=== PATIENT | male | born 1930 | race Caucasian/White ===

== ENCOUNTER → 2019-10-15 | Outpatient (CLI) | payer MEDICARE, OTHER ==
--- NOTE | 2019-10-15 11:51 | Diagnostic Imaging Report ---
INDICATION: Dysphagia. TECHNIQUE: This study was performed in conjunction with speech pathology. Video fluoroscopy was performed during swallowing of barium of multiple consistencies. The patient ingested thin, nectar, puree, mechanical soft as well as ground meat and cracker consistency. Total of 1 minute and 34 seconds of fluoroscopic time was utilized. FINDINGS: Oral phase is grossly unremarkable. There was flash penetration observed during the swallowing of thin barium. No aspiration was observed. There is normal epiglottic tilt and laryngeal elevation. There is mild residue identified with puree consistency. This did clear after repeated swallows. IMPRESSION: Flash penetration with thin barium but no aspiration. There is mild vallecular residue with puree. This did clear after repeated swallows. Dictated by: Dictated on workstation # [id number]
== END ==
LOC: RAD 10-11 10:25
PROVIDERS: ATTEND Surgery
DX: R13.10 Dysphagia, unspecified (principal)
CPT/HCPCS: 74230

== ENCOUNTER → 2020-02-21 | Outpatient (CLI) | payer MEDICARE, OTHER ==
--- NOTE | 2020-02-21 10:20 | Diagnostic Imaging Report ---
INDICATION: Left hand swelling. TIME OF EXAM: 10:07 AM. FINDINGS: Three views of the left hand were obtained. There is soft tissue swelling along the dorsum of the hand. There is some swelling in the proximal aspect of the 4th finger. The distal radius and ulna appear to be intact. The carpus is intact. There are some degenerative changes at the 1st CMC joint with subchondral cyst formation of the proximal 1st metacarpal. The phalanges appear to be intact. No fractures are seen. IMPRESSION: Degenerative changes and soft tissue swelling. No acute bony abnormality is detected. Dictated by: Dictated on workstation # [id number]
== END ==
LOC: RAD FS 09:57
PROVIDERS: ATTEND Family Medicine
DX: M18.12 Unilateral primary osteoarthritis of first carpometacarpal joint, left hand (principal)
CPT/HCPCS: 73130

== ENCOUNTER 2020-06-08 15:16 | Emergency (ER) | payer MEDICARE, OTHER ==
[~2020-06-08] VITALS: Ht 175.3 cm; Wt 110.0 kg
[2020-06-08 16:26] LABS: HEMATOCRIT 39 % (40-54); HEMOGLOBIN 12.6 G/DL (13.3-17.7); MEAN CORPUSCULAR HEMOGLOBIN 29 PG (25-34); MEAN CORPUSCULAR HGB CONC 32 G/DL (32-36); MEAN CORPUSCULAR VOLUME 91 FL (80-99); MEAN PLATELET VOLUME 10.7 FL (7.4-10.4); PLATELET COUNT 208 10^3/uL (130-400); RED CELL DISTRIBUTION WIDTH 13.7 % (10.0-14.5); WHITE BLOOD COUNT 9.1 10^3/uL (4.3-11.0)
[2020-06-08 16:27] LABS: LYMPHOCYTES % (AUTO) 9 % (12-44); MONOCYTES % (AUTO) 7 % (0-12)
[2020-06-08 16:28] LABS: BASOPHILS % (AUTO) 0 % (0-10); EOSINOPHILS % (AUTO) 0 % (0-10)
[2020-06-08 16:29] LABS: BASOPHILS # (AUTO) 0.1 10^3/uL (0.0-0.1); EOSINOPHILS # (AUTO) 0.1 10^3/uL (0.0-0.3); LYMPHOCYTES # (AUTO) 0.8 X 10^3 (1.0-4.0); MONOCYTES # (AUTO) 0.6 X 10^3 (0.0-1.0); NEUTROPHILS # (AUTO) 7.5 X 10^3 (1.8-7.8); NEUTROPHILS % (AUTO) 84 % (42-75)
--- NOTE | 2020-06-08 16:42 | Diagnostic Imaging Report ---
EXAMINATION: CT head without contrast. TECHNIQUE: Multiple contiguous axial images were obtained through the brain without the use of intravenous contrast. All CT scans use one or more of the following dose optimizing techniques: automated exposure control, MA and/or KvP adjustment based on a patient size and exam type, or iterative reconstruction. HISTORY: Altered mental status. Fever. COMPARISON: None available. FINDINGS: No large acute territorial ischemia, mass, or hemorrhage. No midline shift or mass effect. Decreased attenuation is seen in the periventricular and subcortical white matter. The ventricles and cortical sulci are prominent. The basilar cisterns are patent and unremarkable. The orbits are normal. Paranasal sinuses are normal. Mastoid air cells are clear. No soft tissue abnormality is seen. No osseous lesions or fractures are seen. IMPRESSION: 1. No large acute territorial ischemia, mass, or hemorrhage. 2. Chronic microvascular disease. 3. Generalized parenchymal volume loss. Dictated by: Dictated on workstation # [id number]
--- NOTE | 2020-06-08 16:44 | Diagnostic Imaging Report ---
EXAMINATION: Chest 1 view. HISTORY: Shortness of breath. Fever. Cough. COMPARISON: None available. FINDINGS: Small amount of opacities are seen in the left lung base. No large pleural effusion or pneumothorax is seen. The cardiomediastinal silhouette is normal in size and contour. There is calcified aortic atherosclerotic plaque. No acute osseous abnormality is seen. IMPRESSION: Small amount of atelectasis in the left lung base. No pleural effusion. Dictated by: Dictated on workstation # [id number]
[2020-06-08 16:45] LABS: BUN/CREATININE RATIO 21; CARBON DIOXIDE 28 MMOL/L (21-32); CHLORIDE 93 MMOL/L (98-107); CREATININE SERUM 0.95 MG/DL (0.60-1.30); GFR ESTIMATED > 60; POTASSIUM 4.3 MMOL/L (3.6-5.0); SODIUM 133 MMOL/L (135-145)
[2020-06-08 16:46] LABS: ALANINE AMINOTRANSFERASE 33 U/L (0-55); ALBUMIN 3.8 GM/DL (3.2-4.5); ALKALINE PHOSPHATASE 113 U/L (40-136); BILIRUBIN,TOTAL 0.3 MG/DL (0.1-1.0); CALCIUM 9.2 MG/DL (8.5-10.1); GLUCOSE 222 MG/DL (70-105); MAGNESIUM 1.5 MG/DL (1.6-2.4); TOTAL PROTEIN 6.9 GM/DL (6.4-8.2)
--- OUTSIDE RECORDS SUMMARY | 2020-06-08 16:54 | XMS REPORT ---
Author Author Christopher HEARD Organization [facility] JESSICA VUONG [facility] Address [address] [place] [address] Care Team Providers Care Woven Label Designer Name Role Phone AIDA HEARD Unavailable PROBLEMS Type Condition ICD9-CM Code [id number] Code Onset Dates Condition S tatus SNOMED Code Problem Hypertension I10 Nov, 0 3834 1003 Problem Bladder cancer 188.9 Nov, 0 39 [id number] Problem Fall (on) (from) other stairs and steps, sequela W10.8XXS Jul, 0 Problem Fall (on) (from) other stairs and steps, sequela E880.9 Jul, 0 [id number] Problem Posterolateral cervical muscle strain 847.0 Jul, 0 [id number] Problem Posterolateral cervical muscle strain S16.1XXA Jul, 0 [id number] Problem Benign essential hypertension I10 Active 9447085 Problem Hypertension 401.9 Nov, 0 3834 1003 Problem Type 2 diabetes mellitus wit hout complication, without long-term current use of insulin E11.9 Active [id number] Problem Diabetes mellitus type II, uncontrolled 250.02 Dec, 0 349566684 Problem Severe obesity (BMI 35.0-39.9) with comorbidity 278.01 Sep, 0 769319673 Problem Severe obesity (BMI 35.0-39.9) with comorbidity E6 6.01 Sep, 0 435738210 Problem Bladder cancer C67.9 Nov, 0 39 2433300 Problem Diabetes mellitus type II, uncontrolled E11.65 Dec, 0 [id number] ALLERGIES No Known Allergies ENCOUNTERS Encounter [facility] Date [facility] [address] [place] [address] Dec, BP check Z01.30 [facility] [address] [place] [address] Dec, Type 2 diabetes mellitus without complic ation, without long-term current use of insulin E11.9 and Malaise R53.[address] [address] Dec, Benign essential hypertension I10 ; Type 2 diabetes mellitus without complication, without long-term current use of insulin E11.9 and Malaise R53.81 [facility] [address] [facility] [id number] [address] [place] [phone] Oct, [facility] [address] [facility] [id number] [address] [place] [phone] Sep, [facility] [address] [facility] [id number] [address] [place] [id number] Sep, [facility] [address] [facility] [id number] [address] [place] [phone] Jul, [facility] [address] [facility] [id number] [address] [place] [phone] Jun, IMMUNIZATIONS No Known Immunizations SOCIAL HISTORY Never Assessed REASON FOR VISIT NO ENERGY and HARD TIME BREATHING for about 4 weeks now. CORWIN Rhodes PLAN OF CARE Activity Details Follow Up 3 Months Reason:fu with labs prior VITAL SIGNS Height 70 in 2018-12-28 Weight 257 lbs 2018-12-28 Temperature 98.6 degrees Fahrenheit 2018-12-28 Heart Rate 69 bpm 2018-12-28 Respiratory Rate 24 2018-12-28 Oximetry 96 % 2018-12-28 BMI 36.87 kg/m2 2018-12-28 Blood pressure systolic 124 mmHg 2018-12-28 Blood pressure diastolic 68 mmHg 2018-12-28 MEDICATIONS Medication Instructions Dosage Frequency Start Date End Date Duration S tatus Cardizem 120 MG Orally Once a day 1 capsule 24h Active Metformin HCl 500 MG Orally 2 times a day 1 tablet 12h Active Flomax 0.4 MG Orally Once a day 1 tablet 24h Active RESULTS No Results PROCEDURES No Known procedures INSTRUCTIONS MEDICATIONS ADMINISTERED No Known Medications MEDICAL (GENERAL) HISTORY Type Description Date Medical History type II diabetes Medical History hypertension Surgical History tonsillectomy and adenoidectomy
--- OUTSIDE RECORDS SUMMARY | 2020-06-08 16:54 | XMS REPORT | Continuity of Care Document ---
Author Organization Unknown Address Unknown Phone Unavailable Allergies There is no data. Medications There is no data. Problems Date Dx Coded Attending Type Code Diagnosis Diagnosed By 10/18/2019 GUTIERREZ DO, TO D Ot R13. 10 DYSPHAGIA, UNSPECIFIED 11/03/2019 GUTIERREZ DO, TO D Ot R13. 10 DYSPHAGIA, UNSPECIFIED 11/05/2019 GUTIERREZ DO, TO D Ot R13. 10 DYSPHAGIA, UNSPECIFIED 11/05/2019 GUTIERREZ DO, TO D Ot R13. 10 DYSPHAGIA, UNSPECIFIED 11/09/2019 GUTIERREZ DO, TO D Ot R13. 10 DYSPHAGIA, UNSPECIFIED 02/21/2020 GUTIERREZ DO, TO D Ot R13. 10 DYSPHAGIA, UNSPECIFIED 02/21/2020 GUTIERREZ DO, TO D Ot R13. 10 DYSPHAGIA, UNSPECIFIED 02/21/2020 GUTIERREZ DO, TO D Ot R13. 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 Results Test Result Range TSH - 12/29/18 14:41 TSH 2.41 mIU/L 0.40-4.50 A1C - 12/29/18 14:41 HEMOGLOBIN A1c 7.7 % of total Hgb <5.7 CBC - 03/15/19 12:35 WHITE BLOOD CELL COUNT 7.5 Thousand/uL 3 .8-10.8 RED BLOOD CELL COUNT 4.73 Million/uL 4.2 0-5.80 HEMOGLOBIN 13.6 g/dL 13.2-17.1 HEMATOCRIT 41.4 % 38.5-50.0 MCV 87.5 fL 80.0-100.0 MCH 28.8 pg 27.0-33.0 MCHC 32.9 g/dL 32.0-36.0 RDW 12.7 % 11.0-15.0 PLATELET COUNT 264 Thousand/uL 140-400 MPV 11.6 fL 7.5-12.5 ABSOLUTE NEUTROPHILS 5475 cells/uL 1500- 7800 ABSOLUTE LYMPHOCYTES 1148 cells/uL 850-3 900 ABSOLUTE MONOCYTES 743 cells/uL 200-950 ABSOLUTE EOSINOPHILS 98 cells/uL 15-500 ABSOLUTE BASOPHILS 38 cells/uL 0-200 NEUTROPHILS 73 % NRG LYMPHOCYTES 15.3 % NRG MONOCYTES 9.9 % NRG EOSINOPHILS 1.3 % NRG BASOPHILS 0.5 % NRG TSH - 03/15/19 12:35 TSH 2.52 mIU/L 0.40-4.50 LIPID PANEL - 10/06/19 09:48 CHOLESTEROL, TOTAL 169 mg/dL <200 HDL CHOLESTEROL 40 mg/dL >40 TRIGLYCERIDES 104 mg/dL <150 LDL-CHOLESTEROL 109 mg/dL (calc) NRG CHOL/HDLC RATIO 4.2 (calc) <5.0 NON HDL CHOLESTEROL 129 mg/dL (calc) <13 0 MICROALBUMIN/CREATININE RATIO, URINE - 1 12/07/18 09:48 CREATININE, RANDOM URINE 185 mg/dL 20-32 0 MICROALBUMIN 5.2 mg/dL See Note: MICROALBUMIN/CREATININE RATIO, RANDOM URINE 28 mcg /mg creat <30 CMP - 10/06/19 09:48 GLUCOSE 150 mg/dL 65-99 UREA NITROGEN (BUN) 18 mg/dL 7-25 CREATININE 0.96 mg/dL 0.70-1.11 eGFR NON-AFR. SWISS 71 mL/min/1.73m2 > OR = 60 eGFR 82 mL/min/1.73m2 > OR = 60 BUN/CREATININE RATIO NOT APPLICABLE (calc) 6-22 SODIUM 138 mmol/L 135-146 POTASSIUM 4.3 mmol/L 3.5-5.3 CHLORIDE 97 mmol/L 98-110 CARBON DIOXIDE 34 mmol/L 20-32 CALCIUM 9.0 mg/dL 8.6-10.3 PROTEIN, TOTAL 6.1 g/dL 6.1-8.1 ALBUMIN 3.7 g/dL 3.6-5.1 GLOBULIN 2.4 g/dL (calc) 1.9-3.7 ALBUMIN/GLOBULIN RATIO 1.5 (calc) 1.0-2. 5 BILIRUBIN, TOTAL 0.4 mg/dL 0.2-1.2 ALKALINE PHOSPHATASE 87 U/L 40-115 AST 15 U/L 10-35 ALT 24 U/L 9-46 CBC - 10/06/19 09:48 WHITE BLOOD CELL COUNT 6.6 Thousand/uL 3 .8-10.8 RED BLOOD CELL COUNT 4.52 Million/uL 4.2 0-5.80 HEMOGLOBIN 13.3 g/dL 13.2-17.1 HEMATOCRIT 41.3 % 38.5-50.0 MCV 91.4 fL 80.0-100.0 MCH 29.4 pg 27.0-33.0 MCHC 32.2 g/dL 32.0-36.0 RDW 12.5 % 11.0-15.0 PLATELET COUNT 214 Thousand/uL 140-400 MPV 11.9 fL 7.5-12.5 ABSOLUTE NEUTROPHILS 4554 cells/uL 1500- 7800 ABSOLUTE LYMPHOCYTES 1327 cells/uL 850-3 900 ABSOLUTE MONOCYTES 548 cells/uL 200-950 ABSOLUTE EOSINOPHILS 119 cells/uL 15-500 ABSOLUTE BASOPHILS 53 cells/uL 0-200 NEUTROPHILS 69 % NRG LYMPHOCYTES 20.1 % NRG MONOCYTES 8.3 % NRG EOSINOPHILS 1.8 % NRG BASOPHILS 0.8 % NRG A1C - 10/06/19 09:48 HEMOGLOBIN A1c 8.3 % of total Hgb <5.7 LIPID PANEL - 05/18/20 10:03 CHOLESTEROL, TOTAL 182 mg/dL <200 HDL CHOLESTEROL 52 mg/dL > OR = 40 TRIGLYCERIDES 118 mg/dL <150 LDL-CHOLESTEROL 107 mg/dL (calc) NRG CHOL/HDLC RATIO 3.5 (calc) <5.0 NON HDL CHOLESTEROL 130 mg/dL (calc) <13 0 MICROALBUMIN/CREATININE RATIO, URINE - 0 05/18/20 10:03 CREATININE, RANDOM URINE 22 mg/dL 20-32 0 MICROALBUMIN 0.5 mg/dL See Note: MICROALBUMIN/CREATININE RATIO, RANDOM URINE 23 mcg /mg creat <30 CMP - 05/18/20 10:03 GLUCOSE 240 mg/dL 65-99 UREA NITROGEN (BUN) 29 mg/dL 7-25 CREATININE 0.98 mg/dL 0.70-1.11 eGFR NON-AFR. SWISS 69 mL/min/1.73m2 > OR = 60 eGFR 80 mL/min/1.73m2 > OR = 60 BUN/CREATININE RATIO 30 (calc) 6-22 SODIUM 138 mmol/L 135-146 POTASSIUM 4.4 mmol/L 3.5-5.3 CHLORIDE 95 mmol/L 98-110 CARBON DIOXIDE 29 mmol/L 20-32 CALCIUM 9.8 mg/dL 8.6-10.3 PROTEIN, TOTAL 6.7 g/dL 6.1-8.1 ALBUMIN 4.0 g/dL 3.6-5.1 GLOBULIN 2.7 g/dL (calc) 1.9-3.7 ALBUMIN/GLOBULIN RATIO 1.5 (calc) 1.0-2. 5 BILIRUBIN, TOTAL 0.5 mg/dL 0.2-1.2 ALKALINE PHOSPHATASE 105 U/L 35-144 AST 12 U/L 10-35 ALT 20 U/L 9-46 CBC - 05/18/20 10:03 WHITE BLOOD CELL COUNT 8.3 Thousand/uL 3 .8-10.8 RED BLOOD CELL COUNT 5.00 Million/uL 4.2 0-5.80 HEMOGLOBIN 14.5 g/dL 13.2-17.1 HEMATOCRIT 45.8 % 38.5-50.0 MCV 91.6 fL 80.0-100.0 MCH 29.0 pg 27.0-33.0 MCHC 31.7 g/dL 32.0-36.0 RDW 12.9 % 11.0-15.0 PLATELET COUNT 233 Thousand/uL 140-400 MPV 11.6 fL 7.5-12.5 ABSOLUTE NEUTROPHILS 5852 cells/uL 1500- 7800 ABSOLUTE LYMPHOCYTES 1619 cells/uL 850-3 900 ABSOLUTE MONOCYTES 672 cells/uL 200-950 ABSOLUTE EOSINOPHILS 108 cells/uL 15-500 ABSOLUTE BASOPHILS 50 cells/uL 0-200 NEUTROPHILS 70.5 % NRG LYMPHOCYTES 19.5 % NRG MONOCYTES 8.1 % NRG EOSINOPHILS 1.3 % NRG BASOPHILS 0.6 % NRG A1C - 05/18/20 10:03 HEMOGLOBIN A1c 10.4 % of total Hgb <5.7 SPECIMEN INTEGRITY COMPROMISED - 0 10:03 SPECIMEN INTEGRITY COMPROMISED NRG Complete blood count (CBC) with automate d white blood cell (WBC) differential - 06/08/20 15:55 Blood leukocytes automated count (number/volume) 9.1 10*3/uL 4.3-11.0 Blood erythrocytes automated count (number/volume) 4.32 10*6/uL 4.35-5.85 Venous blood hemoglobin measurement (mass/volume) 12.6 g/dL 13.3-17.7 Blood hematocrit (volume fraction) 39 % 40-54 Automated erythrocyte mean corpuscular volume 91 [ foz_us] 80-99 Automated erythrocyte mean corpuscular h emoglobin (mass per erythrocyte) 29 pg 25-34 Automated erythrocyte mean corpuscular h emoglobin concentration measurement (mass/volume) 32 g/dL 32-36 Automated erythrocyte distribution width ratio 13. 7 % 10.0- 14.5 Automated blood platelet count (count/volume) 208 10*3/uL 130-400 Automated blood platelet mean volume measurement 10.7 [foz_us] 7.4-10.4 Automated blood neutrophils/100 leukocytes 84 % 42-75 Automated blood lymphocytes/100 leukocytes 9 % 12-44 Blood monocytes/100 leukocytes 7 % 0-12 Automated blood eosinophils/100 leukocytes 0 % 0-10 Automated blood basophils/100 leukocytes 0 % 0-10 Blood neutrophils automated count (number/volume) 7.5 10*3 1.8-7.8 Blood lymphocytes automated count (number/volume) 0.8 10*3 1.0-4.0 Blood monocytes automated count (number/volume) 0. 6 10*3 0.0-1.0 Automated eosinophil count 0.1 10*3/uL 0 .0-0.3 Automated blood basophil count (count/volume) 0.1 10*3/uL 0.0-0.1 Blood lactic acid measurement (moles/vol ume) - 06/08/20 15:55 Blood lactic acid measurement (moles/volume) 3.34 mmol/L 0.50-2.00 Comprehensive metabolic panel - 06/08/20 15:55 Serum or plasma sodium measurement (moles/volume) 133 mmol/L 135-145 Serum or plasma potassium measurement (moles/volume) 4.3 mmol/L 3.6-5.0 Serum or plasma chloride measurement (moles/volume) 93 mmol/L 98-107 Carbon dioxide 28 mmol/L 21-32 Serum or plasma anion gap determination (moles/volume) 12 mmol/L 5-14 Serum or plasma urea nitrogen measurement (mass/volume ) 20 mg/dL 7-18 Serum or plasma creatinine measurement (mass/volume) 0.95 mg/dL 0.60-1.30 Serum or plasma urea nitrogen/creatinine mass ratio 21 NRG Serum or plasma creatinine measurement w ith calculation of estimated glomerular filtration rate > NRG Serum or plasma glucose measurement (mass/volume) 222 mg/dL 70-105 Serum or plasma calcium measurement (mass/volume) 9.2 mg/dL 8.5-10.1 Serum or plasma total bilirubin measurement (mass/volu me) 0.3 mg/dL 0.1-1.0 Serum or plasma alkaline phosphatase abdirashid surement (enzymatic activity/volume) 113 U/L 40-136 Serum or plasma aspartate aminotransfera se measurement (enzymatic activity/volume) 30 U/L 5-34 Serum or plasma alanine aminotransferase measurement (enzymatic activity/volume) 33 U/L 0-55 Serum or plasma protein measurement (mass/volume) 6.9 g/dL 6.4-8.2 Serum or plasma albumin measurement (mass/volume) 3.8 g/dL 3.2-4.5 CALCIUM CORRECTED 9.4 mg/dL 8.5-10.1 Magnesium - 06/08/20 15:55 Magnesium 1.5 mg/dL 1.6-2.4 TROPONIN I FS - 06/08/20 15:55 TROPONIN I FS < 0.30 <0.30 CRP FS - 06/08/20 15:55 CRP FS 2.68 mg/dL <0.50 PROBNP FS - 06/08/20 15:55 PROBNP FS 580.8 pg/mL <75.0 Encounters ACCT No. Visit Date/Time Discharge Status Pt. Type Provider Facility Loc./Unit Complaint [id number] 05/30/2020 10:30:00 05/30/2020 23:59:5 9 CLS Outpatient AIDA HEARD [facility] [id number] 05/18/2020 09:15:00 Document Registration [id number] 10/06/2019 09:00:00 Document Registration [id number] 03/15/2019 15:30:00 Document Registration [id number] 12/29/2018 14:00:00 Document Registration [id number] 02/21/2020 09:57:00 020 23:59:59 CLS Outpatient AIDA HEARD MD [facility] RAD FS M79.89 [id number] 10/15/2019 11:03:00 019 23:59:59 CLS Outpatient TO GUTIERREZ DO [facility] RAD DYSPHAGIA [id number] 06/08/2020 16:29:00 Document Registration
--- OUTSIDE RECORDS SUMMARY | 2020-06-08 16:54 | XMS REPORT ---
Author Author Christopher SANTANA [facility] Address [address] [place] [address] Care Team Providers Care Road Mixer Operator Name Role Phone TORI SANTANA Unavailable PROBLEMS Unknown Problems ALLERGIES No Information ENCOUNTERS Encounter Location Date Diagnosis [facility] [address] [facility] [id number] [address] [place] [address] Jun, IMMUNIZATIONS No Known Immunizations SOCIAL HISTORY Never Assessed REASON FOR VISIT Eye exam PLAN OF CARE VITAL SIGNS MEDICATIONS Unknown Medications RESULTS No Results PROCEDURES No Known procedures INSTRUCTIONS MEDICATIONS ADMINISTERED No Known Medications
[2020-06-08] MEDS ORDERED: NS IV 1000 ML 1,000 ML IV STA ×2 (17:14→18:46)
--- NOTE | 2020-06-08 17:28 | ED General ---
General Chief Complaint: Respiratory Problems Stated Complaint: PNEUMONIA,FATIGUE Nursing Triage Note: Patient's reports patient has had a cough and shortness of breath for several days. States she took patient to walk in care today and they diagnosed him with pneumonia and told her to take him to the ER. Nursing Sepsis Screen: Possible Severe Sepsis Risk Source of Information: Patient, Family History of Present Illness Date Seen by Provider: Jun 08, 2020 Time Seen by Provider: 15:21 Initial Comments 89-year-old male presenting with his to the emergency department by private vehicle. He has been having some cough and shortness of breath for the last several days. He has a low-grade fever today as well. He was seen and walk in clinic today and was told that he likely has pneumonia and was sent to the em ergency department. He has been more fatigued and slightly confused today. He is coughing but not usually coughing anything up. He has some generalized weakness as well. He has not been wanting to eat and drink as much as usual. He has no recent travel and no known exposure to anyone with Covid-19. Allergies and Home Medications Allergies Coded Allergies: No Known Drug Allergies (Unverified , 06/08/20) Patient Home Medication List Home Medication List Reviewed: Yes Review of Systems Review of Systems Constitutional: chills, fever, malaise, weakness (general) EENTM: hoarseness, nose congestion; No epistaxis Respiratory: cough, dyspnea on exertion; No hemoptysis; phlegm, short of breath; No stridor Cardiovascular: No chest pain Gastrointestinal: No nausea, No vomiting Genitourinary: decreased output Musculoskeletal: muscle weakness (general) Skin: No rash Psychiatric/Neurological: Weakness (general) Past Rlkkblb-Tyxgzk-Rilglk Hx Past Med/Social Hx: Reviewed Nursing Past Med/Soc Hx, Reviewed and Corrections made Patient Social History Alcohol Use: Denies Use Recreational Drug Use: No Smoking Status: Unknown if Ever Smoked 2nd Hand Smoke Exposure: No Recent Foreign Travel: No Contact w/Someone Who Travel: No Recent Infectious Disease Expo: No Recent Hopitalizations: No Physical Abuse: No Sexual Abuse: No Mistreated: No Fear: No Seasonal Allergies Seasonal Allergies: No Past Medical History Surgeries: No Respiratory: No Cardiac: Yes Hypertension Neurological: No Genitourinary: No Gastrointestinal: No Musculoskeletal: No Endocrine: Yes Diabetes, Non-Insulin dep HEENT: No Cancer: Yes Bladder Psychosocial: No Integumentary: No Blood Disorders: No Physical Exam Vital Signs Vital Signs - First Documented 06/08/20 06/08/20 15:38 15:40 Temp 38.4 Pulse 108 Resp 36 B/P (MAP) 145/73 (97) Pulse Ox 92 O2 Delivery Room Air O2 Flow Rate 2.00 Capillary Refill : Less Than 3 Seconds Height, Weight, BMI Height: '" Weight: lbs. oz. kg; 35.00 BMI Method: General Appearance: WD/WN HEENT: PERRL/EOMI, Other (slightly dry mucous membranes) Neck: Non Tender, Supple Respiratory: Chest Non Tender, Accessory Muscle Use, Crackles (bases), Decreased Breath Sounds, Other (tachypnea with poor inspiratory effort and poor air movement) Cardiovascular: Normal Peripheral Pulses, Tachycardia Gastrointestinal: No Pulsatile Mass, Non Tender, Soft, Abnormal Bowel Sounds (hypoactive) Rectal: Deferred Extremity: Normal Range of Motion, Non Tender, No Calf Tenderness, Pedal Edema (1+ BLE) Neurologic/Psychiatric: Alert; No Oriented x3 (oriented to self only); 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 as Tested Skin: Normal Color, Warm/Dry Focused Exam Lactate Level 06/08/20 15:55: Lactic Acid Level 3.34*H 06/08/20 17:50: Lactic Acid Level 2.87*H Lactic Acid Level Laboratory Tests Test 06/08/20 17:50 Lactic Acid Level 2.87 MMOL/L (0.50-2.00) *H Progress/Results/Core Measures Suspected Sepsis Recent Fever Within 48 Hours: Yes Infection Criteria Present: Suspected New Infection New/Unexplained Altered Menta: No Sepsis Screen: Possible Severe Sepsis Risk SIRS Temperature: Pulse: 108 Respiratory Rate: 36 Laboratory Tests 06/08/20 15:55: White Blood Count 9.1 Blood Pressure 145 /73 Mean: 97 06/08/20 15:55: Lactic Acid Level 3.34*H 06/08/20 17:50: Lactic Acid Level 2.87*H Laboratory Tests 06/08/20 15:55: Creatinine 0.95, Platelet Count 208, Total Bilirubin 0.3 Results/Orders Lab Results Laboratory Tests Test 06/08/20 15:55 06/08/20 17:50 06/08/20 18:15 Range/Units White Blood Count 9.1 4.3-11.0 10^3/uL Red Blood Count 4.32 L 4.35-5.85 10^6/uL Hemoglobin 12.6 L 13.3-17.7 G/DL Hematocrit 39 L 40-54 % Mean Corpuscular Volume 91 80-99 FL Mean Corpuscular Hemoglobin 29 25-34 PG Mean Corpuscular Hemoglobin Concent 32 32-36 G/DL Red Cell Distribution Width 13.7 10.0-14.5 % Platelet Count 208 130-400 10^3/uL Mean Platelet Volume 10.7 H 7.4-10.4 FL Neutrophils (%) (Auto) 84 H 42-75 % Lymphocytes (%) (Auto) 9 L 12-44 % Monocytes (%) (Auto) 7 0-12 % Eosinophils (%) (Auto) 0 0-10 % Basophils (%) (Auto) 0 0-10 % Neutrophils # (Auto) 7.5 1.8-7.8 X 10^3 Lymphocytes # (Auto) 0.8 L 1.0-4.0 X 10^3 Monocytes # (Auto) 0.6 0.0-1.0 X 10^3 Eosinophils # (Auto) 0.1 0.0-0.3 10^3/uL Basophils # (Auto) 0.1 0.0-0.1 10^3/uL Sodium Level 133 L 135-145 MMOL/L Potassium Level 4.3 3.6-5.0 MMOL/L Chloride Level 93 L 98-107 MMOL/L Carbon Dioxide Level 28 21-32 MMOL/L Anion Gap 12 5-14 MMOL/L Blood Urea Nitrogen 20 H 7-18 MG/DL Creatinine 0.95 0.60-1.30 MG/DL Estimat Glomerular Filtration Rate > 60 BUN/Creatinine Ratio 21 Glucose Level 222 H 70-105 MG/DL Lactic Acid Level 3.34 *H 2.87 *H 0.50-2.00 MMOL/L Calcium Level 9.2 8.5-10.1 MG/DL Corrected Calcium 9.4 8.5-10.1 MG/DL Magnesium Level 1.5 L 1.6-2.4 MG/DL Total Bilirubin 0.3 0.1-1.0 MG/DL Aspartate Amino Transf (AST/SGOT) 30 5-34 U/L Alanine Aminotransferase (ALT/SGPT) 33 0-55 U/L Alkaline Phosphatase 113 40-136 U/L Troponin I < 0.30 <0.30 NG/ML C-Reactive Protein 2.68 H <0.50 MG/DL Pro-B-Type Natriuretic Peptide 580.8 H <75.0 PG/ML Total Protein 6.9 6.4-8.2 GM/DL Albumin 3.8 3.2-4.5 GM/DL Urine Color PALE YELLOW Urine Clarity CLEAR Urine pH 6.0 5-9 Urine Specific [place] 1.010 L 1.016-1.022 Urine Protein NEGATIVE NEGATIVE Urine Glucose (UA) TRACE H NEGATIVE Urine Ketones NEGATIVE NEGATIVE Urine Nitrite NEGATIVE NEGATIVE Urine Bilirubin NEGATIVE NEGATIVE Urine Urobilinogen 0.2 < = 1.0 MG/DL Urine Leukocyte Esterase NEGATIVE NEGATIVE Urine RBC (Auto) NEGATIVE NEGATIVE Urine RBC NONE /HPF Urine WBC 0-2 /HPF Urine Squamous Epithelial Cells NONE /HPF Urine Crystals NONE /LPF Urine Bacteria NEGATIVE /HPF Urine Casts NONE /LPF Urine Mucus NEGATIVE /LPF Urine Culture Indicated NO My Orders Orders - JAYNA DOLL MD Cbc With Automated Diff (06/08/20 15:57) Comprehensive Metabolic Panel (06/08/20 15:57) Blood Culture (06/08/20 15:57) Chest 1 View Ap/Pa Only (06/08/20 15:57) Magnesium (06/08/20 15:57) Ekg Tracing (06/08/20 15:57) O2 (06/08/20 15:57) Ed Iv/Invasive Line Start (06/08/20 15:57) Sputum Culture (06/08/20 15:57) Monitor-Rhythm Ecg Trace Only (06/08/20 15:57) Crp Fs (06/08/20 15:57) Lactic Acid Analyzer (06/08/20 15:57) Ct Head Wo (06/08/20 15:57) Oxygen-Administer DAILY (06/08/20 15:57) Troponin I Fs (06/08/20 16:05) Probnp Fs (06/08/20 16:05) Ns Iv 1000 Ml (Sodium Chloride 0.9%) (06/08/20 17:14) Ua Culture If Indicated (06/08/20 17:14) Ceftriaxone For Iv Use (Rocephin For I (06/08/20 17:30) Azithromycin Injection (Zithromax Inject (06/08/20 17:30) Ns Iv 1000 Ml (Sodium Chloride 0.9%) (06/08/20 18:46) Coronavirus Sars-Cov-2 So 2019 (06/08/20 19:23) Medications Given in ED Current Medications Medications Dose Ordered Sig/Inocencia Route Start Time Stop Time Status Last Admin Dose Admin Azithromycin 500 mg/Sodium Chloride 250 ml @ 250 mls/hr ONCE ONCE IV 06/08/20 17:30 06/08/20 18:29 DC 06/08/20 18:13 250 MLS/HR Ceftriaxone Sodium 1000 mg/ Sterile Water 10 ml @ 200 mls/hr ONCE ONCE IV 06/08/20 17:30 06/08/20 17:32 DC 06/08/20 18:13 200 MLS/HR Vital Signs/I&O 06/08/20 06/08/20 06/08/20 06/08/20 15:38 15:40 18:58 20:32 Temp 38.4 37.2 Pulse 108 90 Resp 36 24 B/P (MAP) 145/73 (97) 171/75 Pulse Ox 92 96 95 O2 Delivery Room Air Nasal Cannula Nasal Cannula O2 Flow Rate 2.00 2.00 Capillary Refill : Less Than 3 Seconds Blood Pressure Mean: 97 Progress Note #1: Progress Note check labs, blood cultures with lactic acid, CXR, ECG, with his decreased mental status will check CT head. Give IVF for hydration, supplemental oxygen for his tachypnea and hypoxia. Covid swab as he is possible Covid patient. Progress Note #2: Time: 17:29 Progress Note Lab shows he has elevated Lactic acid as well as atelectasis vs developing infiltrate in left lung base. Based on his clinical exam of fever, hypoxia, mental status change and developing change on CXR will treat for presumed pneumonia and consider him a Covid patient until proven negative. D/w Dr. Valdivia senior production supervisor for [facility] about admit to [facility] in [place] and she accepted him for admit to ICU. Progress Note #3: Time: 18:47 Progress Note Call placed to [facility] transfer center as the family of the patient requests he go there instead of going to [facility]. [address] Dr. Ackerman is the accepting hospitalist for the pt to come to [facility] as a Sepsis, Pneumonia patient with possible Covid. ECG Initial ECG Impression Date: Jun 08, 2020 Initial ECG Impression Time: 16:12 Initial ECG Rate: 105 Initial ECG Comparisson: No Previous ECG Available Comment Sinus tachycardia with a heart rate of 105 bpm. Right bundle-branch block. DC interval 145 ms. QT interval 394 ms with a QTc interval [address] elevation. No prior tracing immediately available for comparison. Diagnostic Imaging Diagonstic Imaging: Xray Plain Films/CT/US/NM/MRI: chest Comments [facility] [place] NAME: WILMER JIMENEZ [facility] REC#: [id number] PT STATUS: REG ER : 1930 PHYSICIAN: JAYNA DOLL MD ADMIT DATE: 06/08/20/ER FS Signed Date of Exam:06/08/20 CHEST 1 VIEW AP/PA ONLY EXAMINATION: Chest 1 view. HISTORY: Shortness of breath. Fever. Cough. COMPARISON: None available. FINDINGS: Small amount of opacities are seen in the left lung base. No large pleural effusion or pneumothorax is seen. The cardiomediastinal silhouette is normal in size and contour. There is calcified aortic atherosclerotic plaque. No acute osseous abnormality is seen. IMPRESSION: Small amount of atelectasis in the left lung base. No pleural effusion. Dictated by: Dictated on workstation # [id number] Dict: 06/08/20 1640 Trans: 06/08/20 1647 [facility] [id number] Interpreted by: NIKITA HUNTER DO Electronically signed by: NIKITA HUNTER DO 06/08/20 1647 Diagonstic Imaging: CT Plain Films/CT/US/NM/MRI: head Comments [facility] [place] [place] NAME: WILMER JIMENEZ [facility] REC#: [id number] PT STATUS: REG ER : 1932 PHYSICIAN: JAYNA DOLL MD ADMIT DATE: 06/08/20/ER FS Signed Date of Exam:06/08/20 CT HEAD WO EXAMINATION: CT head without contrast. TECHNIQUE: Multiple contiguous axial images were obtained through the brain without the use of intravenous contrast. All CT scans use one or more of the following dose optimizing techniques: automated exposure control, MA and/or KvP adjustment based on a patient size and exam type, or iterative reconstruction. HISTORY: Altered mental status. Fever. COMPARISON: None available. FINDINGS: No large acute territorial ischemia, mass, or hemorrhage. No midline shift or mass effect. Decreased attenuation is seen in the periventricular and subcortical white matter. The ventricles and cortical sulci are prominent. The basilar cisterns are patent and unremarkable. The orbits are normal. Paranasal sinuses are normal. Mastoid air cells are clear. No soft tissue abnormality is seen. No osseous lesions or fractures are seen. IMPRESSION: 1. No large acute territorial ischemia, mass, or hemorrhage. 2. Chronic microvascular disease. 3. Generalized parenchymal volume loss. Dictated by: Dictated on workstation # [id number] Dict: 06/08/20 1639 Trans: 06/08/20 1647 [id number] Interpreted by: NIKITA HUNTER DO Electronically signed by: NIKITA HUNTER DO 06/08/20 1647 Critical Care Note Critical Care Total Time (minutes) 60 minutes Progress The total of 60 minutes time was spent in direct care of the patient. This time was spent obtaining history from the patient as well as his medical records and family, ordering labs and reviewing results, ordering interventions and monitor ing response, ordering imaging and reviewing results, discussion with consultants, reviewing testing with patient and family, documentation in the chart. Departure Impression Primary Impression: Sepsis Qualified Codes: A41.9 - Sepsis, unspecified organism Additional Impressions: Community acquired pneumonia Qualified Codes: J18.9 - Pneumonia, unspecified organism Hypoxia Disposition: XF [facility] Condition: Critical Transfer Transfer Reason: Patient preference Time Spoke to Accepting Phy: 19:39 Transfer Progress Notes After making arrangements to transfer the patient to [facility] in [place], the patient's family requested that he be transferred to [facility] instead. At 184 I contacted the [facility] transfer Center. I gave them the information about the patient and at 193 they called back with a bed assignment and hospitast, Dr. Ackerman. Transfer Facility: [facility] Method of Transfer: EMS Departure-Patient Inst. Referrals: AIDA HEARD MD (PCP/Family) Primary Care Physician JAYNA DOLL MD Jun 08, 2020 17:28
[2020-06-08] MEDS ORDERED: AZITHROMYCIN INJECTION 500 MG in NS (IVPB) 250 ML IV ONE (17:30)
[2020-06-08] MEDS ORDERED: cefTRIAXone FOR IV USE 1,000 MG in WATER (STERILE) FOR INJECTION 10 ML IV ONE (17:30)
[2020-06-08 18:40] LABS: BACTERIA,URINE NEGATIVE /HPF; BILIRUBIN,URINE NEGATIVE (NEGATIVE); CLARITY,URINE CLEAR; COLOR,URINE PALE YELLOW; GLUCOSE, URINE (UA) TRACE (NEGATIVE); KETONES,URINE NEGATIVE (NEGATIVE); LEUKOCYTE ESTERASE ,URINE NEGATIVE (NEGATIVE); NITRITE,URINE NEGATIVE (NEGATIVE); PROTEIN,URINE NEGATIVE (NEGATIVE); WBC,URINE 0-2 /HPF
[2020-06-08] MEDS ORDERED: TETANUS,DIPTH,PERTUSS P/F (BOOSTRIX) 0.5 ML VIAL IM ONE (18:45)
[2020-06-08 20:32] VITALS: BP 171/75
== END 2020-06-08 20:32 | disposition short-term general hospital (02) ==
LOC: EDUNIT# 15:16 → ER FS 15:17
DX: A41.9 Sepsis, unspecified organism (principal); J18.9 Pneumonia, unspecified organism; R09.02 Hypoxemia; I10 Essential (primary) hypertension; E11.9 Type 2 diabetes mellitus without complications; Z20.828 Contact with and (suspected) exposure to other viral communicable diseases
CPT/HCPCS: 36415; 51702; 70450; 71045; 80053; 81000; 83605; 83735; 83880; 84484; 85025; 86141; 87040; 93005; 93041; 99291; U0002; 87635

== ENCOUNTER 2020-11-14 15:36 | Emergency (ER) | payer MEDICARE, OTHER ==
--- NOTE | 2020-11-14 15:55 | ED General ---
General Stated Complaint: INGESTED TOXIC CLEANING SUBSTANCE Source of Information: Patient History of Present Illness Date Seen by Provider: Nov 14, 2020 Time Seen by Provider: 15:55 Initial Comments Patient presents via private vehicle, with his concerned that he had possibly eaten a toilet bowl drum cleaner wafer/ disc. Presents with a blue round substance without any bite or teeth cortes and completely intact, one side slightly wet. Patient without complaint, other than he is asking if we can give him a wheelchair and trade in his walker. Alert, no distress. Allergies and Home Medications Allergies Coded Allergies: No Known Drug Allergies (Unverified , 06/08/20) Patient Home Medication List Home Medication List Reviewed: Yes Review of Systems Review of Systems Constitutional: No chills, No fever, No malaise Respiratory: No cough, No short of breath Cardiovascular: No chest pain, No edema, No palpitations Gastrointestinal: No abdominal pain, No loss of appetite, No nausea, No vomiting Musculoskeletal: no symptoms reported Psychiatric/Neurological: Denies Depressed, Denies Seizure Past Ivxlhne-Ygqilz-Sgbshh Hx Past Med/Social Hx: Reviewed Nursing Past Med/Soc Hx Patient Social History 2nd Hand Smoke Exposure: No Recent Hopitalizations: No Seasonal Allergies Seasonal Allergies: No Past Medical History Surgeries: No Respiratory: No Cardiac: Yes Hypertension Neurological: No Genitourinary: No Gastrointestinal: No Musculoskeletal: No Endocrine: Yes Diabetes, Non-Insulin dep HEENT: No Cancer: Yes Bladder Psychosocial: No Integumentary: No Blood Disorders: No Physical Exam Vital Signs Vital Signs - First Documented 11/14/20 15:45 Temp 36.8 Pulse 66 Resp 22 B/P (MAP) 151/52 (85) Pulse Ox 94 Capillary Refill : Height, Weight, BMI Height: '" Weight: lbs. oz. kg; 35.00 BMI Method: General Appearance: No Apparent Distress, WD/WN HEENT: PERRL/EOMI, Normal ENT Inspection Neck: Non Tender, Supple Respiratory: Chest Non Tender, Lungs Clear, Normal Breath Sounds, No Accessory Muscle Use, No Respiratory Distress Cardiovascular: Regular Rate, Rhythm, No Edema, No Gallop Gastrointestinal: Non Tender, Soft Back: Normal Inspection, No CVA Tenderness Extremity: Normal Capillary Refill, Normal Inspection, Non Tender Neurologic/Psychiatric: Alert, Oriented x3, No Motor/Sensory Deficits, Normal Mood/Affect Skin: Normal Color, Warm/Dry Progress/Results/Core Measures Suspected Sepsis SIRS Temperature: Pulse: Respiratory Rate: Blood Pressure / Mean: Results/Orders Vital Signs/I&O 11/14/20 11/14/20 15:45 16:49 Temp 36.8 Pulse 66 57 Resp 22 20 B/P (MAP) 151/52 (85) 123/50 Pulse Ox 94 99 Capillary Refill : Progress Note : Progress Note Called PCP's office and talked to Dr Bergman's nurse regarding getting Home Health eval to this patients home [place]. She states they have sent Home Health to his home multiple times and each time they refuse evaluation and send them off. They are aware and will see pt in the clinic. explained todays concern without evidence that he "ate the blue bathroom mint" as it is only wet on one side and completely intact. no further evaluation necessary. Patient alert and oriented without any complaint. Departure Impression Primary Impression: General medical exam Disposition: 01 HOME, SELF-CARE Condition: Stable Departure-Patient Inst. Decision time for Depature: 16:08 Referrals: AIDA BERGMAN MD (PCP/Family) Primary Care Physician Patient Instructions: Chemical Ingestion (DC) Add. Discharge Instructions: Please call Dr Bergman's office to ask about getting a "Home health services evaluation" Avoid ingestion of common household attendant honor bar and chemicals. There is no clinical evidence today that you have ingested something toxic. See Dr Bergman in <1 week to discuss THIVENIRIS COUGHLIN DO Nov 14, 2020 15:55
[2020-11-14 16:49] VITALS: BP 123/50
== END 2020-11-14 16:49 | disposition home or self-care (01) ==
LOC: EDUNIT# 15:36 → ER FS 15:38
DX: Z00.00 Encounter for general adult medical examination without abnormal findings (principal)
CPT/HCPCS: 99281

== ENCOUNTER 2021-01-26 20:23 | Emergency (ER) | payer MEDICARE, OTHER ==
[~2021-01-26] VITALS: Ht 182.9 cm; Wt 110.2 kg
[2021-01-26 20:58] LABS: HEMATOCRIT 40 % (40-54); HEMOGLOBIN 12.8 G/DL (13.3-17.7); MEAN CORPUSCULAR HEMOGLOBIN 28 PG (25-34); MEAN CORPUSCULAR VOLUME 88 FL (80-99); WHITE BLOOD COUNT 3.9 10^3/uL (4.3-11.0)
--- NOTE | 2021-01-26 20:58 | ED General ---
General Chief Complaint: Altered Mental Status Stated Complaint: AMS Source of Information: Family Exam Limitations: No Limitations History of Present Illness Date Seen by Provider: Jan 26, 2021 Time Seen by Provider: 20:42 Initial Comments Patient is an 89-year-old male who presents to the emergency department with his prudencio with a chief complaint of altered mental status. Patient's is giving the history as the patient is currently not talking. He just seems to want to stare off into space. He will not even acknowledge that I am present. Patient's states that he had asked her to go for a drive several times today and while they were out and about he just became weak and felt like his legs were not working. Patient at this time is staring straight ahead will not answer questions. He did shake his head no to his when she asked if he was having any pain. She denies that he has had any recent illnesses or symptoms such as fever, chills, cough or congestion. She is concerned that he might have pneumonia because every time they end up in the hospital he has pneumonia. She denies that he has a history of Parkinson's disease but he does walk with a walker and review of the medical record shows he was only oriented to self at a prior visit. I suspect a significant dementia and the is making light of symptoms. Patient noted to have significant pitting edema in his bilateral lower extremities with mild erythema. No recent traumas that she is aware of. He has been incontinent of urine (he wears adult diapers). Accu-Chek is 91. Patient cannot provide review of systems secondary to his nonverbal state at this time. All other review of systems reviewed and negative except as stated with the . Timing/Duration: 1 Hour Severity: Severe Allergies and Home Medications Allergies Coded Allergies: No Known Drug Allergies (Unverified , 06/08/20) Home Medications Cephalexin 500 Mg Tablet, 500 MG PO TID Prescribed by: AISHA WHITE on 01/26/21 [id number] Patient Home Medication List Home Medication List Reviewed: Yes Review of Systems Review of Systems Constitutional: see HPI Respiratory: no symptoms reported Cardiovascular: no symptoms reported Gastrointestinal: no symptoms reported Genitourinary: no symptoms reported Musculoskeletal: other (edema) Patient is unable to provide review of systems secondary to his nonverbal state. Past Hlultdl-Lzfsvs-Mtiech Hx Patient Social History Alcohol Use: Denies Use Smoking Status: Never a Smoker 2nd Hand Smoke Exposure: No Recent Hopitalizations: No Seasonal Allergies Seasonal Allergies: No Past Medical History Surgeries: No Respiratory: No Cardiac: Yes Hypertension Neurological: No Genitourinary: No Gastrointestinal: No Musculoskeletal: No Endocrine: Yes Diabetes, Non-Insulin dep HEENT: No Cancer: Yes Bladder Psychosocial: No Integumentary: No Blood Disorders: No Physical Exam Vital Signs Vital Signs - First Documented 01/26/21 20:49 Temp 36.5 Pulse 97 Resp 18 B/P (MAP) 147/74 (98) Pulse Ox 98 O2 Delivery Room Air Capillary Refill : Height, Weight, BMI Height: '" Weight: lbs. oz. kg; 35.00 BMI Method: General Appearance: No Apparent Distress, WD/WN Eyes: Bilateral Eye Normal Inspection, Bilateral Eye PERRL Respiratory: No Accessory Muscle Use, No Respiratory Distress, Rhonci (bilaterallower lobes) Cardiovascular: Regular Rate, Rhythm, Other (peripheral edema) Extremity: Inflammation, Pedal Edema Neurologic/Psychiatric: Aphasia, Depressed Affect, Other (Patient will not follow commands, squeeze my hand, say yes or no or be verbal at all. He will nod his head to his .) Skin: Normal Color, Warm/Dry Focused Exam Lactate Level 01/26/21 21:15: Lactic Acid Level 1.57 Lactic Acid Level Laboratory Tests Test 01/26/21 21:15 Lactic Acid Level 1.57 MMOL/L (0.50-2.00) Progress/Results/Core Measures Suspected Sepsis SIRS Temperature: Pulse: Respiratory Rate: Laboratory Tests 01/26/21 20:45: White Blood Count 3.9L Blood Pressure / Mean: 01/26/21 21:15: Lactic Acid Level 1.57 Laboratory Tests 01/26/21 20:45: Creatinine 1.01, INR Comment 1.0, Platelet Count 198, Total Bilirubin 0.3 Results/Orders Lab Results Laboratory Tests Test 01/26/21 20:45 01/26/21 20:56 01/26/21 21:15 01/26/21 21:25 Range/Units White Blood Count 3.9 L 4.3-11.0 10^3/uL Red Blood Count 4.59 4.35-5.85 10^6/uL Hemoglobin 12.8 L 13.3-17.7 G/DL Hematocrit 40 40-54 % Mean Corpuscular Volume 88 80-99 FL Mean Corpuscular Hemoglobin 28 25-34 PG Mean Corpuscular Hemoglobin Concent 32 32-36 G/DL Red Cell Distribution Width 14.6 H 10.0-14.5 % Platelet Count 198 130-400 10^3/uL Mean Platelet Volume 10.7 H 7.4-10.4 FL Immature Granulocyte % (Auto) 0 % Neutrophils (%) (Auto) 55 42-75 % Lymphocytes (%) (Auto) 33 12-44 % Monocytes (%) (Auto) 11 0-12 % Eosinophils (%) (Auto) 1 0-10 % Basophils (%) (Auto) 0 0-10 % Neutrophils # (Auto) 2.2 1.8-7.8 X 10^3 Lymphocytes # (Auto) 1.3 1.0-4.0 X 10^3 Monocytes # (Auto) 0.4 0.0-1.0 X 10^3 Eosinophils # (Auto) 0.0 0.0-0.3 10^3/uL Basophils # (Auto) 0.0 0.0-0.1 10^3/uL Immature Granulocyte # (Auto) 0.0 0.0-0.1 10^3/uL Prothrombin Time 13.0 12.2-14.7 SEC INR Comment 1.0 0.8-1.4 Activated Partial Thromboplast Time 27 24-35 SEC Sodium Level 141 135-145 MMOL/L Potassium Level 3.7 3.6-5.0 MMOL/L Chloride Level 100 98-107 MMOL/L Carbon Dioxide Level 31 21-32 MMOL/L Anion Gap 10 5-14 MMOL/L Blood Urea Nitrogen 24 H 7-18 MG/DL Creatinine 1.01 0.60-1.30 MG/DL Estimat Glomerular Filtration Rate > 60 BUN/Creatinine Ratio 24 Glucose Level 106 H 70-105 MG/DL Calcium Level 9.1 8.5-10.1 MG/DL Corrected Calcium 9.3 8.5-10.1 MG/DL Total Bilirubin 0.3 0.1-1.0 MG/DL Aspartate Amino Transf (AST/SGOT) 37 H 5-34 U/L Alanine Aminotransferase (ALT/SGPT) 36 0-55 U/L Alkaline Phosphatase 80 40-136 U/L Total Protein 6.8 6.4-8.2 GM/DL Albumin 3.7 3.2-4.5 GM/DL Glucometer 91 70-110 MG/DL Lactic Acid Level 1.57 0.50-2.00 MMOL/L Urine Color YELLOW Urine Clarity CLOUDY Urine pH 6.0 5-9 Urine Specific [place] 1.020 1.016-1.022 Urine Protein NEGATIVE NEGATIVE Urine Glucose (UA) NEGATIVE NEGATIVE Urine Ketones NEGATIVE NEGATIVE Urine Nitrite NEGATIVE NEGATIVE Urine Bilirubin NEGATIVE NEGATIVE Urine Urobilinogen 0.2 < = 1.0 MG/DL Urine Leukocyte Esterase 2+ H NEGATIVE Urine RBC (Auto) 3+ H NEGATIVE Urine RBC NONE /HPF Urine WBC TNTC H /HPF Urine Crystals NONE /LPF Urine Bacteria /HPF Urine Casts NONE /LPF Urine Mucus NEGATIVE /LPF Urine Culture Indicated NO My Orders Orders - AISHA WHITE MD Ed Iv/Invasive Line Start (01/26/21 20:52) Cbc With Automated Diff (01/26/21 20:52) Comprehensive Metabolic Panel (01/26/21 20:52) Blood Culture (01/26/21 20:52) Urinalysis (01/26/21 20:52) Urine Culture (01/26/21 20:52) Protime With Inr (01/26/21 20:52) Partial Thromboplastin Time (01/26/21 20:52) Chest 1 View Ap/Pa Only (01/26/21 20:52) Ed Iv/Invasive Line Start (01/26/21 20:52) Ed Iv/Invasive Line Start (01/26/21 20:52) Vital Signs Adult Sepsis Patie Q15M (01/26/21 20:52) O2 (01/26/21 20:52) Remove Rings In Anticipation O (01/26/21 20:52) Lactic Acid Analyzer (01/26/21 20:52) Ct Head Wo (01/26/21 20:52) Accucheck Stat ONCE (01/26/21 20:52) Ceftriaxone For Iv Use (Rocephin For I (01/26/21 22:01) Ceftriaxone For Iv Use (Rocephin For I (01/26/21 21:51) Medications Given in ED Current Medications Medications Dose Ordered Sig/Inocencia Route Start Time Stop Time Status Last Admin Dose Admin Ceftriaxone Sodium 1,000 mg STK-MED ONCE .ROUTE 01/26/21 21:51 01/26/21 21:58 DC 01/26/21 22:00 1,000 MG Vital Signs/I&O 01/26/21 20:49 Temp 36.5 Pulse 97 Resp 18 B/P (MAP) 147/74 (98) Pulse Ox 98 O2 Delivery Room Air Capillary Refill : Progress Note : Time: 22:31 Progress Note Patient seen and evaluated here in the emergency department with a chief complaint of altered mental status. Basic laboratory studies obtained and reviewed show the patient to have too numerous to count white blood cells with leukocyte esterase in his urine no bacteria are seen. Urine will culture. Patient has no clinical or objective findings at this time to warrant further study. I am very curious as to the patient's mental baseline as he seems to be significantly demented today. He has a very blank stare and will not articulate anything. He will nod his head occasionally yes or no and this seems to be pretty consistent. I am concerned that the urinary tract infection has exacerbated his dementia. His who is at the bedside does not seem to be v jim bothered by it. She is overall comfortable with taking him home. I will place the patient on Keflex antibiotics for the next 10 days to cover his urinary tract infection. I have encouraged the to follow-up with his primary care physician next week to ensure that he is getting better. His vital signs are stable. The patient has no clinical or objective findings of sepsis. He is afebrile his blood pressure is good he is not tachycardic he is not hypoxic. White blood cell count is within normal limits. Renal function is good. Electrolytes are normal. Blood glucose was 91. Patient was treated in the emergency department with 1 g of Rocephin IV. Anticipate discharge to home at this time. Diagnostic Imaging Diagonstic Imaging: Xray, CT Plain Films/CT/US/NM/MRI: chest, head Comments [facility] [place], [place] NAME: WILMER JIMENEZ [facility] REC#: [id number] PT STATUS: REG ER : 1930 PHYSICIAN: AISHA WHITE MD ADMIT DATE: 01/26/21/ER FS Draft Date of Exam:01/26/21 CHEST 1 VIEW AP/PA ONLY INDICATION: Sepsis COMPARISON: 06/08/2020 TECHNIQUE: Single radiograph of the chest dated 01/26/2021. FINDINGS: The cardiac silhouette is within normal limits in size. No significant pulmonary vascular congestion. Low lung volumes, though the lungs appear clear of focal pulmonary opacity. No significant pleural effusion. No pneumothorax. No acute osseous abnormality. IMPRESSION: Low lung volumes without superimposed acute cardiopulmonary abnormality. Dictated on workstation # [id number] Dict: 01/26/212114 Trans: 01/26/212118 CVB [id number] Interpreted by: JOSEF DOMINGUEZ MD Electronically signed by: [place], [place] NAME: WILMER JIMENEZ [facility] REC#: [id number] PT STATUS: REG ER : 1930 PHYSICIAN: AISHA WHITE MD ADMIT DATE: 01/26/21/ER FS Signed Date of Exam:01/26/21 CT HEAD WO PROCEDURE: CT head without contrast. TECHNIQUE: Multiple contiguous axial images were obtained through the brain without the use of intravenous contrast. Auto Exposure Controls were utilized during the CT exam to meet ALARA standards for radiation dose reduction. DATE: January 26, 2021. COMPARISON: June 08, 2020. INDICATION: 89-year-old male, altered mental status. FINDINGS: There is mild proportional prominence of the ventricles and additional CSF spaces consistent with mild cerebral volume loss. There are areas of low-attenuation in the periventricular and subcortical white matter which most likely relate to mild changes of chronic small vessel ischemic disease. There is no mass effect or midline shift. There is no acute intracranial hemorrhage. There is no abnormal extra-axial fluid collection. The visualized portions of the paranasal sinuses, mastoid air cells and middle ears are well aerated. IMPRESSION: 1. No identified acute intracranial abnormality. 2. Mild cerebral volume loss and mild probable changes of chronic small vessel ischemic disease. Dictated by: Dictated on workstation # [id number] Dict: 01/26/212114 Trans: 01/26/212122 CVB [id number] Interpreted by: VENITA NANCE MD Electronically signed by: VENITA NANCE MD 01/26/212122 Departure Impression Primary Impression: Urinary tract infection Qualified Codes: N39.0 - Urinary tract infection, site not specified Additional Impression: Altered mental status Qualified Codes: R40.1 - Stupor Disposition: 01 HOME, SELF-CARE Condition: Stable Departure-Patient Inst. Decision time for Depature: 22:26 Referrals: AIDA HEARD MD (PCP/Family) Primary Care Physician Patient Instructions: Altered Mental Status Add. Discharge Instructions: PLease fill the antibiotics prescription tomorrow and start them tomorrow afternoon. Encourage fluids so that he stays well hydrated. Come back to the Emergency Department for re-evaluation if he has any worsening symptoms or new, emergent concerns. Please follow up with Dr Heard's office next week to make sure he is continuing to get better. Scripts Cephalexin (Cephalexin) 500 Mg Tablet 500 MG PO TID for 10 Days, #30 TAB Prov: AISHA WHITE MD 01/26/21 AISHA WHITE MD Jan 26, 2021 20:58
[2021-01-26 20:59] LABS: BASOPHILS % (AUTO) 0 % (0-10); EOSINOPHILS % (AUTO) 1 % (0-10); LYMPHOCYTES # (AUTO) 1.3 X 10^3 (1.0-4.0); LYMPHOCYTES % (AUTO) 33 % (12-44); MEAN CORPUSCULAR HGB CONC 32 G/DL (32-36); MEAN PLATELET VOLUME 10.7 FL (7.4-10.4); MONOCYTES # (AUTO) 0.4 X 10^3 (0.0-1.0); MONOCYTES % (AUTO) 11 % (0-12); NEUTROPHILS # (AUTO) 2.2 X 10^3 (1.8-7.8); NEUTROPHILS % (AUTO) 55 % (42-75); PLATELET COUNT 198 10^3/uL (130-400)
[2021-01-26 21:13] LABS: BUN/CREATININE RATIO 24; CARBON DIOXIDE 31 MMOL/L (21-32); CHLORIDE 100 MMOL/L (98-107); CREATININE SERUM 1.01 MG/DL (0.60-1.30); GFR ESTIMATED > 60; POTASSIUM 3.7 MMOL/L (3.6-5.0); SODIUM 141 MMOL/L (135-145)
[2021-01-26 21:14] LABS: ALANINE AMINOTRANSFERASE 36 U/L (0-55); ALBUMIN 3.7 GM/DL (3.2-4.5); ALKALINE PHOSPHATASE 80 U/L (40-136); BILIRUBIN,TOTAL 0.3 MG/DL (0.1-1.0); CALCIUM 9.1 MG/DL (8.5-10.1); GLUCOSE 106 MG/DL (70-105); TOTAL PROTEIN 6.8 GM/DL (6.4-8.2)
--- NOTE | 2021-01-26 21:19 | Diagnostic Imaging Report ---
INDICATION: Sepsis COMPARISON: 06/08/2020 TECHNIQUE: Single radiograph of the chest dated 01/26/2021. FINDINGS: The cardiac silhouette is within normal limits in size. No significant pulmonary vascular congestion. Low lung volumes, though the lungs appear clear of focal pulmonary opacity. No significant pleural effusion. No pneumothorax. No acute osseous abnormality. IMPRESSION: Low lung volumes without superimposed acute cardiopulmonary abnormality. Dictated by: Dictated on workstation # [id number]
--- NOTE | 2021-01-26 21:20 | Diagnostic Imaging Report ---
PROCEDURE: CT head without contrast. TECHNIQUE: Multiple contiguous axial images were obtained through the brain without the use of intravenous contrast. Auto Exposure Controls were utilized during the CT exam to meet ALARA standards for radiation dose reduction. DATE: January 26, 2021. COMPARISON: June 08, 2020. INDICATION: 89-year-old male, altered mental status. FINDINGS: There is mild proportional prominence of the ventricles and additional CSF spaces consistent with mild cerebral volume loss. There are areas of low-attenuation in the periventricular and subcortical white matter which most likely relate to mild changes of chronic small vessel ischemic disease. There is no mass effect or midline shift. There is no acute intracranial hemorrhage. There is no abnormal extra-axial fluid collection. The visualized portions of the paranasal sinuses, mastoid air cells and middle ears are well aerated. IMPRESSION: 1. No identified acute intracranial abnormality. 2. Mild cerebral volume loss and mild probable changes of chronic small vessel ischemic disease. Dictated by: Dictated on workstation # [id number]
[2021-01-26 21:38] LABS: BILIRUBIN,URINE NEGATIVE (NEGATIVE); CLARITY,URINE CLOUDY; COLOR,URINE YELLOW; GLUCOSE, URINE (UA) NEGATIVE (NEGATIVE); KETONES,URINE NEGATIVE (NEGATIVE); LEUKOCYTE ESTERASE ,URINE 2+ (NEGATIVE); NITRITE,URINE NEGATIVE (NEGATIVE); PROTEIN,URINE NEGATIVE (NEGATIVE); WBC,URINE TNTC /HPF
[2021-01-26] MEDS ORDERED: cefTRIAXone 1,000 MG IV (ROCEPHIN) VIAL ONE (21:51)
[2021-01-26] MEDS ORDERED: cefTRIAXone FOR IV USE 1,000 MG in WATER (STERILE) FOR INJECTION 10 ML IV ONE (22:01)
[2021-01-26] MEDS ORDERED: CEPH500T PO (22:26)
[2021-01-26 22:50] VITALS: BP 137/63
== END 2021-01-26 22:50 | disposition home or self-care (01) ==
LOC: EDUNIT# 20:23 → ER FS 20:25
DX: R41.82 Altered mental status, unspecified (principal); N39.0 Urinary tract infection, site not specified; R60.0 Localized edema; G20 Parkinson's disease; I10 Essential (primary) hypertension; E11.9 Type 2 diabetes mellitus without complications; Z85.51 Personal history of malignant neoplasm of bladder
CPT/HCPCS: 36415; 51702; 70450; 71045; 80053; 81000; 82962; 83605; 85025; 85610; 85730; 87040; 87077; 87088; 87186; 96374

== ENCOUNTER 2021-07-05 18:09 | Inpatient (IN) | payer MEDICARE, OTHER ==
[~2021-07-05] VITALS: Ht 182 cm; Wt 112.0 kg
[~2021-07-05 18:09] MED LIST: CEPH500T PO
--- OUTSIDE RECORDS SUMMARY | 2021-07-05 18:14 | XMS REPORT | Clinical Summary ---
Author Author [facility] Organization [facility] Address Unknown Phone Unavailable Care Team Providers Care Meat Pumper Name Role Phone Noah Bergman MD PCP Source Comments Some departments are not documenting in the electronic medical record. If you d o not see the information that you expected, contact Release of Information in [facility] Information Management department at [phone] for further assistan ce in locating additional records.[facility] Allergies No Known Active Allergies Medications End Date Status Medication Sig Dispensed Refills Start Date Active metoprolol tartrate Take 25 mg by 0 (LOPRESSOR) 25 mg tablet mouth twice daily. Active metFORMIN (GLUCOPHAGE) Take 1,000 mg 0 500 mg tablet by mouth twice daily with meals. Active tamsulosin (FLOMAX) 0.4 Take 1 90 capsule 3 /201 mg capsule capsule by 8 mouth daily 30 min after same meal. Do not cut/ crush/ chew. Active furosemide (LASIX) 40 mg Take 40 mg by 0 tablet mouth every morning. Active dilTIAZem CD (CARDIZEM Take 120 mg 0 CD) 120 mg capsule by mouth daily. Active omeprazole DR (PRILOSEC) Take 40 mg by 0 40 mg capsule mouth daily before breakfast. Active glimepiride (AMARYL) 2 mg Take 2 mg by 0 tablet mouth daily with breakfast. Active guaiFENesin (ROBITUSSIN) Take 10 mL by 118 mL 0 100 mg/5 mL oral solution mouth every 4 0 hours. Active senna (SENOKOT) 8.6 mg Take one 90 tablet 0 tablet tablet by 0 mouth twice daily. Active traZODone (DESYREL) 50 mg Take one 30 tablet 0 tablet tablet by 0 mouth at bedtime daily. Active benzonatate (TESSALON Take one 20 capsule 0 05/28 PERLES) 100 mg capsule capsule by 0 mouth three times daily as needed for Cough. Active insulin glargine (LANTUS Inject ten 45 mL 3 0 SOLOSTAR) 100 unit/mL (3 Units under 0 mL) injection the skin at PENIndications: Type 2 bedtime diabetes mellitus with daily. 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 Original tumor location left posterior and lateral feliciano Resolved Problems Problem Noted Date Resolved Date Rhinovirus 06/10/2020 06/22/2020 Acute respiratory failure with hypoxia 06/10/2020 06/22/2020 Pneumonia 06/08/2020 06/22/2020 Immunizations Name Administration Dates Next Due FLU VACCINE >3YO 07/16/2018 Pneumococcal 07/16/2018 Vaccine(13-[facility]/immunocompromised adult) Tdap Vaccine 11/14/2018, 11/14/2015 Medical History Medical History Date Comments HTN (hypertension) DM (diabetes mellitus) (HCC) CARLOS ENRIQUE (obstructive sleep apnea) Family History Medical History Relation Name Comments Diabetes Father Diabetes Mother Relation Name Status Comments Father Mother Social History Date Tobacco Use Types Packs/Day Years Used Former Smoker Smokeless Tobacco: Never Used Comments Alcohol Use Standard Drinks/Week No 0 (1 standard drink = 0.6 o z pure alcohol) Sex Assigned at Date Recorded Male 07/20/2020 9:35 AM CDT Last Filed Vital Signs Reading Time Taken Comments Vital Sign 124/68 07/26/2020 2:43 PM CDT Blood Pressure 60 07/26/2020 2:43 PM CDT Pulse 36.4 C (97.5 F) 07/26/2020 2:43 PM CDT Temperature 22 05/18/2018 1:44 PM CDT Respiratory Rate 93% 06/22/2020 3:38 PM CDT Oxygen Saturation - - Inhaled Oxygen Concentration 108.9 kg (240 lb 1.3 oz) 06/22/2020 6:03 AM CDT Weight 177.8 cm (5' 10") 06/12/2020 11:45 AM CDT Height 34.45 06/12/2020 11:45 AM CDT Body Mass Index Plan of Treatment Health Maintenance Due Date Last Done Comments DILATED EYE EXAM 1948 MICROALBUMIN 1948 PHYSICAL (COMPREHENSIVE) 1948 EXAM SHINGLES RECOMBINANT 1982 VACCINE (1 of 2) PNEUMONIA (PPSV23) 09/10/2018 07/16/2018 VACCINE (1 of 2 - PPSV23) HBA1C 12/11/2020 06/10/2020 FOOT EXAM 07/26/2021 07/26/2020 INFLUENZA VACCINE 07/27/2021 07/16/2018 DTAP/TDAP VACCINES (3 - 11/14/2028 11/14/2018, Td or Tdap) 11/14/2015 Goals Goal Patient Associated Recent Progress Patient-Stat Aut hor Goal Type Problems ed? Recover from illness Hospital No Lauren Noland RN Results Not on filefrom Last 3 Months Insurance Type Payer Benefit Subscriber ID Effective Phone Address Plan / Dates Group O [id number] FOR LIFE resent Medicare MEDICARE MEDICARE [id number] 1997- PART A AND Present B (Home) [place] [phone] Advance Directives Patient Medical I D Sales Explanation Type Date Recorded Advance 04/04/2018 11:31 PM Directive/DPOA Date Inactivated Comments Code Status Date Activated 06/22/2020 6:22 PM Full Code 06/08/2020 11:52 PM Provider has discussed Code Status Yes w/Patient or Family? 04/11/2018 8:07 PM Full Code 04/05/2018 8:16 AM Provider has discussed Code Status Yes w/Patient or Family?
--- NOTE | 2021-07-05 18:30 | ED General ---
General Stated Complaint: ABMORMAL EKG,FEVER,CONFUSION Source of Information: Patient Exam Limitations: No Limitations History of Present Illness Date Seen by Provider: Jul 05, 2021 Time Seen by Provider: 18:15 Initial Comments Patient is an 89-year-old male who presents with increased fatigue, chills sweats and rigors. Symptoms began yesterday. Patient lives at home with his spouse who states he developed symptoms last evening. He has not had cough, sore throat, headache, shortness of breath, chest pain. No urinary frequency urgency or burning. She does have longstanding dry scaly red rash to his right lower leg and left ankle regions. Rashes are unchanged. Patient is alert but pleasantly confused. History is limited by the patient's condition. Patient has not been vaccinated Covid but does not leave the home often and has had limited visitors. Timing/Duration: 1/2 Hour Severity: Mild Modifying Factors: improves with Other Associated Systoms: Other Allergies and Home Medications Allergies Coded Allergies: No Known Drug Allergies (Unverified , 06/08/20) Patient Home Medication List Home Medication List Reviewed: Yes Cephalexin (Cephalexin) 500 Mg Tablet, 500 MG PO TID Prescribed by: AISHA WHITE on 01/26/212225 Review of Systems Review of Systems Constitutional: chills, fever, malaise EENTM: see HPI Respiratory: cough Cardiovascular: no symptoms reported, see HPI Gastrointestinal: no symptoms reported, see HPI Genitourinary: see HPI Musculoskeletal: see HPI Skin: see HPI Psychiatric/Neurological: See HPI Hematologic/Lymphatic: See HPI Immunological/Allergic: see HPI Past Ggzobdr-Kglefm-Vchafk Hx Seasonal Allergies Seasonal Allergies: No Past Medical History Surgeries: No Respiratory: No Cardiac: Yes Hypertension Neurological: No Genitourinary: No Gastrointestinal: No Musculoskeletal: No Endocrine: Yes Diabetes, Non-Insulin dep HEENT: No Cancer: Yes Bladder Psychosocial: No Integumentary: No Blood Disorders: No Physical Exam Vital Signs Vital Signs - First Documented 07/05/21 18:11 Temp 36.6 Pulse 55 Resp 16 B/P (MAP) 141/56 (84) Pulse Ox 95 O2 Delivery Room Air Capillary Refill : Height, Weight, BMI Height: '" Weight: lbs. oz. kg; 32.00 BMI Method: General Appearance: No Apparent Distress, WD/WN, Anxious, Other (Tremulous, weak and confused. Acutely ill-appearing) Eyes: Bilateral Eye Normal Inspection, Bilateral Eye PERRL HEENT: Normal ENT Inspection, Pharynx Normal, Moist Mucous Membranes Neck: Full Range of Motion, Non Tender, Supple Respiratory: Chest Non Tender, Lungs Clear, Normal Breath Sounds Cardiovascular: Regular Rate, Rhythm Gastrointestinal: Non Tender, Soft Back: Normal Inspection, No CVA Tenderness Neurologic/Psychiatric: Alert Skin: Other (Red scaly rash right lower leg, left ankle no induration tenderness or weeping) Focused Exam Sepsis Stage: Ruled Out Lactate Level 07/05/21 18:35: Lactic Acid Level 1.32 Time of Focused Exam: 18:45 Respiratory: No Respiratory Distress Skin: warm/dry Lactic Acid Level Laboratory Tests Test 07/05/21 18:35 Lactic Acid Level 1.32 MMOL/L (0.50-2.00) Progress/Results/Core Measures Suspected Sepsis SIRS Temperature: Pulse: Respiratory Rate: Laboratory Tests 07/05/21 18:35: White Blood Count 7.6 Blood Pressure / Mean: 07/05/21 18:35: Lactic Acid Level 1.32 Laboratory Tests 07/05/21 18:35: Creatinine 1.02, INR Comment 1.1, Platelet Count 188, Total Bilirubin 0.3 Results/Orders Lab Results Laboratory Tests Test 07/05/21 18:35 07/05/21 20:02 Range/Units White Blood Count 7.6 4.3-11.0 10^3/uL Red Blood Count 4.22 L 4.30-5.52 10^6/uL Hemoglobin 12.2 L 13.3-17.7 g/dL Hematocrit 39 L 40-54 % Mean Corpuscular Volume 92 80-99 fL Mean Corpuscular Hemoglobin 29 25-34 pg Mean Corpuscular Hemoglobin Concent 31 L 32-36 g/dL Red Cell Distribution Width 14.3 10.0-14.5 % Platelet Count 188 130-400 10^3/uL Mean Platelet Volume 11.4 9.0-12.2 fL Immature Granulocyte % (Auto) 0 % Neutrophils (%) (Auto) 70 42-75 % Lymphocytes (%) (Auto) 19 12-44 % Monocytes (%) (Auto) 8 0-12 % Eosinophils (%) (Auto) 2 0-10 % Basophils (%) (Auto) 1 0-10 % Neutrophils # (Auto) 5.3 1.8-7.8 X 10^3 Lymphocytes # (Auto) 1.4 1.0-4.0 X 10^3 Monocytes # (Auto) 0.6 0.0-1.0 X 10^3 Eosinophils # (Auto) 0.2 0.0-0.3 10^3/uL Basophils # (Auto) 0.1 0.0-0.1 10^3/uL Immature Granulocyte # (Auto) 0.0 0.0-0.1 10^3/uL Prothrombin Time 14.1 12.2-14.7 SEC INR Comment 1.1 0.8-1.4 Activated Partial Thromboplast Time 34 24-35 SEC Sodium Level 138 135-145 MMOL/L Potassium Level 4.3 3.6-5.0 MMOL/L Chloride Level 100 98-107 MMOL/L Carbon Dioxide Level 31 21-32 MMOL/L Anion Gap 7 5-14 MMOL/L Blood Urea Nitrogen 26 H 7-18 MG/DL Creatinine 1.02 0.60-1.30 MG/DL Estimat Glomerular Filtration Rate 69 BUN/Creatinine Ratio 25 Glucose Level 116 H 70-105 MG/DL Lactic Acid Level 1.32 0.50-2.00 MMOL/L Calcium Level 8.7 8.5-10.1 MG/DL Corrected Calcium 9.0 8.5-10.1 MG/DL Total Bilirubin 0.3 0.1-1.0 MG/DL Aspartate Amino Transf (AST/SGOT) 20 5-34 U/L Alanine Aminotransferase (ALT/SGPT) 31 0-55 U/L Alkaline Phosphatase 104 40-136 U/L Total Protein 6.6 6.4-8.2 GM/DL Albumin 3.6 3.2-4.5 GM/DL Urine Color YELLOW Urine Clarity CLEAR Urine pH 5.5 5-9 Urine Specific [place] 1.015 L 1.016-1.022 Urine Protein NEGATIVE NEGATIVE Urine Glucose (UA) NEGATIVE NEGATIVE Urine Ketones NEGATIVE NEGATIVE Urine Nitrite NEGATIVE NEGATIVE Urine Bilirubin NEGATIVE NEGATIVE Urine Urobilinogen 0.2 < = 1.0 MG/DL Urine Leukocyte Esterase NEGATIVE NEGATIVE Urine RBC (Auto) NEGATIVE NEGATIVE Urine RBC NONE /HPF Urine WBC RARE /HPF Urine Squamous Epithelial Cells RARE /HPF Urine Crystals NONE /LPF Urine Bacteria NEGATIVE /HPF Urine Casts NONE /LPF Urine Mucus NEGATIVE /LPF Urine Culture Indicated NO My Orders Orders - RICHA JAIMES DO Cbc With Automated Diff (07/05/21 19:07) Comprehensive Metabolic Panel (07/05/21 19:07) Blood Culture (07/05/21 19:07) Sputum Culture (07/05/21 19:07) Urinalysis (07/05/21 19:07) Urine Culture (07/05/21 19:07) Protime With Inr (07/05/21:07) Partial Thromboplastin Time (07/05/21 19:07) Chest 1 View Ap/Pa Only (07/05/21 19:07) Ed Iv/Invasive Line Start (07/05/21 19:07) Ed Iv/Invasive Line Start (07/05/21 19:07) Vital Signs Adult Sepsis Patie Q15M (07/05/21 19:07) O2 (07/05/21 19:07) Remove Rings In Anticipation O (07/05/21:07) Lactic Acid Analyzer (07/05/21:07) Ns Iv 1000 Ml (Sodium Chloride 0.9%) (07/05/21 19:15) Medications Given in ED Current Medications Medications Dose Ordered Sig/Inocencia Route Start Time Stop Time Status Last Admin Dose Admin Sodium Chloride 3,600 ml @ 3,600 mls/hr ONCE ONCE IV 07/05/21 19:15 07/05/21 20:14 DC 07/05/21 19:23 3,600 MLS/HR Vital Signs/I&O 07/05/21 18:11 Temp 36.6 Pulse 55 Resp 16 B/P (MAP) 141/56 (84) Pulse Ox 95 O2 Delivery Room Air Capillary Refill : Departure Communication (Admissions) Chest x-ray: No acute cardiopulmonary disease EKG: Sinus bradycardia, no acute ST-T wave changes per Patient generally weak with chills, sweats and fever. No convincing clinical source of infection. Possible cellulitis of lower extremities. Oral antibiotics given. Patient has not been vaccinated for Covid. Concern for possible Covid. Patient appears to unstable on his feet and is at high risk of fall and injury. We will admit the patient for further diagnostic testing therapeutic care. Impression Primary Impression: Generalized weakness Additional Impressions: Cellulitis and abscess of right leg Cellulitis and abscess of left leg Disposition: 01 HOME, SELF-CARE Condition: Stable Admissions Decision to Admit Reason: Admit from ER (General) Decision to Admit/Date: Jul 05, 2021 Time/Decision to Admit Time: 21:25 (Dr. Pinedo) Transfer Method of Transfer: EMS Departure-Patient Inst. Referrals: AIDA HEARD MD (PCP/Family) Primary Care Physician RICHA JAIMES DO Jul 05, 2021 18:30
[2021-07-05] MEDS ORDERED: NS IV ONE (19:15)
--- NOTE | 2021-07-05 19:20 | Diagnostic Imaging Report ---
CHEST 1 VIEW AP/PA ONLY Indication: Sepsis Comparison: 01/26/2021 Findings: Left basilar subsegmental atelectasis. No focal airspace disease in the visualized lungs. Please note that the posterior lower lobes are poorly evaluated by portable radiography. No pleural effusion or pneumothorax. Normal cardiomediastinal silhouette. Impression: 1. Left basilar subsegmental atelectasis. No acute process. Dictated by: Dictated on workstation # [id number]
[2021-07-05 19:22] LABS: HEMATOCRIT 39 % (40-54); HEMOGLOBIN 12.2 g/dL (13.3-17.7); MEAN CORPUSCULAR HEMOGLOBIN 29 pg (25-34); MEAN CORPUSCULAR HGB CONC 31 g/dL (32-36); MEAN CORPUSCULAR VOLUME 92 fL (80-99); PLATELET COUNT 188 10^3/uL (130-400); WHITE BLOOD COUNT 7.6 10^3/uL (4.3-11.0)
[2021-07-05 19:23] LABS: BASOPHILS # (AUTO) 0.1 10^3/uL (0.0-0.1); BASOPHILS % (AUTO) 1 % (0-10); EOSINOPHILS # (AUTO) 0.2 10^3/uL (0.0-0.3); EOSINOPHILS % (AUTO) 2 % (0-10); LYMPHOCYTES # (AUTO) 1.4 X 10^3 (1.0-4.0); LYMPHOCYTES % (AUTO) 19 % (12-44); MEAN PLATELET VOLUME 11.4 fL (9.0-12.2); MONOCYTES # (AUTO) 0.6 X 10^3 (0.0-1.0); MONOCYTES % (AUTO) 8 % (0-12); NEUTROPHILS # (AUTO) 5.3 X 10^3 (1.8-7.8); NEUTROPHILS % (AUTO) 70 % (42-75)
[2021-07-05 19:26] LABS: INR 1.1 (0.8-1.4); PROTHROMBIN TIME PATIENT 14.1 SEC (12.2-14.7)
[2021-07-05 19:27] LABS: BILIRUBIN,TOTAL 0.3 MG/DL (0.1-1.0); CALCIUM 8.7 MG/DL (8.5-10.1); CREATININE SERUM 1.02 MG/DL (0.60-1.30); POTASSIUM 4.3 MMOL/L (3.6-5.0)
[2021-07-05 19:28] LABS: ALBUMIN 3.6 GM/DL (3.2-4.5); TOTAL PROTEIN 6.6 GM/DL (6.4-8.2)
[2021-07-05 20:26] LABS: BACTERIA,URINE NEGATIVE /HPF; BILIRUBIN,URINE NEGATIVE (NEGATIVE); CLARITY,URINE CLEAR; COLOR,URINE YELLOW; GLUCOSE, URINE (UA) NEGATIVE (NEGATIVE); KETONES,URINE NEGATIVE (NEGATIVE); LEUKOCYTE ESTERASE ,URINE NEGATIVE (NEGATIVE); NITRITE,URINE NEGATIVE (NEGATIVE); PH,URINE 5.5 (5-9); PROTEIN,URINE NEGATIVE (NEGATIVE); SQUAMOUS EPITHELIAL CELL,UR RARE /HPF; WBC,URINE RARE /HPF
[2021-07-05] MEDS ORDERED: CEPHALEXIN 250 MG (KEFLEX) CAP PO ONE (21:30)
[2021-07-05] MEDS ORDERED: cefTRIAXone 1,000 MG in WATER (STERILE) FOR INJECTION 10 ML IV ONE (21:45)
[2021-07-06] VITALS (7 sets, daily range): BP systolic 119–194; BP diastolic 65–88
[2021-07-06 05:50] LABS: BASOPHILS # (AUTO) 0.1 10^3/uL (0.0-0.1); BASOPHILS % (AUTO) 1 % (0-10); EOSINOPHILS # (AUTO) 0.2 10^3/uL (0.0-0.3); EOSINOPHILS % (AUTO) 3 % (0-10); HEMATOCRIT 39 % (40-54); HEMOGLOBIN 11.8 g/dL (13.3-17.7); LYMPHOCYTES # (AUTO) 1.5 10^3/uL (1.0-4.0); LYMPHOCYTES % (AUTO) 17 % (12-44); MEAN CORPUSCULAR HEMOGLOBIN 29 pg (25-34); MEAN CORPUSCULAR HGB CONC 31 g/dL (32-36); MEAN CORPUSCULAR VOLUME 94 fL (80-99); MONOCYTES # (AUTO) 0.8 10^3/uL (0.0-1.0); MONOCYTES % (AUTO) 9 % (0-12); NEUTROPHILS # (AUTO) 6.2 10^3/uL (1.8-7.8); NEUTROPHILS % (AUTO) 71 % (42-75); PLATELET COUNT 181 10^3/uL (130-400); WHITE BLOOD COUNT 8.8 10^3/uL (4.3-11.0)
[2021-07-06 06:02] LABS: POTASSIUM 3.8 MMOL/L (3.6-5.0)
[2021-07-06 06:03] LABS: CALCIUM 8.7 MG/DL (8.5-10.1)
[2021-07-06 06:08] LABS: CREATININE SERUM 0.78 MG/DL (0.60-1.30)
[2021-07-06] MEDS ORDERED: VANCOMYCIN INJECTION 0.1 MG in NS (IVPB) 250 ML IV SCH (11:00)
[2021-07-06] MEDS ORDERED: CALCIUM CARBONATE 500 MG (TUMS) TAB.CHEW PO PRN (11:00)
[2021-07-06] MEDS ORDERED: diphenhydrAMINE 25 MG TAB (BENADRYL) PO PRN (11:00)
[2021-07-06] MEDS ORDERED: ONDANSETRON 4 MG/2 ML (SDV) Z0FRAN IVP PRN (11:00)
[2021-07-06] MEDS ORDERED: ENOXAPARIN 40 MG/0.4 ML (LOVENOX) SYR SC SCH (11:00)
[2021-07-06] MEDS ORDERED: HYDROcodone/APAP 5 MG/325 MG (LORTAB) TAB PO PRN (11:00)
[2021-07-06] MEDS ORDERED: LOPERAMIDE 2 MG (IMODIUM) TABLET PO PRN (11:00)
[2021-07-06] MEDS ORDERED: MELATONIN 3 MG TABLET PO PRN (11:00)
[2021-07-06] MEDS ORDERED: DOCUSATE SODIUM 100 MG (COLACE) CAP PO PRN (11:00)
[2021-07-06] MEDS ORDERED: ACETAMINOPHEN 500 MG TAB (TYLENOL) PO PRN (11:00)
[2021-07-06] MEDS: cefTRIAXone 1,000 MG in WATER (STERILE) FOR INJECTION 10 ML IV SCH (11:47)
[2021-07-06] MEDS ORDERED: VANCOMYCIN 2000 MG/NS 500 ML IVPB IV NR ×4 (12:00→17:00)
[2021-07-06] MEDS ORDERED: BISACODYL 10 MG SUPP (DULCOLAX) PR PRN (12:15)
[2021-07-06] MEDS ORDERED: INSU100I10 SQ (14:11)
[2021-07-06] MEDS ORDERED: DILT120C82 PO (14:11)
[2021-07-06] MEDS ORDERED: INSU100I14 SC (14:11)
[2021-07-06] MEDS ORDERED: TRZ50T PO (14:11)
[2021-07-06] MEDS ORDERED: FURO40TA4 PO (14:11)
[2021-07-06] MEDS ORDERED: METO-333 PO (14:11)
[2021-07-06] MEDS ORDERED: GLIM2TAB4 PO (14:11)
[2021-07-06] MEDS ORDERED: METF-397 PO (14:11)
[2021-07-06] MEDS ORDERED: TMSL.4C PO (14:12)
--- NOTE | 2021-07-06 15:14 | Occupational Therapy Eval ---
OT Evaluation-General/PLF Medical Diagnosis Admission Date Jul 06, 2021 at 00:10 Medical Diagnosis: weakness, B leg Cellulitis Onset Date: Jul 04, 2021 Therapy Diagnosis Therapy Diagnosis: weakness, decreased ADL status Precautions Precautions/Isolations: Fall Prevention, Standard Precautions Referral Physician: Skip Clay Reason: Evaluation/Treatment Social History Home: Single Level Current Living Status: Spouse Steps Inside Home: 1 (1 step into living room) ADL-Prior Level of Function SCALE: Activities may be completed with or without assistive devices. 1-Glrxdgflxm-wgfhzpg completes the activity by him/herself with no assistance from a helper. 5-Set-up or Clean-up Assistance-helper sets up or cleans up; patient completes activity. [place] assists only prior to or following the activity. 4-Supervision or Touching Assistance-helper provides verbal cues and/or touching/steadying and/or contact guard assistance as patient completes activity. Assistance may be provided throughout the activity or intermittently. 3-Partial/Moderate Assistance-helper does LESS THAN HALF the effort. [place] lifts, holds or supports trunk or limbs, but provides less than half the effort. 2-Substantial/Maximal Assistance-helper does MORE THAN HALF the effort. [place] lifts or holds trunk or limbs and provides more than half the effort. 9-Cpqhqzpcn-tlgemd does ALL the effort. Patient does none of the effort to complete the activity. Or, the assistance of 2 or more helpers is required for the patient to complete the activity. If activity was not attempted, code reason: 7-Patient Refused. 9-Not Applicable-not attempted and the patient did not perform the activity before the current illness, exacerbation or injury. 10-Not Attempted due to Environmental Limitations-(lack of equipment, weather restraints, etc.). 88-Not Attempted due to Medical Conditions or Safety Concerns. ADL PLOF Comments Pt's provides history, states pt needs assistance with ADLs at PLOF. His assists with showers, if she isn't present, pt will stand under the running water for a minute and then turn it off and get out, he does not use soap. Pt's also assists with threading LEs into pants and completes footwear, pt able to complete pant hike once pants are up to his knees, assists with suspenders. Pt able to doff/don UE clothing independently. completes cooking/cleaning. He typically uses a walker for functional mobility, if he is too tired they have a manual w/c she pushes him around in, and they also own a motorized scooter. Self Care: Needed Some Help Functional Cognition: Unknown DME/Equipment: Bath Chair, Grab Bars, Tub/Shower OT Current Status Subjective Pt laying in bed, present. Pt and agree to OT tx. Pt did not communicate much with this therapist throughout session, saying very few words. Mental Status/Objective Patient Orientation: Person Current Upper Extremity ROM WFL, BUE shoulder flexion to approx 120 degrees ADL-Treatment Eating (QC): 3 On/Off Footwear (QC): 1 Other Treatments Pt in bed, present assisting with feeding him. Pt's provides informat ion about PLOF and home set up, and participates in UE Screen. Pt's indicates pt able to feed himself but she was just assisting at the moment. Pt's assists with bringing food to pt's mouth, then pt able to take food from spoon, chew and swallow. When asked what she feels like pt needs to focus on in order to return home, is unsure stating she doesn't want to tell therapist what to do. OT educated that she is there to focus on pt's weaker areas in order to get back to PLOF, pt agreeable to UE exercises. In order to increase BUE Strength and activity tolerance, pt completed x15 reps each of the following BUE exercises: shoulder flexion, elbow flexion and elbow extension. Post tx, pt in bed, call light in reach and all needs met. Education OT Patient Education: Correct positioning, Energy conservation, Modified ADL techniques, Progress toward Goal/Update tx plan, Purpose of tx/functional activities Teaching Recipient: Patient Teaching Methods: Discussion Response to Teaching: Verbalize Understanding OT Fpc Goals Radio Equipment Installer Goals Time Frame: Jul 13, 2021 Eating (QC): 5 Oral Hygiene (QC): 5 Toileting Hygiene (QC): 3 Shower/Bathe Self (QC): 3 Upper Body Dressing (QC): 4 Lower Body Dressing (QC): 3 On/Off Footwear (QC): 3 Additional Goals: 1-Demonstrate ADL Tasks, 2-Verbalize Understanding, 3-Impr oveStrength/Shannon 1=Demonstrate adherence to instructed precautions during ADL tasks. 2=Patient will verbalize/demonstrate understanding of assistive devices/modifications for ADL. 3=Patient will improve strength/tolerance for activity to enable patient to perform ADL's. OT Education/Plan Problem List/Assessment Assessment: Decreased Activ Tolerance, Decreased UE Strength, Impaired Funct Balance, Impaired I ADL's, Impaired Self-Care Skills Discharge Recommendations Plan/Recommendations: Continue POC Treatment Plan/Plan of Care Patient would benefit from OT for education, treatment and training to promote independence in ADL's, mobility, safety and/or upper extremity function for ADL's. Plan of Care: ADL Retraining, Functional Mobility, UE Funct Exercise/Act Treatment Duration: Jul 13, 2021 Frequency: 5 times per week Estimated Hrs Per Day: .25 hour per day Time/GCodes Start Time: 13:55 Stop Time: 14:10 Total Time Billed (hr/min): 15 Billed Treatment Time 1, JEWELS ALEXANDER OT Jul 06, 2021 15:14
--- NOTE | 2021-07-06 15:58 | History & Physical-Hospitalist ---
ALEXEI PENDLETON 07/06/21 1558: History of Present Illness HPI/Chief Complaint HPI provided by chart review as patient was unable to respond to questions and poor historian. Christopher Kearney is an 89 yo male with a PMH of HTN, diabetes, bladder cancer, Alzheimer's dementia (via chart review) who is admitted to [facility] 07/05 for cellulitis of the right leg. Pt was originally taken by his to urgent care 07/05 for leg infection 07/04. In addition he was experiencing chills, fatigue and rigor. Labs were wnl. He was then taken to [facility] for management. He was started on rocephin and IVF and admitted inpatient. Vitals and labs were wnl. UA, chest xray wnl. COVID and Flu negative. Conversation with the author of this note this morning was very limited. Pt reports wanting "boost" (or booze). Pt was very confused and unable to recall recent events. Vocab very limited. Baseline mental status unknown. Date Seen 07/06/21 Time Seen by a Provider: 11:15 Attending Physician Ellen Valdivia Pankaj K MD Referring Physician Date of Admission Jul 06, 2021 at 00:10 Home Medications & Allergies Home Medications Reviewed patient Home Medication Reconciliation performed by pharmacy medication reconciliations automation engineering technician and/or nursing. Patients Allergies have been reviewed. Allergies Allergies Coded Allergies No Known Drug Allergies (Unverified06/08/20) Past Wvdnkpo-Kygqyv-Ygecks Hx Patient Social History Marrital Status: Tobacco Use?: No Use of E-Cig and/or Vaping dev: No Substance use?: No Alcohol Use?: No Pt feels they are or have been: Unable to obtain Seasonal Allergies Seasonal Allergies: No Current Status Advance Directives: Unable to obtain Communicates: Verbally Primary Language: South Korean Preferred Spoken Language: South Korean Is interpretation needed?: No Sensory deficits: Vision impairment, Hearing impairment Implanted or Applied Medical D: None Past Medical History Hypertension Diabetes, Non-Insulin dep Bladder Blood Disorders: No Physical Exam Physical Exam Vital Signs Vital Signs - First Documented 07/05/21 18:11 Temp 36.6 Pulse 55 Resp 16 B/P (MAP) 141/56 (84) Pulse Ox 95 O2 Delivery Room Air Capillary Refill : Less Than 3 Seconds Height, Weight, BMI Height: '" Weight: lbs. oz. kg; 33.81 BMI Method: General Appearance: Chronically ill, Mild Distress Respiratory: Chest Non Tender, Normal Breath Sounds, No Accessory Muscle Use, No Respiratory Distress Cardiovascular: Other (Significant BLE edema +3) Gastrointestinal: Normal Bowel Sounds, Non Tender Extremity: Inflammation, Other (Cellulitis appears to be bilateral ) Neurologic/Psychiatric: Depressed Affect, Other (Confused, disoriented) Results Results/Procedures Labs Laboratory Tests 07/05/21 18:35 07/06/21 05:35 Patient resulted labs reviewed. Assessment/Plan Admission Diagnosis Christopher Kearney is an 89yo M w/ a PMH of HTN, diabetes, Alzheimer's who was admitted 07/05 for management of BLE cellulitis Current problems and plan include the following BLE cellulitis -Begin Vanc (day 1) and continue rocephin (day 2) -Evaluate component of PAD with LE doppler BLE edema -Evaluate heart failure: Cardiology consulted -Echo and EKG ordered Alzheimer's Debility -SW to evaluate social situation -PT/OT ELLEN VALDIVIA DO 07/07/21 0525: History of Present Illness HPI/Chief Complaint Chief complaint: Bilateral lower extremity cellulitis History of present illness: This is an 89-year-old white male who resides at home with his who has a past medical history of dementia and bladder cancer with diabetes and hypertension who presented to the [facility] with comp laints of hypoxia and altered mental status. He has severe dementia and appears to be bedbound and he cannot provide any details. Social work will talk to his but he appears to be in desperate need of a senior care placement and hospice for that matter. Source: RN/MD Exam Limitations: other (Dementia) Past Sbluzyu-Lyihfq-Wvnwwf Hx Patient Social History Marrital Status: Review of Systems ROS-Unable to Obtain: Dementia Constitutional: see HPI Physical Exam Physical Exam General Appearance: Anxious, Chronically ill, Mild Distress Respiratory: No Accessory Muscle Use, No Respiratory Distress, Decreased Breath Sounds Cardiovascular: Regular Rate, Rhythm Neurologic/Psychiatric: Alert, Depressed Affect, Disoriented, Other (Confused, disoriented) Skin: Rash (Lower extremities with erythema) Assessment/Plan Admission Diagnosis Assessment: Bilateral lower extremity cellulitis Tachypnea with mild hypoxia Covid negative Advanced dementia Bladder cancer Hypertension Plan: IV antibiotics Supportive care Meets hospice criteria Needs senior care placement gas systems worker to talk to Admission Status: Inpatient Order (span 2 midnights) Reason for Inpatient Admission: Cellulitis with altered mental status Supervisory-Addendum Brief Verification & Attestation Participated in pt care: history, MDM, physical Personally performed: exam, history, MDM, supervision of care Care discussed with: Medical Student Procedures: n/a Results interpretation: Verified all documentation Verification and Attestation of Medical Student E/M Service A medical student performed and documented this service in my presence. I reviewed and verified all information documented by the medical student and made modifications to such information, when appropriate. I personally performed the physical exam and medical decision making. Ellen Valdivia, Jul 07, 2021,05:25 ALEXEI PENDLETON Jul 06, 2021 15:58 ELLEN VALDIVIA DO Jul 07, 2021 05:25
--- NOTE | 2021-07-06 16:00 | Physical Therapy Evaluation ---
PT Evaluation-General Medical Diagnosis Admission Date Jul 06, 2021 at 00:10 Medical Diagnosis: weakness, B leg Cellulitis Onset Date: Jul 04, 2021 Therapy Diagnosis Therapy Diagnosis: impaired mobility, strength, endurance Precautions Precautions/Isolations: Fall Prevention, Standard Precautions Referral Physician: Skip Reason for Referral: Evaluation/Treatment Medical History Pertinent Medical History: DM Reviewed History: Yes Social History Home: Single Level Current Living Status: Spouse Entry Into Home: Ramp PT Steps Inside Home: 1 (1 step into living room) Prior Prior Level of Function SCALE: Activities may be completed with or without assistive devices. 9-Mivfrwvsno-xzlkibs completes the activity by him/herself with no assistance from a helper. 5-Set-up or Clean-up Assistance-helper sets up or cleans up; patient completes activity. [place] assists only prior to or following the activity. 4-Supervision or Touching Assistance-helper provides verbal cues and/or touching /steadying and/or contact guard assistance as patient completes activity. Assistance may be provided throughout the activity or intermittently. 3-Partial/Moderate Assistance-helper does LESS THAN HALF the effort. [place] lifts, holds or supports trunk or limbs, but provides less than half the effort. 2-Substantial/Maximal Assistance-helper does MORE THAN HALF the effort. [place] lifts or holds trunk or limbs and provides more than half the effort. 8-Evqzcrzcn-iykqbe does ALL the effort. Patient does none of the effort to complete the activity. Or, the assistance of 2 or more helpers is required for the patient to complete the activity. If activity was not attempted, code reason: 7-Patient Refused. 9-Not Applicable-not attempted and the patient did not perform the activity before the current illness, exacerbation or injury. 10-Not Attempted due to Environmental Limitations-(lack of equipment, weather restraints, etc.). 88-Not Attempted due to Medical Conditions or Safety Concerns. Bed Mobility: 4 Transfers (B,C,W/C): 4 Gait: 4 Indoor Mobility (Ambulation): Needed Some Help Prior Devices Use: Walker PT Evaluation-Current Subjective Patient in bed pre tx, agrees to PT with encouragement, has no complaints of pain. Pt/Family Goals none stated Objective Patient Orientation: Person, [place] ROM/Strength Strength Lower Extremities 4/5 gross BLE Sensory Vision: Wears Glasses Sensation Right Lower Extremit: Intact Sensation Left Lower Extremity: Intact Transfers Roll Left to Right (QC): 2 Lying to Sitting/Side of Bed(Q: 2 Sit to Stand (QC): 3 Gait Does the Patient Walk?: Yes Mode of Locomotion: Walk Anticipated Mode of Locomotion: Walk Walk 10 feet (QC): 3 Distance: 20' Gait Assistive Device: FWW Comments/Gait Description Patient has slumped posture, needs assist guiding walker Balance Sitting Static: Fair Sitting Dynamic: Fair Standing Static: Fair Standing Dynamic: Poor Treatment BLE seated exercises x20 (AP, LAQ) Assessment/Needs Patient has impaired mobility, strength, endurance. Patient in recliner post tx with nurse call, in room, nurse notified. Patient needs max assist for supine to sit and assist with ambulation using a rolling walker. Rehab Potential: Fair PT Group Home Goals Rental Salesperson Goals PT Group Home Goals Time Frame: Jul 13, 2021 PT Plan Problem List Problem List: Activity Tolerance, Functional Strength, Safety, Balance, Gait, Transfer, Bed Mobility, ROM Treatment/Plan Treatment Plan: Continue Plan of Care Treatment Plan: Bed Mobility, Education, Functional Activity Shannon, Functional Strength, Gait, Safety, Therapeutic Exercise, Transfers Treatment Duration: Jul 13, 2021 Frequency: 6 times per week Estimated Hrs Per Day: .25 hour per day Patient and/or Family Agrees t: Yes Safety Risks/Education Patient Education: Gait Training, Transfer Techniques, Correct Positioning, Safety Issues Teaching Recipient: Patient Teaching Methods: Demonstration, Discussion Response to Teaching: Reinforcement Needed Discharge Recommendations Plan Patient will perform bed mobility and transfer training, balance and endurance training, functional strengthening, gait training, and education, to improve functional mobility and independence at home. Therapy Discharge Recommendati: 24 Hour Supervision Time/GCodes Time In: 1536 Time Out: 1549 Total Billed Treatment Time: 13 Total Billed Treatment 1 visit LEAH GAUTAM PT Jul 06, 2021 16:00
--- NOTE | 2021-07-06 16:02 | Diagnostic Imaging Report ---
PROCEDURE: US Venous Lower Ext José Miguel. TECHNIQUE: Multiple real-time grayscale images were obtained over the lower extremities in various projections, bilaterally. Additional duplex Doppler and color Doppler images were also obtained. INDICATION: Swelling and edema. COMPARISON: None available. FINDINGS: Examination is slightly limited secondary to patient body habitus. Within limits of the exam, normal flow, compression, and augmentation within the visualized deep venous structures of the bilateral lower extremities. IMPRESSION: No evidence of deep venous thrombosis within the bilateral lower extremities. Dictated by: Dictated on workstation # [id number]
--- NOTE | 2021-07-06 16:52 | Consultation-Cardiology ---
HPI-Cardiology Cardiology Consultation: Date of Consultation 07/06/2021 Date of Admission 07/06/2021 Attending Physician Ellen Valdivia DO Admitting Physician Naoh Bergman MD Consulting Physician DEBORAH CALDWELL JR, MD HPI: Time Seen by a Provider: 16:54 Chief Complaint: Reason for consultation: Atrial fibrillation. 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 I obtained the majority of the history from his who was at the bedside. He was very somnolent but would intermittently wake up and eat dinner. However, the only question I could get him to answer was his first name. His tells me that he has a history of hypertension, type 2 diabetes mellitus, and chronic lower extremity edema with intermittent episodes of cellulitis. She states that he has a physician at the [facility] and they had actually been up there in March where he underwent an extensive multispecialty evaluation. She was concerned about his memory but tells me a neurologist at the [facility] told her he does not have dementia. Yesterday he was not all that conversive with his . She knew that something was wrong because this is the way he gets when he is ill. She brought him to a walk-in in [place]. They told her his oxygen level was low and they called a rescue squad and had him brought to [facility] for further evaluation. She states that at 1 point he was complaining of some right sided chest pain but a short while later, denied any chest pain. He was not complaining of dyspnea, paroxysmal nocturnal dyspnea, orthopnea, palpitations, lightheadedness, or syncope. He does have this occasional lower extremity edema. He was admitted for treatment of cellulitis. He does not smoke cigarettes or drink alcohol. His does not know of any family history of premature coronary artery disease. In the emergency room he had bradycardia and then developed atrial fibrillation. As such, a cardiology consultation was requested. Certain portions of this document may have been dictated utilizing voice recognition technology. Inherent to this technology, typographical and grammatical errors may exist. As much as I am diligent to identify and correct these mistakes, some errors may remain in the document. Review of Systems-Cardiology Review of Systems Other comments Review of 10 organ systems is as per the history of present illness, otherwise negative as obtained from his . ATC-Mmzrpn-Fmjglh Hx Patient Social History Marrital Status: 2nd Hand Smoke Exposure: No Have you traveled recently?: Unable to obtain Alcohol Use?: No Pt feels they are or have been: Unable to obtain Past Medical History PMH As described under Assessment. Family Medical History Family Medical History: The patient's does not know of any family history of premature coronary artery disease. Allergies and Home Medications Allergies Coded Allergies: No Known Drug Allergies (Unverified , 06/08/20) Patient Home Medication List Home Medication List Reviewed: Yes Diltiazem HCl (Cardizem Cd) 120 Mg Cap.er.24h, 120 MG PO DAILY, (Reported) Entered as Reported by: OLINDA JIMENEZ on 07/06/211410 Last Action: Reviewed Furosemide (Furosemide) 40 Mg Tablet, 40 MG PO DAILY, (Reported) Entered as Reported by: OLINDA JIMENEZ on 07/06/211410 Last Action: Reviewed Insulin Aspart (Novolog Flexpen) 300 Units/3 Ml Solution, UNITS SC SLIDING/SCALE, (Reported) Entered as Reported by: OLINDA JIMENEZ on 07/06/211410 Last Action: Reviewed Insulin Glargine,Hum.rec.anlog (Lantus Solostar) 100 Unit/1 Ml Insuln.pen, 15 UNIT SQ DAILY, (Reported) Entered as Reported by: OLINDA JIMENEZ on 07/06/211410 Last Action: Reviewed Metformin HCl (Metformin HCl) 500 Mg Tablet, 1,000 MG PO BID WITH MEALS, (Reported) Entered as Reported by: OLINDA JIMENEZ on 07/06/211410 Last Action: Reviewed Metoprolol Tartrate (Metoprolol Tartrate) 25 Mg Tablet, 25 MG PO DAILY, (Reported) Entered as Reported by: OLINDA JIMENEZ on 07/06/211410 Last Action: Reviewed Tamsulosin HCl (Flomax) 0.4 Mg Cap, 0.4 MG PO 1800, (Reported) Entered as Reported by: OLINDA JIMENEZ on 07/06/211411 Last Action: Edited Trazodone HCl (Trazodone HCl) 50 Mg Tablet, 50 MG PO HS, (Reported) Entered as Reported by: OLINDA JIMENEZ on 07/06/211410 Last Action: Reviewed Discontinued Medications Cephalexin (Cephalexin) 500 Mg Tablet, 500 MG PO TID Discontinued Reason: No Longer Taking Prescribed by: AISHA WHITE on 01/26/216 Last Action: Discontinued Glimepiride (Glimepiride) 2 Mg Tablet, 2 MG PO DAILY, (Reported) Discontinued Reason: No Longer Taking Entered as Reported by: OLINDA JIMENEZ on 07/06/21 1411 Last Action: Discontinued Exam Vital Signs Vital Signs Date Time Temp Pulse Resp B/P (MAP) Pulse Ox O2 Delivery O2 Flow Rate FiO2 07/06/21 16:00 36.9 70 24 164/82 (109) 94 Room Air Physical Exam General: Somnolent. No acute distress. Well nourished and appears stated age. Eye: Extraocular movements are intact. There is some injection of the erythema. There are no xanthelasma. HENT: Normocephalic. Atraumatic. Carotid pulsations 2/2 without bruits. Neck: Jugular venous pressure does not appear elevated. No thyromegaly appreciated. Respiratory: Lungs are clear to auscultation. Respirations are non-labored. Breath sounds are equal. Symmetrical chest wall expansion. Cardiovascular: Normal rate. Irregular rhythm. No murmur. No gallop. Point of maximal impulse is not appear displaced. Good pulses equal in all extremities. No edema. Gastrointestinal: Soft. Normal bowel sounds. Skin: Skin turgor is normal. There is no pallor. Findings of seborrheic keratosis. Musculoskeletal: No kyphosis or scoliosis appreciated. Neurologic: Somnolent but opens eyes to voice. Oriented to person only. Cranial nerves 3-12 appear grossly intact. The patient has good motor tone strength in the upper and lower extremities bilaterally. Psychiatric: Somnolent. Labs Laboratory Tests Test 07/05/21 18:35 07/05/21 20:02 07/06/21 01:00 07/06/21 05:35 Range/Units White Blood Count 7.6 8.8 4.3-11.0 10^3/uL Red Blood Count 4.22 L 4.13 L 4.30-5.52 10^6/uL Hemoglobin 12.2 L 11.8 L 13.3-17.7 g/dL Hematocrit 39 L 39 L 40-54 % Mean Corpuscular Volume 92 94 80-99 fL Mean Corpuscular Hemoglobin 29 29 25-34 pg Mean Corpuscular Hemoglobin Concent 31 L 31 L 32-36 g/dL Red Cell Distribution Width 14.3 14.1 10.0-14.5 % Platelet Count 188 181 130-400 10^3/uL Mean Platelet Volume 11.4 11.0 9.0-12.2 fL Immature Granulocyte % (Auto) 0 0 % Neutrophils (%) (Auto) 70 71 42-75 % Lymphocytes (%) (Auto) 19 17 12-44 % Monocytes (%) (Auto) 8 9 0-12 % Eosinophils (%) (Auto) 2 3 0-10 % Basophils (%) (Auto) 1 1 0-10 % Neutrophils # (Auto) 5.3 6.2 1.8-7.8 10^3/uL Lymphocytes # (Auto) 1.4 1.5 1.0-4.0 10^3/uL Monocytes # (Auto) 0.6 0.8 0.0-1.0 10^3/uL Eosinophils # (Auto) 0.2 0.2 0.0-0.3 10^3/uL Basophils # (Auto) 0.1 0.1 0.0-0.1 10^3/uL Immature Granulocyte # (Auto) 0.0 0.0 0.0-0.1 10^3/uL Prothrombin Time 14.1 12.2-14.7 SEC INR Comment 1.1 0.8-1.4 Activated Partial Thromboplast Time 34 24-35 SEC Sodium Level 138 136 135-145 MMOL/L Potassium Level 4.3 3.8 3.6-5.0 MMOL/L Chloride Level 100 100 98-107 MMOL/L Carbon Dioxide Level 31 29 21-32 MMOL/L Anion Gap 7 7 5-14 MMOL/L Blood Urea Nitrogen 26 H 20 H 7-18 MG/DL Creatinine 1.02 0.78 0.60-1.30 MG/DL Estimat Glomerular Filtration Rate 69 94 BUN/Creatinine Ratio 25 26 Glucose Level 116 H 61 L 70-105 MG/DL Lactic Acid Level 1.32 0.50-2.00 MMOL/L Calcium Level 8.7 8.7 8.5-10.1 MG/DL Corrected Calcium 9.0 8.5-10.1 MG/DL Total Bilirubin 0.3 0.1-1.0 MG/DL Aspartate Amino Transf (AST/SGOT) 20 5-34 U/L Alanine Aminotransferase (ALT/SGPT) 31 0-55 U/L Alkaline Phosphatase 104 40-136 U/L Total Protein 6.6 6.4-8.2 GM/DL Albumin 3.6 3.2-4.5 GM/DL Urine Color YELLOW Urine Clarity CLEAR Urine pH 5.5 5-9 Urine Specific [place] 1.015 L 1.016-1.022 Urine Protein NEGATIVE NEGATIVE Urine Glucose (UA) NEGATIVE NEGATIVE Urine Ketones NEGATIVE NEGATIVE Urine Nitrite NEGATIVE NEGATIVE Urine Bilirubin NEGATIVE NEGATIVE Urine Urobilinogen 0.2 < = 1.0 MG/DL Urine Leukocyte Esterase NEGATIVE NEGATIVE Urine RBC (Auto) NEGATIVE NEGATIVE Urine RBC NONE /HPF Urine WBC RARE /HPF Urine Squamous Epithelial Cells RARE /HPF Urine Crystals NONE /LPF Urine Bacteria NEGATIVE /HPF Urine Casts NONE /LPF Urine Mucus NEGATIVE /LPF Urine Culture Indicated NO Influenza Type A (RT-PCR) Not Detected Not Detecte Influenza Type B (RT-PCR) Not Detected Not Detecte SARS-CoV-2 RNA (RT-PCR) Not Detected Not Detecte ECG Impression ECG Comment Atrial fibrillation with a ventricular rate of 72 bpm with right bundle branch block and left anterior hemiblock. Diagnosis/Problems Diagnosis/Problems (1) Paroxysmal atrial fibrillation Assessment & Plan: He appears to be going in and out of atrial fibrillation. He has mild biatrial enlargement which suggests that he may have more persistent atrial fibrillation at home. This is a new diagnosis for him. He does not have any significant valvular heart disease that would predispose to atrial fibrillation. His heart rate is well controlled and actually somewhat bradycardic at times. He was taking both diltiazem and metoprolol at home for his hypertension. I recommend we stop the metoprolol and resume diltiazem when his blood pressure will tolerate. I will initiate therapy with apixaban for stroke prophylaxis. Given his age, I do not see any strong indication for sabianist of sinus rhythm. (2) Sinus bradycardia Assessment & Plan: As above, he did have some intermittent sinus bradycardia in the emergency room as well as profound first-degree AV block. I recommend discontinuing the metoprolol. (3) Pulmonary hypertension Assessment & Plan: He does have obstructive sleep apnea and does not always use his CPAP. He is also obese. I suspect this has led to the pulmonary hypertension noted on his echocardiogram. Given his advanced age, I would not recommend extensive evaluation for other secondary causes of pulmonary hypertension. (4) Primary hypertension Assessment & Plan: He is presently normotensive on no antihypertensive medication. He is being treated for cellulitis. We will monitor his blood pressures and resume diltiazem if his blood pressure becomes elevated. (5) Altered mental status Status: Acute Assessment & Plan: Most likely related to his acute infection. His tells me that he had neurology evaluation at the [facility] and was told he does not have dementia. DEBORAH CALDWELL JR, MD Jul 06, 2021 16:52
[2021-07-06] MEDS: APIXABAN 5 MG (ELIQUIS) TABLET PO SCH (19:34)
[2021-07-06] MEDS: polyethylene glycoL POWDER 17 GM (MIRALAX) PACK PO SCH (19:34)
[2021-07-06] MEDS: SENNA W/DOCUSATE (SENOKOT S) TABLET PO SCH (19:34)
[2021-07-06] MEDS ORDERED: ZIPRASIDONE 20 MG INJ (GEODON) VIAL IM PRN (23:30)
[2021-07-06] MEDS ORDERED: WATER (STERILE) FOR INJ 10 ML BTL INJ SCH (23:30)
[2021-07-07] MEDS: RT-ALBUTEROL/IPRATROPIUM 3 ML (DUONEB) VIAL INH PRN (00:51)
[2021-07-07 03:46] VITALS: BP 101/52
[2021-07-07] MEDS: VANCOMYCIN 1250 MG/NS 250 ML IVPB IV SCH ×4 (05:23→17:23)
[2021-07-07 06:13] LABS: ALBUMIN 3.2 GM/DL (3.2-4.5); BASOPHILS % (AUTO) 1 % (0-10); EOSINOPHILS # (AUTO) 0.2 10^3/uL (0.0-0.3); EOSINOPHILS % (AUTO) 2 % (0-10); HEMATOCRIT 38 % (40-54); HEMOGLOBIN 11.9 g/dL (13.3-17.7); LYMPHOCYTES # (AUTO) 1.2 10^3/uL (1.0-4.0); LYMPHOCYTES % (AUTO) 19 % (12-44); MEAN CORPUSCULAR HEMOGLOBIN 29 pg (25-34); MEAN CORPUSCULAR HGB CONC 32 g/dL (32-36); MEAN CORPUSCULAR VOLUME 92 fL (80-99); MEAN PLATELET VOLUME 11.1 fL (9.0-12.2); MONOCYTES # (AUTO) 0.7 10^3/uL (0.0-1.0); MONOCYTES % (AUTO) 10 % (0-12); NEUTROPHILS # (AUTO) 4.3 10^3/uL (1.8-7.8); NEUTROPHILS % (AUTO) 68 % (42-75); PLATELET COUNT 174 10^3/uL (130-400); WHITE BLOOD COUNT 6.4 10^3/uL (4.3-11.0)
[2021-07-07 06:14] LABS: POTASSIUM 4.4 MMOL/L (3.6-5.0)
[2021-07-07 06:15] LABS: CALCIUM 8.9 MG/DL (8.5-10.1)
[2021-07-07 06:16] LABS: TOTAL PROTEIN 6.1 GM/DL (6.4-8.2)
[2021-07-07 06:18] LABS: BILIRUBIN,TOTAL 0.4 MG/DL (0.1-1.0)
[2021-07-07 06:20] LABS: CREATININE SERUM 0.78 MG/DL (0.60-1.30)
[2021-07-07 07:52] VITALS: BP 175/81
--- NOTE | 2021-07-07 08:22 | Progress Note - Hospitalist ---
Subjective HPI/CC On Admission Date Seen by Provider: Jul 07, 2021 Time Seen by Provider: 11:00 Chief complaint: Bilateral lower extremity cellulitis History of present illness: This is an 89-year-old white male who resides at home with his who has a past medical history of dementia and bladder cancer with diabetes and hypertension who presented to the [place] ER with complaints of hypoxia and altered mental status. He has severe dementia and appears to be bedbound and he cannot provide any details. Social work will talk to his but he appears to be in desperate need of a [facility] placement and hospice for that matter. Subjective/Events-last exam Patient doing much better at bedside Was very agitated last night received antipsychotics Check meds and labs No falls but high risk Explained everything to as well as I could Review of Systems Neurological: Confusion Focused Exam Lactate Level 07/05/21 18:35: Lactic Acid Level 1.32 Time of Focused Exam: 18:45 Objective Exam Vital Signs Vital Signs Date Time Temp Pulse Resp B/P (MAP) Pulse Ox O2 Delivery O2 Flow Rate FiO2 07/08/21 03:27 37.3 87 18 183/80 (114) 92 Room Air 07/07/21 10:33 0.00 Capillary Refill : Less Than 3 Seconds General Appearance: No Apparent Distress, WD/WN, Chronically ill, Obese Respiratory: Lungs Clear, Normal Breath Sounds Cardiovascular: Regular Rate, Rhythm Neurologic/Psychiatric: Other (Asleep) Results/Procedures Lab Patient resulted labs reviewed. Assessment/Plan Assessment and Plan Assess & Plan/Chief Complaint Assessment: Bilateral lower extremity cellulitis now improved Atrial fibrillation Delirium requiring antipsychotics due to agitation Advanced age Plan: IV antibiotics Cardiology appreciated PT and OT SERENITY BAUTISTA DO Jul 07, 2021 08:22
--- NOTE | 2021-07-07 08:25 | Physical Therapy Daily Note ---
PT Daily Note-Current Subjective Pt. in bed, mumbles to therapist but agrees to sit up in chair. Mental Status Patient Orientation: Person Transfers SCALE: Activities may be completed with or without assistive devices. 9-Mqrpcriktr-qwkhper completes the activity by him/herself with no assistance from a helper. 5-Set-up or Clean-up Assistance-helper sets up or cleans up; patient completes activity. [place] assists only prior to or following the activity. 4-Supervision or Touching Assistance-helper provides verbal cues and/or touc jordi/steadying and/or contact guard assistance as patient completes activity. Assistance may be provided throughout the activity or intermittently. 3-Partial/Moderate Assistance-helper does LESS THAN HALF the effort. [place] lifts, holds or supports trunk or limbs, but provides less than half the effort. 2-Substantial/Maximal Assistance-helper does MORE THAN HALF the effort. [place] lifts or holds trunk or limbs and provides more than half the effort. 4-Elmwlmcfs-hgenzp does ALL the effort. Patient does none of the effort to complete the activity. Or, the assistance of 2 or more helpers is required for the patient to complete the activity. If activity was not attempted, code reason: 7-Patient Refused. 9-Not Applicable-not attempted and the patient did not perform the activity before the current illness, exacerbation or injury. 10-Not Attempted due to Environmental Limitations-(lack of equipment, weather restraints, etc.). 88-Not Attempted due to Medical Conditions or Safety Concerns. Roll Left & Right (QC): 3 Lying to Sitting/Side of Bed(Q: 2 Sit to Stand (QC): 3 Chair/Rqu-xl-Siybl Xfer(QC): 3 Treatments transfer bed to chair Assessment Current Status: Good Progress, Fair Progress Pt. was mod-max A with transfers out of bed and to chair. Pt. says "bite" when up in chair and says yes to wanting to order breakfast, nursing notified. Pt. up in chair post session with call light and all needs met. 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 Corn Production Manager Goals Seed Corn Production Manager Goals PT [facility] Goals Time Frame: Jul 13, 2021 PT Plan Treatment/Plan Treatment Plan: Continue Plan of Care Treatment Plan: Bed Mobility, Education, Functional Activity Shannon, Functional Strength, Gait, Safety, Therapeutic Exercise, Transfers Treatment Duration: Jul 13, 2021 Frequency: 6 times per week Estimated Hrs Per Day: .25 hour per day Patient and/or Family Agrees t: Yes Time/GCodes Time In: 744 Time Out: 754 Total Billed Treatment Time: 10 Total Billed Treatment 1, FA 10' TREMAYNE WAN PT Jul 07, 2021 08:25
[2021-07-07] MEDS: cefTRIAXone 1,000 MG in WATER (STERILE) FOR INJECTION 10 ML IV SCH (09:31)
[2021-07-07] MEDS: SENNA W/DOCUSATE (SENOKOT S) TABLET PO SCH ×2 (09:32→19:17)
[2021-07-07] MEDS: APIXABAN 5 MG (ELIQUIS) TABLET PO SCH ×2 (09:32→19:17)
[2021-07-07] MEDS: polyethylene glycoL POWDER 17 GM (MIRALAX) PACK PO SCH ×2 (09:32→19:17)
--- NOTE | 2021-07-07 11:26 | Cardiology Progress Note ---
Progress Note-Cardiology Events since last exam Date Seen by Provider: Jul 07, 2021 Time Seen by Provider: 11:21 Events since last exam I am seeing him for atrial fibrillation of unknown duration first recognized during this hospitalization. He was laying in bed and extremely somnolent. He would open his eyes to voice for just a few seconds then appeared to fall back to sleep. He would not answer any questions or follow any commands other than briefly opening his eyes. Certain portions of this document may have been dictated utilizing voice recognition technology. Inherent to this technology, typographical and grammatical errors may exist. As much as I am diligent to identify and correct these mistakes, some errors may remain in the document. Vitals Last set of Vitals Signs Vital Signs 07/07/21 07/07/21 07:52 10:33 Temp 37.6 Pulse 72 Resp 20 B/P (MAP) 175/81 (112) Pulse Ox 93 O2 Delivery Room Air O2 Flow Rate 0.00 Labs Labs Laboratory Tests 07/07/21 05:56 Exam Vital Signs Vital Signs Date Time Temp Pulse Resp B/P (MAP) Pulse Ox O2 Delivery O2 Flow Rate FiO2 07/07/21 10:33 Room Air 0.00 07/07/21 07:52 37.6 72 20 175/81 (112) 93 Physical Exam General: Extremely somnolent. No acute distress. He is obese. Eye: No xanthelasma. HENT: Normocephalic. Neck: Jugular venous pressure does not appear elevated. Respiratory: Lungs are clear to auscultation but with decreased breath sounds. Respirations are non-labored. Breath sounds are equal. Symmetrical chest wall expansion. Cardiovascular: Normal rate. Iregular rhythm. No murmur. No gallop. No edema. Gastrointestinal: Soft. Normal bowel sounds. Skin: Warm. Dry. Probable seborrheic keratosis. Neurologic: Not obtainable due to severe somnolence. Psychiatric: Somnolent and not obtainable. Labs Laboratory Tests Test 07/07/21 05:56 Range/Units White Blood Count 6.4 4.3-11.0 10^3/uL Red Blood Count 4.12 L 4.30-5.52 10^6/uL Hemoglobin 11.9 L 13.3-17.7 g/dL Hematocrit 38 L 40-54 % Mean Corpuscular Volume 92 80-99 fL Mean Corpuscular Hemoglobin 29 25-34 pg Mean Corpuscular Hemoglobin Concent 32 32-36 g/dL Red Cell Distribution Width 14.0 10.0-14.5 % Platelet Count 174 130-400 10^3/uL Mean Platelet Volume 11.1 9.0-12.2 fL Immature Granulocyte % (Auto) 0 % Neutrophils (%) (Auto) 68 42-75 % Lymphocytes (%) (Auto) 19 12-44 % Monocytes (%) (Auto) 10 0-12 % Eosinophils (%) (Auto) 2 0-10 % Basophils (%) (Auto) 1 0-10 % Neutrophils # (Auto) 4.3 1.8-7.8 10^3/uL Lymphocytes # (Auto) 1.2 1.0-4.0 10^3/uL Monocytes # (Auto) 0.7 0.0-1.0 10^3/uL Eosinophils # (Auto) 0.2 0.0-0.3 10^3/uL Basophils # (Auto) 0.0 0.0-0.1 10^3/uL Immature Granulocyte # (Auto) 0.0 0.0-0.1 10^3/uL Sodium Level 138 135-145 MMOL/L Potassium Level 4.4 3.6-5.0 MMOL/L Chloride Level 102 98-107 MMOL/L Carbon Dioxide Level 28 21-32 MMOL/L Anion Gap 8 5-14 MMOL/L Blood Urea Nitrogen 17 7-18 MG/DL Creatinine 0.78 0.60-1.30 MG/DL Estimat Glomerular Filtration Rate 94 BUN/Creatinine Ratio 22 Glucose Level 243 H 70-105 MG/DL Calcium Level 8.9 8.5-10.1 MG/DL Corrected Calcium 9.5 8.5-10.1 MG/DL Total Bilirubin 0.4 0.1-1.0 MG/DL Aspartate Amino Transf (AST/SGOT) 32 5-34 U/L Alanine Aminotransferase (ALT/SGPT) 39 0-55 U/L Alkaline Phosphatase 86 40-136 U/L Total Protein 6.1 L 6.4-8.2 GM/DL Albumin 3.2 3.2-4.5 GM/DL Diagnosis/Problems Diagnosis/Problems (1) Paroxysmal atrial fibrillation Assessment & Plan: He appears to be going in and out of atrial fibrillation. He has mild biatrial enlargement which suggests that he may have more persistent atrial fibrillation at home. This is a new diagnosis for him. His heart rate presently seems reasonably controlled on no AV raheem blocking agents. He does not have any significant valvular heart disease that would predispose to atrial fibrillation. He was taking both diltiazem and metoprolol at home for his hypertension. I recommend we resume diltiazem when his blood pressure will tolerate and do not resume metoprolol. I started him on apixaban for stroke prophylaxis. Although he is over the age of 82, his creatinine is less than 1.5 and weight above 60 kg. As such, there is no indication to reduce the dose of apixaban. Given his age, I do not see any strong indication for methodist of sinus rhythm. (2) Sinus bradycardia Assessment & Plan: As above, he did have some intermittent sinus bradycardia in the emergency room as well as profound first-degree AV block. I recommend discontinuing the metoprolol. We are still holding off on resuming diltiazem which he was taking for hypertension at home. (3) Primary hypertension Assessment & Plan: He is presently normotensive on no antihypertensive medication. He is being treated for cellulitis. We will monitor his blood pressures and resume diltiazem if his blood pressure becomes elevated. I recommend he not be discharged on beta-armando as noted above. (4) Pulmonary hypertension Assessment & Plan: He does have obstructive sleep apnea and according to his does not always use his CPAP. He is also obese. I suspect this has led to the pulmonary hypertension noted on his echocardiogram. Given his advanced age, I would not recommend extensive evaluation for other secondary causes of pulmonary hypertension. (5) Altered mental status Status: Acute Assessment & Plan: Most likely related to his acute infection. His tells me that he had neurology evaluation at the [facility] and was told he does not have dementia. His mental status seems to be worse today. DEBORAH CALDWELL JR, MD Jul 07, 2021 11:26
[2021-07-07 11:39] VITALS: BP 168/84
[2021-07-07 16:15] VITALS: BP 171/69
[2021-07-07 19:52] VITALS: BP 159/73
[2021-07-08] VITALS (7 sets, daily range): BP systolic 145–193; BP diastolic 70–83
[2021-07-08] MEDS ORDERED: TROUGH ORDER-PHARMACY XX NR (04:00)
[2021-07-08 06:26] LABS: BASOPHILS # (AUTO) 0.1 10^3/uL (0.0-0.1); BASOPHILS % (AUTO) 1 % (0-10); EOSINOPHILS # (AUTO) 0.2 10^3/uL (0.0-0.3); EOSINOPHILS % (AUTO) 3 % (0-10); HEMATOCRIT 38 % (40-54); HEMOGLOBIN 11.9 g/dL (13.3-17.7); LYMPHOCYTES # (AUTO) 1.2 10^3/uL (1.0-4.0); LYMPHOCYTES % (AUTO) 18 % (12-44); MEAN CORPUSCULAR HEMOGLOBIN 29 pg (25-34); MEAN CORPUSCULAR HGB CONC 31 g/dL (32-36); MEAN CORPUSCULAR VOLUME 92 fL (80-99); MEAN PLATELET VOLUME 11.7 fL (9.0-12.2); MONOCYTES # (AUTO) 0.6 10^3/uL (0.0-1.0); MONOCYTES % (AUTO) 10 % (0-12); NEUTROPHILS # (AUTO) 4.6 10^3/uL (1.8-7.8); NEUTROPHILS % (AUTO) 68 % (42-75); PLATELET COUNT 150 10^3/uL (130-400); WHITE BLOOD COUNT 6.7 10^3/uL (4.3-11.0)
[2021-07-08 06:47] LABS: ALBUMIN 3.3 GM/DL (3.2-4.5)
[2021-07-08 06:48] LABS: POTASSIUM 4.3 MMOL/L (3.6-5.0)
[2021-07-08 06:49] LABS: CALCIUM 9.1 MG/DL (8.5-10.1)
[2021-07-08 06:50] LABS: TOTAL PROTEIN 6.4 GM/DL (6.4-8.2)
[2021-07-08 06:52] LABS: BILIRUBIN,TOTAL 0.5 MG/DL (0.1-1.0)
[2021-07-08 06:54] LABS: CREATININE SERUM 0.77 MG/DL (0.60-1.30)
[2021-07-08] MEDS: VANCOMYCIN 1250 MG/NS 250 ML IVPB IV SCH ×4 (06:54→18:01)
--- NOTE | 2021-07-08 07:59 | Progress Note - Hospitalist ---
Subjective HPI/CC On Admission Date Seen by Provider: Jul 08, 2021 Time Seen by Provider: 11:30 Chief complaint: Bilateral lower extremity cellulitis History of present illness: This is an 89-year-old white male who resides at home with his who has a past medical history of dementia and bladder cancer with diabetes and hypertension who presented to the [place] ER with complaints of hypoxia and altered mental status. He has severe dementia and appears to be bedbound and he cannot provide any details. Social work will talk to his but he appears to be in desperate need of a prison placement and hospice for that matter. Subjective/Events-last exam Patient doing very well at bedside listening to music with him Very flat affect Appears to be more of a parkinsonian type of scenario Up in chair Ate breakfast Review of Systems General: Fatigue Neurological: Confusion Focused Exam Lactate Level Time of Focused Exam: 18:45 Objective Exam Vital Signs Vital Signs Date Time Temp Pulse Resp B/P (MAP) Pulse Ox O2 Delivery O2 Flow Rate FiO2 07/08/21 19:34 37.1 64 65 165/72 (103) 94 Room Air 07/07/21 10:33 0.00 Capillary Refill : Less Than 3 Seconds General Appearance: No Apparent Distress, WD/WN, Chronically ill Respiratory: Lungs Clear, Normal Breath Sounds Cardiovascular: Regular Rate, Rhythm Neurologic/Psychiatric: Alert, Depressed Affect, Disoriented Results/Procedures Lab Laboratory Tests 07/08/21 05:59 Patient resulted labs reviewed. Assessment/Plan Assessment and Plan Assess & Plan/Chief Complaint Assessment: Bilateral lower extremity cellulitis now improved Atrial fibrillation Delirium requiring antipsychotics due to agitation Advanced age Plan: IV antibiotics Cardiology appreciated PT and OT 07/08/2021: Supportive care to continue IV antibiotics Monitor closely SERENITY BAUTISTA DO Jul 08, 2021 07:59
[2021-07-08] MEDS: cefTRIAXone 1,000 MG in WATER (STERILE) FOR INJECTION 10 ML IV SCH (08:42)
[2021-07-08] MEDS: SENNA W/DOCUSATE (SENOKOT S) TABLET PO SCH ×2 (08:43→19:27)
[2021-07-08] MEDS: APIXABAN 5 MG (ELIQUIS) TABLET PO SCH ×2 (08:43→19:15)
[2021-07-08] MEDS: polyethylene glycoL POWDER 17 GM (MIRALAX) PACK PO SCH ×2 (08:43→19:27)
[2021-07-08] MEDS ORDERED: dilTIAZem120 MG (CARDIZEM CD) CAP PO SCH (11:15)
--- NOTE | 2021-07-08 11:21 | Cardiology Progress Note ---
Progress Note-Cardiology Events since last exam Date Seen by Provider: Jul 08, 2021 Time Seen by Provider: 11:16 Events since last exam I am following him for newly diagnosed atrial fibrillation. This morning his is at the bedside. He is still very somnolent but was sitting up in a chair and would open his eyes to voice. He told me he was waiting to meet me but would then quickly fall back to sleep. I could not get him to answer any other questions. His states that he is not normally this somnolent at home. Certain portions of this document may have been dictated utilizing voice recognition technology. Inherent to this technology, typographical and grammatical errors may exist. As much as I am diligent to identify and correct these mistakes, some errors may remain in the document. Vitals Last set of Vitals Signs Vital Signs 07/07/21 07/08/21 07/08/21 10:33 07:30 08:35 Temp 37.1 Pulse 72 Resp 18 B/P (MAP) 145/80 (101) Pulse Ox 94 O2 Delivery Room Air O2 Flow Rate 0.00 Labs Labs Laboratory Tests 07/08/21 05:59 Exam Vital Signs Vital Signs Date Time Temp Pulse Resp B/P (MAP) Pulse Ox O2 Delivery O2 Flow Rate FiO2 07/08/21 08:35 Room Air 07/08/21 07:30 37.1 72 18 145/80 (101) 94 07/07/21 10:33 0.00 Physical Exam General: Very somnolent. No acute distress. He is obese. Eye: No xanthelasma. HENT: Normocephalic. Neck: Jugular venous pressure does not appear elevated. Respiratory: Lungs are clear to auscultation. Respirations are non-labored. Breath sounds are equal. Symmetrical chest wall expansion. Cardiovascular: Normal rate. Iregular rhythm. No murmur. No gallop. 1+ bilateral pretibial edema, slightly worse on the right. Erythema is improving.. Gastrointestinal: Soft. Normal bowel sounds. Skin: Warm. Dry. Neurologic: Somnolent and not answering my questions. Cranial nerves 3-11 grossly intact. Psychiatric: Somnolent. Labs Laboratory Tests Test 07/08/21 05:59 Range/Units White Blood Count 6.7 4.3-11.0 10^3/uL Red Blood Count 4.13 L 4.30-5.52 10^6/uL Hemoglobin 11.9 L 13.3-17.7 g/dL Hematocrit 38 L 40-54 % Mean Corpuscular Volume 92 80-99 fL Mean Corpuscular Hemoglobin 29 25-34 pg Mean Corpuscular Hemoglobin Concent 31 L 32-36 g/dL Red Cell Distribution Width 13.9 10.0-14.5 % Platelet Count 150 130-400 10^3/uL Mean Platelet Volume 11.7 9.0-12.2 fL Immature Granulocyte % (Auto) 0 % Neutrophils (%) (Auto) 68 42-75 % Lymphocytes (%) (Auto) 18 12-44 % Monocytes (%) (Auto) 10 0-12 % Eosinophils (%) (Auto) 3 0-10 % Basophils (%) (Auto) 1 0-10 % Neutrophils # (Auto) 4.6 1.8-7.8 10^3/uL Lymphocytes # (Auto) 1.2 1.0-4.0 10^3/uL Monocytes # (Auto) 0.6 0.0-1.0 10^3/uL Eosinophils # (Auto) 0.2 0.0-0.3 10^3/uL Basophils # (Auto) 0.1 0.0-0.1 10^3/uL Immature Granulocyte # (Auto) 0.0 0.0-0.1 10^3/uL Sodium Level 136 135-145 MMOL/L Potassium Level 4.3 3.6-5.0 MMOL/L Chloride Level 101 98-107 MMOL/L Carbon Dioxide Level 27 21-32 MMOL/L Anion Gap 8 5-14 MMOL/L Blood Urea Nitrogen 16 7-18 MG/DL Creatinine 0.77 0.60-1.30 MG/DL Estimat Glomerular Filtration Rate 95 BUN/Creatinine Ratio 21 Glucose Level 189 H 70-105 MG/DL Calcium Level 9.1 8.5-10.1 MG/DL Corrected Calcium 9.7 8.5-10.1 MG/DL Total Bilirubin 0.5 0.1-1.0 MG/DL Aspartate Amino Transf (AST/SGOT) 39 H 5-34 U/L Alanine Aminotransferase (ALT/SGPT) 50 0-55 U/L Alkaline Phosphatase 105 40-136 U/L Total Protein 6.4 6.4-8.2 GM/DL Albumin 3.3 3.2-4.5 GM/DL Vancomycin Level Trough 13.6 10.0-20.0 UG/ML Diagnosis/Problems Diagnosis/Problems (1) Paroxysmal atrial fibrillation Assessment & Plan: He appears to be going in and out of atrial fibrillation. He has mild biatrial enlargement on his echocardiogram from this admission which suggests that he may have more persistent atrial fibrillation at home. This is a new diagnosis for him. He does not have any significant valvular heart disease that would predispose to atrial fibrillation. His heart rate presently seems reasonably controlled on no AV raheem blocking agents. However, his blood pressure has become elevated. I will resume his home dose of diltiazem. He was taking both diltiazem and metoprolol at home for his hypertension. I recommend we do not resume metoprolol. I started him on apixaban for stroke prophylaxis. Although he is over the age of 82, his creatinine is less than 1.5 and weight above 60 kg. As such, there is no indication to reduce the dose of apixaban. Given his age, I do not see any strong indication for protestant of sinus rhythm. (2) Sinus bradycardia Assessment & Plan: As above, he did have some intermittent sinus bradycardia in the emergency room as well as profound first-degree AV block. I recommend discontinuing the metoprolol. I will resume the diltiazem. We will need to watch his heart rates closely. If he develops recurrent bradycardia on the diltiazem, then I will treat the hypertension with an alternative agent that does not cause bradycardia. (3) Primary hypertension Assessment & Plan: He had been normotensive on no antihypertensive medication. However, now his blood pressures have become elevated. I will resume diltiazem as above. If he develops recurrent bradycardia, we will need to stop the diltiazem and change him over to an alternative agent such as BENEDICTO inhibitor or ARB. (4) Pulmonary hypertension Assessment & Plan: He does have obstructive sleep apnea and according to his does not always use his CPAP. He is also obese. I suspect this has led to the pulmonary hypertension noted on his echocardiogram. Given his advanced age, I would not recommend extensive evaluation for other secondary causes of pulmonary hypertension. (5) Altered mental status Status: Acute Assessment & Plan: Most likely related to his acute infection. His tells me that he had neurology evaluation at the [facility] and was told he does not have dementia. His mental status seems to be a little better today but still worse than on admission. DEBORAH CALDWELL JR, MD Jul 08, 2021 11:21
[2021-07-09 03:33] VITALS: BP 184/68
[2021-07-09] MEDS: VANCOMYCIN 1250 MG/NS 250 ML IVPB IV SCH ×2 (04:03)
[2021-07-09 06:40] LABS: BASOPHILS # (AUTO) 0.1 10^3/uL (0.0-0.1); BASOPHILS % (AUTO) 1 % (0-10); EOSINOPHILS # (AUTO) 0.3 10^3/uL (0.0-0.3); EOSINOPHILS % (AUTO) 3 % (0-10); HEMATOCRIT 38 % (40-54); HEMOGLOBIN 11.9 g/dL (13.3-17.7); LYMPHOCYTES # (AUTO) 1.3 10^3/uL (1.0-4.0); LYMPHOCYTES % (AUTO) 15 % (12-44); MEAN CORPUSCULAR HEMOGLOBIN 29 pg (25-34); MEAN CORPUSCULAR HGB CONC 31 g/dL (32-36); MEAN CORPUSCULAR VOLUME 93 fL (80-99); MEAN PLATELET VOLUME 11.3 fL (9.0-12.2); MONOCYTES # (AUTO) 0.8 10^3/uL (0.0-1.0); MONOCYTES % (AUTO) 9 % (0-12); NEUTROPHILS # (AUTO) 6.5 10^3/uL (1.8-7.8); NEUTROPHILS % (AUTO) 72 % (42-75); PLATELET COUNT 183 10^3/uL (130-400)
[2021-07-09 06:53] LABS: ALBUMIN 3.2 GM/DL (3.2-4.5)
[2021-07-09 06:54] LABS: POTASSIUM 4.1 MMOL/L (3.6-5.0)
[2021-07-09 06:56] LABS: TOTAL PROTEIN 6.2 GM/DL (6.4-8.2)
[2021-07-09 06:58] LABS: BILIRUBIN,TOTAL 0.5 MG/DL (0.1-1.0)
[2021-07-09 07:00] LABS: CREATININE SERUM 0.81 MG/DL (0.60-1.30)
[2021-07-09 08:30] VITALS: BP 166/86
--- NOTE | 2021-07-09 08:52 | Progress Note ---
Progress Note Progress Notes/Assess & Plan Date Seen 07/09/21 Time Seen by Provider: 08:35 Assessment & Plan . Final Diagnosis Bilateral leg cellulitis Severe dementia Hypertension Atrial fibrillation Focused Exam Time of Focused Exam: 18:45 XAVIER PARKINSON Jul 09, 2021 08:52
[2021-07-09] MEDS: polyethylene glycoL POWDER 17 GM (MIRALAX) PACK PO SCH ×2 (08:59→20:32)
[2021-07-09] MEDS: cefTRIAXone 1,000 MG in WATER (STERILE) FOR INJECTION 10 ML IV SCH (08:59)
[2021-07-09] MEDS: dilTIAZem120 MG (CARDIZEM CD) CAP PO SCH (09:00)
[2021-07-09] MEDS: SENNA W/DOCUSATE (SENOKOT S) TABLET PO SCH ×2 (09:00→20:31)
[2021-07-09] MEDS: APIXABAN 5 MG (ELIQUIS) TABLET PO SCH ×2 (09:00→20:31)
[2021-07-09 11:15] VITALS: BP 149/70
--- NOTE | 2021-07-09 11:45 | Progress Note ---
XAVIER PARKINSON 07/09/21 1145: Subjective Subjective/Events-last exam Patient is 89 yo male who was brought in by his due to bilateral cellulitis of the legs. Has a history of bladder cancer, HTN, diabetes, and dementia. Patient is being treated with antibiotics for the cellulitis and had cultures taken. When he was hospitalized it was found that he had atrial fibrillation so cardiology was called for a consult. He has severe dementia and is only able to recall his name but not where he is or what the day is. Most of this progress note was written by looking at past H&P and previous notes because the patient was not able to answer most questions. His blood pressure has been high with his systolic BP running 180-190. Review of Systems Neurological: Weakness, Confusion Patient denied being in any pain. Focused Exam Sepsis Stage: Ruled Out Reason for ruling out sepsis: No fever, does not have low BP, and neutrophils have dropped Possible Source: Skin/Soft Tissue Time of Focused Exam: 18:45 Respiratory: Lungs Clear, Accessory Muscle Use Cardiovascular: Regular Rate, Rhythm, No Murmur Capillary Refill: Less Than 3 Seconds Skin: normal color Objective Exam Last Set of Vital Signs Vital Signs Date Time Temp Pulse Resp B/P (MAP) Pulse Ox O2 Delivery O2 Flow Rate FiO2 07/09/21 08:00 Room Air 07/09/21 06:43 75 07/09/21 03:33 37.0 20 184/68 (106) 93 07/07/21 10:33 0.00 Capillary Refill : Less Than 3 Seconds I&O Intake and Output 07/08/21 23:59 Intake Total 2545.0 ml Balance 2545.0 ml Intake Oral 2010 ml IV Total 535.0 ml # Voids 7 # Bowel Movements 1 General: Cooperative Neck: Supple Lungs: Clear to Auscultation Heart: Regular Rate Abdomen: Normal Bowel Sounds Skin: No Significant Lesion Psych/Mental Status: Other Other physical findings Patient was not aware of where he was or what day of the week/year it was. Was able to tell us his name but struggled to answer other questions Results/Procedures Lab Laboratory Tests 07/09/21 06:17: White Blood Count 9.0, Red Blood Count 4.11L, Hemoglobin 11.9L, Hematocrit 38L, Mean Corpuscular Volume 93, Mean Corpuscular Hemoglobin 29, Mean Corpuscular Hemoglobin Concent 31L, Red Cell Distribution Width 14.0, Platelet Count 183, Mean Platelet Volume 11.3, Immature Granulocyte % (Auto) 0, Neutrophils (%) (Auto) 72, Lymphocytes (%) (Auto) 15, Monocytes (%) (Auto) 9, Eosinophils (%) (A uto) 3, Basophils (%) (Auto) 1, Neutrophils # (Auto) 6.5, Lymphocytes # (Auto) 1.3, Monocytes # (Auto) 0.8, Eosinophils # (Auto) 0.3, Basophils # (Auto) 0.1, Immature Granulocyte # (Auto) 0.0, Sodium Level 133L, Potassium Level 4.1, Ch loride Level 100, Carbon Dioxide Level 28, Anion Gap 5, Blood Urea Nitrogen 16, Creatinine 0.81, Estimat Glomerular Filtration Rate 90, BUN/Creatinine Ratio 20, Glucose Level 163H, Calcium Level 9.0, Corrected Calcium 9.6, Total Bilirubin 0.5, Aspartate Amino Transf (AST/SGOT) 29, Alanine Aminotransferase (ALT/SGPT) 46, Alkaline Phosphatase 102, Total Protein 6.2L, Albumin 3.2 Microbiology 07/05/21 Urine Culture - Final, Complete Mixed Bacterial Zehra Proteus species 07/05/21 Blood Culture - Preliminary, Resulted No growth Assessment/Plan Assessment/Plan Admission Dx Bilateral cellulitis of the legs Admission Status: Inpatient Order (span 2 midnights) Reason for Inpatient Admission: Atrial fibrillation Hypertension Treatment for cellulitis Dementia Assessment & Plan Atrial fibrillation: Patient had consultation with cardiology and was started on apixaban and diltiazem which he is continuing to take. His metoprolol was discontinued. Bilateral cellulitis: Patient is currently on IV ceftriaxone and vancomycin. His WBC have gone down and he has continued to improve. Vancomycin will be stopped since cultures came back and were positive for Micrococcus species but were not positive for MRSA. Hypertension: Systolic BP continues to be high with systolic being in the 180- 190 on 2 occasions. Dementia: Patient's will be contacted to discuss how he is able to get around at home and what his baseline is. RETA AMARAL MD 07/09/21 1341: Supervisory-Addendum Brief Verification & Attestation Participated in pt care: history, MDM, physical Personally performed: exam, history, MDM Care discussed with: Medical Student Procedures: n/a I personally saw and examined patient today and agree with documentation by the medical student. Holding metoprolol due to bradycardia and heart block, will likely need another BP medication, appreciate Cardiology recommendations. Talked to who stated at baseline he is able to converse and tell stories, walks with walker. XAVIER PARKINSON Jul 09, 2021 11:45 RETA AMARAL MD Jul 09, 2021 13:41
[2021-07-09] MEDS ORDERED: FUROSEMIDE 40 MG (LASIX) TAB PO ONE (12:30)
[2021-07-09] MEDS ORDERED: FUROSEMIDE 40 MG/4 ML INJ (LASIX) IVP NR (13:30)
--- NOTE | 2021-07-09 13:34 | Physical Therapy Progress Note ---
Therapy Progress Note Patient in recliner. Attempted physical therapy. Patient is too drowsy to participate. Initially he opens eyes when spoken to but doesn't actually look at therapist or seem to really focus on anything. His eyes are only open for a couple of seconds before closing and he wont open them again with speaking to him or shaking him. Will try back in the morning. LEAH BURGESS PT Jul 09, 2021 13:34
--- NOTE | 2021-07-09 13:58 | Occ Therapy Progress Note ---
Therapy Progress Note Pt in recliner, OT attempted tx. Pt would not open eyes, OT performed sternal rub and he opened his eyes briefly for a second before returning to sleep. Pt would not communicate with therapist and would not follow instructions. Pt too lethargic to participate in skilled tx at this time, OT will attempt again tomorrow. 1. visit 1305 JEWELS GILES OT Jul 09, 2021 13:58
--- NOTE | 2021-07-09 14:36 | Diagnostic Imaging Report ---
PROCEDURE: CT head without contrast. TECHNIQUE: Multiple contiguous axial images were obtained through the brain without the use of intravenous contrast. Auto Exposure Controls were utilized during the CT exam to meet ALARA standards for radiation dose reduction. INDICATION: Altered mental status. COMPARISON: CT head of 01/26/2021 FINDINGS: No hyperdense hemorrhage or space-occupying mass. No hydrocephalus or midline shift. Symmetric prominence of the ventricles and cortical sulci is compatible with age-appropriate atrophy. No isolated lobar atrophy. No territorial loss of ang[place]-white matter differentiation to indicate acute/subacute infarct. Periventricular white matter hypoattenuation is unchanged and most compatible chronic microvascular ischemic disease. The mastoid air cells are clear. Paranasal sinuses are normal. No focal osseous abnormality of the calvarium. IMPRESSION: No acute intracranial process. Dictated by: Dictated on workstation # [id number]
[2021-07-09] MEDS: RT-ALBUTEROL/IPRATROPIUM 3 ML (DUONEB) VIAL INH PRN (15:55)
[2021-07-09 16:00] VITALS: BP 163/70
--- NOTE | 2021-07-09 17:49 | Cardiology Progress Note ---
Progress Note-Cardiology Events since last exam Date Seen by Provider: Jul 09, 2021 Time Seen by Provider: 17:44 Events since last exam I am following him for atrial fibrillation. He was laying in bed sleeping. He did open his eyes to voice. When I asked him how he was doing today, he said "compared to what." That was about the extent of the conversation I had with him because he kept falling asleep. Certain portions of this document may have been dictated utilizing voice recognition technology. Inherent to this technology, typographical and grammatical errors may exist. As much as I am diligent to identify and correct these mistakes, some errors may remain in the document. Vitals Last set of Vitals Signs Vital Signs 07/07/21 07/09/21 07/09/21 07/09/21 10:33 11:15 13:33 15:55 Temp 37.0 Pulse 58 Resp 16 B/P (MAP) 149/70 (96) Pulse Ox 90 O2 Delivery Room Air O2 Flow Rate 0.00 Labs Labs Laboratory Tests 07/09/21 06:17 Exam Vital Signs Vital Signs Date Time Temp Pulse Resp B/P (MAP) Pulse Ox O2 Delivery O2 Flow Rate FiO2 07/09/21 15:55 90 Room Air 07/09/21 13:33 58 07/09/21 11:15 37.0 16 149/70 (96) 07/07/21 10:33 0.00 Physical Exam General: Somnolent no acute distress. Eye: No xanthelasma. HENT: Normocephalic. Neck: Jugular venous pressure does not appear elevated. Respiratory: Lungs are clear to auscultation. Respirations are non-labored. Breath sounds are equal. Symmetrical chest wall expansion. Cardiovascular: Normal rate. Irregular rhythm. No murmur. No gallop. Trace bilateral pretibial edema with improving erythema worse on the right. Gastrointestinal: Soft. Normal bowel sounds. Skin: Warm. Dry. Neurologic: Somnolent but opens eyes to voice. Cranial nerves 3-11 grossly intact. Psychiatric: He is nearly noncommunicative which is unchanged. Labs Laboratory Tests Test 07/09/21 06:17 07/09/21 15:56 Range/Units White Blood Count 9.0 4.3-11.0 10^3/uL Red Blood Count 4.11 L 4.30-5.52 10^6/uL Hemoglobin 11.9 L 13.3-17.7 g/dL Hematocrit 38 L 40-54 % Mean Corpuscular Volume 93 80-99 fL Mean Corpuscular Hemoglobin 29 25-34 pg Mean Corpuscular Hemoglobin Concent 31 L 32-36 g/dL Red Cell Distribution Width 14.0 10.0-14.5 % Platelet Count 183 130-400 10^3/uL Mean Platelet Volume 11.3 9.0-12.2 fL Immature Granulocyte % (Auto) 0 % Neutrophils (%) (Auto) 72 42-75 % Lymphocytes (%) (Auto) 15 12-44 % Monocytes (%) (Auto) 9 0-12 % Eosinophils (%) (Auto) 3 0-10 % Basophils (%) (Auto) 1 0-10 % Neutrophils # (Auto) 6.5 1.8-7.8 10^3/uL Lymphocytes # (Auto) 1.3 1.0-4.0 10^3/uL Monocytes # (Auto) 0.8 0.0-1.0 10^3/uL Eosinophils # (Auto) 0.3 0.0-0.3 10^3/uL Basophils # (Auto) 0.1 0.0-0.1 10^3/uL Immature Granulocyte # (Auto) 0.0 0.0-0.1 10^3/uL Sodium Level 133 L 135-145 MMOL/L Potassium Level 4.1 3.6-5.0 MMOL/L Chloride Level 100 98-107 MMOL/L Carbon Dioxide Level 28 21-32 MMOL/L Anion Gap 5 5-14 MMOL/L Blood Urea Nitrogen 16 7-18 MG/DL Creatinine 0.81 0.60-1.30 MG/DL Estimat Glomerular Filtration Rate 90 BUN/Creatinine Ratio 20 Glucose Level 163 H 70-105 MG/DL Calcium Level 9.0 8.5-10.1 MG/DL Corrected Calcium 9.6 8.5-10.1 MG/DL Total Bilirubin 0.5 0.1-1.0 MG/DL Aspartate Amino Transf (AST/SGOT) 29 5-34 U/L Alanine Aminotransferase (ALT/SGPT) 46 0-55 U/L Alkaline Phosphatase 102 40-136 U/L Total Protein 6.2 L 6.4-8.2 GM/DL Albumin 3.2 3.2-4.5 GM/DL Glucometer 204 H 70-110 MG/DL Diagnosis/Problems Diagnosis/Problems (1) Paroxysmal atrial fibrillation Assessment & Plan: He appears to be going in and out of atrial fibrillation. He has mild biatrial enlargement on his echocardiogram from this admission which suggests that he may have more persistent atrial fibrillation at home. This is a new diagnosis for him. He does not have any significant valvular heart disease that would predispose to atrial fibrillation. His heart rate presently seems reasonably controlled on no AV raheem blocking agents. However, his blood pressure has become elevated. I resumed his home dose of diltiazem on 07/08. He was taking both diltiazem and metoprolol at home for his hypertension. I recommend we do not resume metoprolol. I started him on apixaban for stroke prophylaxis. Although he is over the age of 82, his creatinine is less than 1.5 and weight above 60 kg. As such, there is no indication to reduce the dose of apixaban. Given his age, I do not see any strong indication for samaritan of sinus rhythm. (2) Sinus bradycardia Assessment & Plan: As above, he did have some intermittent sinus bradycardia in the emergency room as well as profound first-degree AV block. I suspect this was due to the fact he was taking both metoprolol and diltiazem at home. He is now just on diltiazem. We will need to watch his heart rates closely. If he develops recurrent bradycardia on the diltiazem, then we will need to treat the hypertension with an alternative agent that does not cause bradycardia. (3) Primary hypertension Assessment & Plan: Blood pressures are now improved with restarting his home dose of diltiazem. As above, if he develops recurrent bradycardia, we will need to stop the diltiazem and change him over to an alternative agent such as BENEDICTO inhibitor or ARB. (4) Pulmonary hypertension Assessment & Plan: He does have obstructive sleep apnea and according to his does not always use his CPAP. He is also obese. I suspect this has led to the pulmonary hypertension noted on his echocardiogram. Given his advanced age, I would not recommend extensive evaluation for other secondary causes of pulmonary hypertension. (5) Altered mental status Status: Acute Assessment & Plan: Most likely related to his acute infection. His tells me that he had neurology evaluation at the [facility] and was told he does not have dementia. His mental status seems to be a little worse today but his is not at his bedside. She seems to be able to engage him in conversation when she is here. DEBORAH CALDWELL JR, MD Jul 09, 2021 17:49
[2021-07-09] MEDS: inSUlin ASPART (NovoLOG) 1 UNIT/0.01 ML (CHARGE PER UNIT) SC SCH ×2 (18:02→20:32)
[2021-07-09 20:00] VITALS: BP 153/72
[2021-07-10] VITALS (7 sets, daily range): BP systolic 131–176; BP diastolic 60–73
[2021-07-10] MEDS: inSUlin ASPART (NovoLOG) 1 UNIT/0.01 ML (CHARGE PER UNIT) SC SCH ×4 (05:26→20:17)
[2021-07-10 06:24] LABS: HEMATOCRIT 39 % (40-54); HEMOGLOBIN 12.3 g/dL (13.3-17.7); MEAN CORPUSCULAR HEMOGLOBIN 29 pg (25-34); MEAN CORPUSCULAR HGB CONC 32 g/dL (32-36); MEAN CORPUSCULAR VOLUME 91 fL (80-99); MEAN PLATELET VOLUME 11.1 fL (9.0-12.2); PLATELET COUNT 183 10^3/uL (130-400); WHITE BLOOD COUNT 7.7 10^3/uL (4.3-11.0)
[2021-07-10 06:25] LABS: POTASSIUM 3.9 MMOL/L (3.6-5.0)
[2021-07-10 06:27] LABS: CALCIUM 9.2 MG/DL (8.5-10.1)
[2021-07-10 06:31] LABS: CREATININE SERUM 0.79 MG/DL (0.60-1.30)
--- NOTE | 2021-07-10 08:07 | Progress Note ---
XAVIER PARKINSON 07/10/21 0807: Subjective Subjective/Events-last exam Patient is 89 yo male hospitalized for bilateral cellulitis of the legs. It was discovered that he has atrial fibrillation and bradycardia in the ER. A urine culture showed that he had a UTI infection after he was admitted. He finished his antibiotics today for the UTI and cellulitis. Patient was much more responsive today compared to yesterday and responded to all of the questions. Patient's was at the visit today and says he is getting better but is still not where he used to be. She thinks if his BP is able to be lowered then he will be back at baseline. He was able to feed himself whereas yesterday he was being fed by a nurse. Patient is having some issues swallowing his food according to his nurses. Patient says he is feeling better today compared to yesterday and s aid he was not in pain. Review of Systems General: Appetite Pulmonary: Cough Neurological: Weakness Patient denied being in any pain. Focused Exam Time of Focused Exam: 18:45 Respiratory: No Accessory Muscle Use, Crackles Cardiovascular: Regular Rate, Rhythm, Normal Peripheral Pulses Peripheral Pulses: 3+ Radial Pulses (R) Skin: normal color Objective Exam Last Set of Vital Signs Vital Signs Date Time Temp Pulse Resp B/P (MAP) Pulse Ox O2 Delivery O2 Flow Rate FiO2 07/10/21 04:11 37.0 65 16 176/73 (107) 92 Room Air 07/07/21 10:33 0.00 Capillary Refill : Less Than 3 Seconds I&O Intake and Output 07/10/21 00:00 Intake Total 1422.5 ml Balance 1422.5 ml Intake Oral 1160 ml IV Total 262.5 ml # Voids 10 # Bowel Movements 1 General: Alert, Cooperative HEENT: Atraumatic Neck: Supple Lungs: Other (Crackles in both lungs) Heart: Regular Rate Abdomen: Normal Bowel Sounds Extremities: No Clubbing, No Cyanosis, Other (Edema has gone down since yesterday) Skin: No Rashes, No Breakdown Neuro: Other (Patient still has limited speech but is able to respond more today) Results/Procedures Lab Laboratory Tests 07/09/21 15:56: Glucometer 204H 07/09/21 20:13: Glucometer 185H 07/10/21 05:21: Glucometer 154H 07/10/21 05:55: White Blood Count 7.7, Red Blood Count 4.27L, Hemoglobin 12.3L, Hematocrit 39L, Mean Corpuscular Volume 91, Mean Corpuscular Hemoglobin 29, Mean Corpuscular Hemoglobin Concent 32, Red Cell Distribution Width 14.1, Platelet Count 183, Mean Platelet Volume 11.1, Sodium Level 137, Potassium Level 3.9, Chloride Level 99, Carbon Dioxide Level 30, Anion Gap 8, Blood Urea Nitrogen 20H, Creatinine 0.79, Estimat Glomerular Filtration Rate 93, BUN/Creatinine Ratio 25, Glucose Level 151H, Calcium Level 9.2 Microbiology 07/05/21 Urine Culture - Final, Complete Mixed Bacterial Zehra Proteus species 07/05/21 Blood Culture - Preliminary, Resulted No growth Assessment/Plan Assessment/Plan Admission Dx Bilateral cellulits of the legs Admission Status: Inpatient Order (span 2 midnights) Reason for Inpatient Admission: UTI with Proteus species Atrial fibrillation Bradycardia Primary hypertension Assessment & Plan (1) Urinary tract infection Status: Acute Assessment & Plan: Patient has finished the course of the IV ceftriaxone today. His WBC has stayed within normal limits and he has not been running a fever. No other therapy is required at this time. Qualifiers: (2) Altered mental status Status: Acute Assessment & Plan: Patient is planning to go home with his who says she can take care of him. He is meeting with physical therapy today to work on mobility If patient is able to get up and around on his own like he was able to before being hospitalized then discharge may be possible. Qualifiers: Qualified Codes: R40.0 - Somnolence (3) Paroxysmal atrial fibrillation Status: Chronic Assessment & Plan: Atrial fibrillation: Patient had consultation with cardiology and was started on apixaban and diltiazem which he will continue to take. (4) Cellulitis and abscess of left leg Status: Acute Assessment & Plan: Patient has finished the course of the IV ceftriaxone and vancomycin. His WBC has stayed within normal limits and he has not been running a fever. No other therapy is required at this time. (5) Cellulitis and abscess of right leg Status: Acute (6) Primary hypertension Assessment & Plan: Primary hypertension: Systolic BP continues to be high with systolic being in the 180-190. Lisinopril was started today and his BP will be reassessed tomorrow to see if the medication brings the BP down. RETA AMARAL MD 07/10/21 1700: Supervisory-Addendum Brief Verification & Attestation Participated in pt care: history, MDM, physical Personally performed: exam, history, MDM Care discussed with: Medical Student Procedures: n/a I personally saw and examined patient today. My exam revealed heart with regular rate and rhythm, lungs clear to ausculatation, no abdominal tenderness and decreased pedal edema. His notes that they had an evaluation at [facility] earlier this summer related to his difficulty swallowing, bedside swallow eval ordered to confirm appropriate diet/liquids. Had a long conversation regarding his baseline, states that he sometimes does have mumbling speech or doesn't speak much and other times speaks clearly. She also states he generally needs a lot of guidance with his walker to get moving, but then is able to get to chair and sit down. She feels he is improved, and near his normal, but not quite there. XAVIER PARKINSON Jul 10, 2021 08:07 RETA AMARAL MD Jul 10, 2021 17:00
[2021-07-10] MEDS: RT-ALBUTEROL/IPRATROPIUM 3 ML (DUONEB) VIAL INH PRN (08:35)
[2021-07-10] MEDS ORDERED: lisINopril 10 MG (PRINIVIL) TABLET PO SCH (09:00)
--- NOTE | 2021-07-10 09:18 | Cardiology Progress Note ---
Progress Note-Cardiology Events since last exam Date Seen by Provider: Jul 10, 2021 Time Seen by Provider: 09:16 Events since last exam I am seeing him for atrial fibrillation. He states he feels fine today. I could not get any other information from the patient. I spoke with his at the bedside. She states that he normally sleeps most of the day and then is awake most of the night at home. She feels ready to take him home when the hospitalist feels his infection is improved. According to his , he ate all of his breakfast this morning without assistance. Certain portions of this document may have been dictated utilizing voice recognition technology. Inherent to this technology, typographical and grammatical errors may exist. As much as I am diligent to identify and correct these mistakes, some errors may remain in the document. Vitals Last set of Vitals Signs Vital Signs 07/07/21 07/10/21 07/10/21 10:33 08:00 08:35 Temp 35.5 Pulse 70 Resp 30 B/P (MAP) 160/70 (100) Pulse Ox 90 O2 Delivery Room Air O2 Flow Rate 0.00 Labs Labs Laboratory Tests 07/10/21 05:55 Exam Vital Signs Vital Signs Date Time Temp Pulse Resp B/P (MAP) Pulse Ox O2 Delivery O2 Flow Rate FiO2 07/10/21 08:35 90 Room Air 07/10/21 08:00 35.5 70 30 160/70 (100) 07/07/21 10:33 0.00 Physical Exam General: Somnolent but opens his eyes to voice. No acute distress. Eye: No xanthelasma. HENT: Normocephalic. Neck: Jugular venous pressure does not appear elevated. Respiratory: Lungs are clear to auscultation. Respirations are non-labored. Breath sounds are equal. Symmetrical chest wall expansion. Cardiovascular: Normal rate. Irregular rhythm. No murmur. No gallop. No edema. Erythema has nearly completely resolved. Gastrointestinal: Soft. Normal bowel sounds. Skin: Warm. Dry. Neurologic: Somnolent but opens eyes to voice. Cranial nerves 3-11 grossly intact. Psychiatric: As above. Labs Laboratory Tests Test 07/09/21 15:56 07/09/21 20:13 07/10/21 05:21 07/10/21 05:55 Range/Units Glucometer 204 H 185 H 154 H 70-110 MG/DL White Blood Count 7.7 4.3-11.0 10^3/uL Red Blood Count 4.27 L 4.30-5.52 10^6/uL Hemoglobin 12.3 L 13.3-17.7 g/dL Hematocrit 39 L 40-54 % Mean Corpuscular Volume 91 80-99 fL Mean Corpuscular Hemoglobin 29 25-34 pg Mean Corpuscular Hemoglobin Concent 32 32-36 g/dL Red Cell Distribution Width 14.1 10.0-14.5 % Platelet Count 183 130-400 10^3/uL Mean Platelet Volume 11.1 9.0-12.2 fL Sodium Level 137 135-145 MMOL/L Potassium Level 3.9 3.6-5.0 MMOL/L Chloride Level 99 98-107 MMOL/L Carbon Dioxide Level 30 21-32 MMOL/L Anion Gap 8 5-14 MMOL/L Blood Urea Nitrogen 20 H 7-18 MG/DL Creatinine 0.79 0.60-1.30 MG/DL Estimat Glomerular Filtration Rate 93 BUN/Creatinine Ratio 25 Glucose Level 151 H 70-105 MG/DL Calcium Level 9.2 8.5-10.1 MG/DL Diagnosis/Problems Diagnosis/Problems (1) Paroxysmal atrial fibrillation Assessment & Plan: He appears to be going in and out of atrial fibrillation at times on telemetry. He has mild biatrial enlargement on his echocardiogram from this admission which suggests that he may have more persistent atrial fibrillation at home. This is a new diagnosis for him. He does not have any significant valvular heart disease that would predispose to atrial fibrillation. His heart rate are controlled with diltiazem which he was taking at home. He was taking both diltiazem and metoprolol at home for his hypertension. I recommend we do not resume metoprolol. He should continue on apixaban for stroke prophylaxis. Although he is over the age of 82, his creatinine is less than 1.5 and weight above 60 kg. As such, there is no indication to reduce the dose of apixaban. Given his age, I do not see any strong indication for judaism of sinus rhythm. At this point in time, I do not see any indication for ongoing telemetry. I will discontinue the telemetry. (2) Sinus bradycardia Assessment & Plan: As above, he did have some intermittent sinus bradycardia in the emergency room as well as profound first-degree AV block. I suspect this was due to the fact he was taking both metoprolol and diltiazem at home. He is now just on diltiazem. His heart rates have been in a normal range for the past several days. From a cardiac standpoint, the telemetry can be discontinued. He should not resume metoprolol when he goes home. (3) Primary hypertension Assessment & Plan: Blood pressures had been improved on diltiazem but are still high at times. The hospitalist has initiated treatment with lisinopril. I will take the liberty of increasing the dose to 20 mg daily as I suspect 10 mg daily will not be enough to get him into a normotensive range. (4) Pulmonary hypertension Assessment & Plan: He does have obstructive sleep apnea and according to his does not always use his CPAP. He is also obese. I suspect this has led to the pulmonary hypertension noted on his echocardiogram. Given his advanced age, I would not recommend extensive evaluation for other secondary causes of pulmonary hypertension. (5) Altered mental status Status: Acute Assessment & Plan: Most likely related to his acute infection. His tells me that he had neurology evaluation at the [facility] and was told he does not have dementia. According to his , he is at about his baseline at this point in time. His main issue seems to be that he has his sleep-wake cycle reversed and sleeps much of the day. DEBORAH CALDWELL JR, MD Jul 10, 2021 09:18
[2021-07-10] MEDS ORDERED: lisINopril 10 MG (PRINIVIL) TABLET PO ONE (09:30)
[2021-07-10] MEDS: polyethylene glycoL POWDER 17 GM (MIRALAX) PACK PO SCH ×2 (09:38→20:34)
[2021-07-10] MEDS: SENNA W/DOCUSATE (SENOKOT S) TABLET PO SCH ×2 (09:38→20:34)
[2021-07-10] MEDS: cefTRIAXone 1,000 MG in WATER (STERILE) FOR INJECTION 10 ML IV SCH (09:39)
[2021-07-10] MEDS: APIXABAN 5 MG (ELIQUIS) TABLET PO SCH ×2 (09:39→20:34)
[2021-07-10] MEDS: dilTIAZem120 MG (CARDIZEM CD) CAP PO SCH (09:39)
[2021-07-10] MEDS: FUROSEMIDE 40 MG (LASIX) TAB PO SCH (09:39)
[2021-07-10] MEDS ORDERED: ACETAMINOPHEN 325 MG TABLET PO PRN (11:00)
--- NOTE | 2021-07-10 11:32 | Occupational Ther Daily Note ---
OT Current Status-Daily Note Subjective Little communication from patient. Pt would respond with short phrases at times. "I'm fine" Appearance Pt sitting in chair at end of session. Call light left within reach. in room. Mental Status/Objective Patient Orientation: Person, Unable to Assess Very little communication from patient. Unable to fully assess cognition. It appears that answers most of the patients answers for him at baseline. ADL-Treatment Therapy Code Descriptions/Definitions Functional [place] Measure: 0=Not Assessed/NA 4=Minimal Assistance 1=Total Assistance 5=Supervision or Setup 2=Maximal Assistance 6=Modified [place] 3=Moderate Assistance 7=Complete IndependenceSCALE: Activities may be completed with or without assistive devices. 5-Fxgsuidqvc-dzctyvl completes the activity by him/herself with no assistance from a helper. 5-Set-up or Clean-up Assistance-helper sets up or cleans up; patient completes activity. [place] assists only prior to or following the activity. 4-Supervision or Touching Assistance-helper provides verbal cues and/or touching/steadying and/or contact guard assistance as patient completes activity. Assistance may be provided throughout the activity or intermittently. 3-Partial/Moderate Assistance-helper does LESS THAN HALF the effort. [place] lifts, holds or supports trunk or limbs, but provides less than half the effort. 2-Substantial/Maximal Assistance-helper does MORE THAN HALF the effort. [place] lifts or holds trunk or limbs and provides more than half the effort. 8-Uogndwqlr-yhejpj does ALL the effort. Patient does none of the effort to complete the activity. Or, the assistance of 2 or more helpers is required for the patient to complete the activity. If activity was not attempted, code reason: 7-Patient Refused. 9-Not Applicable-not attempted and the patient did not perform the activity before the current illness, exacerbation or injury. 10-Not Attempted due to Environmental Limitations-(lack of equipment, weather restraints, etc.). 88-Not Attempted due to Medical Conditions or Safety Concerns. Other Treatment Per , she completes majority of ADLs for patient. She will initiate LB clothing over feet and up to knees and then patient is able to manage over his hips. Focus of activity on improving balance and reducing UE support in order to complete clothing management indep at home. Sit<>stand: min-mod a, extra time to extend trunk and bring hands to walker. CGA for safety throughout activity. Pt reached forward in different planes, alternating single UE support on walker. No Lob yet fatigues easily. Pt somewhat apprehensive when having to reach too far out of JOE. Poor eccentric control when lowering to sit in chair. Assist to lower needed. Cues for no "plopping." Education OT Patient Education: Correct positioning, Modified ADL techniques, Progress toward Goal/Update tx plan, Purpose of tx/functional activities, Rehab process, Transfer techniques Teaching Recipient: Patient, Family Teaching Methods: Demonstration, Discussion Response to Teaching: Return Demonstration, Reinforcement Needed OT Feed Mill Tender Goals Long-Term Goals Time Frame: Jul 13, 2021 Eating (QC): 5 Oral Hygiene (QC): 5 Toileting Hygiene (QC): 3 Shower/Bathe Self (QC): 3 Upper Body Dressing (QC): 4 Lower Body Dressing (QC): 3 On/Off Footwear (QC): 3 Additional Goals: 1-Demonstrate ADL Tasks, 2-Verbalize Understanding, 3-I mproveStrength/Shannon 1=Demonstrate adherence to instructed precautions during ADL tasks. 2=Patient will verbalize/demonstrate understanding of assistive devices/modifications for ADL. 3=Patient will improve strength/tolerance for activity to enable patient to perform ADL's. OT Education/Plan Problem List/Assessment Assessment: Decreased Activ Tolerance, Decreased Safety Aware, Decreased UE Strength, Impaired Cognition, Impaired Funct Balance, Impaired Self-Care Skills, Restricted Funct UE ROM Discharge Recommendations Plan/Recommendations: Continue POC Treatment Plan/Plan of Care Treatment,Training & Education: Yes Patient would benefit from OT for education, treatment and training to promote independence in ADL's, mobility, safety and/or upper extremity function for ADL' s. Plan of Care: ADL Retraining, Functional Mobility, UE Funct Exercise/Act Treatment Duration: Jul 13, 2021 Frequency: 5 times per week Estimated Hrs Per Day: .25 hour per day Agreement: Yes Rehab Potential: Fair Time/GCodes Start Time: 11:12 Stop Time: 11:27 Total Time Billed (hr/min): 15 Billed Treatment Time 1 visit, Tawnya Terrell OT Jul 10, 2021 11:32
--- NOTE | 2021-07-10 12:06 | Physical Therapy Daily Note ---
PT Daily Note-Current Subjective Patient in bed with spouse present. Spouse agrees to PT. Transfers SCALE: Activities may be completed with or without assistive devices. 6-Vadjvxryeg-byavufh completes the activity by him/herself with no assistance from a helper. 5-Set-up or Clean-up Assistance-helper sets up or cleans up; patient completes activity. [place] assists only prior to or following the activity. 4-Supervision or Touching Assistance-helper provides verbal cues and/or touching/steadying and/or contact guard assistance as patient completes activity. Assistance may be provided throughout the activity or intermittently. 3-Partial/Moderate Assistance-helper does LESS THAN HALF the effort. [place] lifts, holds or supports trunk or limbs, but provides less than half the effort. 2-Substantial/Maximal Assistance-helper does MORE THAN HALF the effort. [place] lifts or holds trunk or limbs and provides more than half the effort. 1-Kvkyrevjm-ccuasx does ALL the effort. Patient does none of the effort to complete the activity. Or, the assistance of 2 or more helpers is required for the patient to complete the activity. If activity was not attempted, code reason: 7-Patient Refused. 9-Not Applicable-not attempted and the patient did not perform the activity before the current illness, exacerbation or injury. 10-Not Attempted due to Environmental Limitations-(lack of equipment, weather restraints, etc.). 88-Not Attempted due to Medical Conditions or Safety Concerns. Lying to Sitting/Side of Bed(Q: 2 Sit to Stand (QC): 3 Chair/Nuo-nb-[place]ik[place] Xfer(QC): 3 Gait Training Does the Patient Walk?: Yes Distance: 150' Walk 10 feet (QC): 3 Walk 50 ft with 2 Turns(QC): 3 Walk 150 ft (QC): 3 Gait Assistive Device: FWW PT assist to advance FWW occasionally/shuffle gait sequence. Assessment Patient up in recliner with needs met. Continue to address functional mobility. PT Retirement Goals Crab Meat Processor Goals PT Crab Meat Processor Goals Time Frame: Jul 13, 2021 PT Plan Treatment/Plan Treatment Plan: Continue Plan of Care Treatment Plan: Bed Mobility, Education, Functional Activity Shannon, Functional Strength, Gait, Safety, Therapeutic Exercise, Transfers Treatment Duration: Jul 13, 2021 Frequency: 6 times per week Estimated Hrs Per Day: .25 hour per day Patient and/or Family Agrees t: Yes Time/GCodes Time In: 1050 Time Out: 1107 Total Billed Treatment Time: 17 Total Billed Treatment 1 visit GT 17 min ADENIKE BROWN PT Jul 10, 2021 12:06
--- NOTE | 2021-07-10 13:11 | ST Dysphagia Evaluation ---
Speech Evaluation-General Medical Diagnosis weakness, B leg Cellulitis Onset Date: Jul 04, 2021 Medical History Pertinent Medical History: DM Reviewed History: Yes Social History Current Living Status: Spouse Speech PLF/Current-Dysphagia Subjective The pt's present for evaluation. She reports he has had difficulty swallowing for a couple years. She indicates she thickens all drinks at home and gives medicine with applesauce 1 pill at a time. Pt asleep upon arrival; awakened with verbal and tactile stimulation. Pt required encouragement to remain awake during evaluation. Oral Motor Skills Dentition: Natural Current Food Consistancy: Regular, Thin Liquids Oral Expression Ability: Moderate Impairment Oral-Facial Assessment Lingual Protrusion: Normal Lingual Strength: Abnormal Volitional Dry Swallow: Yes Voluntary Cough: Yes Can Clear Throat Volitionally: Yes Productive Cough: Yes Productive Throat Clear: Yes Dysphagia Evaluation Consistencies Presented: Thin Liquid, Mechanical Soft, [place] Thick Liquid, Pureed Pharyngeal Phase: Reduced Laryngeal Elevation, Delayed Swallow Funct. Velo/Pharyngeal Symptom: Cough After Swallow Dietary Recommendations: Mechanical Soft Liquid Recommendations: [place] Consistancy Swallowing Precautions: Chin Tuck, Small Bites and Sips, Sitting Upright 90 Degrees, Sitting 90 Degrees 30 Post Intake Dysphagia Evaluation Summary Pt presents with moderate oropharyngeal dysphagia characterized by decreased laryngeal elevation, delayed swallow and coughing following thin intake. Pt tolerated nectar thick liquid with no cough and no overt s/s of aspiration/penetration. Speech Short Term Goals Short Term Goals Short Term Goals 1. The pt's caregiver will follow swallow compensatory strategies with trials with 90% accy. Speech Sulky Driver Goals [facility] Goals 1. The pt will tolerate least restrictive diet with no overt s/s of aspiration/penetration with 9/10 bites/sips. Speech-Plan Treatment Plan Speech Therapy Treatment Plan: Continue Plan of Care Frequency: 3 times per week Estimated Hrs Per Day: .5 hour per day Rehab Potential: Fair Time Speech Therapy Time In: 10:40 Speech Therapy Time Out: 11:00 Billed Treatment Time 20 mins 1 SHEREE Sweeney Jul 10, 2021 13:11
[2021-07-10] MEDS: metFORMIN 500 MG (GLUCOPHAGE) TAB PO SCH (17:43)
[2021-07-11 03:37] VITALS: BP 184/80
[2021-07-11] MEDS: inSUlin ASPART (NovoLOG) 1 UNIT/0.01 ML (CHARGE PER UNIT) SC SCH ×2 (05:40→11:08)
[2021-07-11 05:47] LABS: HEMOGLOBIN 13.3 g/dL (13.3-17.7); WHITE BLOOD COUNT 8.9 10^3/uL (4.3-11.0)
[2021-07-11 06:02] LABS: POTASSIUM 4.2 MMOL/L (3.6-5.0)
[2021-07-11 06:03] LABS: CALCIUM 9.1 MG/DL (8.5-10.1)
[2021-07-11 06:07] LABS: CREATININE SERUM 0.78 MG/DL (0.60-1.30)
[2021-07-11 07:34] VITALS: BP 152/68
--- NOTE | 2021-07-11 08:51 | Cardiology Progress Note ---
Progress Note-Cardiology Events since last exam Date Seen by Provider: Jul 11, 2021 Time Seen by Provider: 08:49 Events since last exam I am seeing him due to atrial fibrillation. He was sitting up in a chair eating breakfast on his own. He stated he was feeling good and asked me to get him some more food. He then started eating applesauce with a spoon. I could not get any other history out of the patient. Certain portions of this document may have been dictated utilizing voice recognition technology. Inherent to this technology, typographical and grammatical errors may exist. As much as I am diligent to identify and correct these mistakes, some errors may remain in the document. Vitals Last set of Vitals Signs Vital Signs 07/07/21 07/11/21 10:33 11:19 Temp 36.6 Pulse 71 Resp 20 B/P (MAP) 150/69 (96) Pulse Ox 93 O2 Delivery Room Air O2 Flow Rate 0.00 Labs Labs Laboratory Tests 07/11/21 05:35 Exam Vital Signs Vital Signs Date Time Temp Pulse Resp B/P (MAP) Pulse Ox O2 Delivery O2 Flow Rate FiO2 07/11/21 11:19 36.6 71 20 150/69 (96) 93 Room Air 07/07/21 10:33 0.00 Physical Exam General: Awake but somnolent and sitting up in bed eating breakfast. No acute distress. He is obese. He had food all over his hospital gown and the floor. Eye: No xanthelasma. HENT: Normocephalic. Neck: Jugular venous pressure does not appear elevated. Respiratory: Lungs are clear to auscultation. Respirations are non-labored. Breath sounds are equal. Symmetrical chest wall expansion. Cardiovascular: Normal rate. Irregular rhythm. No murmur. No gallop. No edema. Gastrointestinal: Soft. Normal bowel sounds. Skin: Warm. Dry. Neurologic: Alert and oriented to person only. Cranial nerves 3-11 grossly intact. Psychiatric: Cooperative. Despite eating breakfast, he was intermittently closing his eyes and appeared to fall asleep. Labs Laboratory Tests Test 07/10/21 15:49 07/10/21 20:10 07/11/21 05:35 07/11/21 05:37 Range/Units Glucometer 223 H 176 H 157 H 70-110 MG/DL White Blood Count 8.9 4.3-11.0 10^3/uL Red Blood Count 4.57 4.30-5.52 10^6/uL Hemoglobin 13.3 13.3-17.7 g/dL Hematocrit 40 40-54 % Mean Corpuscular Volume 88 80-99 fL Mean Corpuscular Hemoglobin 29 25-34 pg Mean Corpuscular Hemoglobin Concent 33 32-36 g/dL Red Cell Distribution Width 14.2 10.0-14.5 % Platelet Count 151 130-400 10^3/uL Mean Platelet Volume 11.0 9.0-12.2 fL Percent Immature Platelet Fraction 6.3 0.0-7.6 % Sodium Level 136 135-145 MMOL/L Potassium Level 4.2 3.6-5.0 MMOL/L Chloride Level 99 98-107 MMOL/L Carbon Dioxide Level 26 21-32 MMOL/L Anion Gap 11 5-14 MMOL/L Blood Urea Nitrogen 21 H 7-18 MG/DL Creatinine 0.78 0.60-1.30 MG/DL Estimat Glomerular Filtration Rate 94 BUN/Creatinine Ratio 27 Glucose Level 152 H 70-105 MG/DL Calcium Level 9.1 8.5-10.1 MG/DL Test 07/11/21 10:41 07/11/21 10:48 Range/Units Glucometer 213 H 70-110 MG/DL Thyroid Stimulating Hormone (TSH) 1.92 0.35-4.94 UIU/ML Diagnosis/Problems Diagnosis/Problems (1) Paroxysmal atrial fibrillation Status: Chronic Assessment & Plan: He appears to be going in and out of atrial fibrillation at times on telemetry. He has mild biatrial enlargement on his echocardiogram from this admission which suggests that he may have more persistent atrial fibrillation at home. This is a new diagnosis for him. His echocardiogram from this admission did not show any significant valvular heart disease that would predispose to atrial fibrillation. His heart rates are reasonably controlled with diltiazem which he was taking at home. He was taking both diltiazem and metoprolol at home for his hypertension. I recommend we do not resume metoprolol. He should continue on apixaban for stroke prophylaxis. Although he is over the age of 82, his creatinine is less than 1.5 and weight above 60 kg. As such, there is no indication to reduce the dose of apixaban. Given his age, I do not see any strong indication for faith of sinus rhythm. I placed an order to discontinue telemetry on 07/10. At this point in time, there do not appear to be any acute, active cardiac issues. As such, cardiology will sign of f. I have placed an order for nursing to get him an appointment to see me in the office in follow-up in 1 month after discharge. Please call if you have other questions or concerns. (2) Sinus bradycardia Assessment & Plan: As above, he did have some intermittent sinus bradycardia in the emergency room as well as profound first-degree AV block. I suspect this was due to the fact he was taking both metoprolol and diltiazem at home. He is now just on diltiazem. His heart rates have been in a normal range for the past several days. He should not resume metoprolol when he goes home. (3) Primary hypertension Assessment & Plan: Blood pressures had been improved on diltiazem but are still high at times. The hospitalist has initiated treatment with lisinopril. His blood pressures seem to be gradually improving. They are not presently so high that this would be a barrier to discharge. His blood pressure will just need to be followed closely by his primary provider after discharge. (4) Pulmonary hypertension Assessment & Plan: He does have obstructive sleep apnea and according to his does not always use his CPAP. He is also obese. I suspect this has led to the pulmonary hypertension noted on his echocardiogram. Given his advanced age, I would not recommend extensive evaluation for other secondary causes of pulmonary hypertension. (5) Altered mental status Status: Acute Assessment & Plan: Most likely related to his acute infection. His tells me that he had neurology evaluation at the [facility] and was told he does not have dementia. According to his , he is at about his baseline at this point in time. His main issue seems to be that he has his sleep-wake cycle reversed and sleeps much of the day. Problem Qualifiers (1) Altered mental status: Altered mental status type: somnolence Qualified Codes: R40.0 - Somnolence DEBORAH CALDWELL JR, MD Jul 11, 2021 08:51
[2021-07-11] MEDS ORDERED: INSULIN GLARGINE HUM REC ANLOG 15 UNIT SQ SCH (09:00)
[2021-07-11] MEDS ORDERED: lisINopril 20 MG (PRINIVIL) TABLET PO SCH (09:00)
[2021-07-11] MEDS ORDERED: [UNRECOGNIZED DRUG - OTHER] SQ SCH (09:00)
[2021-07-11] MEDS: dilTIAZem120 MG (CARDIZEM CD) CAP PO SCH (09:20)
[2021-07-11] MEDS: APIXABAN 5 MG (ELIQUIS) TABLET PO SCH (09:20)
[2021-07-11] MEDS: FUROSEMIDE 40 MG (LASIX) TAB PO SCH (09:20)
[2021-07-11] MEDS: metFORMIN 500 MG (GLUCOPHAGE) TAB PO SCH (09:21)
[2021-07-11] MEDS: polyethylene glycoL POWDER 17 GM (MIRALAX) PACK PO SCH (09:21)
[2021-07-11] MEDS: SENNA W/DOCUSATE (SENOKOT S) TABLET PO SCH (09:22)
[2021-07-11] MEDS ORDERED: FUROSEMIDE 40 MG/4 ML INJ (LASIX) IVP ONE (09:45)
--- NOTE | 2021-07-11 10:56 | Physical Therapy Daily Note ---
PT Daily Note-Current Subjective Pt in recliner upon arrival and agrees to tx Mental Status Patient Orientation: Person, Place Transfers SCALE: Activities may be completed with or without assistive devices. 1-Wtxyvcrgbe-kpqkaji completes the activity by him/herself with no assistance from a helper. 5-Set-up or Clean-up Assistance-helper sets up or cleans up; patient completes activity. [place] assists only prior to or following the activity. 4-Supervision or Touching Assistance-helper provides verbal cues and/or touching/steadying and/or contact guard assistance as patient completes activity. Assistance may be provided throughout the activity or intermittently. 3-Partial/Moderate Assistance-helper does LESS THAN HALF the effort. [place] lifts, holds or supports trunk or limbs, but provides less than half the effort. 2-Substantial/Maximal Assistance-helper does MORE THAN HALF the effort. [place] lifts or holds trunk or limbs and provides more than half the effort. 9-Pvvufkzft-sbople does ALL the effort. Patient does none of the effort to complete the activity. Or, the assistance of 2 or more helpers is required for the patient to complete the activity. If activity was not attempted, code reason: 7-Patient Refused. 9-Not Applicable-not attempted and the patient did not perform the activity before the current illness, exacerbation or injury. 10-Not Attempted due to Environmental Limitations-(lack of equipment, weather restraints, etc.). 88-Not Attempted due to Medical Conditions or Safety Concerns. Exercises Supine Ex: Ankle pumps, Quad Set, Heel Slides, Hip abd/add Supine Reps: 10 Treatments Pt performed supine ex in recliner w/ feet raised. Pt required RB frequently throughout tx. Pt stays in recliner with all needs met, call light in hand. Assessment Current Status: Good Progress Pt requires frequent RB throughout tx PT Group Home Goals Assistant City Attorney Goals PT Assistant City Attorney Goals Time Frame: Jul 13, 2021 PT Plan Treatment/Plan Treatment Plan: Continue Plan of Care Treatment Plan: Bed Mobility, Education, Functional Activity Shannon, Functional Strength, Gait, Safety, Therapeutic Exercise, Transfers Treatment Duration: Jul 13, 2021 Frequency: 6 times per week Estimated Hrs Per Day: .25 hour per day Patient and/or Family Agrees t: Yes Time/GCodes Time In: 919 Time Out: 929 Total Billed Treatment Time: 10 Total Billed Treatment 1, EX MARAH NELSON GRADER TENDER Jul 11, 2021 10:56
[2021-07-11 11:19] VITALS: BP 150/69
--- NOTE | 2021-07-11 12:03 | Occupational Ther Daily Note ---
OT Current Status-Daily Note Subjective Drowsy. Limited communication. Denies pain. Appearance Pt left sitting in chair at OT departure. ADL-Treatment Therapy Code Descriptions/Definitions Functional [place] Measure: 0=Not Assessed/NA 4=Minimal Assistance 1=Total Assistance 5=Supervision or Setup 2=Maximal Assistance 6=Modified [place] 3=Moderate Assistance 7=Complete IndependenceSCALE: Activities may be completed with or without assistive devices. 0-Ncanvxyllk-zagdynb completes the activity by him/herself with no assistance from a helper. 5-Set-up or Clean-up Assistance-helper sets up or cleans up; patient completes activity. [place] assists only prior to or following the activity. 4-Supervision or Touching Assistance-helper provides verbal cues and/or touching/steadying and/or contact guard assistance as patient completes activi ty. Assistance may be provided throughout the activity or intermittently. 3-Partial/Moderate Assistance-helper does LESS THAN HALF the effort. [place] lifts, holds or supports trunk or limbs, but provides less than half the effort. 2-Substantial/Maximal Assistance-helper does MORE THAN HALF the effort. [place] lifts or holds trunk or limbs and provides more than half the effort. 0-Helenpevc-nkgwdl does ALL the effort. Patient does none of the effort to complete the activity. Or, the assistance of 2 or more helpers is required for the patient to complete the activity. If activity was not attempted, code reason: 7-Patient Refused. 9-Not Applicable-not attempted and the patient did not perform the activity before the current illness, exacerbation or injury. 10-Not Attempted due to Environmental Limitations-(lack of equipment, weather restraints, etc.). 88-Not Attempted due to Medical Conditions or Safety Concerns. Other Treatment Pt sleeping at OT arrival. Extra time to rouse. Attempt at performing UE exercises with goal to increase BUE Strength and activity tolerance needed for ADLs and functional transfers, yet Pt falling asleep after minimal activity. Unable to maintain alertness. Pt only completed shoulder and elbow flexion x15 each UE. Education OT Patient Education: Correct positioning, Exercise program Teaching Recipient: Patient Teaching Methods: Discussion Response to Teaching: Reinforcement Needed OT Switch Coupler Goals Senior Care Goals Time Frame: Jul 13, 2021 Eating (QC): 5 Oral Hygiene (QC): 5 Toileting Hygiene (QC): 3 Shower/Bathe Self (QC): 3 Upper Body Dressing (QC): 4 Lower Body Dressing (QC): 3 On/Off Footwear (QC): 3 Additional Goals: 1-Demonstrate ADL Tasks, 2-Verbalize Understanding, 3- ImproveStrength/Shannon 1=Demonstrate adherence to instructed precautions during ADL tasks. 2=Patient will verbalize/demonstrate understanding of assistive devices/modifications for ADL. 3=Patient will improve strength/tolerance for activity to enable patient to perform ADL's. OT Education/Plan Problem List/Assessment Assessment: Decreased Activ Tolerance, Decreased Safety Aware, Decreased UE Strength, Impaired Funct Balance, Impaired Self-Care Skills, Restricted Funct UE ROM Discharge Recommendations Plan/Recommendations: Continue POC Treatment Plan/Plan of Care Treatment,Training & Education: Yes Patient would benefit from OT for education, treatment and training to promote independence in ADL's, mobility, safety and/or upper extremity function for ADL's. Plan of Care: ADL Retraining, Functional Mobility, UE Funct Exercise/Act Treatment Duration: Jul 13, 2021 Frequency: 5 times per week Estimated Hrs Per Day: .25 hour per day Agreement: Yes Rehab Potential: Fair Time/GCodes Start Time: 11:21 Stop Time: 11:30 Total Time Billed (hr/min): 9 Billed Treatment Time 1 visit, EX Tawnya Jones OT Jul 11, 2021 12:03
[2021-07-11] MEDS ORDERED: LISI20TA26 PO (13:35)
[2021-07-11] MEDS ORDERED: APIX5TAB PO (13:35)
--- NOTE | 2021-07-11 13:44 | Discharge Summary ---
Discharge Summary Hospital Course Problems/Diagnosis: (1) Urinary tract infection Status: Resolved Resolution Date/Time: 07/10/21 @ 13:36 Assessment & Plan: Completed course of ceftriaxone inpatient. Qualifiers: (2) Altered mental status Status: Acute Assessment & Plan: Fluctuating throughout stay, at times able to answer questi ons well (at time of d/c able to answer name and where he is), but other times mumbling. Per , this does occur at times at home also, and she feels he is currently doing well. Clinic chart review notes diagnosis of dementia and discussion about higher level of care several months ago, but preferred to care for him at home and still does. Qualifiers: Qualified Codes: R40.0 - Somnolence (3) Paroxysmal atrial fibrillation Status: Chronic Assessment & Plan: Atrial fibrillation: Patient had consultation with cardiology and was started on apixaban and diltiazem which he will continue to take. TSH nml, Echo with normal EF, diastolic dysfunction grade 2. (4) Cellulitis and abscess of left leg Status: Resolved Resolution Date/Time: 07/11/21 @ 13:38 Assessment & Plan: Patient has finished the course of the IV ceftriaxone and vancomycin. His WBC has stayed within normal limits and he has not been running a fever. No other therapy is required at this time. (5) Cellulitis and abscess of right leg Status: Acute (6) Primary hypertension Status: Chronic Assessment & Plan: Primary hypertension: Systolic BP continues to be high with systolic being in the 180-190. Lisinopril was started due to unable to tolerate beta armando and carvedilol together because of heart block and bradycardia. Metoprolol was discontinued. (7) Dysphagia Status: Chronic Assessment & Plan: Reportedly worked up at [place] per with no clear diagnosis that she recalls. [place] thick liquids. (8) Dementia Status: Chronic Qualifiers: Qualified Codes: G30.1 - Alzheimer's disease with late onset; F02.80 - Dementia in other diseases classified elsewhere without behavioral disturbance (9) Generalized weakness Status: Chronic Assessment & Plan: Uses wheelchair, scooter and walker at home, seems to be worse than baseline with marked assistance needed to transfer from bed to chair in hospital. Suspect progression of underlying disease as his infection has been treated and he has had continued fluctuating mental status and strength/ambulation- one day was able to ambulate with walker, another nearly unable to get to chair. Discussed home health and even consideration for hospice services with , she is confident she can meet his needs at home and declines home health or placement considerations. Discussed EMS for transport home, she declined needing. Hospital Course Date of Admission: Jul 06, 2021 at 00:40 Admission Diagnosis : Family Physician/Provider: Aida Bergman MD Date of Discharge: 07/11/21 Discharge Diagnosis: See problem list Hospital Course: See problem list Labs and Pending Lab Test: Laboratory Tests 07/10/21 15:49: Glucometer 223H 07/10/21 20:10: Glucometer 176H 07/11/21 05:35: White Blood Count 8.9, Red Blood Count 4.57, Hemoglobin 13.3, Hematocrit 40, Mean Corpuscular Volume 88, Mean Corpuscular Hemoglobin 29, Mean Corpuscular Hemoglobin Concent 33, Red Cell Distribution Width 14.2, Platelet Count 151, Mean Platelet Volume 11.0, Percent Immature Platelet Fraction 6.3, Sodium Level 136, Potassium Level 4.2, Chloride Level 99, Carbon Dioxide Level 26, Anion Gap 11, Blood Urea Nitrogen 21H, Creatinine 0.78, Estimat Glomerular Filtration Rate 94, BUN/Creatinine Ratio 27, Glucose Level 152H, Calcium Level 9.1 07/11/21 05:37: Glucometer 157H 07/11/21 10:41: Glucometer 213H 07/11/21 10:48: Thyroid Stimulating Hormone (TSH) 1.92 Microbiology 07/05/21 Urine Culture - Final, Complete Mixed Bacterial Zehra Proteus species 07/05/21 Blood Culture - Preliminary, Resulted No growth Home Meds Active Reported Flomax (Tamsulosin HCl) 0.4 Mg Cap 0.4 Mg PO 1800 Cardizem Cd (Diltiazem HCl) 120 Mg Cap.er.24h 120 Mg PO DAILY Furosemide 40 Mg Tablet 40 Mg PO DAILY Novolog Flexpen (Insulin Aspart) 300 Units/3 Ml Solution Units SC SLIDING/SCALE Lantus Solostar (Insulin Glargine,Hum.rec.anlog) 100 Unit/1 Ml Insuln.pen 15 Unit SQ DAILY Metformin HCl 500 Mg Tablet 1,000 Mg PO BID WITH MEALS TAKES 2 (500MG) TABS Metoprolol Tartrate 25 Mg Tablet 25 Mg PO DAILY Trazodone HCl 50 Mg Tablet 50 Mg PO HS Assessment/Pt DC Instructions Follow up with Dr. Bergman within a week of discharge. Discharge Diet: ADA Diet Activity as Tolerated: Yes Discharge Physical Examination Allergies: Coded Allergies: No Known Drug Allergies (Unverified , 06/08/20) General Appearance: No Apparent Distress Respiratory: Lungs Clear, Normal Breath Sounds Cardiovascular: Regular Rate, Rhythm Gastrointestinal: Normal Bowel Sounds, Non Tender, Soft Extremity: Other (trace pedal edema) Skin: Normal Color, Warm/Dry Neurologic/Psychiatric: Alert, Other (oriented to self and location) Copy Copies To 1: AIDA BERGMAN MD,RETA Muhammad MD Jul 11, 2021 13:41
--- NOTE | 2021-07-11 13:58 | Progress Note ---
Subjective Subjective/Events-last exam Christopher is a 89yo M admitted for bilateral cellulitis. He was treated for the cellulitis as well as a UTI, atrial fibrillation, and hypertension. He has had fluctuating altered mental status throughout his stay at the hospital. Today he was not able to respond with words and could only mumble and nod his head a little bit. He was not able to drink out of his own cup without help. When asked if he had any pain today he shook his head no. Review of Systems General: Fatigue HEENT: Other (Has issues swallowing) Pulmonary: Cough Neurological: Weakness, Change in speech (Patient was barely able to get out a word today) Patient denied being in any pain. Focused Exam Time of Focused Exam: 18:45 Respiratory: Lungs Clear, Accessory Muscle Use, Crackles (Some crackles at end of expiration) Cardiovascular: Regular Rate, Rhythm, No Edema Capillary Refill: Less Than 3 Seconds Peripheral Pulses: 3+ Radial Pulses (R) Skin: normal color Objective Exam Last Set of Vital Signs Vital Signs Date Time Temp Pulse Resp B/P (MAP) Pulse Ox O2 Delivery O2 Flow Rate FiO2 07/11/21 13:08 77 07/11/21 11:19 36.6 20 150/69 (96) 93 Room Air 07/07/21 10:33 0.00 Capillary Refill : Less Than 3 Seconds I&O Intake and Output 07/11/21 00:00 Intake Total 840 ml Balance 840 ml Intake Oral 840 ml # Voids 8 # Bowel Movements 2 General: Other (Patient was aware of he was, where he was, and that his was with him) HEENT: Atraumatic Neck: Supple Lungs: Clear to Auscultation Heart: Regular Rate Abdomen: Normal Bowel Sounds Extremities: No Clubbing, No Cyanosis Skin: No Rashes Psych/Mental Status: Other (Patient seems less aware today as to what is going on. Was not able to speak a full word. Could not feed himself today.) Results/Procedures Lab Laboratory Tests 07/10/21 15:49: Glucometer 223H 07/10/21 20:10: Glucometer 176H 07/11/21 05:35: White Blood Count 8.9, Red Blood Count 4.57, Hemoglobin 13.3, Hematocrit 40, Mean Corpuscular Volume 88, Mean Corpuscular Hemoglobin 29, Mean Corpuscular Hemoglobin Concent 33, Red Cell Distribution Width 14.2, Platelet Count 151, Mean Platelet Volume 11.0, Percent Immature Platelet Fraction 6.3, Sodium Level 136, Potassium Level 4.2, Chloride Level 99, Carbon Dioxide Level 26, Anion Gap 11, Blood Urea Nitrogen 21H, Creatinine 0.78, Estimat Glomerular Filtration Rate 94, BUN/Creatinine Ratio 27, Glucose Level 152H, Calcium Level 9.1 07/11/21 05:37: Glucometer 157H 07/11/21 10:41: Glucometer 213H 07/11/21 10:48: Thyroid Stimulating Hormone (TSH) 1.92 Microbiology 07/05/21 Urine Culture - Final, Complete Mixed Bacterial [place] Proteus species 07/05/21 Blood Culture - Preliminary, Resulted No growth Assessment/Plan Assessment/Plan Admission Dx Bilateral cellulitis of the legs Admission Status: Inpatient Order (span 2 midnights) Assessment & Plan (1) Urinary tract infection Status: Resolved Assessment & Plan: Completed course of ceftriaxone inpatient. Qualifiers: (2) Altered mental status Status: Acute Assessment & Plan: Fluctuating throughout stay, at times able to answer questions well (at time of d/c able to answer name and where he is), but other times mumbling. Per , this does occur at times at home also, and she feels he is currently doing well. Clinic chart review notes diagnosis of dementia and discussion about higher level of care several months ago, but preferred to care for him at home and still does. was asked about her thoughts of home health or hospice care but she declined. She is wanting to bring the patient home today with her. Qualifiers: Qualified Codes: R40.0 - Somnolence (3) Paroxysmal atrial fibrillation Status: Chronic Assessment & Plan: Patient had consultation with cardiology and was started on apixaban and diltiazem which he will continue to take. TSH nml, Echo with normal EF, diastolic dysfunction grade 2. (4) Cellulitis and abscess of left leg Status: Resolved Assessment & Plan: Patient has finished the course of the IV ceftriaxone and vancomycin. His WBC has stayed within normal limits and he has not been running a fever. No other therapy is required at this time. (5) Cellulitis and abscess of right leg Status: Acute (6) Primary hypertension Status: Chronic Assessment & Plan: Patient's blood pressure was controlled yesterday when Isha romeroopril was started. BP was high again this morning so the Lisinopril was increased by the executive producer promos. (7) Dysphagia Status: Chronic Assessment & Plan: Reportedly worked up at [place] per with no clear diagnosis that she recalls. [place] thick liquids. (8) Dementia Status: Chronic Assessment & Plan: Patient is being cared for by his who says she is able to handle his needs. Qualifiers: Qualified Codes: G30.1 - Alzheimer's disease with late onset; F02.80 - Dementia in other diseases classified elsewhere without behavioral disturbance (9) Generalized weakness Status: Chronic Assessment & Plan: Uses wheelchair, scooter and walker at home, seems to be worse than baseline with marked assistance needed to transfer from bed to chair in hospital. Suspect progression of underlying disease as his infection has been treated and he has had continued fluctuating mental status and strength/ambulation- one day was able to ambulate with walker, another nearly unable to get to chair. Discussed home health and even consideration for hospice services with , she is confident she can meet his needs at home and declines home health or placement considerations. Discussed EMS for transport home, she declined needing. XAVIER PARKINSON Jul 11, 2021 13:58
[2021-07-11 14:52] VITALS: BP 150/69
== END 2021-07-11 14:53 | disposition home or self-care (01) | DRG 603 ==
LOC: EDUNIT# 18:09 → ER FS 18:10 → INTOOBSV 07-06 00:10 → CSD 07-06 00:10 → OBSVTOIN 07-06 00:40 → 4TH 07-06 15:03
PROVIDERS: ADMIT Internal Medicine; ATTEND Family Medicine
DX: L03.116 Cellulitis of left lower limb (principal); N39.0 Urinary tract infection, site not specified; F05 Delirium due to known physiological condition; L03.115 Cellulitis of right lower limb; I10 Essential (primary) hypertension; E11.9 Type 2 diabetes mellitus without complications; Z85.51 Personal history of malignant neoplasm of bladder; G30.1 Alzheimer's disease with late onset; F02.80 Dementia in other diseases classified elsewhere, unspecified severity, without behavioral disturbance, psychotic disturbance, mood disturbance, and anxiety; L02.416 Cutaneous abscess of left lower limb; L02.415 Cutaneous abscess of right lower limb; H54.7 Unspecified visual loss; H91.90 Unspecified hearing loss, unspecified ear; R06.82 Tachypnea, not elsewhere classified; R09.02 Hypoxemia; I48.0 Paroxysmal atrial fibrillation; R00.1 Bradycardia, unspecified; I44.0 Atrioventricular block, first degree; I27.20 Pulmonary hypertension, unspecified; B96.4 Proteus (mirabilis) (morganii) as the cause of diseases classified elsewhere; Z20.822 Contact with and (suspected) exposure to COVID-19; Z79.4 Long term (current) use of insulin; Z79.899 Other long term (current) drug therapy; Z99.89 Dependence on other enabling machines and devices
CPT/HCPCS: 36415; 70450; 71045; 80048; 80053; 80202; 81000; 82947; 83605; 84443; 85025; 85027; 85610; 85730; 87040; 87088; 87636; 93005; 93306; 93970; 94640; 94760; 96361; 96374

== ENCOUNTER 2021-12-12 10:31 | Emergency (ER) | payer MEDICARE, OTHER ==
[~2021-12-12] VITALS: Ht 170.2 cm; Wt 77.1 kg
[~2021-12-12 10:31] MED LIST changes: +APIX5TAB PO; +DILT120C82 PO; +FURO40TA4 PO; +GLIM2TAB4 PO; +INSU100I10 SQ; +INSU100I14 SC; +LISI20TA26 PO; +METF-397 PO; +METO-333 PO; +TMSL.4C PO; +TRZ50T PO
--- NOTE | 2021-12-12 10:54 | ED Fall/Injury ---
General Chief Complaint: Trauma-Non Activation Stated Complaint: HEAD LAC Source: patient, family, EMS, old records Exam Limitations: other (dementia and mostly non-verbal at baseline) History of Present Illness Date Seen by Provider: Dec 12, 2021 Time Seen by Provider: 10:31 Initial Comments 89 yo male presenting by EMS with complaint of fall at home with scalp laceration. He has no other injury and is at his baseline according to family. He says his name but otherwise is mostly nonverbal. According to family that is his baseline. He had slid back home and did not anything sharp with the back of his head but had slid down the wall. When he did this he developed a laceration to the back of his scalp. He did not lose consciousness. He had no nausea or vomiting. He was able to be helped back up from the floor. He has no acute changes otherwise on his exam or mentation. Occurred: just prior to arrival Severity: mild Injuries/Pain Location: head (Occipital scalp laceration) Context: lost balance Loss of Consciousness: no loss of consciousness Associated Symptoms (Fall): No Abdominal Pain, No Chest Pain, No Confusion, No Dizziness, No Headache, No Lightheadedness, No Muscle Spasms, No Nausea/Vomiting, No Neck Pain, No Ringing in Ears, No Seizures, No Shortness of Air, No Slurred Speech Allergies and Home Medications Allergies Coded Allergies: No Known Drug Allergies (Unverified , 06/08/20) Patient Home Medication List Home Medication List Reviewed: Yes Apixaban (Eliquis) 5 Mg Tablet, 5 MG PO BID Prescribed by: RETA AMARAL on 07/11/21 1335 Diltiazem HCl (Cardizem Cd) 120 Mg Cap.er.24h, 120 MG PO DAILY, (Reported) Entered as Reported by: OLINDA JIMENEZ on 07/06/21 1411 Furosemide (Furosemide) 40 Mg Tablet, 40 MG PO DAILY, (Reported) Entered as Reported by: OLINDA JIMENEZ on 07/06/21 141 Insulin Aspart (Novolog Flexpen) 300 Units/3 Ml Solution, UNITS SC SLIDING/SCALE, (Reported) Entered as Reported by: OLINDA JIMENEZ on 07/06/21 141 Insulin Glargine,Hum.rec.anlog (Lantus Solostar) 100 Unit/1 Ml Insuln.pen, 15 UNIT SQ DAILY, (Reported) Entered as Reported by: OLINDA JIMENEZ on 07/06/21 141 Lisinopril (Lisinopril) 20 Mg Tablet, 20 MG PO DAILY Prescribed by: RETA AMARAL on 07/11/21 1335 Metformin HCl (Metformin HCl) 500 Mg Tablet, 1,000 MG PO BID WITH MEALS, (Reported) Entered as Reported by: OLINDA JIMENEZ on 07/06/21 141 Tamsulosin HCl (Flomax) 0.4 Mg Cap, 0.4 MG PO 1800, (Reported) Entered as Reported by: OLINDA JIMENEZ on 07/06/21 141 Trazodone HCl (Trazodone HCl) 50 Mg Tablet, 50 MG PO HS, (Reported) Entered as Reported by: OLINDA JIMENEZ on 07/06/21 141 Review of Systems Review of Systems Constitutional: No chills, No fever Ears, Nose, Mouth, Throat: denies ear pain, denies ear discharge, denies nose discharge, denies epistaxis Respiratory: No cough, No short of breath Cardiovascular: edema (Chronic) Gastrointestinal: No nausea, No vomiting Genitourinary: incontinence (Chronic and wears adult diapers) Musculoskeletal: no symptoms reported Skin: dryness, other (Laceration to scalp) Psychiatric/Neurological: Other (Trouble speaking and communicating which is chronic) Past Vdazorn-Bvqsbp-Afrkqm Hx Patient Social History Tobacco Use?: No Smoking Status: Unknown if Ever Smoked Seasonal Allergies Seasonal Allergies: No Past Medical History Surgery/Hospitalization HX: DIABETIC, HTN, BLADDER CA Surgeries: No Respiratory: No Cardiac: Yes Hypertension Neurological: No Genitourinary: No Gastrointestinal: No Musculoskeletal: No Endocrine: Yes Diabetes, Non-Insulin dep HEENT: No Cancer: Yes Bladder Psychosocial: No Integumentary: No Blood Disorders: No Physical Exam Vital Signs Vital Signs - First Documented 12/12/21 10:31 Temp 36.6 Pulse 68 Resp 14 B/P (MAP) 130/55 (80) O2 Delivery Room Air Capillary Refill : Height, Weight, BMI Height: '" Weight: lbs. oz. kg; 33.81 BMI Method: General Appearance: no apparent distress, other (appears chronically ill) HEENT: PERRL/EOMI, TMs normal, other (Negative crews sign, negative raccoon sign, no CSF otorrhea, no CSF rhinorrhea. 4.4 cm laceration to the occiput bleeding is controlled.) Neck: non-tender, full range of motion, supple Cardiovascular: normal peripheral pulses Respiratory: chest non-tender, lungs clear, normal breath sounds Gastrointestinal: normal bowel sounds, non tender, soft, no pulsatile mass Extremities: normal range of motion, normal capillary refill, pedal edema (Chronic 2+ bilateral lower extremity pedal edema) Neurologic/Psychiatric: alert Skin: warm/dry Procedures/Interventions Wound Location: Scalp Wound Length (cm): 4.4 Wound's Depth, Shape: linear, sub Q Wound Explored: clean Staple Repair: Stapler Skin Precise Number of Sutures: 9 Progress Wound was cleaned with chlorhexidine scrub soap and sterile water. The wound edges were then approximated using a stapler and a total of 9 simple interrupted jeffry were placed. Wound edges were well approximated. Patient tolerated procedure well without any immediate complication. No obvious step-off or deformity noted for skull fracture. CT scan of the head and cervical spine were negative for acute fracture or intracranial process. Counseled on follow-up and return precautions. Advised to have the jeffry removed in 7 to 10 days. Progress/Results/Core Measures Results/Orders My Orders Orders - JAYNA DOLL MD Ct Head/Cervical Spine Wo (12/12/21 10:43) Vital Signs/I&O 12/12/21 10:31 Temp 36.6 Pulse 68 Resp 14 B/P (MAP) 130/55 (80) O2 Delivery Room Air Progress Progress Note : Progress Note Grafton placed to approximate wound edges of occipital scalp laceration. Patient tolerated procedure well without any immediate complication. CT scan of the head and cervical spine obtained and did not demonstrate any acute fracture or intracranial process. Counseled on follow-up and return precautions. Advised to have the jeffry removed in 7 to 10 days. Diagnostic Imaging Diagonstic Imaging: CT Plain Films/CT/US/NM/MRI: c-spine, head Comments [facility]. [place], [place] NAME: WILMER JIMENEZ [facility] REC#: [id number] PT STATUS: REG ER : 1930 PHYSICIAN: JAYNA DOLL MD ADMIT DATE: 12/12/21/ER FS Draft Date of Exam:12/12/21 CT HEAD/CERVICAL SPINE WO PROCEDURE: CT head and CT cervical spine without contrast. TECHNIQUE: Multiple contiguous axial images were obtained through the brain and cervical spine without the use of intravenous contrast. Sagittal and coronal reformations through the cervical spine were then performed. Auto Exposure Controls were utilized during the CT exam to meet ALARA standards for radiation dose reduction. INDICATION: Fall with head injury. COMPARISON: 07/09/2021. FINDINGS: HEAD: No intracranial hyperdense hemorrhage or space-occupying mass. No hydrocephalus or midline shift. Global atrophy is present. Periventricular hypoattenuation is most compatible with chronic microvascular ischemic white matter changes. No skull fracture. High left parietal/midline scalp swelling with laceration repaired by skin jeffry. CERVICAL SPINE: No fracture or traumatic malalignment. No high-grade spinal stenosis. Chronic ossification in the nuchal ligaments. Airway is patent. No retropharyngeal fluid collection. Lung apices are clear. IMPRESSION: 1. No acute intracranial hemorrhage or skull fracture. 2. No fracture or traumatic malalignment in the cervical spine. Dictated on workstation # [id number] Dict: 12/12/21 1103 Trans: 12/12/21 1110 [id number] [id number] Interpreted by: DAVIS CARPIO MD Electronically signed by: Reviewed: Reviewed by Me Departure Impression Primary Impression: Laceration of occipital region of scalp without complication Qualified Codes: S01.01XA - Laceration without foreign body of scalp, initial encounter Additional Impression: Fall at home Qualified Codes: W19.XXXA - Unspecified fall, initial encounter; Y92.009 - Unspecified place in unspecified non-institutional (private) residence as the place of occurrence of the external cause Disposition: HOME, SELF-CARE Condition: Stable Departure-Patient Inst. Decision time for Depature: 11:25 Referrals: AIDA HEARD MD (PCP/Family) Primary Care Physician Patient Instructions: Laceration Repair With Jeffry ED, Preventing Falls ED Add. Discharge Instructions: Keep the jeffry clean and dry for the first 24 hours. After that you may wash his hair like normal. Be careful with any jackson or brushes so that you do not catch the jeffry and pull them out by accident. He may take acetaminophen 650 mg every 6 hours as needed for pain. You could apply an ice pack for 10 to 15 minutes every 4-6 hours as needed for swelling and pain. If he starts having pus draining from the wound, fever over 101 Fahrenheit, increased redness and swelling to the scalp and have him be seen again as you may need antibiotics. Otherwise the jeffry would need to come out in 7 to 10 days. All discharge instructions reviewed with patient and/or family. Voiced understanding. JAYNA DOLL MD Dec 12, 2021 10:54
--- NOTE | 2021-12-12 11:10 | Diagnostic Imaging Report ---
PROCEDURE: CT head and CT cervical spine without contrast. TECHNIQUE: Multiple contiguous axial images were obtained through the brain and cervical spine without the use of intravenous contrast. Sagittal and coronal reformations through the cervical spine were then performed. Auto Exposure Controls were utilized during the CT exam to meet ALARA standards for radiation dose reduction. INDICATION: Fall with head injury. COMPARISON: 07/09/2021. FINDINGS: HEAD: No intracranial hyperdense hemorrhage or space-occupying mass. No hydrocephalus or midline shift. Global atrophy is present. Periventricular hypoattenuation is most compatible with chronic microvascular ischemic white matter changes. No skull fracture. High left parietal/midline scalp swelling with laceration repaired by skin jared. CERVICAL SPINE: No fracture or traumatic malalignment. No high-grade spinal stenosis. Chronic ossification in the nuchal ligaments. Airway is patent. No retropharyngeal fluid collection. Lung apices are clear. IMPRESSION: 1. No acute intracranial hemorrhage or skull fracture. 2. No fracture or traumatic malalignment in the cervical spine. Dictated by: Dictated on workstation # [id number]
[2021-12-12 11:41] VITALS: BP 134/83
== END 2021-12-12 11:41 | disposition home or self-care (01) ==
LOC: EDUNIT# 10:31 → ER FS 10:32
DX: S01.01XA Laceration without foreign body of scalp, initial encounter (principal); I10 Essential (primary) hypertension; E11.9 Type 2 diabetes mellitus without complications; Z79.84 Long term (current) use of oral hypoglycemic drugs; Z79.01 Long term (current) use of anticoagulants; W18.30XA Fall on same level, unspecified, initial encounter; Y92.009 Unspecified place in unspecified non-institutional (private) residence as the place of occurrence of the external cause
CPT/HCPCS: 70450; 72125

== ENCOUNTER 2021-12-21 11:31 | Emergency (ER) | payer MEDICARE, OTHER ==
[~2021-12-21] VITALS: Ht 170.2 cm; Wt 77.1 kg
[2021-12-21 11:33] VITALS: BP 114/44
== END 2021-12-21 11:45 | disposition home or self-care (01) ==
LOC: EDUNIT# 11:31 → ER FS 11:32
DX: Z48.02 Encounter for removal of sutures (principal)

== ENCOUNTER 2022-03-04 19:33 | Emergency (ER) | payer MEDICARE, OTHER ==
[~2022-03-04] VITALS: Ht 172.7 cm; Wt 108.8 kg
[2022-03-04 20:03] LABS: BASOPHILS # (AUTO) 0.1 10^3/uL (0.0-0.1); BASOPHILS % (AUTO) 1 % (0-10); EOSINOPHILS # (AUTO) 0.2 10^3/uL (0.0-0.3); EOSINOPHILS % (AUTO) 2 % (0-10); HEMATOCRIT 38 % (40-54); HEMOGLOBIN 12.4 g/dL (13.3-17.7); LYMPHOCYTES # (AUTO) 1.3 10^3/uL (1.0-4.0); LYMPHOCYTES % (AUTO) 14 % (12-44); MEAN CORPUSCULAR HEMOGLOBIN 30 pg (25-34); MEAN CORPUSCULAR HGB CONC 33 g/dL (32-36); MEAN CORPUSCULAR VOLUME 92 fL (80-99); MEAN PLATELET VOLUME 11.2 fL (9.0-12.2); MONOCYTES # (AUTO) 0.6 10^3/uL (0.0-1.0); MONOCYTES % (AUTO) 7 % (0-12); NEUTROPHILS # (AUTO) 7.3 10^3/uL (1.8-7.8); NEUTROPHILS % (AUTO) 77 % (42-75); PLATELET COUNT 185 10^3/uL (130-400); WHITE BLOOD COUNT 9.5 10^3/uL (4.3-11.0)
--- NOTE | 2022-03-04 20:25 | Diagnostic Imaging Report ---
CLINICAL INDICATION: Patient with confusion and unable to take deep breath. EXAM: Portable chest x-ray upright view. COMPARISON: Chest x-ray dated 07/05/2021. FINDINGS: Stable volume loss noted bilaterally with the left side more than right. There is no significant change to the left basilar atelectasis versus scarring. There is blunting of left costophrenic angle and left pleural effusion cannot be completely excluded. There is no pneumothorax. Stable slight nodular areas involving the right lung which may represent small calcified granuloma. Pulmonary vasculature and cardiac silhouettes within normal limits. There are degenerative spurs involving the thoracic spine. IMPRESSION: Stable chest x-ray exam with mild left basilar atelectasis versus scarring. Slight low lung volumes noted bilaterally with the left side more than right. Dictated by: Dictated on workstation # [id number]
[2022-03-04 20:36] LABS: BUN/CREATININE RATIO 31; CALCIUM 9.4 MG/DL (8.5-10.1); CARBON DIOXIDE 28 MMOL/L (21-32); CHLORIDE 99 MMOL/L (98-107); CREATININE SERUM 1.14 MG/DL (0.60-1.30); GFR ESTIMATED 61; GLUCOSE 132 MG/DL (70-105); POTASSIUM 5.1 MMOL/L (3.6-5.0); SODIUM 139 MMOL/L (135-145)
[2022-03-04 20:37] LABS: ALANINE AMINOTRANSFERASE 29 U/L (0-55); ALBUMIN 3.8 GM/DL (3.2-4.5); ALKALINE PHOSPHATASE 104 U/L (40-136); BILIRUBIN,TOTAL 0.5 MG/DL (0.1-1.0); TOTAL PROTEIN 7.2 GM/DL (6.4-8.2)
--- NOTE | 2022-03-04 21:02 | ED General ---
General Chief Complaint: General Problems/Pain Stated Complaint: OXYGEN LEVELS FLUCUATING Nursing Triage Note: Patient's states that she put an SPO2 on the patients finger and became concerned because his oxygen was low. pointed to the number and was confusing the heart rate with the SPO2. stated that she wanted to get him checked out. Source of Information: Patient Exam Limitations: No Limitations History of Present Illness Date Seen by Provider: March 04, 2022 Time Seen by Provider: 19:30 Initial Comments Patient is an 89-year-old male with history of dementia and obstructive sleep apnea who presents with spouse with concern the patient sleeps with his mouth open and does not wear CPAP at night. She measures his oxygen saturations which remained in the low 90s. History of aspiration pneumonia. No recent fall, cough, choking episodes. No other acute symptoms or complaints. History obtained from spouse. History is limited by the patient's cognitive impairment. Timing/Duration: 1-3 Hours Severity: Mild Modifying Factors: improves with Other Associated Systoms: Other Allergies and Home Medications Allergies Coded Allergies: No Known Drug Allergies (Unverified , 06/08/20) Patient Home Medication List Home Medication List Reviewed: Yes Apixaban (Eliquis) 5 Mg Tablet, 5 MG PO BID Prescribed by: RETA AMARAL on 07/11/21 1335 Diltiazem HCl (Cardizem Cd) 120 Mg Cap.er.24h, 120 MG PO DAILY, (Reported) Entered as Reported by: OLINDA JIMENEZ on 07/06/211410 Furosemide (Furosemide) 40 Mg Tablet, 40 MG PO DAILY, (Reported) Entered as Reported by: OLINDA JIMENEZ on 07/06/211410 Insulin Aspart (Novolog Flexpen) 300 Units/3 Ml Solution, UNITS SC SLIDING/SCALE, (Reported) Entered as Reported by: OLINDA JIMENEZ on 07/06/211410 Insulin Glargine,Hum.rec.anlog (Lantus Solostar) 100 Unit/1 Ml Insuln.pen, 15 UNIT SQ DAILY, (Reported) Entered as Reported by: OLINDA JIMENEZ on 07/06/211410 Lisinopril (Lisinopril) 20 Mg Tablet, 20 MG PO DAILY Prescribed by: RETA AMARAL on 07/11/21 1335 Metformin HCl (Metformin HCl) 500 Mg Tablet, 1,000 MG PO BID WITH MEALS, (Reported) Entered as Reported by: OLINDA JIMENEZ on 07/06/21 141 Tamsulosin HCl (Flomax) 0.4 Mg Cap, 0.4 MG PO 1800, (Reported) Entered as Reported by: OLINDA JIMENEZ on 07/06/21 141 Trazodone HCl (Trazodone HCl) 50 Mg Tablet, 50 MG PO HS, (Reported) Entered as Reported by: OLINDA JIMENEZ on 07/06/21 141 Review of Systems Review of Systems Constitutional: see HPI EENTM: see HPI Respiratory: see HPI Cardiovascular: see HPI Gastrointestinal: see HPI Genitourinary: see HPI Musculoskeletal: see HPI Skin: see HPI Psychiatric/Neurological: See HPI Hematologic/Lymphatic: See HPI Immunological/Allergic: see HPI All Other Systems Reviewed Negative Unless Noted: Yes Past Psdenus-Eiobqj-Bnkyji Hx Patient Social History Tobacco Use?: No Substance use?: No Alcohol Use?: No Pt feels they are or have been: No Immunizations Up To Date COVID19 Vaccine 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: GEOLID Seasonal Allergies Seasonal Allergies: No Past Medical History Surgery/Hospitalization HX: DIABETIC, HTN, BLADDER CA Surgeries: No Respiratory: No Cardiac: Yes Hypertension Neurological: No Genitourinary: No Gastrointestinal: No Musculoskeletal: No Endocrine: Yes Diabetes, Non-Insulin dep HEENT: No Cancer: Yes Bladder Psychosocial: No Integumentary: No Blood Disorders: No Physical Exam Vital Signs Vital Signs - First Documented 03/04/22 19:52 Temp 37.3 Pulse 90 Resp 23 B/P (MAP) 131/64 (86) Pulse Ox 95 O2 Delivery Room Air Capillary Refill : Less Than 3 Seconds Height, Weight, BMI Height: '" Weight: lbs. oz. kg; 36.00 BMI Method:Actual General Appearance: WD/WN, Anxious Eyes: Bilateral Eye Normal Inspection, Bilateral Eye PERRL, Bilateral Eye EOMI HEENT: Normal ENT Inspection, Pharynx Normal, Moist Mucous Membranes Respiratory: Lungs Clear, Normal Breath Sounds, Rhonci Cardiovascular: Regular Rate, Rhythm, No Edema Gastrointestinal: Non Tender, Soft Neurologic/Psychiatric: Other (Somnolent, alerts on exam) Lymphatic: No Adenopathy Focused Exam Sepsis Stage: Ruled Out Progress/Results/Core Measures Suspected Sepsis SIRS Temperature: Pulse: 90 Respiratory Rate: 23 Laboratory Tests 03/04/22 19:49: White Blood Count 9.5 Blood Pressure 131 /64 Mean: 86 Laboratory Tests 03/04/22 19:49: Creatinine 1.14, Platelet Count 185, Total Bilirubin 0.5 Results/Orders Lab Results Laboratory Tests Test 03/04/22 19:49 03/04/22 20:05 Range/Units White Blood Count 9.5 4.3-11.0 10^3/uL Red Blood Count 4.10 L 4.30-5.52 10^6/uL Hemoglobin 12.4 L 13.3-17.7 g/dL Hematocrit 38 L 40-54 % Mean Corpuscular Volume 92 80-99 fL Mean Corpuscular Hemoglobin 30 25-34 pg Mean Corpuscular Hemoglobin Concent 33 32-36 g/dL Red Cell Distribution Width 14.6 H 10.0-14.5 % Platelet Count 185 130-400 10^3/uL Mean Platelet Volume 11.2 9.0-12.2 fL Immature Granulocyte % (Auto) 0 % Neutrophils (%) (Auto) 77 H 42-75 % Lymphocytes (%) (Auto) 14 12-44 % Monocytes (%) (Auto) 7 0-12 % Eosinophils (%) (Auto) 2 0-10 % Basophils (%) (Auto) 1 0-10 % Neutrophils # (Auto) 7.3 1.8-7.8 10^3/uL Lymphocytes # (Auto) 1.3 1.0-4.0 10^3/uL Monocytes # (Auto) 0.6 0.0-1.0 10^3/uL Eosinophils # (Auto) 0.2 0.0-0.3 10^3/uL Basophils # (Auto) 0.1 0.0-0.1 10^3/uL Immature Granulocyte # (Auto) 0.0 0.0-0.1 10^3/uL Sodium Level 139 135-145 MMOL/L Potassium Level 5.1 H 3.6-5.0 MMOL/L Chloride Level 99 98-107 MMOL/L Carbon Dioxide Level 28 21-32 MMOL/L Anion Gap 12 5-14 MMOL/L Blood Urea Nitrogen 35 H 7-18 MG/DL Creatinine 1.14 0.60-1.30 MG/DL Estimat Glomerular Filtration Rate 61 BUN/Creatinine Ratio 31 Glucose Level 132 H 70-105 MG/DL Calcium Level 9.4 8.5-10.1 MG/DL Corrected Calcium 9.6 8.5-10.1 MG/DL Total Bilirubin 0.5 0.1-1.0 MG/DL Aspartate Amino Transf (AST/SGOT) 33 5-34 U/L Alanine Aminotransferase (ALT/SGPT) 29 0-55 U/L Alkaline Phosphatase 104 40-136 U/L Troponin I < 0.30 <0.30 NG/ML Pro-B-Type Natriuretic Peptide 340.9 H <75.0 PG/ML Total Protein 7.2 6.4-8.2 GM/DL Albumin 3.8 3.2-4.5 GM/DL Influenza Type A Antigen NEGATIVE NEGATIVE Influenza Type B Antigen NEGATIVE NEGATIVE Orders Orders - RICHA JAIMES DO Cbc With Automated Diff (03/04/22 19:52) Comprehensive Metabolic Panel (03/04/22 19:52) Troponin I Fs (03/04/22 19:52) Probnp Fs (03/04/22 19:52) Chest 1 View Ap/Pa Only (03/04/22 19:52) Ekg Tracing (03/04/22 19:52) Covid 19 Inhouse Test (03/04/22 19:52) Influenza A And B By Pcr (03/04/22 19:52) Isolation Central Supply Req (03/04/22 19:52) Influenza A & B Antigens (03/04/22 20:07) Ed Iv/Invasive Line Start (03/04/22 20:09) Vital Signs/I&O 03/04/22 19:52 Temp 37.3 Pulse 90 Resp 23 B/P (MAP) 131/64 (86) Pulse Ox 95 O2 Delivery Room Air Capillary Refill : Less Than 3 Seconds Blood Pressure Mean: 86 Departure Communication (Admissions) EKG: Atrial flutter, right bundle branch block. Chest x-ray: No acute cardiopulmonary disease. Symptoms consistent with sleep apnea with dementia and refusal to wear CPAP. Complaints will continue to be an ongoing problem. This was discussed with the patient spouse with recommendations to follow-up with PCP for management and discussion regarding long-term care supervision. Return precautions reviewed. Patient's spouse verbalizes understanding agreement discharge instructions prior to departure Impression Primary Impression: Dementia Additional Impression: Sleep apnea Disposition: HOME, SELF-CARE Condition: Stable Departure-Patient Inst. Decision time for Depature: 21:06 Referrals: AIDA HEARD MD (PCP/Family) Primary Care Physician Patient Instructions: Dementia (Including Alzheimer Disease) Add. Discharge Instructions: Christopher was evaluated in the emergency department for shortness of breath. His symptoms are consistent with sleep apnea. Please encourage him to wear his sleep apnea and follow-up with his primary care physician for reevaluation and recommendations regarding long-term care. All discharge instructions reviewed with patient and/or family. Voiced understanding. RICHA JAIMES DO March 04, 2022 21:01
[2022-03-04 21:17] VITALS: BP 114/56
== END 2022-03-04 21:18 | disposition home or self-care (01) ==
LOC: EDUNIT# 19:33 → ER FS 19:35
DX: F03.90 Unspecified dementia, unspecified severity, without behavioral disturbance, psychotic disturbance, mood disturbance, and anxiety (principal); G47.33 Obstructive sleep apnea (adult) (pediatric); I45.10 Unspecified right bundle-branch block; I48.92 Unspecified atrial flutter; Z87.01 Personal history of pneumonia (recurrent)
CPT/HCPCS: 36415; 71045; 80053; 82947; 83880; 84484; 85025; 87636; 87804; 93005

== ENCOUNTER 2022-06-04 12:46 | Emergency (ER) | payer MEDICARE, OTHER ==
[~2022-06-04] VITALS: Ht 177.8 cm; Wt 99.8 kg
[2022-06-04] MEDS ORDERED: NS IV 1000 ML 1,000 ML IV SCH (13:15)
[2022-06-04] MEDS ORDERED: LIDOCAINE UROJET 2% GEL 10 ML PKG TOP ONE (13:15)
[2022-06-04] MEDS ORDERED: CEFEPIME INJECTION 1,000 MG in NS (IVPB) 50 ML IV ONE (13:15)
--- NOTE | 2022-06-04 13:22 | ED General ---
General Chief Complaint: General Problems/Pain Stated Complaint: COUGH; WEAKNESS Nursing Triage Note: PT TO ROOM FS05 VIA W/C AND ASSISTED FROM VEHICLE WITH C/O GENERAL WEAKNESS SINCE FRIDAY, COUGH X3 WEEKS, DX OF PNEUMONIA ON FRIDAY AND STARTED ON DOXY. Source of Information: Patient Exam Limitations: No Limitations History of Present Illness Date Seen by Provider: Jun 04, 2022 Time Seen by Provider: 12:54 Initial Comments 89-year-old male with past medical history of diabetes, paroxysmal afib (off of anticoagulation, rate controlled only due to fall risk likely), hypertension, CARLOS ENRIQUE, and ?dementia coming in with significant other due to worsening weakness and cough. She says he does have a chronic cough as he chronically chokes on liquids which she has to thicken. Is been worsening over the past 2 weeks and she took him to [facility] on Friday. He was diagnosed with pneumonia and started on doxycycline. She says he has become more weak since then. Typically he is able to get up on his own and use a walker to get around. She says she is having to completely lift him to set him in a walker over the past couple days and this is now worsening even more. He does not really talk much at baseline, she says he will say a couple words per week and may be. He has seemed slightly more confused to her as well, but not far from his mental baseline. He did eat breakfast this morning and did choke on the liquids after. Has had all of his medicines today. His significant other denies him having any fever, vomiting, complaining of pain anywhere including his chest or abdomen, diarrhea, rash, or any other concerns Allergies and Home Medications Allergies Coded Allergies: No Known Drug Allergies (Unverified , 06/08/20) Patient Home Medication List Home Medication List Reviewed: Yes Apixaban (Eliquis) 5 Mg Tablet, 5 MG PO BID Prescribed by: RETA AMARAL on 07/11/21 1335 Diltiazem HCl (Cardizem Cd) 120 Mg Cap.er.24h, 120 MG PO DAILY, (Reported) Entered as Reported by: OLINDA JIMENEZ on 07/06/21 1411 Furosemide (Furosemide) 40 Mg Tablet, 40 MG PO DAILY, (Reported) Entered as Reported by: OLINDA JIMENEZ on 07/06/21 1411 Insulin Aspart (Novolog Flexpen) 300 Units/3 Ml Solution, UNITS SC SLIDING/SCALE, (Reported) Entered as Reported by: OLINDA JIMENEZ on 07/06/211410 Insulin Glargine,Hum.rec.anlog (Lantus Solostar) 100 Unit/1 Ml Insuln.pen, 15 UNIT SQ DAILY, (Reported) Entered as Reported by: OLINDA JIMENEZ on 07/06/21 141 Lisinopril (Lisinopril) 20 Mg Tablet, 20 MG PO DAILY Prescribed by: RETA AMARAL on 07/11/21 1335 Metformin HCl (Metformin HCl) 500 Mg Tablet, 1,000 MG PO BID WITH MEALS, (Reported) Entered as Reported by: OLINDA JIMENEZ on 07/06/21 141 Tamsulosin HCl (Flomax) 0.4 Mg Cap, 0.4 MG PO 1800, (Reported) Entered as Reported by: OLINDA JIMENEZ on 07/06/21 141 Trazodone HCl (Trazodone HCl) 50 Mg Tablet, 50 MG PO HS, (Reported) Entered as Reported by: OLINDA JIMENEZ on 07/06/211410 Review of Systems Review of Systems Constitutional: No fever EENTM: no symptoms reported Respiratory: cough Cardiovascular: no symptoms reported Gastrointestinal: no symptoms reported Genitourinary: no symptoms reported Musculoskeletal: no symptoms reported Skin: no symptoms reported Psychiatric/Neurological: Weakness (general) Hematologic/Lymphatic: No Symptoms Reported Immunological/Allergic: no symptoms reported All Other Systems Reviewed Negative Unless Noted: Yes Past Vuazahq-Mltfhx-Ckdnpt Hx Patient Social History Tobacco Use?: No Smoking Status: Never a Smoker Smokeless Tobacco Frequency: Never a User Use of E-Cig and/or Vaping dev: No Use of E-Cig and/or Vaping Walt: Never a User Substance use?: No Alcohol Use?: No Pt feels they are or have been: No Immunizations Up To Date COVID19 Vaccine [employer]: J&J Seasonal Allergies Seasonal Allergies: No Past Medical History Surgery/Hospitalization HX: DIABETIC, HTN, BLADDER CA Surgeries: No Respiratory: No Cardiac: Yes Hypertension Neurological: No Genitourinary: No Gastrointestinal: No Musculoskeletal: No Endocrine: Yes Diabetes, Non-Insulin dep HEENT: No Cancer: Yes Bladder Psychosocial: No Integumentary: No Blood Disorders: No Physical Exam Vital Signs Vital Signs - First Documented Capillary Refill : Less Than 3 Seconds Height, Weight, BMI Height: '" Weight: lbs. oz. kg; 31.00 BMI Method:Actual General Appearance: No Apparent Distress, Chronically ill Eyes: Bilateral Eye Normal Inspection, Bilateral Eye PERRL, Bilateral Eye EOMI HEENT: PERRL/EOMI, Pharynx Normal, Other (dry mucous membranes) Neck: Full Range of Motion, Normal Inspection, Non Tender, Supple Respiratory: Chest Non Tender, Lungs Clear, Normal Breath Sounds, No Accessory Muscle Use, No Respiratory Distress Cardiovascular: No Edema, Normal Peripheral Pulses, Irregularly Irregular Gastrointestinal: Normal Bowel Sounds, Non Tender, Soft; No Guarding Genital/Rectal: Normal Genital Exam Back: Normal Inspection, No CVA Tenderness Extremity: Normal Capillary Refill, Normal Inspection, Normal Range of Motion, Non Tender, No Calf Tenderness, No Pedal Edema Neurologic/Psychiatric: Other (Eyes are open and he is alert, he will follow commands and move all extremities but is very weak generally, does not speak) Skin: Normal Color, Warm/Dry Lymphatic: No Adenopathy Focused Exam Lactate Level 06/04/22 12:57: Lactic Acid Level 3.29*H 06/04/22 15:19: Lactic Acid Level Laboratory Tests Test 06/04/22 12:57 06/04/22 15:19 Lactic Acid Level 3.29 MMOL/L (0.50-2.00) *H Progress/Results/Core Measures Suspected Sepsis SIRS Temperature: Pulse: 93 Respiratory Rate: 17 Laboratory Tests 06/04/22 12:57: White Blood Count 7.6 Blood Pressure 89 /49 Mean: 62 06/04/22 12:57: Lactic Acid Level 3.29*H 06/04/22 15:19: Laboratory Tests 06/04/22 12:57: Creatinine 1.37H, INR Comment 1.0, Platelet Count 149, Total Bilirubin 0.4 Results/Orders Lab Results Laboratory Tests Test 06/04/22 12:57 06/04/22 13:22 06/04/22 13:25 06/04/22 15:19 Range/Units White Blood Count 7.6 4.3-11.0 10^3/uL Red Blood Count 3.86 L 4.30-5.52 10^6/uL Hemoglobin 11.7 L 13.3-17.7 g/dL Hematocrit 36 L 40-54 % Mean Corpuscular Volume 93 80-99 fL Mean Corpuscular Hemoglobin 30 25-34 pg Mean Corpuscular Hemoglobin Concent 33 32-36 g/dL Red Cell Distribution Width 14.5 10.0-14.5 % Platelet Count 149 130-400 10^3/uL Mean Platelet Volume 12.7 H 9.0-12.2 fL Immature Granulocyte % (Auto) 0 % Neutrophils (%) (Auto) 76 H 42-75 % Lymphocytes (%) (Auto) 16 12-44 % Monocytes (%) (Auto) 5 0-12 % Eosinophils (%) (Auto) 1 0-10 % Basophils (%) (Auto) 1 0-10 % Neutrophils # (Auto) 5.8 1.8-7.8 10^3/uL Lymphocytes # (Auto) 1.2 1.0-4.0 10^3/uL Monocytes # (Auto) 0.4 0.0-1.0 10^3/uL Eosinophils # (Auto) 0.1 0.0-0.3 10^3/uL Basophils # (Auto) 0.1 0.0-0.1 10^3/uL Immature Granulocyte # (Auto) 0.0 0.0-0.1 10^3/uL Prothrombin Time 13.6 12.2-14.7 SEC INR Comment 1.0 0.8-1.4 Activated Partial Thromboplast Time 32 24-35 SEC Sodium Level 145 135-145 MMOL/L Potassium Level 4.6 3.6-5.0 MMOL/L Chloride Level 106 98-107 MMOL/L Carbon Dioxide Level 26 21-32 MMOL/L Anion Gap 13 5-14 MMOL/L Blood Urea Nitrogen 42 H 7-18 MG/DL Creatinine 1.37 H 0.60-1.30 MG/DL Estimat Glomerular Filtration Rate 49 BUN/Creatinine Ratio 31 Glucose Level 190 H 70-105 MG/DL Lactic Acid Level 3.29 *H 0.50-2.00 MMOL/L Calcium Level 9.1 8.5-10.1 MG/DL Corrected Calcium 9.3 8.5-10.1 MG/DL Total Bilirubin 0.4 0.1-1.0 MG/DL Aspartate Amino Transf (AST/SGOT) 21 5-34 U/L Alanine Aminotransferase (ALT/SGPT) 30 0-55 U/L Alkaline Phosphatase 104 40-136 U/L Troponin I < 0.30 <0.30 NG/ML Total Protein 6.8 6.4-8.2 GM/DL Albumin 3.7 3.2-4.5 GM/DL Urine Color YELLOW Urine Clarity SL CLOUDY Urine pH 6.0 5-9 Urine Specific Gazelle 1.015 L 1.016-1.022 Urine Protein NEGATIVE NEGATIVE Urine Glucose (UA) NEGATIVE NEGATIVE Urine Ketones NEGATIVE NEGATIVE Urine Nitrite NEGATIVE NEGATIVE Urine Bilirubin NEGATIVE NEGATIVE Urine Urobilinogen 0.2 < = 1.0 MG/DL Urine Leukocyte Esterase TRACE H NEGATIVE Urine RBC (Auto) NEGATIVE NEGATIVE Urine RBC NONE /HPF Urine WBC 0-2 /HPF Urine Squamous Epithelial Cells NONE /HPF Urine Crystals NONE /LPF Urine Bacteria NEGATIVE /HPF Urine Casts NONE /LPF Urine Mucus NEGATIVE /LPF Urine Culture Indicated NO Influenza Type A (RT-PCR) Not Detected Not Detecte Influenza Type B (RT-PCR) Not Detected Not Detecte SARS-CoV-2 RNA (RT-PCR) Detected H Not Detecte My Orders Orders - LEXIS KAUR MD Cbc With Automated Diff (06/04/22 13:14) Comprehensive Metabolic Panel (06/04/22 13:14) Blood Culture (06/04/22 13:14) Urinalysis (06/04/22 13:14) Urine Culture (06/04/22 13:14) Protime With Inr (06/04/22 13:14) Partial Thromboplastin Time (06/04/22 13:14) Chest 1 View Ap/Pa Only (06/04/22 13:14) Ed Iv/Invasive Line Start (06/04/22 13:14) Ed Iv/Invasive Line Start (06/04/22 13:14) Ekg Tracing (06/04/22 13:14) Troponin I Surinder (06/04/22 13:14) Vital Signs Adult Sepsis Patie Q15M (06/04/22 13:14) O2 (06/04/22 13:14) Remove Rings In Anticipation O (06/04/22 13:14) Lactic Acid Analyzer (06/04/22 13:14) Influenza A And B By Pcr (06/04/22 13:14) Ns Iv 1000 Ml (Sodium Chloride 0.9%) (06/04/22 13:15) Cefepime Injection (Maxipime Injection) (06/04/22 13:15) Covid 19 Inhouse Test (06/04/22 13:14) Ct Head Wo (06/04/22 13:14) Catheter(Urinary) Insert & Ass 03,15 (06/04/22 13:14) Lidocaine 2% (Urojet) (Xylocaine Urojet) (06/04/22 13:15) Ns Iv 1000 Ml (Sodium Chloride 0.9%) (06/04/22 14:04) Medications Given in ED Current Medications Medications Dose Ordered Sig/Inocencia Route Start Time Stop Time Status Last Admin Dose Admin Cefepime HCl 1000 mg/Sodium Chloride 50 ml @ 100 mls/hr ONCE ONCE IV 06/04/22 13:15 06/04/22 13:44 DC 06/04/22 13:39 100 MLS/HR Vital Signs/I&O 06/04/22 06/04/22 06/04/22 12:47 12:47 12:47 Temp 36.7 Pulse 93 Resp 17 B/P (MAP) 89/49 (62) Pulse Ox 95 O2 Delivery Room Air Room Air Room Air Capillary Refill : Less Than 3 Seconds 2 Blood Pressure Mean: 62 Progress Note : Progress Note 89-year-old male with above history coming in due to general weakness and worsening cough. ABCs were intact on presentation, initial blood pressure in the 80s systolic. An IV was placed and he was given a bolus of IV fluids with improvement of his blood pressure to a normal level. He is in A. fib which he has always been. Labs significant for elevated lactic acid, COVID was positive, creatinine around 1.3 which is near his baseline, negative troponin, unremarkable electrolytes. Chest x-ray without acute abnormality. CT head without acute abnormality. Urinalysis without obvious infection. On arrival he was given cefepime due to the low blood pressure and concerns for infection. I called and discussed the case with Dr. Valdivia since she is on-call for [facility]. She would prefer this patient be admitted to [facility] due to him being a geriatric patient with him having the specialist there to better serve the patient's needs. ECG Initial ECG Impression Date: Jun 04, 2022 Initial ECG Impression Time: 13:30 Initial ECG Rate: 84 Initial ECG Rhythm: A Fib/Flutter Comment Wide QRS with a right bundle branch block, Q waves in the inferior leads, no significant ST changes, appears similar to prior EKG Diagnostic Imaging Diagonstic Imaging: Xray (chest), CT (head) Comments [facility] [place], [place] NAME: WILMER JIMENEZ [facility] REC#: [id number] PT STATUS: REG ER : 1930 PHYSICIAN: LEXIS KAUR MD ADMIT DATE: 06/04/22/ER FS Draft Date of Exam:06/04/22 CHEST 1 VIEW AP/PA ONLY Indication: Chest pain and weakness. Time of Exam: 1:35 PM Correlation is made with prior chest from 03/04/2022. The heart size normal. The curvilinear line running along the lateral wall of the left chest has the appearance of a skin fold and less likely a pneumothorax, as there appears to be a calcific granuloma projected beyond the line. The lungs appear clear. No infiltrates are seen. There is no effusion. IMPRESSION: No acute cardiopulmonary process is detected. Dictated on workstation # [id number] Dict: 06/04/22 1352 Trans: 06/04/22 [facility] [id number] Interpreted by: NATE GEORGE MD Electronically signed by: [facility] [place] NAME: WILMER JIMENEZ [facility] REC#: [id number] PT STATUS: REG ER : 1930 PHYSICIAN: LEXIS KAUR MD ADMIT DATE: 06/04/22/ER FS Signed Date of Exam:06/04/22 CT HEAD WO EXAMINATION: CT head without contrast. TECHNIQUE: Multiple contiguous axial images were obtained through the brain without the use of intravenous contrast. All CT scans use one or more of the following dose optimizing techniques: automated exposure control, MA and/or KvP adjustment based on patient size and exam type or iterative reconstruction. HISTORY: Weakness and confusion. Symptoms worsening. COMPARISON: 12/12/2021. FINDINGS: No large acute territorial ischemia, mass, or hemorrhage. No midline shift or mass effect. Decreased attenuation is seen in the periventricular and subcortical white matter. The ventricles and cortical sulci are prominent. The basilar cisterns are patent and unremarkable. The orbits are normal. Mild mucosal thickening is seen in the right maxillary sinus and bilateral ethmoid sinuses. Mastoid air cells are clear. No soft tissue abnormality is seen. No osseous lesions or fractures are seen. IMPRESSION: 1. No large acute territorial ischemia, mass, or hemorrhage. 2. Chronic microvascular disease. 3. Generalized parenchymal volume loss. Dictated by: Dictated on workstation # [id number] Dict: 06/04/22 1411 Trans: 06/04/22 1419 AS6 [id number] Interpreted by: NIKITA HUNTER DO Electronically signed by: NIKITA HUNTER DO 06/04/22 1419 Departure Impression Primary Impression: COVID-19 Additional Impressions: Transient hypotension Lactic acidosis Disposition: 02 XFER SHT-TRM HOSP Condition: Stable Admissions Decision to Admit/Date: Jun 04, 2022 Time/Decision to Admit Time: 14:40 Transfer Transfer Reason: Patient preference (geriatric specialist available for patient at [place] and family prefers this) Time Spoke to Accepting Phy: 14:40 Transfer Facility: [facility] Method of Transfer: EMS Departure-Patient Inst. Referrals: AIDA HEARD MD (PCP) Primary Care Physician LEXIS KAUR MD Jun 04, 2022 13:22
[2022-06-04 13:24] LABS: BASOPHILS # (AUTO) 0.1 10^3/uL (0.0-0.1); BASOPHILS % (AUTO) 1 % (0-10); EOSINOPHILS # (AUTO) 0.1 10^3/uL (0.0-0.3); EOSINOPHILS % (AUTO) 1 % (0-10); HEMATOCRIT 36 % (40-54); HEMOGLOBIN 11.7 g/dL (13.3-17.7); LYMPHOCYTES # (AUTO) 1.2 10^3/uL (1.0-4.0); LYMPHOCYTES % (AUTO) 16 % (12-44); MEAN CORPUSCULAR HEMOGLOBIN 30 pg (25-34); MEAN CORPUSCULAR HGB CONC 33 g/dL (32-36); MEAN CORPUSCULAR VOLUME 93 fL (80-99); MEAN PLATELET VOLUME 12.7 fL (9.0-12.2); MONOCYTES # (AUTO) 0.4 10^3/uL (0.0-1.0); MONOCYTES % (AUTO) 5 % (0-12); NEUTROPHILS # (AUTO) 5.8 10^3/uL (1.8-7.8); NEUTROPHILS % (AUTO) 76 % (42-75); PLATELET COUNT 149 10^3/uL (130-400); WHITE BLOOD COUNT 7.6 10^3/uL (4.3-11.0)
[2022-06-04 13:32] LABS: PROTHROMBIN TIME PATIENT 13.6 SEC (12.2-14.7)
[2022-06-04 13:38] LABS: BILIRUBIN,URINE NEGATIVE (NEGATIVE); CLARITY,URINE SL CLOUDY; COLOR,URINE YELLOW; GLUCOSE, URINE (UA) NEGATIVE (NEGATIVE); KETONES,URINE NEGATIVE (NEGATIVE); LEUKOCYTE ESTERASE ,URINE TRACE (NEGATIVE); NITRITE,URINE NEGATIVE (NEGATIVE); PROTEIN,URINE NEGATIVE (NEGATIVE)
[2022-06-04 13:47] LABS: BUN/CREATININE RATIO 31; CARBON DIOXIDE 26 MMOL/L (21-32); CHLORIDE 106 MMOL/L (98-107); CREATININE SERUM 1.37 MG/DL (0.60-1.30); GFR ESTIMATED 49; POTASSIUM 4.6 MMOL/L (3.6-5.0); SODIUM 145 MMOL/L (135-145)
[2022-06-04 13:48] LABS: ALANINE AMINOTRANSFERASE 30 U/L (0-55); ALBUMIN 3.7 GM/DL (3.2-4.5); ALKALINE PHOSPHATASE 104 U/L (40-136); BILIRUBIN,TOTAL 0.4 MG/DL (0.1-1.0); CALCIUM 9.1 MG/DL (8.5-10.1); GLUCOSE 190 MG/DL (70-105); TOTAL PROTEIN 6.8 GM/DL (6.4-8.2)
[2022-06-04 13:49] LABS: BACTERIA,URINE NEGATIVE /HPF; WBC,URINE 0-2 /HPF
--- NOTE | 2022-06-04 13:59 | Diagnostic Imaging Report ---
Indication: Chest pain and weakness. Time of Exam: 1:35 PM Correlation is made with prior chest from 03/04/2022. The heart size normal. The curvilinear line running along the lateral wall of the left chest has the appearance of a skin fold and less likely a pneumothorax, as there appears to be a calcific granuloma projected beyond the line. The lungs appear clear. No infiltrates are seen. There is no effusion. IMPRESSION: No acute cardiopulmonary process is detected. Dictated by: Dictated on workstation # [id number]
[2022-06-04] MEDS ORDERED: NS IV 1000 ML 1,000 ML IV STA (14:04)
--- NOTE | 2022-06-04 14:17 | Diagnostic Imaging Report ---
EXAMINATION: CT head without contrast. TECHNIQUE: Multiple contiguous axial images were obtained through the brain without the use of intravenous contrast. All CT scans use one or more of the following dose optimizing techniques: automated exposure control, MA and/or KvP adjustment based on patient size and exam type or iterative reconstruction. HISTORY: Weakness and confusion. Symptoms worsening. COMPARISON: 12/12/2021. FINDINGS: No large acute territorial ischemia, mass, or hemorrhage. No midline shift or mass effect. Decreased attenuation is seen in the periventricular and subcortical white matter. The ventricles and cortical sulci are prominent. The basilar cisterns are patent and unremarkable. The orbits are normal. Mild mucosal thickening is seen in the right maxillary sinus and bilateral ethmoid sinuses. Mastoid air cells are clear. No soft tissue abnormality is seen. No osseous lesions or fractures are seen. IMPRESSION: 1. No large acute territorial ischemia, mass, or hemorrhage. 2. Chronic microvascular disease. 3. Generalized parenchymal volume loss. Dictated by: Dictated on workstation # [id number]
[2022-06-04 14:56] VITALS: BP 115/61
== END 2022-06-04 15:46 | disposition short-term general hospital (02) ==
LOC: EDUNIT# 12:46 → ER FS 12:48
DX: U07.1 COVID-19 (principal); I95.9 Hypotension, unspecified; E87.2 Acidosis
CPT/HCPCS: 36415; 70450; 71045; 80053; 81000; 83605; 84484; 85025; 85610; 85730; 87040; 87088; 87636; 93005

== ENCOUNTER 2022-06-25 13:12 | Inpatient (IN) | payer MEDICARE, OTHER ==
[~2022-06-25] VITALS: Ht 177.8 cm; Wt 85.0 kg
[2022-06-25] MEDS ORDERED: NS IV 1000 ML 1,000 ML IV STA ×2 (13:28→14:58)
[2022-06-25 13:34] LABS: BASOPHILS # (AUTO) 0.1 10^3/uL (0.0-0.1); BASOPHILS % (AUTO) 1 % (0-10); EOSINOPHILS # (AUTO) 0.1 10^3/uL (0.0-0.3); EOSINOPHILS % (AUTO) 1 % (0-10); HEMATOCRIT 36 % (40-54); HEMOGLOBIN 11.5 g/dL (13.3-17.7); LYMPHOCYTES # (AUTO) 1.3 10^3/uL (1.0-4.0); LYMPHOCYTES % (AUTO) 17 % (12-44); MEAN CORPUSCULAR HEMOGLOBIN 30 pg (25-34); MEAN CORPUSCULAR HGB CONC 32 g/dL (32-36); MEAN CORPUSCULAR VOLUME 95 fL (80-99); MEAN PLATELET VOLUME 10.9 fL (9.0-12.2); MONOCYTES # (AUTO) 0.5 10^3/uL (0.0-1.0); MONOCYTES % (AUTO) 6 % (0-12); NEUTROPHILS % (AUTO) 75 % (42-75); PLATELET COUNT 163 10^3/uL (130-400)
--- NOTE | 2022-06-25 13:37 | ED General ---
General Chief Complaint: Upper Extremity Stated Complaint: HYPOTENSIVE Source of Information: Patient, EMS, Old Records Exam Limitations: Other (Patient is nonverbal) History of Present Illness Date Seen by Provider: Jun 25, 2022 Time Seen by Provider: 13:12 Initial Comments 89-year-old male presenting by EMS from home due to concerns for increased weakness and left hand swelling. Caregiver had told EMS that the swelling started yesterday they thought. Patient is nonverbal at baseline. He was just recently admitted to [facility] for COVID and pneumonia. Timing/Duration: 1-2 Days Severity: Mild Allergies and Home Medications Allergies Coded Allergies: No Known Drug Allergies (Unverified , 06/08/20) Patient Home Medication List Home Medication List Reviewed: Yes Apixaban (Eliquis) 5 Mg Tablet, 5 MG PO BID Prescribed by: RETA AMARAL on 07/11/21 133 Diltiazem HCl (Cardizem Cd) 120 Mg Cap.er.24h, 120 MG PO DAILY, (Reported) Entered as Reported by: OLINDA JIMENEZ on 07/06/211410 Furosemide (Furosemide) 40 Mg Tablet, 40 MG PO DAILY, (Reported) Entered as Reported by: OLINDA JIMENEZ on 07/06/211410 Insulin Aspart (Novolog Flexpen) 300 Units/3 Ml Solution, UNITS SC SLIDING/SCALE, (Reported) Entered as Reported by: OLINDA JIMENEZ on 07/06/211410 Insulin Glargine,Hum.rec.anlog (Lantus Solostar) 100 Unit/1 Ml Insuln.pen, 15 UNIT SQ DAILY, (Reported) Entered as Reported by: OLINDA JIMENEZ on 07/06/211410 Lisinopril (Lisinopril) 20 Mg Tablet, 20 MG PO DAILY Prescribed by: RETA AMARAL on 07/11/21 133 Metformin HCl (Metformin HCl) 500 Mg Tablet, 1,000 MG PO BID WITH MEALS, (Reported) Entered as Reported by: OLINDA JIMENEZ on 07/06/211410 Tamsulosin HCl (Flomax) 0.4 Mg Cap, 0.4 MG PO 1800, (Reported) Entered as Reported by: OLINDA JIMENEZ on 07/06/21 141 Trazodone HCl (Trazodone HCl) 50 Mg Tablet, 50 MG PO HS, (Reported) Entered as Reported by: OLINDA JIMENEZ on 07/06/21 1411 Review of Systems Review of Systems Constitutional: see HPI Patient is nonverbal and unable to obtain review of systems from him. Information is from EMS who spoke with his caregiver. No one came to the emergency department with him. Past Ruqvsoi-Hqlvzl-Dskvjo Hx Seasonal Allergies Seasonal Allergies: No Past Medical History Surgery/Hospitalization HX: DIABETIC, HTN, BLADDER CA Surgeries: No Respiratory: No Cardiac: Yes Hypertension Neurological: No Genitourinary: No Gastrointestinal: No Musculoskeletal: No Endocrine: Yes Diabetes, Non-Insulin dep HEENT: No Cancer: Yes Bladder Psychosocial: No Integumentary: No Blood Disorders: No Physical Exam Vital Signs Vital Signs - First Documented 06/25/22 13:15 Temp 36.2 Pulse 70 Resp 16 B/P (MAP) 87/35 (52) Capillary Refill : Height, Weight, BMI Height: '" Weight: lbs. oz. kg; 31.00 BMI Method:Actual General Appearance: No Apparent Distress, WD/WN HEENT: PERRL/EOMI, Pharynx Normal Neck: Full Range of Motion, Normal Inspection, Non Tender, Supple Respiratory: Chest Non Tender, Lungs Clear, Normal Breath Sounds, No Accessory Muscle Use, No Respiratory Distress Cardiovascular: Regular Rate, Rhythm, Normal Peripheral Pulses Gastrointestinal: No Pulsatile Mass, Non Tender, Soft Rectal: Deferred Extremity: Non Tender, Pedal Edema (1+ pitting edema bilateral lower extremities), Other (Some erythema and swelling with bruising to the left hand) Neurologic/Psychiatric: Alert Skin: Warm/Dry Focused Exam Lactate Level 06/25/22 13:38: Lactic Acid Level 2.47*H 06/25/22 16:03: Lactic Acid Level 2.68*H Lactic Acid Level Laboratory Tests Test 06/25/22 13:38 06/25/22 16:03 Lactic Acid Level 2.47 MMOL/L (0.50-2.00) *H 2.68 MMOL/L (0.50-2.00) *H Progress/Results/Core Measures Suspected Sepsis SIRS Temperature: Pulse: Respiratory Rate: Laboratory Tests 06/25/22 13:20: White Blood Count 8.0 Blood Pressure / Mean: 06/25/22 13:38: Lactic Acid Level 2.47*H 06/25/22 16:03: Lactic Acid Level 2.68*H Laboratory Tests 06/25/22 13:20: Creatinine 2.49H, INR Comment 1.0, Platelet Count 163, Total Bilirubin 0.3 Results/Orders Lab Results Laboratory Tests Test 06/25/22 13:20 06/25/22 13:38 06/25/22 14:30 06/25/22 16:03 Range/Units White Blood Count 8.0 4.3-11.0 10^3/uL Red Blood Count 3.81 L 4.30-5.52 10^6/uL Hemoglobin 11.5 L 13.3-17.7 g/dL Hematocrit 36 L 40-54 % Mean Corpuscular Volume 95 80-99 fL Mean Corpuscular Hemoglobin 30 25-34 pg Mean Corpuscular Hemoglobin Concent 32 32-36 g/dL Red Cell Distribution Width 14.7 H 10.0-14.5 % Platelet Count 163 130-400 10^3/uL Mean Platelet Volume 10.9 9.0-12.2 fL Immature Granulocyte % (Auto) 0 % Neutrophils (%) (Auto) 75 42-75 % Lymphocytes (%) (Auto) 17 12-44 % Monocytes (%) (Auto) 6 0-12 % Eosinophils (%) (Auto) 1 0-10 % Basophils (%) (Auto) 1 0-10 % Neutrophils # (Auto) 6.0 1.8-7.8 10^3/uL Lymphocytes # (Auto) 1.3 1.0-4.0 10^3/uL Monocytes # (Auto) 0.5 0.0-1.0 10^3/uL Eosinophils # (Auto) 0.1 0.0-0.3 10^3/uL Basophils # (Auto) 0.1 0.0-0.1 10^3/uL Immature Granulocyte # (Auto) 0.0 0.0-0.1 10^3/uL Prothrombin Time 13.5 12.2-14.7 SEC INR Comment 1.0 0.8-1.4 Activated Partial Thromboplast Time 29 24-35 SEC Sodium Level 141 135-145 MMOL/L Potassium Level 4.9 3.6-5.0 MMOL/L Chloride Level 103 98-107 MMOL/L Carbon Dioxide Level 24 21-32 MMOL/L Anion Gap 14 5-14 MMOL/L Blood Urea Nitrogen 86 H 7-18 MG/DL Creatinine 2.49 H 0.60-1.30 MG/DL Estimat Glomerular Filtration Rate 24 BUN/Creatinine Ratio 35 Glucose Level 118 H 70-105 MG/DL Calcium Level 9.2 8.5-10.1 MG/DL Corrected Calcium 9.8 8.5-10.1 MG/DL Total Bilirubin 0.3 0.1-1.0 MG/DL Aspartate Amino Transf (AST/SGOT) 16 5-34 U/L Alanine Aminotransferase (ALT/SGPT) 12 0-55 U/L Alkaline Phosphatase 78 40-136 U/L C-Reactive Protein 1.93 H <0.50 MG/DL Total Protein 6.6 6.4-8.2 GM/DL Albumin 3.3 3.2-4.5 GM/DL Lactic Acid Level 2.47 *H 2.68 *H 0.50-2.00 MMOL/L Urine Color YELLOW Urine Clarity CLEAR Urine pH 5.5 5-9 Urine Specific [place] 1.015 L 1.016-1.022 Urine Protein NEGATIVE NEGATIVE Urine Glucose (UA) NEGATIVE NEGATIVE Urine Ketones NEGATIVE NEGATIVE Urine Nitrite NEGATIVE NEGATIVE Urine Bilirubin NEGATIVE NEGATIVE Urine Urobilinogen 0.2 < = 1.0 MG/DL Urine Leukocyte Esterase NEGATIVE NEGATIVE Urine RBC (Auto) NEGATIVE NEGATIVE Urine RBC NONE /HPF Urine WBC 0-2 /HPF Urine Squamous Epithelial Cells 0-2 /HPF Urine Crystals NONE /LPF Urine Bacteria NEGATIVE /HPF Urine Casts PRESENT /LPF Urine Hyaline Casts 0-2 H /LPF Urine Mucus NEGATIVE /LPF Urine Culture Indicated NO My Orders Orders - JAYNA DOLL MD Cbc With Automated Diff (06/25/22 13:27) Comprehensive Metabolic Panel (06/25/22 13:27) Blood Culture (06/25/22 13:27) Ua Culture If Indicated (06/25/22 13:27) Ed Iv/Invasive Line Start (06/25/22 13:27) Crp Fs (06/25/22 13:27) Lactic Acid Analyzer (06/25/22 13:27) Us Venous Upper Ext Left (06/25/22 13:27) Protime With Inr (06/25/22 13:28) Partial Thromboplastin Time (06/25/22 13:28) Ns Iv 1000 Ml (Sodium Chloride 0.9%) (06/25/22 13:28) Straight Cath For Spec.-Adult (06/25/22 14:09) Ceftriaxone 1 Gm Pre-Mix (Rocephin 1 Gm (06/25/22 14:58) Ns Iv 1000 Ml (Sodium Chloride 0.9%) (06/25/22 14:58) Code/Resuscitation (06/25/22 15:37) Ed Admission (Communication) (06/25/22 16:03) Ns Iv 1000 Ml (Sodium Chloride 0.9%) (06/25/22 16:15) Vital Signs/I&O 06/25/22 13:15 Temp 36.2 Pulse 70 Resp 16 B/P (MAP) 87/35 (52) Capillary Refill : Progress Note #1: Progress Note Order general labs as well as blood cultures with lactic acid. Ultrasound of the left upper extremity to evaluate for possible DVT or cellulitis. Give normal saline 1 L IV fluid bolus for hypotension Progress Note #2: Progress Note lab shows stable CBC without elevation of WBC count. He has elevated lactic acid to 2.47 and BUN 86, Cr 2.49. With IVF NS 1 L bolus his blood pressure improved to 102 systolic. US of Left upper extremity shows superficial thrombophlebitis but no DVT. Will start on Ceftriaxone for possible cellulitis of left hand and repeat NS bolus of fluids for his elevated Lactic acid and Cr. Will clarify with family about his code status. Check with Dr. Berger for [facility] about admit for IV fluids and antibiotic and recheck of his kidney function. Progress Note #3: Progress Note When speaking to his she stated that if his heart were to stop or he stopped breathing that she believed that it was up to God and if his time had c ome then he should be able to go peacefully. She did not want chest compressions, intubation or his heart to be shocked. Will place order for DNR status. Check with Dr. Berger about admit to [facility] for IVF hydration and antibiotics for his left hand for possible cellulitis and superficial thrombophlebitis. On review of his medications he was prescribed lisinopril and furosemide on 05/31. This could be contributing to his elevated BUN and Cr. His reports she has to thicken his liquids due to chronic dysphagia and that even with thickened liquids he has not been drinking or eating in the last 2-3 days. Dehydration c ertainly seems to be playing a role with his blood pressure and acute kidney injury as well as medications. Progress Note #4: Time: 16:02 Progress Note d/w Dr. Berger and will admit to floor bed with IVF since does not want aggressive treatments. Will continue with antibiotic and IVF to help with hydration and blood pressure. Hold Diltiazem and Lisinopril as they may be contributing to his periods of bradycardia and hypotension. Diagnostic Imaging Diagonstic Imaging: Ultrasound Plain Films/CT/US/NM/MRI: other (Left arm) Comments [facility]. [place], [place] NAME: [facility] REC#: [id number] PT STATUS: REG ER : 1932 PHYSICIAN: JAYNA DOLL MD ADMIT DATE: 06/25/22/ER FS Signed Date of Exam:06/25/22 US VENOUS UPPER EXT LEFT INDICATION: Left hand swelling. TECHNIQUE: Left upper extremity venous Doppler study performed in the routine fashion with color flow Doppler and waveform analysis. FINDINGS: Left internal jugular vein, left subclavian vein, and left axillary vein are patent. The left brachial and basilic veins are patent. Visualized portions of the radial and ulnar veins are patent. There appears to be partial thrombosis of the left cephalic vein. IMPRESSION: Partial superficial venous thrombosis in the left cephalic vein in the upper arm. Remaining structures are patent. Dictated by: Dictated on workstation # [id number] Dict: 06/25/22 1552 Trans: 06/25/22 1610 [id number] Interpreted by: RHONDA JAIMES MD Electronically signed by: RHONDA JAIMES MD 06/25/22 1610 Departure Communication (Admissions) Time/Spoke to Admitting Phy: 16:02 d/w Dr. Berger and will admit to [facility] at [facility] with IVF for hydration, IV rocephin for cellulitis and superficial thrombophlebitis left hand and arm. Hold BP meds to try and help with his blood pressure and bradycardia. Impression Primary Impression: Swelling of left hand Additional Impressions: Superficial thrombophlebitis of left upper extremity Acute kidney injury Cellulitis of left hand Hypotension Qualified Codes: I95.89 - Other hypotension; E86.1 - Hypovolemia Disposition: 30 STILL A PATIENT Condition: Stable Admissions Decision to Admit Reason: Admit from ER (General) Decision to Admit/Date: Jun 25, 2022 Time/Decision to Admit Time: 16:02 Departure-Patient Inst. Referrals: MATTY MCCARTNEY MD (PCP) Primary Care Physician JAYNA DOLL MD Jun 25, 2022 13:37
[2022-06-25 13:54] LABS: PROTHROMBIN TIME PATIENT 13.5 SEC (12.2-14.7)
[2022-06-25 13:55] LABS: ALBUMIN 3.3 GM/DL (3.2-4.5); BILIRUBIN,TOTAL 0.3 MG/DL (0.1-1.0); CALCIUM 9.2 MG/DL (8.5-10.1); CREATININE SERUM 2.49 MG/DL (0.60-1.30); POTASSIUM 4.9 MMOL/L (3.6-5.0); TOTAL PROTEIN 6.6 GM/DL (6.4-8.2)
[2022-06-25 14:40] LABS: BILIRUBIN,URINE NEGATIVE (NEGATIVE); CLARITY,URINE CLEAR; COLOR,URINE YELLOW; GLUCOSE, URINE (UA) NEGATIVE (NEGATIVE); KETONES,URINE NEGATIVE (NEGATIVE); NITRITE,URINE NEGATIVE (NEGATIVE); PH,URINE 5.5 (5-9); PROTEIN,URINE NEGATIVE (NEGATIVE)
[2022-06-25 14:41] LABS: BACTERIA,URINE NEGATIVE /HPF; HYALINE CASTS, URINE 0-2 /LPF; LEUKOCYTE ESTERASE ,URINE NEGATIVE (NEGATIVE); SQUAMOUS EPITHELIAL CELL,UR 0-2 /HPF; WBC,URINE 0-2 /HPF
[2022-06-25] MEDS ORDERED: cefTRIAXone 1 GM PRE-MIX 50 ML IV STA (14:58)
--- NOTE | 2022-06-25 15:57 | Diagnostic Imaging Report ---
INDICATION: Left hand swelling. TECHNIQUE: Left upper extremity venous Doppler study performed in the routine fashion with color flow Doppler and waveform analysis. FINDINGS: Left internal jugular vein, left subclavian vein, and left axillary vein are patent. The left brachial and basilic veins are patent. Visualized portions of the radial and ulnar veins are patent. There appears to be partial thrombosis of the left cephalic vein. IMPRESSION: Partial superficial venous thrombosis in the left cephalic vein in the upper arm. Remaining structures are patent. Dictated by: Dictated on workstation # [id number]
[2022-06-25] MEDS ORDERED: NS IV 1000 ML 1,000 ML IV SCH (16:15)
[2022-06-25 17:42] VITALS: BP 122/56
[2022-06-25] MEDS ORDERED: ENOXAPARIN 40 MG/0.4 ML (LOVENOX) SYR SC SCH (19:30)
[2022-06-25 19:36] VITALS: BP 141/64
[2022-06-25] MEDS: NS IV 1000 ML 1,000 ML IV SCH (19:36)
[2022-06-25 20:09] LABS: BASOPHILS % (AUTO) 0 % (0-10); EOSINOPHILS # (AUTO) 0.1 10^3/uL (0.0-0.3); EOSINOPHILS % (AUTO) 1 % (0-10); HEMATOCRIT 34 % (40-54); HEMOGLOBIN 10.7 g/dL (13.3-17.7); LYMPHOCYTES # (AUTO) 1.4 10^3/uL (1.0-4.0); LYMPHOCYTES % (AUTO) 16 % (12-44); MEAN CORPUSCULAR HEMOGLOBIN 30 pg (25-34); MEAN CORPUSCULAR HGB CONC 32 g/dL (32-36); MEAN CORPUSCULAR VOLUME 94 fL (80-99); MEAN PLATELET VOLUME 11.4 fL (9.0-12.2); MONOCYTES # (AUTO) 0.4 10^3/uL (0.0-1.0); MONOCYTES % (AUTO) 5 % (0-12); NEUTROPHILS # (AUTO) 6.3 10^3/uL (1.8-7.8); NEUTROPHILS % (AUTO) 76 % (42-75); PLATELET COUNT 131 10^3/uL (130-400); WHITE BLOOD COUNT 8.3 10^3/uL (4.3-11.0)
[2022-06-25] MEDS ORDERED: RT-ALBUTEROL/IPRATROPIUM 3 ML (DUONEB) VIAL INH PRN (20:15)
[2022-06-25] MEDS ORDERED: ACETAMINOPHEN 325 MG TABLET PO PRN (20:15)
[2022-06-25 20:38] LABS: ALBUMIN 3.2 GM/DL (3.2-4.5); BILIRUBIN,TOTAL 0.3 MG/DL (0.1-1.0); CALCIUM 8.7 MG/DL (8.5-10.1); CREATININE SERUM 1.94 MG/DL (0.60-1.30); POTASSIUM 4.3 MMOL/L (3.6-5.0); TOTAL PROTEIN 6.2 GM/DL (6.4-8.2)
[2022-06-25 23:13] VITALS: BP 132/60
[2022-06-26] MEDS: NS IV 1000 ML 1,000 ML IV SCH (02:35)
[2022-06-26 04:00] VITALS: BP 92/46
[2022-06-26] MEDS: D5 NS 1000 ML IV SOLUTION 1,000 ML IV SCH ×2 (06:49→16:53)
[2022-06-26 07:43] VITALS: BP 103/55
[2022-06-26] MEDS ORDERED: ENOXAPARIN INJECTION 30 MG/0.3 ML SYR SC SCH (07:45)
[2022-06-26 11:27] VITALS: BP 125/60
[2022-06-26] MEDS ORDERED: DILT240C87 PO (11:52)
[2022-06-26] MEDS ORDERED: LISI20TA26 PO (11:52)
[2022-06-26] MEDS ORDERED: ASPI-1238 PO (11:52)
--- NOTE | 2022-06-26 13:35 | History & Physical ---
TERA RAND 06/26/22 1335: HPI History of Present Illness: Patient is an 89 yo male admitted for increased weakness and cellulitis of the left hand. Caregiver had told EMS that the swelling started yesterday they thought. Patient is nonverbal at baseline. He was just recently admitted to [facility] for COVID and pneumonia. -Leela Hamilton MD Source: RN/MD, old records, other (ER note) Exam Limitations: other (Patient is non-verbal, caregiver was not present when patient was originally seen) Date seen by provider: Jun 26, 2022 Time Seen by Provider: 09:00 Attending Physician Cecilio Cam MD PCP Admitting Physician: Arnav Singer MD Attending Physician: Arnav Singer MD Consult Date of Admission Jun 25, 2022 at 17:25 Home Medications Home Medications Reviewed patient Home Medication Reconciliation performed by pharmacy medication reconciliations electrical maintenance technician and/or nursing. Patients Allergies have been reviewed. Allergies Coded Allergies: No Known Drug Allergies (Unverified , 06/08/20) YGG-Rzcoye-Jizfcu Hx Patient Social History Marrital Status: 2nd Hand Smoke Exposure: No Recent Hopitalizations: No Alcohol Use?: Unable to obtain Have you traveled recently?: No Past Medical History Paroxysmal Atrial Fibrillation Primary Hypertension Pulmonary Hypertension Dementia Review of Systems ([facility]) Constitutional: see HPI, weakness (Caregiver () notes increased weakness in last few days) Cardiovascular: see HPI, Hx of Intervention (Patient has had multiple previous cardiac interventions) Gastrointestinal: no symptoms reported Genitourinary: no symptoms reported Skin: see HPI, change in color (Increased bruising on both arms and hands, more prominent on the left) Psychiatric/Neurological: See HPI, Weakness (Generalized weakness noted by caregiver) Reviewed Test Results Reviewed Test Results Lab RBC - 3.57 HGB - 10.7 HCT - 34 RED - 14.6 Neutrophil % - 76% Urine - 0-2 hyaline casts Cl - 108 BUN - 80 Creatinine - 1.94 glucose - 106 total protein - 6.2 lactic acid - down to 1.75 from 2.68 eGFR - 32 Radiology Date of Exam:06/25/22 US VENOUS UPPER EXT LEFT INDICATION: Left hand swelling. TECHNIQUE: Left upper extremity venous Doppler study performed in the routine fashion with color flow Doppler and waveform analysis. FINDINGS: Left internal jugular vein, left subclavian vein, and left axillary vein are patent. The left brachial and basilic veins are patent. Visualized portions of the radial and ulnar veins are patent. There appears to be partial thrombosis of the left cephalic vein. IMPRESSION: Partial superficial venous thrombosis in the left cephalic vein in the upper arm. Remaining structures are patent. Dictated by: Dictated on workstation # [id number] Dict: 06/25/22 1552 Trans: 06/25/22 1610 [id number] Interpreted by: RHONDA JAIMES MD Electronically signed by: RHONDA JAIMES MD 06/25/22 1610 Physical Exam-([facility]) Physical Exam Vital Signs VS - Last 72 Hours, by Label 06/25/22 06/25/22 06/25/22 06/25/22 13:15 16:20 17:42 19:36 Temp 36.2 36.5 36.1 Pulse 70 53 55 77 Resp 16 18 15 20 B/P (MAP) 87/35 (52) 71/39 122/56 (78) 141/64 (89) Pulse Ox 96 93 90 O2 Delivery Room Air Room Air Room Air 06/25/22 06/25/22 06/25/22 06/25/22 20:00 20:06 20:10 23:13 Temp 36.4 Pulse 68 Resp 18 B/P (MAP) 132/60 (84) Pulse Ox 90 96 O2 Delivery Room Air Room Air Room Air FiO2 21 06/26/22 06/26/22 06/26/22 06/26/22 04:00 07:43 08:17 11:27 Temp 36.5 35.9 36.2 Pulse 58 50 64 Resp 16 16 16 B/P (MAP) 92/46 (61) 103/55 (71) 125/60 (81) Pulse Ox 96 96 97 O2 Delivery Room Air Room Air Room Air Room Air Capillary Refill : Less Than 3 Seconds Temperature (Fahrenheit): 96.6 General Appearance: WD/WN, no apparent distress, other (Patient is non-verbal with altered mental status (dementia)) Neck: supple, normal inspection Respiratory: chest non-tender, lungs clear, normal breath sounds, no respiratory distress, no accessory muscle use Cardiovascular: regular rate, rhythm, no edema, no gallop, no JVD, no murmur Gastrointestinal: normal bowel sounds, non tender, soft, no organomegaly, no pulsatile mass Extremities: pedal edema (Ankles are swollen bilaterally, non-pitting), swelling (Cellulitis of the left hand accompanied by swelling) Neurologic/Psychiatric: No alert, No normal mood/affect, No oriented x 3; aphasia, disoriented x 3, other (Patient is non-verbal and mostly unresponsive to voice) Skin: ecchymosis, other (Left hand shows signs of bruising as well as venous stasis changes. Right arm is also bruised but less so than the left) Assessment/Plan Assessment/Plan Admission Dx Cellulitis of the left hand Admission Status: Inpatient Order (span 2 midnights) Reason for Inpatient Admission: Patient admission is necessary due to the need for IV antibiotics, close monitoring of vitals and infectious course, and due to patient's altered mental status and inability to care for himself. Assessment & Plan Cellulitis of left hand - Ceftriaxone scheduled to start at 1500 [facility] - patient suffered acute kidney injury most likely due to dehydration, dextrose sodium chloride solution running at 125 ml/hr DVT prophylaxis - enoxaparin SOB - albuterol/ipratropium inhaler as needed Primary hypertension - lisinopril and furosemide DM type II - metformin, insulin aspart and glargine Clinical Quality Measures Admission Status Admission Dx Cellulitis of left hand Admission Status: Inpatient Order (span 2 midnights) Reason for Inpatient Admission: Patient admission is necessary due to the need for IV antibiotics, close monitoring of vitals and infectious course, and due to patient's altered mental status and inability to care for himself. DVT/VTE Risk/Contraindication: VTE Addressed: Yes (Patient placed on enoxaparin for DVT prophylaxis) VTE Present on Admission: No ARNAV SINGER MD 06/26/22 1632: Home Medications Allergies Coded Allergies: No Known Drug Allergies (Unverified , 06/08/20) EYI-Dtyhke-Ywnmjk Hx Patient Social History Living Status: Lives at home with as primary caregiver Review of Systems ([facility]) Constitutional: other (Unable to access due to non verbal status) Reviewed Test Results Reviewed Test Results Lab Laboratory Tests Test 06/25/22 18:10 06/25/22 20:00 06/25/22 20:19 06/26/22 05:34 Range/Units Lactic Acid Level 1.75 0.50-2.00 MMOL/L White Blood Count 8.3 4.3-11.0 10^3/uL Red Blood Count 3.57 L 4.30-5.52 10^6/uL Hemoglobin 10.7 L 13.3-17.7 g/dL Hematocrit 34 L 40-54 % Mean Corpuscular Volume 94 80-99 fL Mean Corpuscular Hemoglobin 30 25-34 pg Mean Corpuscular Hemoglobin Concent 32 32-36 g/dL Red Cell Distribution Width 14.6 H 10.0-14.5 % Platelet Count 131 130-400 10^3/uL Mean Platelet Volume 11.4 9.0-12.2 fL Immature Granulocyte % (Auto) 0 % Neutrophils (%) (Auto) 76 H 42-75 % Lymphocytes (%) (Auto) 16 12-44 % Monocytes (%) (Auto) 5 0-12 % Eosinophils (%) (Auto) 1 0-10 % Basophils (%) (Auto) 0 0-10 % Neutrophils # (Auto) 6.3 1.8-7.8 10^3/uL Lymphocytes # (Auto) 1.4 1.0-4.0 10^3/uL Monocytes # (Auto) 0.4 0.0-1.0 10^3/uL Eosinophils # (Auto) 0.1 0.0-0.3 10^3/uL Basophils # (Auto) 0.0 0.0-0.1 10^3/uL Immature Granulocyte # (Auto) 0.0 0.0-0.1 10^3/uL Sodium Level 144 135-145 MMOL/L Potassium Level 4.3 3.6-5.0 MMOL/L Chloride Level 108 H 98-107 MMOL/L Carbon Dioxide Level 23 21-32 MMOL/L Anion Gap 13 5-14 MMOL/L Blood Urea Nitrogen 80 H 7-18 MG/DL Creatinine 1.94 H 0.60-1.30 MG/DL Estimat Glomerular Filtration Rate 32 BUN/Creatinine Ratio 41 Glucose Level 106 H 70-105 MG/DL Calcium Level 8.7 8.5-10.1 MG/DL Corrected Calcium 9.3 8.5-10.1 MG/DL Total Bilirubin 0.3 0.1-1.0 MG/DL Aspartate Amino Transf (AST/SGOT) 20 5-34 U/L Alanine Aminotransferase (ALT/SGPT) 14 0-55 U/L Alkaline Phosphatase 68 40-136 U/L Total Protein 6.2 L 6.4-8.2 GM/DL Albumin 3.2 3.2-4.5 GM/DL Glucometer 97 78 70-110 MG/DL Test 06/26/22 11:24 06/26/22 15:26 Range/Units Glucometer 113 H 155 H 70-110 MG/DL Physical Exam-([facility]) Physical Exam General Appearance: cachetic, other (Patient is non-verbal, opens eyes to verbal stimuli) Respiratory: lungs clear, no accessory muscle use Cardiovascular: regular rate, rhythm, no murmur Gastrointestinal: normal bowel sounds, soft Neurologic/Psychiatric: disoriented x 3, other Skin: ecchymosis, other (Left hand shows signs of bruising as well as venous stasis changes. Right arm is also bruised but less so than the left) Supervisory-Addendum Brief Verification & Attestation Participated in pt care: history, physical Personally performed: exam Care discussed with: Medical Student Procedures: n/a Verification and Attestation of Medical Student E/M Service A medical student performed and documented this service in my presence. I reviewed and verified all information documented by the medical student and made modifications to such information, when appropriate. I personally performed the physical exam and medical decision making. Arnav Singer, Jun 26, 2022,16:29 Acute Kidney Failure Hypovolemia Dehydration - IVFs, will continue to monitor UOP and Cr, Discussed with that he is having a significant decline and she would like him placed in SNF Left Superficial Thrombophebitis - Doppler with no evidence of DVT HTN - Normotensive, holding home BP meds Normocytic Anemia - No signs of acute bleeding IDDM - SSI SW consult place for SNF placement TERA RAND Jun 26, 2022 13:35 ARNAV SINGER MD Jun 26, 2022 16:32
[2022-06-26] MEDS: cefTRIAXone 1 GM PRE-MIX 50 ML IV SCH (14:06)
[2022-06-26 15:22] VITALS: BP 140/65
[2022-06-26 19:36] VITALS: BP 156/70
[2022-06-27] VITALS (7 sets, daily range): BP systolic 117–178; BP diastolic 56–79
[2022-06-27 05:57] LABS: BASOPHILS % (AUTO) 1 % (0-10); EOSINOPHILS # (AUTO) 0.2 10^3/uL (0.0-0.3); EOSINOPHILS % (AUTO) 3 % (0-10); HEMATOCRIT 33 % (40-54); HEMOGLOBIN 10.6 g/dL (13.3-17.7); LYMPHOCYTES % (AUTO) 18 % (12-44); MEAN CORPUSCULAR HEMOGLOBIN 30 pg (25-34); MEAN CORPUSCULAR HGB CONC 32 g/dL (32-36); MEAN CORPUSCULAR VOLUME 94 fL (80-99); MONOCYTES # (AUTO) 0.4 10^3/uL (0.0-1.0); MONOCYTES % (AUTO) 6 % (0-12); NEUTROPHILS # (AUTO) 4.1 10^3/uL (1.8-7.8); NEUTROPHILS % (AUTO) 72 % (42-75); PLATELET COUNT 156 10^3/uL (130-400); WHITE BLOOD COUNT 5.6 10^3/uL (4.3-11.0)
[2022-06-27] MEDS: D5 NS 1000 ML IV SOLUTION 1,000 ML IV SCH ×2 (06:10→19:42)
[2022-06-27 06:17] LABS: POTASSIUM 4.2 MMOL/L (3.6-5.0)
[2022-06-27 06:18] LABS: CALCIUM 8.4 MG/DL (8.5-10.1)
[2022-06-27 06:22] LABS: CREATININE SERUM 0.8 MG/DL (0.60-1.30)
[2022-06-27] MEDS: TAMSULOSIN 0.4 MG (FLOMAX) CAP PO SCH ×2 (08:09→09:04)
[2022-06-27] MEDS: ENOXAPARIN 40 MG/0.4 ML (LOVENOX) SYR SC SCH (09:01)
[2022-06-27] MEDS: ASPIRIN E.C. 81 MG (ECOTRIN) TAB PO SCH (09:04)
--- NOTE | 2022-06-27 12:32 | ST Dysphagia Evaluation ---
Speech Evaluation-General Medical Diagnosis Left Hand Cellulitis Onset Date: Jun 25, 2022 Therapy Diagnosis Therapy Diagnosis: Oropharyngeal Dysphagia Precautions Precautions: Fall, Pressure Ulcer, Aspiration Precautions/Isolations: Aspiration, Fall Prevention, Standard Precautions, Pressure Ulcer Referral Referring Physician: Dr. Berger Reason for Referral: Evaluation/Treatment Medical History Pertinent Medical History: DM Current History The patient is an 89 year-old male with a past medical history of atrial fibrillation, HTN, pulmonary HTN, and dementia (nonverbal at baseline), who presented to [facility] with increased weakness and cellulitis of the left hand. Per patient's spouse, the patient was recently admitted to [facility] for COVID and pneumonia. Speech PLF/Current-Dysphagia Prior Level of Function Per review of the patient's medical chart, the patient's discussed with nutrition the patient consumes "soft items and thickened liquids." Details per thickening viscosity was not documented. The patient is unable to provide the clinician with any past medical information. Subjective The patient was lying in bed, sleeping upon entrance to his room by the [facility] ician. With maximum verbal cueing, the patient woke and was seated upright in bed by the clinician for safe swallowing. The patient does not attempt to communicate with the clinician, verbally or nonverbally. Per patient's RN, the patient has done well with applesauce, however, has consistently pocketed pills. Cognitive Status Patient Orientation: Unresponsive Oral Motor Skills Ability to Follow Directions: Poor Oral Expression Ability: Severe Impairment Face Facial Symmetry: Symmetrical (At rest. ) The patient is unable to follow verbal commands or direct modeling attempts to complete an oral mechanism. Oral-Facial Assessment Oral-Facial Dentition: Normal Volitional Dry Swallow: No Voluntary Cough: No Can Clear Throat Volitionally: No Productive Cough: No Productive Throat Clear: No Dysphagia Evaluation Consistencies Presented: Thin Liquid, [place] Thick Liquid, Honey Thick Liquid, Pudding Thick Liquid The patient demonstrated an open oral cavity swallow, as lingual pumping and protrusion was present in attempts to move the bolus posterior in the oral cavity. Oral holding behaviors were present intermittently and reduced with verbal cueing from the clinician. Laryngeal elevation was present to palpation. A delayed pharyngeal swallow onset is suspected. The patient demonstrated a delayed, rigorous cough, immediate throat clear, red face, and watery eyes with trials of thin liquid via teaspoon and nectar-thick liquid via teaspoon. The patient displayed a subtle throat clear following the sixth teaspoon trial of puree, however, no additional s/s of suspected aspiration were present throughout four ounces of puree completed. No s/s of suspected aspiration were demonstrated with teaspoon or cup edge drinks of honey-thick liquids. Due to the patient's nonverbal state, the clinician is unable to assess the patient's vocal quality for s/s of suspected aspiration with any P.O. consistency. As the patient displayed overt s/s of suspected aspiration with thin liquids and nectar-thick liquids characterized by rigorous coughing, a red face, and watery eyes and no overt s/s of suspected aspiration were demonstrated with honey-thick liquids via cup edge or puree, the clinician recommends the below. At this time, the patient's "History and Physical" states the patient's lungs were "clear." As there is not a chest exam present and the patient has a recent history of "pneumonia" (per chart review), if the patient displays signs of respiratory distress, the patient should be placed NPO with orders for a modified barium swallow evaluation. Recommendations: - Dysphagia one (puree) with moderately thick (honey-thick) liquids, as tolerated. - Fully upright and ALERT. - 1:1, FULL, staff feeding assistance and supervision. Verbal cueing to reduce oral pocketing, if demonstrated. - Small bites and sips. - Remain upright for a minimum of thirty minutes following P.O. intake. - Crush medication and place in puree for administration. - Monitor for s/s of suspected aspiration, including increased respiratory difficulties. If demonstrated, place the patient NPO and consider an order for completion of a modified barium swallow evaluation. The clinician will contact the RN with the recommendations. The recommendations were shared with the patient following completion. Dysphagia Evaluation Summary The patient demonstrated oropharyngeal dysphagia characterized by decreased lingual coordination, a delayed onset of the pharyngeal swallow, and poor airway protection in the presence of bolus material. Speech Short Term Goals Short Term Goals Short Term Goals 1. The staff and family members will demonstrate safe swallowing strategies with 100% accuracy, independently. Time Frame-STG: Three Days. Speech Loan Reviewer Goals Loan Reviewer Goals 1. The patient will display tolerance of the least restrictive diet consistency without s/s of suspected aspiration. Time Frame: One Week. Speech-Plan Treatment Plan Speech Therapy Treatment Plan: Continue Plan of Care Treatment Duration: Jul 04, 2022 Frequency: 2 times per week Estimated Hrs Per Day: .25 hour per day Rehab Potential: Guarded Safety Risks/Education Teaching Recipient: Patient Teaching Methods: Discussion Response to Teaching: Unable to Comprehend Education Topics Provided: Results, Recommendations, Plan of Care Time Speech Therapy Time In: 11:10 Speech Therapy Time Out: 11:30 Total Billed Time: 20 Billed Treatment Time 1, RUDY SMILEY [facility] ST Jun 27, 2022 12:32
--- NOTE | 2022-06-27 12:33 | Discharge Summary ---
Discharge Summary Hospital Course Problems Reviewed?: Yes Problems/Diagnosis: (1) Acute kidney injury Onset Date: ~ 06/26/2021 Status: Acute Assessment & Plan: Patient likely suffered CHA due to dehydration. Given IV dextrose sodium chloride with improvement of labs and vital signs. (2) Dementia Status: Chronic (3) Cellulitis of left hand Status: Acute Assessment & Plan: Continue treatment with ceftriaxone. (4) Superficial thrombophlebitis of left upper extremity Status: Acute Assessment & Plan: Continue treatment with ceftriaxone, Patient administered enoxaparin as DVT prophylaxis Hospital Course Date of Admission: Jun 25, 2022 at 17:25 Admission Diagnosis : Family Physician/Provider: Cecilio Cam MD Date of Discharge: 06/27/22 Discharge Diagnosis: Cellulitis of Left Hand Hospital Course: Patient was admitted initially for cellulitis of his left hand and acute kidney injury, likely due to dehydration. He was started on IV ceftriaxone and dextrose sodium chloride, as well as enoxaparin for DVT prophylaxis. His vital signs continued to improve throughout his stay as well as his labs and eGFR until stable condition had been reached. Patient to be [facility] to [facility] for continued care. Labs and Pending Lab Test: Laboratory Tests 06/26/22 15:26: Glucometer 155H 06/26/22 20:21: Glucometer 141H 06/27/22 05:37: Glucometer 144H 06/27/22 05:40: White Blood Count 5.6, Red Blood Count 3.49L, Hemoglobin 10.6L, Hematocrit 33L, Mean Corpuscular Volume 94, Mean Corpuscular Hemoglobin 30, Mean Corpuscular Hemoglobin Concent 32, Red Cell Distribution Width 13.9, Platelet Count 156, Mean Platelet Volume 11.0, Immature Granulocyte % (Auto) 0, Neutrophils (%) (Auto) 72, Lymphocytes (%) (Auto) 18, Monocytes (%) (Auto) 6, Eosinophils (%) (Auto) 3, Basophils (%) (Auto) 1, Neutrophils # (Auto) 4.1, Lymphocytes # (Auto) 1.0, Monocytes # (Auto) 0.4, Eosinophils # (Auto) 0.2, Basophils # (Auto) 0.0, Immature Granulocyte # (Auto) 0.0, Sodium Level 145, Potassium Level 4.2, Chloride Level 115H, Carbon Dioxide Level 22, Anion Gap 8, Blood Urea Nitrogen 32H, Creatinine 0.80, Estimat Glomerular Filtration Rate 85, BUN/Creatinine Ratio 40, Glucose Level 152H, Calcium Level 8.4L 06/27/22 11:24: Glucometer 167H Microbiology 06/25/22 Blood Culture - Preliminary, Resulted Jammie 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) Home Meds Active Reported Diltiazem ER (Diltiazem HCl) 240 Mg Capsule.er 240 Mg PO DAILY Lisinopril 20 Mg Tablet 20 Mg PO DAILY Aspirin EC (Aspirin) 81 Mg Tablet.dr 81 Mg PO DAILY Flomax (Tamsulosin HCl) 0.4 Mg Cap 0.4 Mg PO DAILY Furosemide 40 Mg Tablet 40 Mg PO DAILY Novolog Flexpen (Insulin Aspart) 100 Unit/Ml (3 Ml) Solution 2 Units SC AC Lantus Solostar (Insulin Glargine,Hum.rec.anlog) 100 Unit/Ml (3 Ml) Insuln.pen 10 Unit SQ HS Metformin HCl 500 Mg Tablet 1,000 Mg PO BID WITH MEALS TAKES 2 (500MG) TABS Trazodone HCl 50 Mg Tablet 50 Mg PO HS Assessment/Pt DC Instructions Left hand cellulitis - antibiotics to be continued at [facility] CHA - resolved, careful fluid monitoring is necessary to avoid recurrence, eGFR has improved substantially since admission Dementia - monitor for progression Patient to be discharged to [facility] facility for further care and health maintenance Discharge Physical Examination Allergies: Coded Allergies: No Known Drug Allergies (Unverified , 06/08/20) Vitals & I&Os At time of last exam T: 36.8 BP: 144/65 Pulse: 65 RR: 18 Pulse Ox: 97 General Appearance: No Apparent Distress, Chronically ill Respiratory: Lungs Clear, Normal Breath Sounds, No Accessory Muscle Use, No Respiratory Distress, Decreased Breath Sounds Cardiovascular: Regular Rate, Rhythm, No Edema, No Gallop, No JVD, No Murmur Gastrointestinal: Normal Bowel Sounds, No Organomegaly, No Pulsatile Mass, Soft Extremity: Inflammation (Left hand is erythematous with bruising and warmth but shows signs of improvement today in color and swelling), Swelling (Left hand is swollen and edematous) Skin: Ecchymosis (Bruising noted on both arms, worse on left), Erythema (Left hand) Neurologic/Psychiatric: Aphasia (Non-verbal with dementia), Depressed Affect Discharge Summary Date of Admission Jun 25, 2022 at 17:25 Date of Discharge 06/27/2022 Discharge Date: Jun 27, 2022 Admission Diagnosis Cellulitis of left hand Discharge Diagnosis Cellulitis of left hand Clinical Quality Measures DVT/VTE Risk/Contraindication: VTE Addressed: Yes (Patient placed on enoxaparin for DVT prophylaxis) VTE Present on Admission: No TERA RAND Jun 27, 2022 12:27
--- NOTE | 2022-06-27 14:33 | Physical Therapy Evaluation ---
PT Evaluation-General Medical Diagnosis Admission Date Jun 25, 2022 at 17:25 Medical Diagnosis: Left Hand Cellulitis Onset Date: Jun 25, 2022 Therapy Diagnosis Therapy Diagnosis: generalized weakness/debility Precautions Precautions/Isolations: Aspiration, Fall Prevention, Standard Precautions, Pressure Ulcer Referral Physician: Ab Reason for Referral: Evaluation/Treatment Medical History Pertinent Medical History: Atrial Fib, DM, Dementia, HTN Current History EMS secondary to left hand swelling Reviewed History: Yes Social History Current Living Status: caregivers Prior Prior Level of Function SCALE: Activities may be completed with or without assistive devices. 6-Qrngollowa-fqwdqlm completes the activity by him/herself with no assistance from a helper. 5-Set-up or Clean-up Assistance-helper sets up or cleans up; patient completes activity. [place] assists only prior to or following the activity. 4-Supervision or Touching Assistance-helper provides verbal cues and/or touching/steadying and/or contact guard assistance as patient completes activity. Assistance may be provided throughout the activity or intermittently. 3-Partial/Moderate Assistance-helper does LESS THAN HALF the effort. [place] lifts, holds or supports trunk or limbs, but provides less than half the effort. 2-Substantial/Maximal Assistance-helper does MORE THAN HALF the effort. [place] lifts or holds trunk or limbs and provides more than half the effort. 4-Rjcvjnmrx-yxvdgs does ALL the effort. Patient does none of the effort to complete the activity. Or, the assistance of 2 or more helpers is required for the patient to complete the activity. If activity was not attempted, code reason: 7-Patient Refused. 9-Not Applicable-not attempted and the patient did not perform the activity before the current illness, exacerbation or injury. 10-Not Attempted due to Environmental Limitations-(lack of equipment, weather restraints, etc.). 88-Not Attempted due to Medical Conditions or Safety Concerns. Bed Mobility: 3 Transfers (B,C,W/C): 3 Gait: 3 Indoor Mobility (Ambulation): Needed Some Help Prior Devices Use: Walker PT Evaluation-Current Subjective Patient is non verbal. Caregiver agrees to PT. Objective Patient Orientation: Confused Attachments: Gillis Catheter, IV ROM/Strength ROM Lower Extremities bilateral LE WFL Strength Lower Extremities 4-/5 grossly bilateral LE Integumentary/Posture Bowel Incontinence: Yes Bladder Incontinence: Gillis Cath Posture trunk flexed posture Neuromuscular (Tone, Coordination, Reflexes) diminished coordination/very rigid Sensory Vision: Unable to Assess Hearing: Functional Transfers Sit to Lying (QC): 1 Lying to Sitting/Side of Bed(Q: 2 Sit to Stand (QC): 2 Toilet Transfer (QC): 2 Gait Mode of Locomotion: Both Anticipated Mode of Locomotion: Both Walk 10 feet (QC): 2 Walk 50 ft with 2 Turns(QC): 2 Walk 150 ft (QC): 2 Distance: 150' Gait Assistive Device: FWW Comments/Gait Description max assist with PT assist to advance FWW and tactile stim for patient to advance Balance Sitting Static: Fair Sitting Dynamic: Fair Standing Static: Fair Standing Dynamic: Fair Assessment/Needs Patient will benefit from skilled PT to address functional strength and mobility to improve current LOF. Patient is incontinent BM during session requiring dependent assist to cleanse patient. 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 Goals Custodial Goals PT Beef Cattle Farmer Goals Time Frame: Jul 06, 2022 Roll Left & Right (QC): 3 Sit to Lying (QC): 3 Lying-Sitting on Side/Bed(QC): 3 Sit to Stand (QC): 3 Chair/Mzg-re-Obxaq Xfer(QC): 3 Toilet Transfer (QC): 3 Walk 10 feet (QC): 3 Walk 50ft with 2 Turns (QC): 3 Walk 150 ft (QC): 3 PT Plan Problem List Problem List: Activity Tolerance, Functional Strength, Safety, Balance, Gait, Transfer, Bed Mobility Treatment/Plan Treatment Plan: Continue Plan of Care Treatment Plan: Bed Mobility, Functional Activity [place], Functional Strength, Gait, Safety, Therapeutic Exercise, Transfers Treatment Duration: Jul 06, 2022 Frequency: 5 times per week Estimated Hrs Per Day: .25 hour per day Time/GCodes Time In: 1405 Time Out: 1428 Total Billed Treatment Time: 23 Total Billed Treatment 1 visit EVModC 9 min FA 14 min ADENIKE BROWN PT Jun 27, 2022 14:33
[2022-06-27] MEDS: cefTRIAXone 1 GM PRE-MIX 50 ML IV SCH (15:09)
--- NOTE | 2022-06-27 19:28 | Progress Note ---
Subjective Subjective/Events-last exam No new ON events Review of Systems Unable to obtain Focused Exam Lactate Level 06/25/22 13:38: Lactic Acid Level 2.47*H 06/25/22 16:03: Lactic Acid Level 2.68*H 06/25/22 18:10: Lactic Acid Level 1.75 Objective Exam Last Set of Vital Signs Vital Signs Date Time Temp Pulse Resp B/P (MAP) Pulse Ox O2 Delivery O2 Flow Rate FiO2 06/27/22 18:30 96 Room Air 06/27/22 15:57 36.6 51 20 126/60 (82) 06/25/22 20:06 21 Capillary Refill : Less Than 3 Seconds I&O Intake and Output 06/27/22 00:00 Intake Total 0 ml Output Total 2600 ml Balance -2600 ml Intake Oral 0 ml Output Urine Total 2600 ml # Urine Diapers 4 General: Other (Awake) Lungs: Clear to Auscultation, Normal Air Movement Heart: Regular Rate, No Murmurs Abdomen: Soft Extremities: Other (1+ pitting edema bilaterally) Results/Procedures Lab Laboratory Tests 06/26/22 20:21: Glucometer 141H 06/27/22 05:37: Glucometer 144H 06/27/22 05:40: White Blood Count 5.6, Red Blood Count 3.49L, Hemoglobin 10.6L, Hematocrit 33L, Mean Corpuscular Volume 94, Mean Corpuscular Hemoglobin 30, Mean Corpuscular Hemoglobin Concent 32, Red Cell Distribution Width 13.9, Platelet Count 156, Mean Platelet Volume 11.0, Immature Granulocyte % (Auto) 0, Neutrophils (%) (Auto) 72, Lymphocytes (%) (Auto) 18, Monocytes (%) (Auto) 6, Eosinophils (%) (Auto) 3, Basophils (%) (Auto) 1, Neutrophils # (Auto) 4.1, Lymphocytes # (Auto) 1.0, Monocytes # (Auto) 0.4, Eosinophils # (Auto) 0.2, Basophils # (Auto) 0.0, I mmature Granulocyte # (Auto) 0.0, Sodium Level 145, Potassium Level 4.2, Chloride Level 115H, Carbon Dioxide Level 22, Anion Gap 8, Blood Urea Nitrogen 32H, Creatinine 0.80, Estimat Glomerular Filtration Rate 85, BUN/Creatinine Ratio 40, Glucose Level 152H, Calcium Level 8.4L 06/27/22 11:24: Glucometer 167H 06/27/22 16:00: Glucometer 154H Microbiology 06/25/22 Blood Culture - Preliminary, Resulted Jammie Menezes 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 TECHNIQUE: Left upper extremity venous Doppler study performed in the routine fashion with color flow Doppler and waveform analysis. FINDINGS: Left internal jugular vein, left subclavian vein, and left axillary vein are patent. The left brachial and basilic veins are patent. Visualized portions of the radial and ulnar veins are patent. There appears to be partial thrombosis of the left cephalic vein. IMPRESSION: Partial superficial venous thrombosis in the left cephalic vein in the upper arm. Remaining structures are patent. Dictated by: Dictated on workstation # [id number] Dict: 06/25/22 1552 Trans: 06/25/22 1610 [id number] Interpreted by: RHONDA JAIMES MD Electronically signed by: RHONDA JAIMES MD 06/25/22 1610 Assessment/Plan Assessment/Plan Assessment & Plan Acute Kidney Failure Hypovolemia Dehydration - IVFs, will continue to monitor UOP and Cr, Discussed with that he is having a significant decline and she would like him placed in SNF - 06/27: Resolved Left Superficial Thrombophebitis - Doppler with no evidence of DVT HTN - Normotensive, holding home BP meds Normocytic Anemia - No signs of acute bleeding IDDM - SSI Discharge planning: Plan to d/c to SNF tomorrow Clinical Quality Measures DVT/VTE Risk/Contraindication: VTE Addressed: Yes (Patient placed on enoxaparin for DVT prophylaxis) VTE Present on Admission: No ARNAV SINGER MD Jun 27, 2022 19:28
[2022-06-28 03:39] VITALS: BP 131/65
[2022-06-28] MEDS: ENOXAPARIN 40 MG/0.4 ML (LOVENOX) SYR SC SCH (06:28)
[2022-06-28 08:59] VITALS: BP 134/65
[2022-06-28] MEDS: TAMSULOSIN 0.4 MG (FLOMAX) CAP PO SCH (09:21)
[2022-06-28] MEDS: ASPIRIN E.C. 81 MG (ECOTRIN) TAB PO SCH (09:21)
--- NOTE | 2022-06-28 10:26 | Discharge Summary ---
Discharge Summary Reconcile Patient Problems Problems Reviewed?: Yes Hospital Course Hospital Course Date of Admission: Jun 25, 2022 at 17:25 Admission Diagnosis : Family Physician/Provider: Cecilio Cam MD Date of Discharge: 06/28/22 Discharge Diagnosis: Acute Kidney Failure Hypovolemia Dehydration - IVFs, will continue to monitor UOP and Cr, Discussed with that he is having a significant decline and she would like him placed in SNF - 06/27: Resolved Left Superficial Thrombophebitis - Doppler with no evidence of DVT HTN - Normotensive, holding home BP meds Normocytic Anemia - No signs of acute bleeding IDDM - SSI Dysphagia - 06/28 Honey thickened liquids, dysphagia diet Labs and Pending Lab Test: Laboratory Tests 06/27/22 11:24: Glucometer 167H 06/27/22 16:00: Glucometer 154H 06/27/22 20:30: Glucometer 136H 06/28/22 05:08: Glucometer 118H Microbiology 06/25/22 Blood Culture - Preliminary, Resulted Jammie Menezes 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) Home Meds Active Reported Diltiazem ER (Diltiazem HCl) 240 Mg Capsule.er 240 Mg PO DAILY Lisinopril 20 Mg Tablet 20 Mg PO DAILY Aspirin EC (Aspirin) 81 Mg Tablet.dr 81 Mg PO DAILY Flomax (Tamsulosin HCl) 0.4 Mg Cap 0.4 Mg PO DAILY Furosemide 40 Mg Tablet 40 Mg PO DAILY Novolog Flexpen (Insulin Aspart) 100 Unit/Ml (3 Ml) Solution 2 Units SC AC Lantus Solostar (Insulin Glargine,Hum.rec.anlog) 100 Unit/Ml (3 Ml) Insuln.pen 10 Unit SQ HS Metformin HCl 500 Mg Tablet 1,000 Mg PO BID WITH MEALS TAKES 2 (500MG) TABS Trazodone HCl 50 Mg Tablet 50 Mg PO HS Skilled NF Admit to: Certification (SNF) I certify that SNF services are required to be given on an inpatient basis because of the above named patient's need for intermediate care on a continuing basis for the conditions(s) for which he/she was receiving inpatient hospital services prior to his/her transfer to the SNF. [facility] Order: Nursing Services, Physical Therapy-Evaluate & Treat Oxygen Delivery Method: Room Air Discharge Diet: Other Diet (Dysphagia 2 diet with honey thickened liquids) Daily Activity as Tolerated: Yes Resuscitation Status: Do Not Resuscitate Arnav Berger Jun 28, 2022 10:23 Discharge Physical Exam General: Other (Awake, non verbal, unable to make needs known) HEENT: Mucous Memb Moist/[place] Lungs: Clear to Auscultation Heart: Regular Rate, No Murmurs Abdomen: Normal Bowel Sounds, Soft Extremities: Other (1-2+ pitting edema) Skin: No Breakdown ARNAV BERGER MD Jun 28, 2022 10:26
[2022-06-28] MEDS ORDERED: CEFD300C3 PO (10:28)
[2022-06-28 12:00] VITALS: BP 139/72
[2022-06-28] MEDS: D5 NS 1000 ML IV SOLUTION 1,000 ML IV SCH (13:57)
[2022-06-28 14:51] VITALS: BP 139/72
== END 2022-06-28 14:55 | DRG 683 ==
LOC: EDUNIT# 13:12 → ER FS 13:14 → 4TH 17:25
PROVIDERS: ADMIT Family Medicine; ATTEND Family Medicine
DX: N17.9 Acute kidney failure, unspecified (principal); L03.114 Cellulitis of left upper limb; E86.0 Dehydration; I80.8 Phlebitis and thrombophlebitis of other sites; E11.9 Type 2 diabetes mellitus without complications; I10 Essential (primary) hypertension; R00.1 Bradycardia, unspecified; Z66 Do not resuscitate; I48.0 Paroxysmal atrial fibrillation; I27.20 Pulmonary hypertension, unspecified; F03.90 Unspecified dementia, unspecified severity, without behavioral disturbance, psychotic disturbance, mood disturbance, and anxiety; E86.1 Hypovolemia; I95.9 Hypotension, unspecified; Z79.01 Long term (current) use of anticoagulants; Z79.84 Long term (current) use of oral hypoglycemic drugs; Z79.4 Long term (current) use of insulin
CPT/HCPCS: 36415; 51701; 80048; 80053; 81000; 82947; 83605; 85025; 85610; 85730; 86141; 87040; 94760

== ENCOUNTER 2022-06-30 21:13 | Inpatient (IN) | payer MEDICARE, OTHER ==
[~2022-06-30] VITALS: Ht 180 cm; Wt 80.0 kg
[~2022-06-30 21:13] MED LIST changes: +ASPI-1238 PO; +CEFD300C3 PO; +DILT240C87 PO
[2022-06-30 21:20] LABS: BASOPHILS % (AUTO) 0 % (0-10); EOSINOPHILS # (AUTO) 0.2 10^3/uL (0.0-0.3); EOSINOPHILS % (AUTO) 2 % (0-10); HEMATOCRIT 36 % (40-54); HEMOGLOBIN 11.5 g/dL (13.3-17.7); LYMPHOCYTES # (AUTO) 1.7 10^3/uL (1.0-4.0); LYMPHOCYTES % (AUTO) 13 % (12-44); MEAN CORPUSCULAR HEMOGLOBIN 30 pg (25-34); MEAN CORPUSCULAR HGB CONC 32 g/dL (32-36); MEAN CORPUSCULAR VOLUME 94 fL (80-99); MEAN PLATELET VOLUME 10.9 fL (9.0-12.2); MONOCYTES # (AUTO) 0.7 10^3/uL (0.0-1.0); MONOCYTES % (AUTO) 5 % (0-12); NEUTROPHILS # (AUTO) 10.5 10^3/uL (1.8-7.8); NEUTROPHILS % (AUTO) 80 % (42-75); PLATELET COUNT 243 10^3/uL (130-400); WHITE BLOOD COUNT 13.2 10^3/uL (4.3-11.0)
[2022-06-30 21:44] LABS: ALANINE AMINOTRANSFERASE 18 U/L (0-55); ALBUMIN 3.2 GM/DL (3.2-4.5); ALKALINE PHOSPHATASE 87 U/L (40-136); BILIRUBIN,TOTAL 0.2 MG/DL (0.1-1.0); BUN/CREATININE RATIO 20; CALCIUM 8.5 MG/DL (8.5-10.1); CARBON DIOXIDE 24 MMOL/L (21-32); CHLORIDE 111 MMOL/L (98-107); CREATININE SERUM 1.48 MG/DL (0.60-1.30); GFR ESTIMATED 45; GLUCOSE 206 MG/DL (70-105); POTASSIUM 4.4 MMOL/L (3.6-5.0); SODIUM 145 MMOL/L (135-145); TOTAL PROTEIN 5.8 GM/DL (6.4-8.2)
--- NOTE | 2022-06-30 21:47 | Diagnostic Imaging Report ---
CLINICAL INDICATION: Patient with chest pain. EXAM: Portable chest x-ray upright view. COMPARISON: Chest x-ray dated 06/04/2022. FINDINGS: Lungs/pleura: There is mild bibasilar atelectasis. Otherwise, lungs are clear. There is no pneumothorax. There is no pleural effusion. Mediastinum: Unremarkable. Pulmonary vasculature: Unremarkable. Heart: Unremarkable. Bones/extrathoracic soft tissue: There are degenerative spurs involving the thoracic spine. IMPRESSION: There is mild bibasilar atelectasis. There is no radiographic evidence of acute cardiopulmonary process. Dictated by: Dictated on workstation # [id number]
[2022-06-30 21:53] LABS: BILIRUBIN,URINE NEGATIVE (NEGATIVE); CLARITY,URINE CLEAR; COLOR,URINE YELLOW; GLUCOSE, URINE (UA) NEGATIVE (NEGATIVE); KETONES,URINE NEGATIVE (NEGATIVE); LEUKOCYTE ESTERASE ,URINE TRACE (NEGATIVE); NITRITE,URINE NEGATIVE (NEGATIVE); PH,URINE 5.5 (5-9); PROTEIN,URINE NEGATIVE (NEGATIVE)
[2022-06-30 21:59] LABS: BACTERIA,URINE FEW /HPF; WBC,URINE 25-50 /HPF
[2022-06-30] MEDS ORDERED: FUROSEMIDE 40 MG/4 ML INJ (LASIX) IVP ONE ×2 (22:15→22:30)
--- NOTE | 2022-06-30 22:17 | ED Respiratory ---
General Chief Complaint: Respiratory Problems Stated Complaint: SOB Nursing Triage Note: PATIENT BROUGHT BY EMS WITH COMPLAINT OF NEW ONSET SHORTNESS OF BREATH. OXYGEN SAT ON ROOM AIR 88 PERCENT. EMS PLACED 2 L OXYGEN 91 PERCENT O2 Source: family Exam Limitations: no limitations History of Present Illness Date Seen by Provider: Jun 30, 2022 Time Seen by Provider: 21:00 Initial Comments Patient is a 89 yo male with h/o dementia care home patient released [facility] two days ago who presents with shortness of breath at [facility]. Patient's O2 sats were upper 80's, patient requiring 2 Ls. No prior O2 requirement. Timing/Duration: just prior to arrival Severity: moderate Modifying Factors: Improves With Oxygen Associated Symptoms: other Allergies and Home Medications Allergies Coded Allergies: No Known Drug Allergies (Unverified , 06/08/20) Patient Home Medication List Home Medication List Reviewed: Yes Aspirin (Aspirin EC) 81 Mg Tablet.dr, 81 MG PO DAILY, (Reported) Entered as Reported by: OLINDA JIMENEZ on 06/26/22 115 Cefdinir (Cefdinir) 300 Mg Capsule, 300 MG PO BID Prescribed by: ARNAV SINGER on 06/28/22 1028 Diltiazem HCl (Diltiazem ER) 240 Mg Capsule.er, 240 MG PO DAILY, (Reported) Entered as Reported by: OLINDA JIMENEZ on 06/26/22 115 Furosemide (Furosemide) 40 Mg Tablet, 40 MG PO DAILY, (Reported) Entered as Reported by: OLINDA JIMENEZ on 07/06/21 141 Insulin Aspart (Novolog Flexpen) 100 Unit/Ml (3 Ml) Solution, 2 UNITS SC AC, (Reported) Entered as Reported by: OLINDA JIMENEZ on 07/06/21 141 Insulin Glargine,Hum.rec.anlog (Lantus Solostar) 100 Unit/Ml (3 Ml) Insuln.pen, 10 UNIT SQ HS, (Reported) Entered as Reported by: OLINDA JIMENEZ on 07/06/21 141 Lisinopril (Lisinopril) 20 Mg Tablet, 20 MG PO DAILY, (Reported) Entered as Reported by: OLINDA JIMENEZ on 06/26/22 115 Metformin HCl (Metformin HCl) 500 Mg Tablet, 1,000 MG PO BID WITH MEALS, (Reported) Entered as Reported by: OLINDA JIMENEZ on 07/06/21 141 Tamsulosin HCl (Flomax) 0.4 Mg Cap, 0.4 MG PO DAILY, (Reported) Entered as Reported by: OLINDA JIMENEZ on 07/06/21 141 Trazodone HCl (Trazodone HCl) 50 Mg Tablet, 50 MG PO HS, (Reported) Entered as Reported by: OLINDA JIMENEZ on 07/06/21 141 Discontinued Medications Apixaban (Eliquis) 5 Mg Tablet, 5 MG PO BID Discontinued Reason: No Longer Taking Prescribed by: RETA AMARAL on 07/11/21 1335 Diltiazem HCl (Cardizem Cd) 120 Mg Cap.er.24h, 120 MG PO DAILY, (Reported) Discontinued Reason: Duplicate Order Entered as Reported by: OLINDA JIMENEZ on 07/06/21 141 Lisinopril (Lisinopril) 20 Mg Tablet, 20 MG PO DAILY Discontinued Reason: Duplicate Order Prescribed by: RETA AMARAL on 07/11/21 1335 Review of Systems Review of Systems Constitutional: see HPI EENTM: no symptoms reported Respiratory: see HPI Cardiovascular: see HPI Gastrointestinal: see HPI Genitourinary: see HPI Musculoskeletal: see HPI Skin: see HPI Psychiatric/Neurological: See HPI Hematologic/Lymphatic: See HPI Immunological/Allergic: see HPI All Other Systems Reviewed Negative Unless Noted: No Past Louvjyz-Kspmej-Geacyf Hx Patient Social History Tobacco Use?: No Use of E-Cig and/or Vaping dev: No Substance use?: No Seasonal Allergies Seasonal Allergies: No Past Medical History Surgery/Hospitalization HX: DIABETIC, HTN, BLADDER CA, ALZHEIMERS, KIDNEY DISEASE Surgeries: No Respiratory: No Cardiac: Yes Hypertension Neurological: No Genitourinary: No Gastrointestinal: No Musculoskeletal: No Endocrine: Yes Diabetes, Non-Insulin dep HEENT: No Cancer: Yes Bladder Psychosocial: No Integumentary: No Blood Disorders: No Physical Exam Vital Signs - First Documented 06/30/22 21:19 Temp 38.4 Pulse 98 Resp 22 B/P (MAP) 106/57 (73) Pulse Ox 91 O2 Delivery Nasal Cannula O2 Flow Rate 2.00 Capillary Refill : Less Than 3 Seconds Height: '" Weight: lbs. oz. kg; 31.00 BMI Method:Actual General Appearance: WD/WN, no apparent distress Eyes: Bilateral Eye Normal Inspection, Bilateral Eye PERRL, Bilateral Eye EOMI HEENT: PERRL/EOMI, pharynx normal Neck: non-tender, supple, normal inspection Respiratory: decreased breath sounds Cardiovascular: regular rate, rhythm, no edema Gastrointestinal: non tender, soft Extremities: swelling (B lower ext) Neurologic/Psychiatric: normal mood/affect Focused Exam Sepsis Stage: Ruled Out Lactate Level 06/30/22 21:14: Lactic Acid Level 2.78*H Lactic Acid Level Laboratory Tests Test 06/30/22 21:14 Lactic Acid Level 2.78 MMOL/L (0.50-2.00) *H Progress/Results/Core Measures Suspected Sepsis SIRS Temperature: Pulse: 98 Respiratory Rate: 22 Laboratory Tests 06/30/22 21:14: White Blood Count 13.2H Blood Pressure 106 /57 Mean: 73 06/30/22 21:14: Lactic Acid Level 2.78*H Laboratory Tests 06/30/22 21:14: Creatinine 1.48H, Platelet Count 243, Total Bilirubin 0.2 Results/Orders Lab Results Laboratory Tests Test 06/30/22 21:14 06/30/22 21:22 Range/Units White Blood Count 13.2 H 4.3-11.0 10^3/uL Red Blood Count 3.79 L 4.30-5.52 10^6/uL Hemoglobin 11.5 L 13.3-17.7 g/dL Hematocrit 36 L 40-54 % Mean Corpuscular Volume 94 80-99 fL Mean Corpuscular Hemoglobin 30 25-34 pg Mean Corpuscular Hemoglobin Concent 32 32-36 g/dL Red Cell Distribution Width 15.0 H 10.0-14.5 % Platelet Count 243 130-400 10^3/uL Mean Platelet Volume 10.9 9.0-12.2 fL Immature Granulocyte % (Auto) 0 % Neutrophils (%) (Auto) 80 H 42-75 % Lymphocytes (%) (Auto) 13 12-44 % Monocytes (%) (Auto) 5 0-12 % Eosinophils (%) (Auto) 2 0-10 % Basophils (%) (Auto) 0 0-10 % Neutrophils # (Auto) 10.5 H 1.8-7.8 10^3/uL Lymphocytes # (Auto) 1.7 1.0-4.0 10^3/uL Monocytes # (Auto) 0.7 0.0-1.0 10^3/uL Eosinophils # (Auto) 0.2 0.0-0.3 10^3/uL Basophils # (Auto) 0.0 0.0-0.1 10^3/uL Immature Granulocyte # (Auto) 0.1 0.0-0.1 10^3/uL Sodium Level 145 135-145 MMOL/L Potassium Level 4.4 3.6-5.0 MMOL/L Chloride Level 111 H 98-107 MMOL/L Carbon Dioxide Level 24 21-32 MMOL/L Anion Gap 10 5-14 MMOL/L Blood Urea Nitrogen 29 H 7-18 MG/DL Creatinine 1.48 H 0.60-1.30 MG/DL Estimat Glomerular Filtration Rate 45 BUN/Creatinine Ratio 20 Glucose Level 206 H 70-105 MG/DL Lactic Acid Level 2.78 *H 0.50-2.00 MMOL/L Calcium Level 8.5 8.5-10.1 MG/DL Corrected Calcium 9.1 8.5-10.1 MG/DL Total Bilirubin 0.2 0.1-1.0 MG/DL Aspartate Amino Transf (AST/SGOT) 21 5-34 U/L Alanine Aminotransferase (ALT/SGPT) 18 0-55 U/L Alkaline Phosphatase 87 40-136 U/L Troponin I < 0.30 <0.30 NG/ML Pro-B-Type Natriuretic Peptide 2185.0 H <450.0 PG/ML Total Protein 5.8 L 6.4-8.2 GM/DL Albumin 3.2 3.2-4.5 GM/DL Urine Color YELLOW Urine Clarity CLEAR Urine pH 5.5 5-9 Urine Specific [place] 1.025 H 1.016-1.022 Urine Protein NEGATIVE NEGATIVE Urine Glucose (UA) NEGATIVE NEGATIVE Urine Ketones NEGATIVE NEGATIVE Urine Nitrite NEGATIVE NEGATIVE Urine Bilirubin NEGATIVE NEGATIVE Urine Urobilinogen 0.2 < = 1.0 MG/DL Urine Leukocyte Esterase TRACE H NEGATIVE Urine RBC (Auto) NEGATIVE NEGATIVE Urine RBC 10-25 H /HPF Urine WBC 25-50 H /HPF Urine Crystals NONE /LPF Urine Bacteria FEW H /HPF Urine Casts PRESENT /LPF Urine Hyaline Casts 10-25 H /LPF Urine Mucus NEGATIVE /LPF Urine Culture Indicated YES Influenza Type A (RT-PCR) Not Detected Not Detecte Influenza Type B (RT-PCR) Not Detected Not Detecte SARS-CoV-2 RNA (RT-PCR) Detected H Not Detecte My Orders Orders - RICHA JAIMES DO Cbc With Automated Diff (06/30/22 21:15) Comprehensive Metabolic Panel (06/30/22 21:15) Chest 1 View Ap/Pa Only (06/30/22 21:15) Ekg Tracing (06/30/22 21:15) Troponin I Fs (06/30/22 21:15) Probnp Fs (06/30/22 21:15) Covid 19 Inhouse Test (06/30/22 21:15) Influenza A And B By Pcr (06/30/22 21:15) Isolation Central Supply Req (06/30/22 21:15) Lactic Acid Body Fluid (06/30/22 21:44) Blood Culture (06/30/22 21:44) Urinalysis (06/30/22 21:44) Blood Culture (06/30/22 21:28) Urine Culture (06/30/22 21:22) Lactic Acid Analyzer (06/30/22 21:54) Furosemide Injection (Lasix Injection) (06/30/22 22:15) Furosemide Injection (Lasix Injection) (06/30/22 22:30) Piperacillin Sodium/Tazobactam (Zosyn Vi (06/30/22 22:30) Vancomycin Injection (Vancomycin Injecti (06/30/22 22:30) Medications Given in ED Current Medications Medications Dose Ordered Sig/Inocencia Route Start Time Stop Time Status Last Admin Dose Admin Furosemide 40 mg ONCE ONCE IVP 06/30/22 22:15 06/30/22 22:16 DC 06/30/22 22:21 40 MG Vital Signs/I&O 06/30/22 06/30/22 21:19 21:19 Temp 38.4 Pulse 98 Resp 22 B/P (MAP) 106/57 (73) Pulse Ox 91 O2 Delivery Nasal Cannula Nasal Cannula O2 Flow Rate 2.00 Capillary Refill : Less Than 3 Seconds Blood Pressure Mean: 73 Departure Communication (Admissions) CXR: NAD EKG: aflutter/tachycardia Patient stable on 2L O2. Labs consistent with CHF exacerbation, UTI and hypotension. IVF, abx given. Elevated Lac, WBC. Less than 30 ml/kg fluid bolus given due to concern for CHF. Impression Primary Impression: CHF exacerbation Additional Impressions: UTI (urinary tract infection) Sepsis Disposition: ADMITTED INPATIENT Condition: Improved Admissions Decision to Admit Reason: Admit from ER (General) Decision to Admit/Date: Jun 30, 2022 Time/Decision to Admit Time: 22:30 Departure-Patient Inst. Referrals: MATTY MCCARTNEY MD (PCP/Family) Primary Care Physician RICHA JAIMES DO Jun 30, 2022 22:17
[2022-06-30] MEDS ORDERED: PIPERACILLIN SODIUM/TAZOBACTAM 4.5 GM in NS (IVPB) 100 ML IV ONE (22:30)
[2022-06-30] MEDS ORDERED: VANCOMYCIN INJECTION 1,000 MG in NS (IVPB) 250 ML IV ONE (22:30)
[2022-07-01] MEDS ORDERED: VANCOMYCIN 1 GM/NS 250 ML IVPB IV ONE ×2 (00:30)
[2022-07-01] MEDS ORDERED: CATHETER FLUSH 10 ML SYR IVP PRN (00:30)
[2022-07-01] MEDS: PIPERACILLIN SODIUM/TAZOBACTAM 4.5 GM in NS (IVPB) 100 ML IV SCH ×3 (05:36→21:19)
[2022-07-01 05:39] LABS: BASOPHILS # (AUTO) 0.1 10^3/uL (0.0-0.1); BASOPHILS % (AUTO) 0 % (0-10); EOSINOPHILS # (AUTO) 0.2 10^3/uL (0.0-0.3); EOSINOPHILS % (AUTO) 2 % (0-10); HEMATOCRIT 33 % (40-54); HEMOGLOBIN 10.3 g/dL (13.3-17.7); LYMPHOCYTES # (AUTO) 1.8 10^3/uL (1.0-4.0); LYMPHOCYTES % (AUTO) 12 % (12-44); MEAN CORPUSCULAR HEMOGLOBIN 30 pg (25-34); MEAN CORPUSCULAR HGB CONC 32 g/dL (32-36); MEAN CORPUSCULAR VOLUME 96 fL (80-99); MEAN PLATELET VOLUME 11.1 fL (9.0-12.2); MONOCYTES % (AUTO) 7 % (0-12); NEUTROPHILS # (AUTO) 11.8 10^3/uL (1.8-7.8); NEUTROPHILS % (AUTO) 79 % (42-75); PLATELET COUNT 234 10^3/uL (130-400)
[2022-07-01 05:56] LABS: ALBUMIN 2.8 GM/DL (3.2-4.5); POTASSIUM 4.1 MMOL/L (3.6-5.0)
[2022-07-01 05:57] LABS: CALCIUM 8.4 MG/DL (8.5-10.1)
[2022-07-01 05:59] LABS: TOTAL PROTEIN 5.4 GM/DL (6.4-8.2)
[2022-07-01 06:00] LABS: BILIRUBIN,TOTAL 0.4 MG/DL (0.1-1.0)
[2022-07-01 06:02] LABS: CREATININE SERUM 1.37 MG/DL (0.60-1.30); PHOSPHORUS 3.7 MG/DL (2.3-4.7)
[2022-07-01 06:05] LABS: MAGNESIUM 1.6 MG/DL (1.6-2.4)
[2022-07-01 06:18] LABS: EOSINOPHILS % (MANUAL) 3 %; LYMPHOCYTES % (MANUAL) 17 %; MONOCYTES % (MANUAL) 5 %; NEUTROPHILS % (MANUAL) 75 %
[2022-07-01 06:19] LABS: RBC MORPH NORMAL
[2022-07-01] MEDS: CATHETER FLUSH 10 ML SYR IVP SCH ×3 (06:42→20:59)
--- NOTE | 2022-07-01 07:00 | Diagnostic Imaging Report ---
INDICATION: Respiratory failure COMPARISON: 06/30/2022 FINDINGS: Single frontal view of the chest demonstrates normal heart size and pulmonary vascularity. The lungs show low inspiratory volumes, but are otherwise clear. No large pleural effusion or pneumothorax is seen. The visualized osseous structures show no acute abnormalities. IMPRESSION: 1. No acute cardiopulmonary process. Dictated by: Dictated on workstation # [id number]
--- NOTE | 2022-07-01 07:00 | History & Physical-Hospitalist ---
History of Present Illness HPI/Chief Complaint CC: Acute respiratory failure HPI: This is an 89yoWM who presented to the ICU following an ER visit in [place] last last night who was dx with PNA and AECHF requiring ICU admit. IV abx maintained and Dr Pena consulted for CHF. Patient is normally mostly aphasic and has severe dementia baseline. COVID swab was positive and he had COVD 3 weeks ago when I [place] [facility] [place]. Updated at her requ est and explained that he had poor reserve and it will be a challenge to overcome this illness and survive but she wanted aggressive care to continue. Patient needed a central line placed due to poor venous access. Source: family, RN/MD Exam Limitations: clinical condition Date Seen 07/01/22 Time Seen by a Provider: 11:00 Attending Physician Cecilio Cam MD PCP Admitting Physician: Serenity Valdivia DO Attending Physician: Serenity Valdivia DO Referring Physician Date of Admission Jun 30, 2022 at 23:43 Home Medications & Allergies Home Medications Reviewed patient Home Medication Reconciliation performed by pharmacy medication reconciliations computed tomography technician and/or nursing. Patients Allergies have been reviewed. Allergies Allergies Coded Allergies No Known Drug Allergies (Unverified06/08/20) Past Hnwdllx-Cvwuhe-Mrqtbl Hx Patient Social History Marrital Status: Employed/Student: retired Tobacco Use?: No Smoking Status: Unknown if Ever Smoked Use of E-Cig and/or Vaping dev: No Substance use?: No Immunizations Up To Date Tetanus Booster (TDap): Unknown Seasonal Allergies Seasonal Allergies: No Current Status Advance Directives: No Primary Language: Martiniquais Preferred Spoken Language: Martiniquais Past Medical History Hypertension Dementia Diabetes, Non-Insulin dep Bladder Blood Disorders: No Paroxysmal Atrial Fibrillation Primary Hypertension Pulmonary Hypertension Dementia Review of Systems Constitutional: see HPI Physical Exam Physical Exam Vital Signs Vital Signs - First Documented 06/30/22 21:19 Temp 38.4 Pulse 98 Resp 22 B/P (MAP) 106/57 (73) Pulse Ox 91 O2 Delivery Nasal Cannula O2 Flow Rate 2.00 Capillary Refill : Less Than 3 Seconds Height, Weight, BMI Height: '" Weight: lbs. oz. kg; 25.00 BMI Method:Actual General Appearance: No Apparent Distress, Chronically ill, Other (semi- comatose) Respiratory: No Accessory Muscle Use, No Respiratory Distress, Decreased Breath Sounds Cardiovascular: Regular Rate, Rhythm Results Results/Procedures Labs Laboratory Tests 06/30/22 21:14 07/01/22 04:45 Patient resulted labs reviewed. Assessment/Plan Admission Diagnosis Assessment: PNA CHF COVID Profound dementia Aphasia baseline CHA Volume overload Poor venous access Plan: Monitor closely DNR Updated Admission Status: Inpatient Order (span 2 midnights) Reason for Inpatient Admission: resp failre Diagnosis/Problems Diagnosis/Problems (1) COVID-19 Status: Acute (2) CHF exacerbation Status: Acute (3) Generalized weakness Status: Chronic (4) Altered mental status Status: Acute (5) Paroxysmal atrial fibrillation Status: Chronic (6) Pulmonary hypertension (7) Primary hypertension Status: Chronic SERENITY VALDIVIA DO Jul 01, 2022 07:00
[2022-07-01] MEDS ORDERED: VANCOMYCIN 1250 MG/NS 250 ML IVPB IV SCH ×4 (09:00→16:00)
[2022-07-01] MEDS: FUROSEMIDE 40 MG/4 ML INJ (LASIX) IV SCH ×2 (10:14→16:24)
[2022-07-01] MEDS ORDERED: ALBUMIN 5% 12.5 GM/250 ML 250 ML IV ONE ×2 (10:15→16:00)
--- NOTE | 2022-07-01 11:08 | Tele-ICU Consult ---
History of Present Illness History of Present Illness Date Seen by Provider: Jul 01, 2022 Time Seen by Provider: 11:08 Date of Admission (Tele-ICU Physician , consultation) Available chart/ vitals / labs / Images reviewed H&P is from ER notes Patient's information available about PMH, Shx, Fhx allergy reviewed inEMR. ROS as per chart and RN report Now in ICU, hemodynamically stable Video assessment done using teleICU camera, rest of exam as per RN Discussed with RN. Consultants: Hospital course: () 89/M- NH, Febrile, UTI, CHF, overloaded, just d/c 2 days prior from Hosp. s/p chf fluid overloaded req 2 L nc. Dementia, DNR. A/P Hypotensive , borderline - suspected due to infection - diuretics s on hold , lactaate normalized , BNP elevated - follow closely Encephalopathy - with h/o dementia - check ABG Hypoxia - on 2 l - cxr not changed - follwo - started on ABX for possible aspiration PNA Anemia - hb 10 - stable superficial venous thrombosis in the left cephalic vein Dysphagia - 06/28 Honey thickened liquids, dysphagia diet - NPO now - re-eval whem mental status better CoviD May 2022 - still + on testing Lines : periph , (Central Line Necessity Reviewed) Aguilar: aguilar , replaced in ER 06/30 OG: Nutrition: Analgesia: Anxiety/ delirium VTE Prophylaxis: scd Stress Ulcer Prophylaxis: Plans in collaboration with bedside consultants and IM MDs. Discussed with RN to reach out if any questions or concerns A total of 31 minutes of critical care time was devoted to this patient today, required to treat and/or prevent further deterioration of critical care condition ( as above ) . Allergies and Home Medications Allergies Coded Allergies: No Known Drug Allergies (Unverified , 06/08/20) Home Medications Aspirin 81 Mg Tablet.dr, 81 MG PO DAILY, (Reported) Cefdinir 300 Mg Capsule, 300 MG PO BID Prescribed by: ARNAV SINGER on 06/28/22 1028 Diltiazem HCl 240 Mg Capsule.er, 240 MG PO DAILY, (Reported) Furosemide 40 Mg Tablet, 40 MG PO DAILY, (Reported) Insulin Aspart 100 Unit/Ml (3 Ml) Solution, 2 UNITS SC AC, (Reported) Insulin Glargine,Hum.rec.anlog 100 Unit/Ml (3 Ml) Insuln.pen, 10 UNIT SQ HS, (Reported) Lisinopril 20 Mg Tablet, 20 MG PO DAILY, (Reported) Metformin HCl 500 Mg Tablet, 1,000 MG PO BID WITH MEALS, (Reported) TAKES 2 (500MG) TABS Tamsulosin HCl 0.4 Mg Cap, 0.4 MG PO DAILY, (Reported) Trazodone HCl 50 Mg Tablet, 50 MG PO HS, (Reported) Past Medical/Social/Family Hx Patient Social History Tobacco Use?: No Use of E-Cig and/or Vaping dev: No Substance use?: No Immunizations Up To Date Tetanus Booster (TDap): Unknown Current Status Advance Directives: No Primary Language: Australian Preferred Spoken Language: Australian Past Medical History Paroxysmal Atrial Fibrillation Primary Hypertension Pulmonary Hypertension Dementia Review of Systems Constitutional: see HPI Focused Exam Lactate Level 06/30/22 21:14: Lactic Acid Level 2.78*H 07/01/22 07:48: Lactic Acid Level 1.50 Height, Weight, BMI Height: '" Weight: lbs. oz. kg; 25.00 BMI Method:Actual Lactic Acid Level Laboratory Tests Test 07/01/22 07:48 Lactic Acid Level 1.50 MMOL/L (0.50-2.00) Exam Exam Patient acknowledged, consented, and participated in this virtual visit which w as conducted using real time audio/video Vital Signs Date Time Temp Pulse Resp B/P (MAP) Pulse Ox O2 Delivery O2 Flow Rate FiO2 07/01/22 10:00 98 79/59 (66) 93 Nasal Cannula 2.00 07/01/22 09:00 86 99/46 (63) 92 Nasal Cannula 2.00 07/01/22 08:00 83 105/55 (72) 90 Nasal Cannula 2.00 07/01/22 08:00 Nasal Cannula 2.00 07/01/22 08:00 37.0 07/01/22 07:47 90 07/01/22 07:00 90 112/77 (89) 92 Nasal Cannula 2.00 07/01/22 06:00 81 107/60 (76) 92 Nasal Cannula 2.00 07/01/22 05:31 37.2 07/01/22 05:00 86 77/49 (58) 91 Nasal Cannula 2.00 07/01/22 04:06 Nasal Cannula 2.00 07/01/22 04:00 80 95/52 (66) 94 Nasal Cannula 2.00 07/01/22 03:00 84 96/54 (68) 94 Nasal Cannula 2.00 07/01/22 02:02 Nasal Cannula 2.00 07/01/22 02:00 85 25 124/87 (99) 93 Nasal Cannula 2.00 07/01/22 01:30 76 25 98/59 (72) 96 Nasal Cannula 2.00 07/01/22 01:00 81 07/01/22 01:00 81 25 106/61 (76) 95 Nasal Cannula 2.00 07/01/22 00:45 73 22 105/63 (77) 95 Nasal Cannula 2.00 07/01/22 00:45 Nasal Cannula 2.00 07/01/22 00:30 80 20 97/65 (76) 94 Nasal Cannula 2.00 07/01/22 00:15 81 22 93/70 (78) 94 Nasal Cannula 2.00 07/01/22 00:00 36.8 88 25 96/59 (71) 96 Nasal Cannula 2.00 06/30/22 23:55 90 06/30/22 23:01 37.5 89 20 94/76 94 Room Air 06/30/22 21:19 38.4 98 22 106/57 (73) 91 Nasal Cannula 06/30/22 21:19 Nasal Cannula 2.00 I & O 07/01/22 07:00 Intake Total 1600 ml Output Total 1600 ml Balance 0 ml Height & Weight Height: '" Weight: lbs. oz. kg; 25.00 BMI Method:Actual General Appearance: No Apparent Distress Capillary Refill: Less Than 3 Seconds Gastrointestinal: non tender, soft Results Lab Laboratory Tests 06/30/22 21:14 07/01/22 04:45 Assessment/Plan Assessment/Plan 1 RUBEN QUIÑONES MD Jul 01, 2022 11:08
[2022-07-01] MEDS: D5 LR IV SOLUTION 1,000 ML IV SCH ×2 (12:20→18:54)
[2022-07-01] MEDS: inSUlin ASPART (NovoLOG) 1 UNIT/0.01 ML (CHARGE PER UNIT) SC SCH ×3 (12:22→23:51)
--- NOTE | 2022-07-01 13:02 | Consultation - Surgery ---
History of Present Illness History of Present Illness Patient Consulted On(shalom/time) 07/01/22 12:57 Time Seen by Provider: 11:42 History of Present Illness Surgery asked to consult regarding Venous insufficiency and need for Central line. HPI per ED: Patient is a 89 yo male with h/o dementia [facility] patient released [facility] two days ago who presents with shortness of breath at [facility]. Patient's O2 sats were upper 80's, patient requiring 2 Ls. No prior O2 requirement. Timing/Duration: just prior to arrival Severity: moderate Modifying Factors: Improves With Oxygen Associated Symptoms: other Pt is non-communicative and no family at bedside, all information gleaned from chart. Allergies and Home Medications Allergies Coded Allergies: No Known Drug Allergies (Unverified , 06/08/20) Patient Home Medication List Home Medication List Reviewed: Yes Aspirin (Aspirin EC) 81 Mg Tablet.dr, 81 MG PO DAILY, (Reported) Entered as Reported by: OLINDA JIMENEZ on 06/26/22 115 Cefdinir (Cefdinir) 300 Mg Capsule, 300 MG PO BID Prescribed by: ARNAV SINGER on 06/28/22 1028 Diltiazem HCl (Diltiazem ER) 240 Mg Capsule.er, 240 MG PO DAILY, (Reported) Entered as Reported by: OLINDA JIMENEZ on 06/26/22 115 Furosemide (Furosemide) 40 Mg Tablet, 40 MG PO DAILY, (Reported) Entered as Reported by: OLINDA JIMENEZ on 07/06/21 141 Insulin Aspart (Novolog Flexpen) 100 Unit/Ml (3 Ml) Solution, 2 UNITS SC AC, (Reported) Entered as Reported by: OLINDA JIMENEZ on 07/06/21 141 Insulin Glargine,Hum.rec.anlog (Lantus Solostar) 100 Unit/Ml (3 Ml) Insuln.pen, 10 UNIT SQ HS, (Reported) Entered as Reported by: OLINDA JIMENEZ on 07/06/21 141 Lisinopril (Lisinopril) 20 Mg Tablet, 20 MG PO DAILY, (Reported) Entered as Reported by: OLINDA JIMENEZ on 06/26/22 1152 Metformin HCl (Metformin HCl) 500 Mg Tablet, 1,000 MG PO BID WITH MEALS, (Reported) Entered as Reported by: OLINDA JIMENEZ on 07/06/21 1411 Tamsulosin HCl (Flomax) 0.4 Mg Cap, 0.4 MG PO DAILY, (Reported) Entered as Reported by: OLINDA JIMENEZ on 07/06/21 1412 Trazodone HCl (Trazodone HCl) 50 Mg Tablet, 50 MG PO HS, (Reported) Entered as Reported by: OLINDA JIMENEZ on 07/06/21 1411 Discontinued Medications Apixaban (Eliquis) 5 Mg Tablet, 5 MG PO BID Discontinued Reason: No Longer Taking Prescribed by: RETA AMARAL on 07/11/21 1335 Diltiazem HCl (Cardizem Cd) 120 Mg Cap.er.24h, 120 MG PO DAILY, (Reported) Discontinued Reason: Duplicate Order Entered as Reported by: OLINDA JIMENEZ on 07/06/21 1411 Lisinopril (Lisinopril) 20 Mg Tablet, 20 MG PO DAILY Discontinued Reason: Duplicate Order Prescribed by: RETA AMARAL on 07/11/21 1335 Past Iyzqukl-Tgftgk-Blqnif Hx Patient Social History 2nd Hand Smoke Exposure: No Recent Hopitalizations: No Have you traveled recently?: No Seasonal Allergies Seasonal Allergies: No Surgeries History of Surgeries: No Respiratory History of Respiratory Disorde: No Cardiovascular History of Cardiac Disorders: Yes Cardiac Disorders: Hypertension Neurological History of Neurological Disord: No Genitourinary History of Genitourinary Disor: No Gastrointestinal History of Gastrointestinal Di: No Musculoskeletal History of Musculoskeletal Dis: No Endocrine History of Endocrine Disorders: Yes Endocrine Disorders: Diabetes, Non-Insulin dep HEENT History of HEENT Disorders: No Cancer History of Cancer: Yes Cancer: Bladder Psychosocial History of Psychiatric Problem: No Integumentary History of Skin or Integumenta: No Blood Transfusions History of Blood Disorders: No Family Medical History Significant Family History: Other Conditions/Hx (unable to determine) Review of Systems-General ROS-Unable to Obtain: pt non communicative Physical Exam-General Problems Physical Exam Vital Signs Vital Signs - First Documented 06/30/22 21:19 Temp 38.4 Pulse 98 Resp 22 B/P (MAP) 106/57 (73) Pulse Ox 91 O2 Delivery Nasal Cannula O2 Flow Rate 2.00 Capillary Refill : Less Than 3 Seconds General Appearance: WD/WN, mild distress HEENT: pharynx normal; No scleral icterus (R), No scleral icterus (L) Respiratory: no respiratory distress, no accessory muscle use, decreased breath sounds Cardiovascular: regular rate, rhythm, no murmur Gastrointestinal: soft, no organomegaly Extremities: pedal edema, other (arms are swollen with ecchymosis in hands and forearms) Data Review Labs Laboratory Tests 06/30/22 21:14: White Blood Count 13.2H, Red Blood Count 3.79L, Hemoglobin 11.5L, Hematocrit 36L , Mean Corpuscular Volume 94, Mean Corpuscular Hemoglobin 30, Mean Corpuscular Hemoglobin Concent 32, Red Cell Distribution Width 15.0H, Platelet Count 243, Mean Platelet Volume 10.9, Immature Granulocyte % (Auto) 0, Neutrophils (%) (Auto) 80H, Lymphocytes (%) (Auto) 13, Monocytes (%) (Auto) 5, Eosinophils (%) (Auto) 2, Basophils (%) (Auto) 0, Neutrophils # (Auto) 10.5H, Lymphocytes # (Auto) 1.7, Monocytes # (Auto) 0.7, Eosinophils # (Auto) 0.2, Basophils # (Auto) 0.0, Immature Granulocyte # (Auto) 0.1, Sodium Level 145, Potassium Level 4.4, Chloride Level 111H, Carbon Dioxide Level 24, Anion Gap 10, Blood Urea Nitrogen 29H, Creatinine 1.48H, Estimat Glomerular Filtration Rate 45, BUN/Creatinine Ratio 20, Glucose Level 206H, Lactic Acid Level 2.78*H, Calcium Level 8.5, Corrected Calcium 9.1, Total Bilirubin 0.2, Aspartate Amino Transf (AST/SGOT) 21 , Alanine Aminotransferase (ALT/SGPT) 18, Alkaline Phosphatase 87, Troponin I < 0.30, Pro-B-Type Natriuretic Peptide 2185.0H, Total Protein 5.8L, Albumin 3.2 06/30/22 21:22: Urine Color YELLOW, Urine Clarity CLEAR, Urine pH 5.5, Urine Specific [place] 1.025H, Urine Protein NEGATIVE, Urine Glucose (UA) NEGATIVE, Urine Ketones NEGATIVE, Urine Nitrite NEGATIVE, Urine Bilirubin NEGATIVE, Urine Urobilinogen 0.2, Urine Leukocyte Esterase TRACEH, Urine RBC (Auto) NEGATIVE, Urine RBC 10- 25H, Urine WBC 25-50H, Urine Crystals NONE, Urine Bacteria FEWH, Urine Casts PRESENT, Urine Hyaline Casts 10-25H, Urine Mucus NEGATIVE, Urine Culture Indicated YES, Influenza Type A (RT-PCR) Not Detected, Influenza Type B (RT-PCR) Not Detected, SARS-CoV-2 RNA (RT-PCR) DetectedH 07/01/22 04:45: White Blood Count 15.0H, Red Blood Count 3.40L, Hemoglobin 10.3L, Hematocrit 33L , Mean Corpuscular Volume 96, Mean Corpuscular Hemoglobin 30, Mean Corpuscular Hemoglobin Concent 32, Red Cell Distribution Width 15.1H, Platelet Count 234, Mean Platelet Volume 11.1, Immature Granulocyte % (Auto) 1, Neutrophils (%) (Auto) 79H, Lymphocytes (%) (Auto) 12, Monocytes (%) (Auto) 7, Eosinophils (%) (Auto) 2, Basophils (%) (Auto) 0, Neutrophils # (Auto) 11.8H, Lymphocytes # (Auto) 1.8, Monocytes # (Auto) 1.0, Eosinophils # (Auto) 0.2, Basophils # (Auto) 0.1, Immature Granulocyte # (Auto) 0.1, Sodium Level 149H, Potassium Level 4.1, Chloride Level 113H, Carbon Dioxide Level 24, Anion Gap 12, Blood Urea Nitrogen 29H, Creatinine 1.37H, Estimat Glomerular Filtration Rate 49, BUN/Creatinine Ratio 21, Glucose Level 107H, Calcium Level 8.4L, Corrected Calcium 9.4, Total Bilirubin 0.4, Aspartate Amino Transf (AST/SGOT) 25, Alanine Aminotransferase (ALT/SGPT) 25, Alkaline Phosphatase 72, Total Protein 5.4L, Albumin 2.8L, Neutro phils % (Manual) 75, Lymphocytes % (Manual) 17, Monocytes % (Manual) 5, Eosinophils % (Manual) 3, Blood Morphology Comment NORMAL, Phosphorus Level 3.7, Magnesium Level 1.6, B-Type Natriuretic Peptide 151.1H 07/01/22 07:48: Lactic Acid Level 1.50 07/01/22 12:15: Glucometer 96 Assessment/Plan Assessment/Plan Assessment/Plan Hypotensive , borderline - suspected due to infection - diuretics s on hold , lactaate normalized , BNP elevated - follow closely Encephalopathy - with h/o dementia - check ABG Hypotension Hypoxia Anemia Dysphagia CoviD May 2022 - still + on testing Pt has poor prognosis, family wants everything done and will place central line for Hypotension and Venous insufficiency; also in case of need for pressors. MICHAELLE TREJO DO Jul 01, 2022 13:02
--- NOTE | 2022-07-01 13:05 | Progress Note-Post Operative ---
Post-Operative Progess Note Surgeon (s)/Medical Concierge (s) Surgeon MICHAELLE TREJO DO Medical Concierge: none Pre-Operative Diagnosis Hypotension, Venous insufficiency Post-Operative Diagnosis same Procedure & Operative Findings Date of Procedure 07/01/22 Procedure Performed/Findings The patient was in their bed in the ICU, was prepped and draped in the sterile fashion. A surgical pause was performed. Ultrasound was used to locate the internal jugular vein. Once located anesthetic was infiltrated above it. Using an 18 gauge finder needle and watching with the US; the left internal jugular vein was accessed. Dark nonpulsatile blood was withdrawn. The wire was inserted. US assured proper placement. The needle was removed. A [#11] blade scalpel was used to make a stab incision along the guidewire. Dilator sheath was then advanced over the wire using Seldinger technique and the dilator was removed. The Groshong catheter was inserted over the guide wire using the Seldinger technique. The Groshong wire was removed. The catheter was then accessed in all three ports without difficulty. Good flash of blood was seen and it was then flushed with saline. The catheter was sutured in place with 3-0 silk on a bassem needle. The areas were then washed and dried. Sterile dressing was placed over incision. The patient tolerated the procedure well without complication. Anesthesia Type local lidocaine Estimated Blood Loss Estimated blood loss (mL): scant Specimens/Packing Specimens Removed none MICHAELLE TREJO DO Jul 01, 2022 13:05
[2022-07-01] MEDS ORDERED: NS IV 1000 ML 1,000 ML ONE (17:41)
[2022-07-01 18:29] LABS: POTASSIUM 3.7 MMOL/L (3.6-5.0)
[2022-07-01 18:30] LABS: CALCIUM 8.4 MG/DL (8.5-10.1)
[2022-07-01 18:35] LABS: CREATININE SERUM 1.15 MG/DL (0.60-1.30)
[2022-07-02] MEDS: PIPERACILLIN SODIUM/TAZOBACTAM 4.5 GM in NS (IVPB) 100 ML IV SCH ×3 (03:22→19:03)
[2022-07-02] MEDS: D5 LR IV SOLUTION 1,000 ML IV SCH (04:24)
[2022-07-02] MEDS: CATHETER FLUSH 10 ML SYR IVP SCH ×3 (04:25→21:17)
[2022-07-02] MEDS: inSUlin ASPART (NovoLOG) 1 UNIT/0.01 ML (CHARGE PER UNIT) SC SCH (05:20)
[2022-07-02 05:27] LABS: BASOPHILS # (AUTO) 0.1 10^3/uL (0.0-0.1); BASOPHILS % (AUTO) 1 % (0-10); EOSINOPHILS # (AUTO) 0.3 10^3/uL (0.0-0.3); EOSINOPHILS % (AUTO) 3 % (0-10); HEMATOCRIT 31 % (40-54); HEMOGLOBIN 9.6 g/dL (13.3-17.7); LYMPHOCYTES # (AUTO) 1.3 10^3/uL (1.0-4.0); LYMPHOCYTES % (AUTO) 13 % (12-44); MEAN CORPUSCULAR HEMOGLOBIN 30 pg (25-34); MEAN CORPUSCULAR HGB CONC 31 g/dL (32-36); MEAN CORPUSCULAR VOLUME 96 fL (80-99); MEAN PLATELET VOLUME 11.1 fL (9.0-12.2); MONOCYTES # (AUTO) 0.6 10^3/uL (0.0-1.0); MONOCYTES % (AUTO) 6 % (0-12); NEUTROPHILS # (AUTO) 7.7 10^3/uL (1.8-7.8); NEUTROPHILS % (AUTO) 78 % (42-75); PLATELET COUNT 182 10^3/uL (130-400)
[2022-07-02 05:36] LABS: ALBUMIN 2.9 GM/DL (3.2-4.5); POTASSIUM 3.8 MMOL/L (3.6-5.0)
[2022-07-02 05:37] LABS: CALCIUM 8.5 MG/DL (8.5-10.1)
[2022-07-02 05:39] LABS: TOTAL PROTEIN 5.1 GM/DL (6.4-8.2)
[2022-07-02 05:40] LABS: BILIRUBIN,TOTAL 0.6 MG/DL (0.1-1.0)
[2022-07-02 05:42] LABS: CREATININE SERUM 0.97 MG/DL (0.60-1.30); PHOSPHORUS 2.8 MG/DL (2.3-4.7)
[2022-07-02 05:46] LABS: MAGNESIUM 1.6 MG/DL (1.6-2.4)
[2022-07-02] MEDS ORDERED: NS IV 500 ML 500 ML IV PRN (06:45)
--- NOTE | 2022-07-02 07:04 | Progress Note - Hospitalist ---
Subjective HPI/CC On Admission Date Seen by Provider: Jul 02, 2022 Time Seen by Provider: 10:00 CC: Acute respiratory failure HPI: This is an 89yoWM who presented to the ICU following an ER visit in [facility] last last night who was dx with PNA and AECHF requiring ICU admit. IV abx maintained and Dr Pena consulted for CHF. Patient is normally mostly aphasic and has severe dementia baseline. COVID swab was positive and he had COVD 3 weeks ago when I [place] [facility] [place]. Updated at her request and explained that he had poor reserve and it will be a challenge to overcome this illness and survive but she wanted aggressive care to continue. Patient needed a central line placed due to poor venous access. Subjective/Events-last exam Patient remains stable Prognosis poor No pain appearance Semi-comatose Review of Systems General: Fatigue, Malaise Focused Exam Lactate Level 06/30/22 21:14: Lactic Acid Level 2.78*H 07/01/22 07:48: Lactic Acid Level 1.50 Objective Exam Vital Signs Vital Signs Date Time Temp Pulse Resp B/P (MAP) Pulse Ox O2 Delivery O2 Flow Rate FiO2 07/02/22 16:59 97 Nasal Cannula 2.00 07/02/22 16:23 36.1 93 16 101/65 (77) Capillary Refill : Less Than 3 Seconds General Appearance: No Apparent Distress, WD/WN, Chronically ill Respiratory: Lungs Clear, Decreased Breath Sounds Cardiovascular: Regular Rate, Rhythm Neurologic/Psychiatric: Disoriented, Other (semicomatose) Results/Procedures Lab Laboratory Tests 07/02/22 05:15 Patient resulted labs reviewed. Assessment/Plan Assessment and Plan Assess & Plan/Chief Complaint Assessment: PNA CHF COVID Profound dementia Aphasia baseline CHA Volume overload Poor venous access Plan: Monitor closely DNR Comatose Diagnosis/Problems Diagnosis/Problems (1) COVID-19 Status: Acute (2) CHF exacerbation Status: Acute (3) Generalized weakness Status: Chronic (4) Altered mental status Status: Acute (5) Paroxysmal atrial fibrillation Status: Chronic (6) Pulmonary hypertension (7) Primary hypertension Status: Chronic SERENITY BAUTISTA DO Jul 02, 2022 07:04
[2022-07-02] MEDS: MAGNESIUM 1 GM/100 ML IVPB 100 ML IV SCH ×2 (07:58→07:59)
[2022-07-02] MEDS ORDERED: TROUGH ORDER-PHARMACY XX NR (08:00)
--- NOTE | 2022-07-02 08:52 | Consultation-Cardiology ---
HPI-Cardiology Cardiology Consultation: Date of Consultation 07/02/22 Date of Admission 06/30/22 Attending Physician Cecilio Cam MD Admitting Physician Admitting Physician: Ellen Valdivia DO Attending Physician: Ellen Valdivia DO Consulting Physician DEBORAH CALDWELL JR, MD HPI: Time Seen by a Provider: 08:47 Chief Complaint: REASON FOR CONSULTATION: Abnormal BNP level. I had the pleasure of evaluating Christopher in the intensive care unit at [facility] in [place], [place] today. He was admitted to the hospital due to shortness of breath and subsequently found to have COVID infection. He also has severe memory loss and cannot provide his own history. He has been residing at [facility]. I have obtained the majority of the history from the medical records and his nurse due to his memory loss and I also did not enter his room due to his COVID infection. He had just been recently discharged from the hospital last week and then became more short of breath at the intermediate facility and was brought to the emergency room. He was subsequently found to have COVID positivity and also an elevated BNP level. A cardiology consultation was subsequently requested. Certain portions of this document may have been dictated utilizing voice recognition technology. Inherent to this technology, typographical and grammatical errors may exist. As much as I am diligent to identify and correct these mistakes, some errors may remain in the document. Review of Systems-Cardiology Review of Systems Other comments Not obtainable due to the patient's memory loss. All Other Systems Reviewed Negative Unless Noted: No JDK-Jyxajz-Xtyzju Hx Patient Social History Marrital Status: Employed/Student: retired Smoking Status: Unknown if Ever Smoked 2nd Hand Smoke Exposure: No Have you traveled recently?: No Past Medical History PMH As described under Assessment. Family Medical History Family Medical History: The patient's does not know of any family history of premature coronary artery disease. Allergies and Home Medications Allergies Coded Allergies: No Known Drug Allergies (Unverified , 06/08/20) Patient Home Medication List Home Medication List Reviewed: Yes Aspirin (Aspirin EC) 81 Mg Tablet.dr, 81 MG PO DAILY, (Reported) Entered as Reported by: OLINDA JIMENEZ on 06/26/22 1152 Cefdinir (Cefdinir) 300 Mg Capsule, 300 MG PO BID Prescribed by: ARNAV SINGER on 06/28/22 1028 Diltiazem HCl (Diltiazem ER) 240 Mg Capsule.er, 240 MG PO DAILY, (Reported) Entered as Reported by: OLINDA JIMENEZ on 06/26/22 115 Furosemide (Furosemide) 40 Mg Tablet, 40 MG PO DAILY, (Reported) Entered as Reported by: OLINDA JIMENEZ on 07/06/211410 Insulin Aspart (Novolog Flexpen) 100 Unit/Ml (3 Ml) Solution, 2 UNITS SC AC, (R eported) Entered as Reported by: OLINDA JIMENEZ on 07/06/211410 Insulin Glargine,Hum.rec.anlog (Lantus Solostar) 100 Unit/Ml (3 Ml) Insuln.pen, 10 UNIT SQ HS, (Reported) Entered as Reported by: OLINDA JIMENEZ on 07/06/211410 Lisinopril (Lisinopril) 20 Mg Tablet, 20 MG PO DAILY, (Reported) Entered as Reported by: OLINDA JIMENEZ on 06/26/22 115 Metformin HCl (Metformin HCl) 500 Mg Tablet, 1,000 MG PO BID WITH MEALS, (Reported) Entered as Reported by: OLINDA JIMENEZ on 07/06/211410 Tamsulosin HCl (Flomax) 0.4 Mg Cap, 0.4 MG PO DAILY, (Reported) Entered as Reported by: OLINDA JIMENEZ on 07/06/211411 Trazodone HCl (Trazodone HCl) 50 Mg Tablet, 50 MG PO HS, (Reported) Entered as Reported by: OLINDA JIMENEZ on 07/06/211410 Discontinued Medications Apixaban (Eliquis) 5 Mg Tablet, 5 MG PO BID Discontinued Reason: No Longer Taking Prescribed by: RETA AMARAL on 07/11/21 133 Diltiazem HCl (Cardizem Cd) 120 Mg Cap.er.24h, 120 MG PO DAILY, (Reported) Discontinued Reason: Duplicate Order Entered as Reported by: OLINDA JIMENEZ on 07/06/211410 Lisinopril (Lisinopril) 20 Mg Tablet, 20 MG PO DAILY Discontinued Reason: Duplicate Order Prescribed by: RETA AMARAL on 07/11/21 133 Exam Vital Signs Vital Signs Date Time Temp Pulse Resp B/P (MAP) Pulse Ox O2 Delivery O2 Flow Rate FiO2 07/02/22 08:00 75 23 114/69 (84) 98 Nasal Cannula 2.00 07/02/22 03:27 36.9 Physical Exam Due to the patient's COVID status, I spoke with the patient from the doorway but he could not provide any history as noted above. General: The patient is not on a ventilator. HENT: Normocephalic. Atraumatic. Skin: There is no pallor. Neurologic: Oriented to person only. Cranial nerves III through XII grossly intact. Moving all 4 extremities. Psychiatric: Appears cooperative. Labs Laboratory Tests Test 07/01/22 12:15 07/01/22 13:21 07/01/22 17:43 07/01/22 18:03 Range/Units Glucometer 96 111 H 70-110 MG/DL Bedside Blood Gas pH (LAB) 7.329 7.310-7.410 Bedside Blood Gas pCO2 (LAB) 47.9 41.0-51.0 mmHg Bedside Blood Gas pO2 (LAB) 73 L 80-105 mmHg Bedside Blood Gas HCO3 (LAB) 25.2 23.0-28.0 mmol/L POC Blood Gas Total CO2 Calc 27 24-29 mmol/L Bedside Bl Gas O2 Saturation (Calc) 93 L 95-98 % Bedside Arterial Blood Base Excess -1 -2-3 mmol/L Sodium Level 150 H 135-145 MMOL/L Potassium Level 3.7 3.6-5.0 MMOL/L Chloride Level 112 H 98-107 MMOL/L Carbon Dioxide Level 26 21-32 MMOL/L Anion Gap 12 5-14 MMOL/L Blood Urea Nitrogen 25 H 7-18 MG/DL Creatinine 1.15 0.60-1.30 MG/DL Estimat Glomerular Filtration Rate 61 BUN/Creatinine Ratio 22 Glucose Level 120 H 70-105 MG/DL Calcium Level 8.4 L 8.5-10.1 MG/DL Test 07/01/22 23:50 07/02/22 05:15 07/02/22 05:16 07/02/22 08:20 Range/Units Glucometer 146 H 159 H 70-110 MG/DL White Blood Count 10.0 4.3-11.0 10^3/uL Red Blood Count 3.19 L 4.30-5.52 10^6/uL Hemoglobin 9.6 L 13.3-17.7 g/dL Hematocrit 31 L 40-54 % Mean Corpuscular Volume 96 80-99 fL Mean Corpuscular Hemoglobin 30 25-34 pg Mean Corpuscular Hemoglobin Concent 31 L 32-36 g/dL Red Cell Distribution Width 14.9 H 10.0-14.5 % Platelet Count 182 130-400 10^3/uL Mean Platelet Volume 11.1 9.0-12.2 fL Immature Granulocyte % (Auto) 0 % Neutrophils (%) (Auto) 78 H 42-75 % Lymphocytes (%) (Auto) 13 12-44 % Monocytes (%) (Auto) 6 0-12 % Eosinophils (%) (Auto) 3 0-10 % Basophils (%) (Auto) 1 0-10 % Neutrophils # (Auto) 7.7 1.8-7.8 10^3/uL Lymphocytes # (Auto) 1.3 1.0-4.0 10^3/uL Monocytes # (Auto) 0.6 0.0-1.0 10^3/uL Eosinophils # (Auto) 0.3 0.0-0.3 10^3/uL Basophils # (Auto) 0.1 0.0-0.1 10^3/uL Immature Granulocyte # (Auto) 0.0 0.0-0.1 10^3/uL Sodium Level 149 H 135-145 MMOL/L Potassium Level 3.8 3.6-5.0 MMOL/L Chloride Level 116 H 98-107 MMOL/L Carbon Dioxide Level 23 21-32 MMOL/L Anion Gap 10 5-14 MMOL/L Blood Urea Nitrogen 23 H 7-18 MG/DL Creatinine 0.97 0.60-1.30 MG/DL Estimat Glomerular Filtration Rate 75 BUN/Creatinine Ratio 24 Glucose Level 160 H 70-105 MG/DL Calcium Level 8.5 8.5-10.1 MG/DL Corrected Calcium 9.4 8.5-10.1 MG/DL Phosphorus Level 2.8 2.3-4.7 MG/DL Magnesium Level 1.6 1.6-2.4 MG/DL Total Bilirubin 0.6 0.1-1.0 MG/DL Aspartate Amino Transf (AST/SGOT) 24 5-34 U/L Alanine Aminotransferase (ALT/SGPT) 22 0-55 U/L Alkaline Phosphatase 61 40-136 U/L Total Protein 5.1 L 6.4-8.2 GM/DL Albumin 2.9 L 3.2-4.5 GM/DL Vancomycin Level Trough 9.2 L 10.0-20.0 UG/ML ECG Impression ECG Comment Electrocardiogram from the emergency room on 06/30 shows atrial fibrillation with a ventricular rate of 85 bpm with left anterior hemiblock, right bundle branch block, possible old anteroseptal myocardial infarction and diffuse, nonspecific ST-T wave changes. His guard sergeant this morning shows sinus rhythm. Diagnosis/Problems Diagnosis/Problems (1) Elevated brain natriuretic peptide (BNP) level Assessment & Plan: He has a mildly elevated BNP level. An elevated BNP level does not always signify heart failure as there are a number of other things that cause elevation of the BNP level including atrial fibrillation which this patient is known to have. Furthermore, he appears to have acute infection with COVID which can also cause elevation of the BNP level. His chest x-ray did not show any pulmonary edema. He has also had an intermittently elevated creatinine level which can also cause elevation of the BNP level. I do not believe this patient has heart failure at this time. (2) Persistent atrial fibrillation Assessment & Plan: He continues to go in and out of atrial fibrillation. He had been on diltiazem at the intermediate facility but this is presently on hold due to COVID infection with intermittent hypotension. I had previously prescribed apixaban which did not profile on his medication list from the intermediate facility. I have asked the nurse to check with the intermediate facility to see whether or not he has been taking this. Once his blood pressure improves, I will consider restarting low-dose diltiazem. (3) Pulmonary hypertension Assessment & Plan: His previous echocardiogram showed moderate pulmonary hypertension. We will just follow this longitudinally. Given his comorbid conditions and advanced age, I do not recommend an extensive evaluation for secondary causes of pulmonary hypertension as this would be unlikely to change his overall long-term prognosis. (4) Primary hypertension Status: Chronic Assessment & Plan: It appears as though he had been on diltiazem and lisinopril as an outpatient and both of these are currently on hold due to intermittently low blood pressures. (5) Acute kidney injury Onset Date: ~ 06/26/2021 Status: Acute Assessment & Plan: His creatinine continues to go up and down. He has been receiving intravenous furosemide which may be worsening the situation. I will stop the furosemide. We will need to watch his renal function closely. (6) Memory loss Assessment & Plan: His was previously adamant that he does not have dementia as noted by an evaluation at the [facility] in the past. However, he does clearly have significant memory loss and we need to keep this in mind in regards to future treatment goals. DEBORAH CALDWELL JR, MD Jul 02, 2022 08:52
--- NOTE | 2022-07-02 09:11 | Wound Care Assessment ---
Wound Care Assessment Date Seen by Provider: Jul 02, 2022 Time Seen by Provider: 09:00 Chief Complaint Pressure sores of bilateral heels ANTHONY White is a 89yo M with a past medical history of CHF, diabetes, and severe dementia. He was admitted to [facility] [place] weeks ago and was diagnosed with COVID. He was seen at [facility] last night for difficulty breathing and was admitted for worsening symptoms of CHF and pneumonia. Patient was resting in bed comfortably during the interview. He was easily awakened but would not respond to any questions. Patient is a very poor historian due to aphasia and dementia. Patient did not act as if he was in any pain or had tenderness during the exam. Stable eschars to bilateral heels. Past Medical History: Admits Diabetes Type II, Admits Heart Disease congestive heart failure, pneumonia, severe dementia, and aphasia Smoking Status: Unknown if Ever Smoked Other Social Hx [facility] a jail Review of Systems Other systems Unable to obtain a review of systems due to aphasia and dementia Exam Vital Signs Date Time Temp Pulse Resp B/P (MAP) Pulse Ox O2 Delivery O2 Flow Rate FiO2 07/02/22 08:00 75 23 114/69 (84) 98 Nasal Cannula 2.00 07/02/22 03:27 36.9 Capillary Refill : Less Than 3 Seconds General Appearance: no apparent distress, cachetic, thin HEENT: PERRL/EOMI, other (Central line in place on left side of neck) Neck: full range of motion, supple Cardiovascular: regular rate, rhythm, no edema, no gallop, no JVD, no murmur Respiratory: normal breath sounds, no respiratory distress (On 2L of oxygen via nasal cannula) Gastrointestinal: non tender, soft Extremities: non-tender, no pedal edema, normal capillary refill Neurologic/Psychiatric: aphasia (Patient was unable to follow one step commands and was not able to respond to anything I said), depressed affect, disoriented x 3 Skin: cool, pallor Skin Problem Location: lower extremities, other (Hips) Right heel: Wound measures 1.8x2.5x.2 with no tunneling or undermining. No exudate seen, flat margin, eschar covers the wound and is unstageable. Left heel: Wound measures1.2x1.9x.1 with no tunneling or undermining. No exudate seen, flat margin, eschar covers the wound and is unstageable. Results Laboratory Tests 07/01/22 12:15: Glucometer 96 07/01/22 13:21: Bedside Blood Gas pH (LAB) 7.329, Bedside Blood Gas pCO2 (LAB) 47.9, Bedside Blood Gas pO2 (LAB) 73L, Bedside Blood Gas HCO3 (LAB) 25.2, POC Blood Gas Total CO2 Calc 27, Bedside Bl Gas O2 Saturation (Calc) 93L, Bedside Arterial Blood Base Excess -1 07/01/22 17:43: Glucometer 111H 07/01/22 18:03: Sodium Level 150H, Potassium Level 3.7, Chloride Level 112H, Carbon Dioxide Level 26, Anion Gap 12, Blood Urea Nitrogen 25H, Creatinine 1.15, Estimat Glomerular Filtration Rate 61, BUN/Creatinine Ratio 22, Glucose Level 120H, Calcium Level 8.4L 07/01/22 23:50: Glucometer 146H 07/02/22 05:15: White Blood Count 10.0, Red Blood Count 3.19L, Hemoglobin 9.6L, Hematocrit 31L, Mean Corpuscular Volume 96, Mean Corpuscular Hemoglobin 30, Mean Corpuscular Hemoglobin Concent 31L, Red Cell Distribution Width 14.9H, Platelet Count 182, Mean Platelet Volume 11.1, Immature Granulocyte % (Auto) 0, Neutrophils (%) (Auto) 78H, Lymphocytes (%) (Auto) 13, Monocytes (%) (Auto) 6, Eosinophils (%) (Auto) 3, Basophils (%) (Auto) 1, Neutrophils # (Auto) 7.7, Lymphocytes # (Auto) 1.3, Monocytes # (Auto) 0.6, Eosinophils # (Auto) 0.3, Basophils # (Auto) 0.1, Immature Granulocyte # (Auto) 0.0, Sodium Level 149H, Potassium Level 3.8, Chloride Level 116H, Carbon Dioxide Level 23, Anion Gap 10, Blood Urea Nitrogen 23H, Creatinine 0.97, Estimat Glomerular Filtration Rate 75, BUN/Creatinine Ratio 24, Glucose Level 160H, Calcium Level 8.5, Corrected Calcium 9.4, Phosphorus Level 2.8, Magnesium Level 1.6, Total Bilirubin 0.6, Aspartate Amino Transf (AST/SGOT) 24, Alanine Aminotransferase (ALT/SGPT) 22, Alkaline Phosphatase 61, Total Protein 5.1L, Albumin 2.9L 07/02/22 05:16: Glucometer 159H 07/02/22 08:20: Vancomycin Level Trough 9.2L Microbiology 07/01/22 MRSA Screen - Final, Complete MRSA not isolated 06/30/22 Blood Culture - Preliminary, Resulted No growth Microbiology 07/01/22 MRSA Screen - Final, Complete MRSA not isolated 06/30/22 Blood Culture - Preliminary, Resulted No growth 06/30/22 Blood Culture - Preliminary, Resulted No growth Assessment/Plan/Dx Assessment: Pneumonia CHF Severe dementia Aphasia Unstageable Pressure ulcers b/l heels COVID CHA Plan: 1) Wounds were cleaned with betadine twice daily, air dry and cover with socks. 2) Continue the use of the Primo boots for offloading of the heels 3) Use inflated mattress and pillows for offloading of the hips 4) Abx were started yesterday for the pneumonia and are being managed by primary team, WBC was within normal limits today 5) CHF is being managed by cardiology 6) Glycemic control is important for proper wound healing and is being managed by primary team 7) CHA being managed by primary care, creatinine within normal limits today Supervisory-Addendum Brief Verification & Attestation Participated in pt care: history, physical Personally performed: exam, MDM, supervision of care Care discussed with: Medical Student Procedures: n/a Results interpretation: Verified all documentation mD TESHA Fonseca LEAH Jul 02, 2022 09:10 KAN TURNER MD Jul 02, 2022 15:13
--- NOTE | 2022-07-02 09:17 | Tele-ICU Progress Note ---
Subjective Date Seen by a Provider: Jul 02, 2022 Time Seen by a Provider: 09:16 Subjective/Events-last exam (Tele-ICU Physician , Progress Note ) Available chart/ vitals / labs / Images reviewed Video assessment done using teleICU camera, rest of exam as per RN Discussed with RN Events overnight : Afebrile hemodynamically stable Respiratory - 2l I/O = Drips: Pressors- no Consultants: Hospital course: () 89/M- NH, Febrile, UTI, CHF, overloaded, just d/c 2 days prior from Hosp. s/p chf fluid overloaded req 2 L nc. Dementia, DNR. A/P Hypotensive , borderline - suspected due to infection - diuretics s on hold , lactate normalized , BNP elevated - follow closely - received 2 doses albumin - volume status/diuretics as per cards Encephalopathy - with h/o dementia -ABG without co2 retention , no focal deficit - as per bedside Mds Hypoxia - on 2 l - cxr not changed - follwo - started on ABX for possible aspiration PNA Anemia - trending down - stable recent superficial venous thrombosis in the left cephalic vein Dysphagia - 06/28 Honey thickened liquids, dysphagia diet - NPO now - re-eval whem mental status better CoviD May 2022 - still + on testing Lines : periph , (Central Line Necessity Reviewed) Aguilar: aguilar , replaced in ER 06/30 OG: Nutrition: Analgesia: Anxiety/ delirium VTE Prophylaxis: hep sq 5K q8 Stress Ulcer Prophylaxis: h2 bl Plans in collaboration with bedside consultants and IM MDs. Discussed with RN to reach out if any questions or concerns A total of 31 minutes of critical care time was devoted to this patient today, required to treat and/or prevent further deterioration of critical care condition ( as above ) . Sepsis Event Evaluation Height, Weight, BMI Height: '" Weight: lbs. oz. kg; 24.69 BMI Method:Actual Focused Exam Lactate Level 06/30/22 21:14: Lactic Acid Level 2.78*H 07/01/22 07:48: Lactic Acid Level 1.50 Exam Exam Patient acknowledged, consented, and participated in this virtual visit which was conducted using real time audio/video Vital Signs Date Time Temp Pulse Resp B/P (MAP) Pulse Ox O2 Delivery O2 Flow Rate FiO2 07/02/22 08:00 75 23 114/69 (84) 98 Nasal Cannula 2.00 07/02/22 07:00 74 20 112/58 (76) 97 Nasal Cannula 2.00 07/02/22 06:56 74 07/02/22 06:00 70 23 111/48 (69) 97 Nasal Cannula 2.00 07/02/22 05:00 77 22 53/63 (60) 96 Nasal Cannula 2.00 07/02/22 04:00 Nasal Cannula 2.00 07/02/22 04:00 92 25 120/62 (81) 96 Nasal Cannula 2.00 07/02/22 03:27 36.9 07/02/22 03:00 92 25 143/77 (99) 97 Nasal Cannula 2.00 07/02/22 02:00 84 20 128/57 (80) 91 Nasal Cannula 2.00 07/02/22 01:00 91 07/02/22 01:00 91 20 130/75 (93) 97 Nasal Cannula 2.00 07/02/22 00:00 98 20 129/63 (85) 96 Nasal Cannula 2.00 07/01/22 23:54 Nasal Cannula 2.00 07/01/22 23:00 93 20 122/73 (89) 96 Nasal Cannula 2.00 07/01/22 22:00 92 18 126/60 (82) 95 Nasal Cannula 2.00 07/01/22 21:00 101 16 115/81 (92) 94 Nasal Cannula 2.00 07/01/22 20:00 92 18 91/79 (83) 96 Nasal Cannula 2.00 07/01/22 20:00 Nasal Cannula 2.00 07/01/22 19:43 37.1 89 143/77 (99) 96 Nasal Cannula 2.00 07/01/22 19:12 97 Nasal Cannula 2.00 07/01/22 19:00 90 07/01/22 19:00 86 18 128/72 (90) 94 Nasal Cannula 2.00 07/01/22 18:00 79 117/74 (88) 94 Nasal Cannula 2.00 07/01/22 17:00 86 112/63 (79) 93 Nasal Cannula 2.00 07/01/22 16:00 36.5 07/01/22 16:00 89 123/65 (84) 96 Nasal Cannula 2.00 07/01/22 15:21 Nasal Cannula 2.00 07/01/22 15:00 90 105/67 (80) 96 Nasal Cannula 2.00 07/01/22 14:00 80 104/70 (81) 96 Nasal Cannula 2.00 07/01/22 13:00 83 90/57 (68) 93 Nasal Cannula 2.00 07/01/22 12:40 79 07/01/22 12:19 36.4 07/01/22 12:00 80 83/53 (63) 94 Nasal Cannula 2.00 07/01/22 11:33 Nasal Cannula 2.00 07/01/22 11:00 89 88/67 (74) 92 Nasal Cannula 2.00 07/01/22 10:00 98 79/59 (66) 93 Nasal Cannula 2.00 I & O 07/02/22 07:00 Intake Total 700 ml Output Total 1075 ml Balance -375 ml Height & Weight Height: '" Weight: lbs. oz. kg; 24.69 BMI Method:Actual General Appearance: No Apparent Distress, Chronically ill, Other (semi- comatose) Respiratory: No Accessory Muscle Use, No Respiratory Distress, Decreased Breath Sounds Cardiovascular: Regular Rate, Rhythm Capillary Refill: Less Than 3 Seconds Gastrointestinal: soft, no organomegaly Results Lab Laboratory Tests 06/30/22 21:14 07/01/22 04:45 07/01/22 18:03 07/02/22 05:15 Assessment/Plan Assessment/Plan 1 RUBEN QUIÑONES MD Jul 02, 2022 09:17
[2022-07-02] MEDS: FUROSEMIDE 40 MG/4 ML INJ (LASIX) IV SCH (09:47)
[2022-07-02] MEDS ORDERED: CARB15DR OU (11:42)
--- NOTE | 2022-07-02 12:04 | Occupational Therapy Eval ---
OT Evaluation-General/PLF Medical Diagnosis Admission Date Jun 30, 2022 at 23:43 Medical Diagnosis: COVID 19, CHF exacerbation Onset Date: Jul 12, 2022 Therapy Diagnosis Therapy Diagnosis: decreased ADL status Precautions Precautions/Isolations: Droplet Isolation, Fall Prevention, Contact/Enteric Isolation Referral Physician: Skip Clay Reason: Evaluation/Treatment Medical History Pertinent Medical History: Atrial Fib, DM, Dementia, HTN Additional Medical History HTN, dementia, DM, afib Current History ED at [facility] diagnosed with PNA and AECHF requiring ICU admit. Pt swabbed for COVID and positive, pt positive for COVID-19 3 weeks ago at [facility] [place] Social History Home: Retirement ADL-Prior Level of Function SCALE: Activities may be completed with or without assistive devices. 4-Kpwrkocffh-cwkiozr completes the activity by him/herself with no assistance from a helper. 5-Set-up or Clean-up Assistance-helper sets up or cleans up; patient completes activity. [place] assists only prior to or following the activity. 4-Supervision or Touching Assistance-helper provides verbal cues and/or touching/steadying and/or contact guard assistance as patient completes acti vity. Assistance may be provided throughout the activity or intermittently. 3-Partial/Moderate Assistance-helper does LESS THAN HALF the effort. [place] lifts, holds or supports trunk or limbs, but provides less than half the effort. 2-Substantial/Maximal Assistance-helper does MORE THAN HALF the effort. [place] lifts or holds trunk or limbs and provides more than half the effort. 3-Qcmshdilp-falqmj does ALL the effort. Patient does none of the effort to complete the activity. Or, the assistance of 2 or more helpers is required for the patient to complete the activity. If activity was not attempted, code reason: 7-Patient Refused. 9-Not Applicable-not attempted and the patient did not perform the activity before the current illness, exacerbation or injury. 10-Not Attempted due to Environmental Limitations-(lack of equipment, weather restraints, etc.). 88-Not Attempted due to Medical Conditions or Safety Concerns. ADL PLOF Comments Pt unable to provide information about PLOF. Per last OT evaluation (06/2021), pt required assistance with all ADLS and IADLs and used a walker, w/c (total assist with manual) and motorized scooter. Self Care: Needed Some Help Functional Cognition: Needed Some Help OT Current Status Subjective Pt in bed, eyes open. Pt did not respond verbally to therapist throughout tx. Mental Status/Objective Patient Orientation: Non-Verbal/Aphasic, Eyes Open Attachments: Oxygen Current Upper Extremity ROM WFL, BUE AAROM shoulder flexion to approx 130 degrees Upper Extremity Strength grossly 2+/5 ADL-Treatment Shower/Bathe Self (QC): 1 (Per clinical judgment, pt would require total assist at this time.) Lower Body Dressing (QC): 1 (Per clinical judgment, pt would require total assist at this time.) On/Off Footwear (QC): 1 (Per clinical judgment, pt would require total assist at this time.) Toileting Hygiene (QC): 1 (Per clinical judgment, pt would require total assist at this time.) Other Treatments Pt in bed, eyes open. Pt unable to provide information about PLOF or home set up, and did not respond verbally to questions. OT asked pt to look at her, pt able turn eyes towards R side of bed where therapist was located. Pt able to follow instructions for UE screening with AAROM provided. In order to increase BUE Strength and activity tolerance, pt completed x10 reps each of the following AAROM: shoulder flexion, bicep curls, front punch. Post tx, pt in bed, call light in reach and all needs met, bed alarm activated. Education OT Patient Education: Correct positioning, Exercise program, Modified ADL techniques, Progress toward Goal/Update tx plan, Purpose of tx/functional activities Teaching Recipient: Patient Teaching Methods: Demonstration Response to Teaching: Return Demonstration OT Mcfp Goals Mcfp Goals Time Frame: Jul 12, 2022 Eating (QC): 3 Oral Hygiene (QC): 2 Shower/Bathe Self (QC): 2 Additional Goals: 1-Demonstrate ADL Tasks, 2-Verbalize Understanding, 3- ImproveStrength/Shannon 1=Demonstrate adherence to instructed precautions during ADL tasks. 2=Patient will verbalize/demonstrate understanding of assistive devices/modifications for ADL. 3=Patient will improve strength/tolerance for activity to enable patient to perform ADL's. OT Education/Plan Problem List/Assessment Assessment: Decreased Activ Tolerance, Decreased Safety Aware, Decreased UE Strength, Impaired Cognition, Impaired Coordination, Impaired Funct Balance, Impaired I ADL's, Impaired Self-Care Skills Discharge Recommendations Plan/Recommendations: Continue POC Treatment Plan/Plan of Care Patient would benefit from OT for education, treatment and training to promote independence in ADL's, mobility, safety and/or upper extremity function for ADL's. Plan of Care: ADL Retraining, Functional Mobility, UE Funct Exercise/Act Treatment Duration: Jul 12, 2022 Frequency: 3 times per week (3-5 times per week) Time/GCodes Start Time: 11:25 Stop Time: 11:33 Total Time Billed (hr/min): 8 Billed Treatment Time 1, JEWELS ALEXANDER OT Jul 02, 2022 12:04
--- NOTE | 2022-07-02 14:11 | Physical Therapy Evaluation ---
PT Evaluation-General Medical Diagnosis Admission Date Jun 30, 2022 at 23:43 Medical Diagnosis: COVID 19, CHF exacerbation Onset Date: Jul 12, 2022 Therapy Diagnosis Therapy Diagnosis: generalized weakness/debility Precautions Precautions/Isolations: Droplet Isolation, Fall Prevention, Contact/Enteric Isolation Referral Physician: Skip Reason for Referral: Evaluation/Treatment Medical History Pertinent Medical History: Atrial Fib, DM, Dementia (advanced), Heart Failure, HTN Current History EMS from [place] due to SOA and decreased SAO2 Reviewed History: Yes Social History Home: Longterm Prior Prior Level of Function SCALE: Activities may be completed with or without assistive devices. 5-Gsfgrgyyxo-xkrsscq completes the activity by him/herself with no assistance from a helper. 5-Set-up or Clean-up Assistance-helper sets up or cleans up; patient completes activity. [place] assists only prior to or following the activity. 4-Supervision or Touching Assistance-helper provides verbal cues and/or touching/steadying and/or contact guard assistance as patient completes activity. Assistance may be provided throughout the activity or intermittently. 3-Partial/Moderate Assistance-helper does LESS THAN HALF the effort. [place] lifts, holds or supports trunk or limbs, but provides less than half the effort. 2-Substantial/Maximal Assistance-helper does MORE THAN HALF the effort. [place] lifts or holds trunk or limbs and provides more than half the effort. 0-Uozrjbsyz-osnivs does ALL the effort. Patient does none of the effort to c omplete the activity. Or, the assistance of 2 or more helpers is required for the patient to complete the activity. If activity was not attempted, code reason: 7-Patient Refused. 9-Not Applicable-not attempted and the patient did not perform the activity before the current illness, exacerbation or injury. 10-Not Attempted due to Environmental Limitations-(lack of equipment, weather restraints, etc.). 88-Not Attempted due to Medical Conditions or Safety Concerns. Bed Mobility: 1 Transfers (B,C,W/C): 1 Gait: 2 Indoor Mobility (Ambulation): Needed Some Help Stairs: Not Applicalbe Prior Devices Use: Manual wheelchair, Walker PT Evaluation-Current Objective Patient Orientation: Confused, Non-Verbal/Aphasic, Eyes Open ROM/Strength ROM Lower Extremities bilateral LE WFL Strength Lower Extremities NT due to patient's inability to follow simple direction Integumentary/Posture Integumentary refer to nursing notes Bowel Incontinence: Yes Bladder Incontinence: Gillis Cath Neuromuscular (Tone, Coordination, Reflexes) diminished coordination Sensory Vision: Unable to Assess Hearing: Unable to Assess Transfers Roll Left to Right (QC): 1 (x 2) Sit to Lying (QC): 1 (x 2) Lying to Sitting/Side of Bed(Q: 1 (x 2) Gait Does the Patient Walk?: No and Walking Goal IS indicated Walk 10 feet (QC): 88 Walk 50 ft with 2 Turns(QC): 88 Gait Assistive Device: FWW Balance Sitting Static: Poor Sitting Dynamic: Poor Assessment/Needs 89 y.o. male, will be seen by skilled PT to address functional mobility to improve current LOF. Patient does have advanced dementia and is unable to follow simple direction. PT will reassess at the end of the week on continued POC. Rehab Potential: Poor PT Watermelon Harvesting Supervisor Goals Watermelon Harvesting Supervisor Goals PT Half-Way Goals Time Frame: Jul 20, 2022 Roll Left & Right (QC): 2 Sit to Lying (QC): 2 Lying-Sitting on Side/Bed(QC): 2 Sit to Stand (QC): 2 Chair/Okc-wx-Ldqhs Xfer(QC): 2 Walk 10 feet (QC): 2 Walk 50ft with 2 Turns (QC): 2 PT Plan Problem List Problem List: Activity Tolerance, Functional Strength, Safety, Balance, Gait, Transfer, Bed Mobility Treatment/Plan Treatment Plan: Continue Plan of Care Treatment Plan: Bed Mobility, Functional Activity Shannon, Functional Strength, Gait, Safety, Therapeutic Exercise, Transfers Treatment Duration: Jul 20, 2022 Frequency: 5 times per week Estimated Hrs Per Day: .25 hour per day Time/GCodes Time In: 1300 Time Out: 1318 Total Billed Treatment Time: 18 Total Billed Treatment 1 visit EVMod 18 min ADENIKE BROWN PT Jul 02, 2022 14:11
[2022-07-02 20:16] VITALS: BP 158/95
[2022-07-02] MEDS: FAMOTIDINE 20MG/2ML IV (PEPCID) IVP SCH (21:17)
[2022-07-03] VITALS: BP 163/85
[2022-07-03] MEDS: PIPERACILLIN SODIUM/TAZOBACTAM 4.5 GM in NS (IVPB) 100 ML IV SCH ×3 (03:23→20:15)
[2022-07-03 03:30] VITALS: BP 159/84
[2022-07-03 03:36] LABS: BASOPHILS % (AUTO) 1 % (0-10); EOSINOPHILS # (AUTO) 0.2 10^3/uL (0.0-0.3); EOSINOPHILS % (AUTO) 3 % (0-10); HEMATOCRIT 31 % (40-54); HEMOGLOBIN 9.9 g/dL (13.3-17.7); LYMPHOCYTES # (AUTO) 1.1 10^3/uL (1.0-4.0); LYMPHOCYTES % (AUTO) 15 % (12-44); MEAN CORPUSCULAR HEMOGLOBIN 31 pg (25-34); MEAN CORPUSCULAR HGB CONC 32 g/dL (32-36); MEAN CORPUSCULAR VOLUME 96 fL (80-99); MEAN PLATELET VOLUME 10.7 fL (9.0-12.2); MONOCYTES # (AUTO) 0.5 10^3/uL (0.0-1.0); MONOCYTES % (AUTO) 6 % (0-12); NEUTROPHILS # (AUTO) 5.4 10^3/uL (1.8-7.8); NEUTROPHILS % (AUTO) 75 % (42-75); PLATELET COUNT 189 10^3/uL (130-400); WHITE BLOOD COUNT 7.2 10^3/uL (4.3-11.0)
[2022-07-03 03:47] LABS: POTASSIUM 3.7 MMOL/L (3.6-5.0)
[2022-07-03 03:48] LABS: CALCIUM 8.6 MG/DL (8.5-10.1)
[2022-07-03 03:50] LABS: TOTAL PROTEIN 5.5 GM/DL (6.4-8.2)
[2022-07-03 03:52] LABS: BILIRUBIN,TOTAL 0.5 MG/DL (0.1-1.0)
[2022-07-03 03:53] LABS: CREATININE SERUM 0.84 MG/DL (0.60-1.30)
[2022-07-03 03:56] LABS: MAGNESIUM 1.9 MG/DL (1.6-2.4)
[2022-07-03] MEDS ORDERED: POTASSIUM CL 10MEQ/50ML IVPB 50 ML IV SCH (06:00)
[2022-07-03] MEDS ORDERED: KCL 20 MEQ TAB (K-DUR) PO SCH (06:00)
[2022-07-03] MEDS ORDERED: MAGNESIUM 1 GM/100 ML IVPB 100 ML IV SCH (06:00)
[2022-07-03] MEDS: CATHETER FLUSH 10 ML SYR IVP SCH ×3 (06:54→20:16)
[2022-07-03] MEDS: D5 LR IV SOLUTION 1,000 ML IV SCH ×2 (06:54→12:46)
[2022-07-03 07:39] VITALS: BP 161/73
--- NOTE | 2022-07-03 08:32 | Cardiology Progress Note ---
Progress Note-Cardiology Events since last exam Date Seen by Provider: Jul 03, 2022 Time Seen by Provider: 08:30 Events since last exam I am following him due to atrial fibrillation and abnormal BNP level. On 07/02 he was transferred from the ICU to the medical floor COVID unit. He appeared to be sleeping and did not respond to voice. I spoke with his nurse and there have been no new issues overnight. Certain portions of this document may have been dictated utilizing voice recognition technology. Inherent to this technology, typographical and grammatical errors may exist. As much as I am diligent to identify and correct these mistakes, some errors may remain in the document. Vitals Last set of Vitals Signs Vital Signs 07/03/22 07/03/22 05:47 11:33 Temp 36.3 Pulse 70 Resp 16 B/P (MAP) 128/65 (86) Pulse Ox 97 O2 Delivery Nasal Cannula O2 Flow Rate 2.00 FiO2 98 Labs Labs Laboratory Tests 07/03/22 03:32 Exam Vital Signs Vital Signs Date Time Temp Pulse Resp B/P (MAP) Pulse Ox O2 Delivery O2 Flow Rate FiO2 07/03/22 11:33 36.3 70 16 128/65 (86) 97 Nasal Cannula 2.00 07/03/22 05:47 98 Physical Exam Due to the patient's COVID status, I spoke with the patient from the doorway. General: The patient is breathing spontaneously. HENT: Normocephalic. Atraumatic. Skin: There is no pallor. Neurologic: Sleeping and not arousable to voice. Psychiatric: Not arousable to voice. He has known severe memory loss. Labs Laboratory Tests Test 07/03/22 03:32 Range/Units White Blood Count 7.2 4.3-11.0 10^3/uL Red Blood Count 3.24 L 4.30-5.52 10^6/uL Hemoglobin 9.9 L 13.3-17.7 g/dL Hematocrit 31 L 40-54 % Mean Corpuscular Volume 96 80-99 fL Mean Corpuscular Hemoglobin 31 25-34 pg Mean Corpuscular Hemoglobin Concent 32 32-36 g/dL Red Cell Distribution Width 14.6 H 10.0-14.5 % Platelet Count 189 130-400 10^3/uL Mean Platelet Volume 10.7 9.0-12.2 fL Immature Granulocyte % (Auto) 0 % Neutrophils (%) (Auto) 75 42-75 % Lymphocytes (%) (Auto) 15 12-44 % Monocytes (%) (Auto) 6 0-12 % Eosinophils (%) (Auto) 3 0-10 % Basophils (%) (Auto) 1 0-10 % Neutrophils # (Auto) 5.4 1.8-7.8 10^3/uL Lymphocytes # (Auto) 1.1 1.0-4.0 10^3/uL Monocytes # (Auto) 0.5 0.0-1.0 10^3/uL Eosinophils # (Auto) 0.2 0.0-0.3 10^3/uL Basophils # (Auto) 0.0 0.0-0.1 10^3/uL Immature Granulocyte # (Auto) 0.0 0.0-0.1 10^3/uL Sodium Level 149 H 135-145 MMOL/L Potassium Level 3.7 3.6-5.0 MMOL/L Chloride Level 113 H 98-107 MMOL/L Carbon Dioxide Level 26 21-32 MMOL/L Anion Gap 10 5-14 MMOL/L Blood Urea Nitrogen 20 H 7-18 MG/DL Creatinine 0.84 0.60-1.30 MG/DL Estimat Glomerular Filtration Rate 83 BUN/Creatinine Ratio 24 Glucose Level 170 H 70-105 MG/DL Calcium Level 8.6 8.5-10.1 MG/DL Corrected Calcium 9.4 8.5-10.1 MG/DL Magnesium Level 1.9 1.6-2.4 MG/DL Total Bilirubin 0.5 0.1-1.0 MG/DL Aspartate Amino Transf (AST/SGOT) 28 5-34 U/L Alanine Aminotransferase (ALT/SGPT) 32 0-55 U/L Alkaline Phosphatase 69 40-136 U/L Total Protein 5.5 L 6.4-8.2 GM/DL Albumin 3.0 L 3.2-4.5 GM/DL Diagnosis/Problems Diagnosis/Problems (1) Elevated brain natriuretic peptide (BNP) level Assessment & Plan: He had a mildly elevated BNP level at the time of admission but no other signs of heart failure. I do not believe he has heart failure. (2) Persistent atrial fibrillation Assessment & Plan: He continues to go in and out of atrial fibrillation. He had been on diltiazem at the nursing home facility but this is presently on hold due to COVID infection with intermittent hypotension. I had previously prescribed apixaban which did not profile on his medication list from the nursing home facility. I have again asked the nurse to check with the nursing home facility to see whether or not he has been taking this. His blood pressure is intermittently elevated. I will restart low-dose diltiazem. (3) Primary hypertension Status: Chronic Assessment & Plan: As above, his blood pressures have now been intermittently elevated. I will restart diltiazem but at a lower dose than what he was taking at home. We will monitor his blood pressures and adjust medication accordingly. (4) Pulmonary hypertension Assessment & Plan: His previous echocardiogram showed moderate pulmonary hypertension. We will just follow this longitudinally. Given his comorbid conditions and advanced age, I do not recommend an extensive evaluation for secondary causes of pulmonary hypertension as this would be unlikely to change his overall long-term prognosis. (5) Acute kidney injury Onset Date: ~ 06/26/2021 Status: Acute Assessment & Plan: His creatinine had been going up and down. I stopped his intravenous furosemide on 07/02. (6) Memory loss Assessment & Plan: His was previously adamant that he does not have dementia as noted by an evaluation at the [facility] in the past. However, he does clearly have significant memory loss and we need to keep this in mind in regards to future treatment goals. DEBORAH CALDWELL JR, MD Jul 03, 2022 08:32
[2022-07-03] MEDS: FAMOTIDINE 20MG/2ML IV (PEPCID) IVP SCH ×2 (09:47→20:16)
--- NOTE | 2022-07-03 10:45 | Physician Query Clarification ---
Physician Query-General Query to Physician: The medical record reflects the following clinical scenario: The patient, in the setting of History/Risk factors, Advanced age, Pneumonia, Covid Pos Clinical Findings Admission VS/Labs: HR 98, RR 22, BP 106/57, SpO2 91% sat on 2 L T 38.4, WBC 13.2, glucose 206, proBNP 2185, lactic acid 2.78, COVID-19 det ected, influenza A and influenza B not detected, BC X 1 pos for "Staph coag neg" Treatment Zosyn IV, vancomycin IV, Was felt to be fluid overloaded so Lasix IV, not given IV fluids initially Question: Do you agree with the impression of Sepsis per ED provider Dr. Gwendolyn Dumont? 1. Yes; will document Sepsis, present on admission in the Progress Notes 2. No; will continue current documentation in the Progress Notes 3. Other; will document explanation of clinical findings 4. Clinically undetermined; no explanation for clinical findings Please clarify and document your clinical opinion in the Progress Notes and Discharge Summary including the definitive and/or presumptive diagnosis, (suspected or probable), related to the above clinical findings. Please include clinical findings supporting your diagnosis. In responding to this query, please exercise your independent professional judg ment. The purpose of this communication is to more accurately reflect the complexity of your patients condition. The fact that a question is asked does not imply that any particular answer is desired or expected. Thank you for timely response to this clarification. Kesha Gale RN, MSN Clinical Corrective Therapist [phone] PHYSICIAN RESPONSE: Based on the clinical findings in the record, please respond to the query above on this document as an addendum. Physician Response: Physician Response sepsis If you have questions please contact: Mushroom Packer: Ext: Thank you for your time and cooperation. Clinical Corrective Therapist/Mushroom Packer This is a permanent part of the medical record KESHA GALE Jul 03, 2022 10:45 SERENITY BAUTISTA DO Jul 03, 2022 20:11
--- NOTE | 2022-07-03 10:50 | Physical Therapy Daily Note ---
PT Daily Note-Current Subjective Patient in bed pre tx, seems non-verbal, drowsy, but will open eyes. Appearance Patient in bed post tx with nurse call, phone, tray, heel float on pillow, SCD's on. Mental Status Patient Orientation: Unable to Assess, Non-Verbal/Aphasic Attachments: Oxygen, Gillis Catheter, IV Transfers SCALE: Activities may be completed with or without assistive devices. 8-Kqhzkmybls-hwiloac completes the activity by him/herself with no assistance from a helper. 5-Set-up or Clean-up Assistance-helper sets up or cleans up; patient completes activity. [place] assists only prior to or following the activity. 4-Supervision or Touching Assistance-helper provides verbal cues and/or touching/steadying and/or contact guard assistance as patient completes activity. Assistance may be provided throughout the activity or intermittently. 3-Partial/Moderate Assistance-helper does LESS THAN HALF the effort. [place] lifts, holds or supports trunk or limbs, but provides less than half the effort. 2-Substantial/Maximal Assistance-helper does MORE THAN HALF the effort. [place] lifts or holds trunk or limbs and provides more than half the effort. 9-Pejirwxus-xlafyc does ALL the effort. Patient does none of the effort to complete the activity. Or, the assistance of 2 or more helpers is required for the patient to complete the activity. If activity was not attempted, code reason: 7-Patient Refused. 9-Not Applicable-not attempted and the patient did not perform the activity before the current illness, exacerbation or injury. 10-Not Attempted due to Environmental Limitations-(lack of equipment, weather restraints, etc.). 88-Not Attempted due to Medical Conditions or Safety Concerns. Roll Left & Right (QC): 1 Sit to Lying (QC): 1 Lying to Sitting/Side of Bed(Q: 1 Dependent to sit to the side of the bed, after being positioned in a sitting position patient can sit without assist and performed some LE exercise and sat for about 5-6 min before laying back down. Exercises Seated Therapy Exercises: Ankle pumps, Long arc quads Seated Reps: 20 Treatments sitting, LE exercise Assessment Current Status: Poor Progress patient doesn't assist with supine <-> sit PT Loans Officer Goals Loans Officer Goals PT Loans Officer Goals Time Frame: Jul 20, 2022 Roll Left & Right (QC): 2 Sit to Lying (QC): 2 Lying-Sitting on Side/Bed(QC): 2 Sit to Stand (QC): 2 Chair/Nne-wb-Pywbr Xfer(QC): 2 Walk 10 feet (QC): 2 Walk 50ft with 2 Turns (QC): 2 PT Plan Problem List Problem List: Activity Tolerance, Functional Strength, Safety, Balance, Gait, Transfer, Bed Mobility, ROM Treatment/Plan Treatment Plan: Continue Plan of Care Treatment Plan: Bed Mobility, Functional Activity Shannon, Functional Strength, Gait, Safety, Therapeutic Exercise, Transfers Treatment Duration: Jul 20, 2022 Frequency: 5 times per week Estimated Hrs Per Day: .25 hour per day Safety Risks/Education Patient Education: Correct Positioning, Safety Issues Teaching Recipient: Patient Teaching Methods: Demonstration, Discussion Response to Teaching: Reinforcement Needed Time/GCodes Time In: 1019 Time Out: 1035 Total Billed Treatment Time: 16 Total Billed Treatment 1 visit FA 16' LEAH BURGESS PT Jul 03, 2022 10:50
[2022-07-03 11:33] VITALS: BP 128/65
[2022-07-03] MEDS ORDERED: dilTIAZem120 MG (CARDIZEM CD) CAP PO NR (12:15)
--- NOTE | 2022-07-03 13:27 | Occ Therapy Progress Note ---
Therapy Progress Note OT tx attempted,pt very lethargic and did not respond to verbal/tactile stimuli, or sternal rub. Pt unable to participate in skilled therapy at this time, OT will attempt tx again at next available time. 1, visit JEWELS GILES OT Jul 03, 2022 13:27
[2022-07-03 15:52] VITALS: BP 126/74
[2022-07-03 19:42] VITALS: BP 147/73
[2022-07-04 00:30] VITALS: BP 164/77
[2022-07-04 03:53] VITALS: BP 147/69
[2022-07-04] MEDS: PIPERACILLIN SODIUM/TAZOBACTAM 4.5 GM in NS (IVPB) 100 ML IV SCH ×2 (04:00→11:22)
[2022-07-04] MEDS: CATHETER FLUSH 10 ML SYR IVP SCH ×2 (04:01→11:56)
[2022-07-04] MEDS: D5 LR IV SOLUTION 1,000 ML IV SCH (06:10)
[2022-07-04 06:35] LABS: ALBUMIN 2.7 GM/DL (3.2-4.5)
[2022-07-04 06:36] LABS: BASOPHILS % (AUTO) 1 % (0-10); EOSINOPHILS # (AUTO) 0.2 10^3/uL (0.0-0.3); EOSINOPHILS % (AUTO) 4 % (0-10); HEMATOCRIT 29 % (40-54); HEMOGLOBIN 9.2 g/dL (13.3-17.7); LYMPHOCYTES # (AUTO) 1.1 10^3/uL (1.0-4.0); LYMPHOCYTES % (AUTO) 20 % (12-44); MEAN CORPUSCULAR HEMOGLOBIN 31 pg (25-34); MEAN CORPUSCULAR HGB CONC 31 g/dL (32-36); MEAN CORPUSCULAR VOLUME 97 fL (80-99); MEAN PLATELET VOLUME 11.3 fL (9.0-12.2); MONOCYTES # (AUTO) 0.5 10^3/uL (0.0-1.0); MONOCYTES % (AUTO) 9 % (0-12); NEUTROPHILS # (AUTO) 3.9 10^3/uL (1.8-7.8); NEUTROPHILS % (AUTO) 67 % (42-75); PLATELET COUNT 183 10^3/uL (130-400); POTASSIUM 3.7 MMOL/L (3.6-5.0); WHITE BLOOD COUNT 5.7 10^3/uL (4.3-11.0)
[2022-07-04 06:37] LABS: CALCIUM 8.3 MG/DL (8.5-10.1)
[2022-07-04 06:40] LABS: BILIRUBIN,TOTAL 0.4 MG/DL (0.1-1.0)
[2022-07-04 06:42] LABS: CREATININE SERUM 0.88 MG/DL (0.60-1.30)
[2022-07-04 06:45] LABS: MAGNESIUM 1.8 MG/DL (1.6-2.4)
[2022-07-04 07:25] VITALS: BP 120/68
[2022-07-04] MEDS ORDERED: dilTIAZem120 MG (CARDIZEM CD) CAP PO SCH (09:00)
[2022-07-04] MEDS: FAMOTIDINE 20MG/2ML IV (PEPCID) IVP SCH (09:45)
--- NOTE | 2022-07-04 10:41 | Physical Therapy Daily Note ---
PT Daily Note-Current Subjective Patient in bed pre tx, opens eyes but doesn't communicate. Appearance Patient in recliner post tx with nurse call, in room, nurse notified. Mental Status Patient Orientation: Unable to Assess, Non-Verbal/Aphasic Attachments: Oxygen, Gillis Catheter, IV Transfers SCALE: Activities may be completed with or without assistive devices. 6-Wzavpsywod-wihkafs completes the activity by him/herself with no assistance from a helper. 5-Set-up or Clean-up Assistance-helper sets up or cleans up; patient completes activity. [place] assists only prior to or following the activity. 4-Supervision or Touching Assistance-helper provides verbal cues and/or touching/steadying and/or contact guard assistance as patient completes activity. Assistance may be provided throughout the activity or intermittently. 3-Partial/Moderate Assistance-helper does LESS THAN HALF the effort. [place] lifts, holds or supports trunk or limbs, but provides less than half the effort. 2-Substantial/Maximal Assistance-helper does MORE THAN HALF the effort. [place] lifts or holds trunk or limbs and provides more than half the effort. 0-Npktthiki-hrmtkq does ALL the effort. Patient does none of the effort to complete the activity. Or, the assistance of 2 or more helpers is required for the patient to complete the activity. If activity was not attempted, code reason: 7-Patient Refused. 9-Not Applicable-not attempted and the patient did not perform the activity before the current illness, exacerbation or injury. 10-Not Attempted due to Environmental Limitations-(lack of equipment, weather restraints, etc.). 88-Not Attempted due to Medical Conditions or Safety Concerns. Roll Left & Right (QC): 1 Lying to Sitting/Side of Bed(Q: 1 Sit to Stand (QC): 3 Chair/Lct-eh-Njiiw Xfer(QC): 3 mod assist to stand from bed and needs mod assist to maintain balance when standing and help to guide walker Gait Training Distance: 5' Gait Assistive Device: FWW mod assist to recliner Exercises Seated Therapy Exercises: Long arc quads Seated Reps: 10 Treatments bed mobility and transfers, ambulation Assessment Current Status: Poor Progress patient was able to get out of bed and ambulate a few feet to the recliner but required a lot of assist that could probably only be provided by a skilled healthcare professional. PT Surveillance Observer Goals Surveillance Observer Goals PT Mcc Goals Time Frame: Jul 20, 2022 Roll Left & Right (QC): 2 Sit to Lying (QC): 2 Lying-Sitting on Side/Bed(QC): 2 Sit to Stand (QC): 2 Chair/Mrw-zj-Fjyqj Xfer(QC): 2 Walk 10 feet (QC): 2 Walk 50ft with 2 Turns (QC): 2 PT Plan Problem List Problem List: Activity Tolerance, Functional Strength, Safety, Balance, Gait, Transfer, Bed Mobility, ROM Treatment/Plan Treatment Plan: Continue Plan of Care Treatment Plan: Bed Mobility, Functional Activity Shannon, Functional Strength, Gait, Safety, Therapeutic Exercise, Transfers Treatment Duration: Jul 20, 2022 Frequency: 5 times per week Estimated Hrs Per Day: .25 hour per day Safety Risks/Education Patient Education: Gait Training, Transfer Techniques, Correct Positioning, Safety Issues Teaching Recipient: Patient Teaching Methods: Demonstration, Discussion Response to Teaching: Reinforcement Needed Time/GCodes Time In: 1010 Time Out: 1026 Total Billed Treatment Time: 16 Total Billed Treatment 1 visit FA LEAH MENSAH PT Jul 04, 2022 10:41
--- NOTE | 2022-07-04 11:08 | Occupational Ther Daily Note ---
OT Current Status-Daily Note Subjective Pt up in recliner, nonverbal during tx, but opened eyes some. Visitor at bedside. Mental Status/Objective Patient Orientation: Non-Verbal/Aphasic ADL-Treatment Therapy Code Descriptions/Definitions Functional [place] Measure: 0=Not Assessed/NA 4=Minimal Assistance 1=Total Assistance 5=Supervision or Setup 2=Maximal Assistance 6=Modified [place] 3=Moderate Assistance 7=Complete IndependenceSCALE: Activities may be completed with or without assistive devices. 2-Gwzrbttzeu-ldqpefo completes the activity by him/herself with no assistance from a helper. 5-Set-up or Clean-up Assistance-helper sets up or cleans up; patient completes activity. [place] assists only prior to or following the activity. 4-Supervision or Touching Assistance-helper provides verbal cues and/or touching/steadying and/or contact guard assistance as patient completes activity. Assistance may be provided throughout the activity or intermittently. 3-Partial/Moderate Assistance-helper does LESS THAN HALF the effort. [place] lifts, holds or supports trunk or limbs, but provides less than half the effort. 2-Substantial/Maximal Assistance-helper does MORE THAN HALF the effort. [place] lifts or holds trunk or limbs and provides more than half the effort. 6-Bsiffxqwf-mkjjjj does ALL the effort. Patient does none of the effort to complete the activity. Or, the assistance of 2 or more helpers is required for the patient to complete the activity. If activity was not attempted, code reason: 7-Patient Refused. 9-Not Applicable-not attempted and the patient did not perform the activity before the current illness, exacerbation or injury. 10-Not Attempted due to Environmental Limitations-(lack of equipment, weather restraints, etc.). 88-Not Attempted due to Medical Conditions or Safety Concerns. Other Treatment Pt up in recliner, visitor present and agreeable to OT tx. Visitor indicates pt likes to listen to music. In order to increase BUE strength and activity tolerance, pt completed x10 reps BUE AAROM shoulder flexion, and elbow flexion/extension. OT informed visitor to continue encouraging pt to complete exercises throughout the day, she verbalized understanding and agreement. Post tx, pt in recliner, call light in reach and all needs met. Education OT Patient Education: Correct positioning, Modified ADL techniques, Progress toward Goal/Update tx plan, Purpose of tx/functional activities Teaching Recipient: Patient Teaching Methods: Demonstration Response to Teaching: Return Demonstration, Reinforcement Needed OT Snf Goals Corncob Pipe Supervisor Goals Time Frame: Jul 12, 2022 Eating (QC): 3 Oral Hygiene (QC): 2 Shower/Bathe Self (QC): 2 Additional Goals: 1-Demonstrate ADL Tasks, 2-Verbalize Understanding, 3- ImproveStrength/Shannon 1=Demonstrate adherence to instructed precautions during ADL tasks. 2=Patient will verbalize/demonstrate understanding of assistive devices/modifications for ADL. 3=Patient will improve strength/tolerance for activity to enable patient to perform ADL's. OT Education/Plan Problem List/Assessment Assessment: Decreased Activ Tolerance, Decreased Safety Aware, Decreased UE Strength, Impaired Cognition, Impaired Coordination, Impaired Funct Balance, Impaired I ADL's, Impaired Self-Care Skills, Restricted Funct UE ROM Discharge Recommendations Plan/Recommendations: Continue POC Treatment Plan/Plan of Care Patient would benefit from OT for education, treatment and training to promote independence in ADL's, mobility, safety and/or upper extremity function for ADL's. Plan of Care: ADL Retraining, Functional Mobility, UE Funct Exercise/Act Treatment Duration: Jul 12, 2022 Frequency: 3 times per week (3-5 times per week) Rehab Potential: Poor Time/GCodes Start Time: 10:50 Stop Time: 11:00 Total Time Billed (hr/min): 10 Billed Treatment Time 1, EX JEWELS GILES OT Jul 04, 2022 11:08
[2022-07-04] MEDS ORDERED: LACTULOSE SYRUP 10GM/15ML (ENULOSE) 30ML UDC PO NR (11:30)
[2022-07-04] MEDS ORDERED: SENNA W/DOCUSATE (SENOKOT S) TABLET PO NR (11:30)
[2022-07-04 11:34] VITALS: BP 112/58
[2022-07-04] MEDS ORDERED: DILT-27 PO (12:08)
[2022-07-04] MEDS ORDERED: AMOX1TAB12 PO (12:08)
[2022-07-04] MEDS ORDERED: SENN1TAB76 PO (12:08)
--- NOTE | 2022-07-04 12:09 | Discharge Inst-Skilled Nursing ---
Discharge Inst-Skilled NF Reconcile Patient Problems Problems Reviewed?: Yes Chief Complaint CC: Acute respiratory failure HPI: This is an 89yoWM who presented to the ICU following an ER visit in [place] last last night who was dx with PNA and AECHF requiring ICU admit. IV abx maintained and Dr Pena consulted for CHF. Patient is normally mostly aphasic and has severe dementia baseline. COVID swab was positive and he had COVD 3 weeks ago when I admitted him to [facility]. Patient is DNR. Updated at her request and explained that he had poor reserve and it will be a challenge to overcome this illness and survive but she wanted aggressive care to continue. Patient needed a central line placed due to poor venous access. Patient Instructions Patient Problems: COVID DEbility Dementia Goal: independence versus hospice Consult/Follow Up/Orders Follow Up Appt.: Dr braun for 1 week Skilled NF Admit to: Certification (SNF) I certify that SNF services are required to be given on an inpatient basis because of the above named patient's need for senior care care on a continuing basis for the conditions(s) for which he/she was receiving inpatient hospital services prior to his/her transfer to the SNF. Snf Facility Order: Nursing Services, Lead Machinist-Evaluate & Treat, Physical Therapy-Evaluate & Treat, Speech Language-Evaluate & Treat Oxygen Delivery Method: Nasal Cannula Discharge Diet: No Restrictions Resuscitation Status: Do Not Resuscitate New & Resume Previous Orders New Medications: Amoxicillin/Potassium Clav (Amox Tr-K Clv 875-125 mg Tab) 875 Mg-125 Mg Tablet 1 EACH PO BID, #6 TAB Diltiazem HCl (Diltiazem 24Hr ER) 120 Mg Cap.er.24h 120 MG PO DAILY, #30 CAP Sennosides/Docusate Sodium (Stool Softener-Laxative Tablet) 8.6 Mg-50 Mg Tablet 1 EA PO 1130, #30 TAB Continued Medications: Aspirin (Aspirin EC) 81 Mg Tablet.dr 81 MG PO DAILY, TAB Carboxymethylcellulose Sodium (Refresh Tears) 0.5 % Drops 2 DROPS OU BID, DROPS Furosemide (Furosemide) 40 Mg Tablet 40 MG PO DAILY, TAB Insulin Aspart (Novolog Flexpen) 100 Unit/Ml (3 Ml) Solution 2 UNITS SC AC, UNITS Insulin Glargine,Hum.rec.anlog (Lantus Solostar) 100 Unit/Ml (3 Ml) Insuln.pen 10 UNIT SQ HS, EA Lisinopril (Lisinopril) 20 Mg Tablet 20 MG PO DAILY, TAB Metformin HCl (Metformin HCl) 500 Mg Tablet 1000 MG PO BID WITH MEALS, TAB TAKES 2 (500MG) TABS Tamsulosin HCl (Flomax) 0.4 Mg Cap 0.4 MG PO DAILY, CAP Trazodone HCl (Trazodone HCl) 50 Mg Tablet 50 MG PO HS, TAB Discontinued Medications: Diltiazem HCl (Diltiazem ER) 240 Mg Capsule.er 240 MG PO DAILY, CAP Ellen Bautista Jul 04, 2022 12:08 ELLEN BAUTISTA DO Jul 04, 2022 12:09
--- NOTE | 2022-07-04 12:10 | Discharge Summary ---
Discharge Summary Hospital Course Was the Problem List Reviewed?: Yes Problems/Dx: (1) COVID-19 Status: Acute (2) Elevated brain natriuretic peptide (BNP) level (3) Persistent atrial fibrillation (4) Primary hypertension Status: Chronic (5) Pulmonary hypertension (6) Acute kidney injury Status: Acute (7) Memory loss Hospital Course Date of Admission: Jun 30, 2022 at 23:43 Admission Diagnosis : Family Physician/Provider: Cecilio Cam MD Date of Discharge: 07/04/22 Discharge Diagnosis: COVID 19, dementia Hospital Course: Christopher is an 89yo male w/PMH of dementia and CHF who presented to the ER on 06/30 with shortness of breath. He was found to be hypotensive and had a UTI, as well as an exacerbation of his CHF. Pt was treated with IV fluids (as little as possible due to CHF) and abx. Patient tested positive for COVID as well. His poor prognosis was explained to his but she opted to proceed with aggressive treatment. A central line was placed on 07/01 and patient continued to receive IV abx. His diuretics were held due to hypotension. Christopher also has a known history of Afib and diltiazem was started as soon as his hypotension re solved. He had a cxr that was negative for pulmonary edema. He has improved on the abx and his blood pressure is normalized now. He is tolerating his diet without issues. Patient is currently on 2L of oxygen with sats in the high 90's. He is stable to [facility]. Labs and Pending Lab Test: Laboratory Tests 07/04/22 06:13: White Blood Count 5.7, Red Blood Count 3.02L, Hemoglobin 9.2L, Hematocrit 29L, Mean Corpuscular Volume 97, Mean Corpuscular Hemoglobin 31, Mean Corpuscular Hemoglobin Concent 31L, Red Cell Distribution Width 14.6H, Platelet Count 183, Mean Platelet Volume 11.3, Immature Granulocyte % (Auto) 0, Neutrophils (%) (Auto) 67, Lymphocytes (%) (Auto) 20, Monocytes (%) (Auto) 9, Eosinophils (%) (Auto) 4, Basophils (%) (Auto) 1, Neutrophils # (Auto) 3.9, Lymphocytes # (Auto) 1.1, Monocytes # (Auto) 0.5, Eosinophils # (Auto) 0.2, Basophils # (Auto) 0.0, Immature Granulocyte # (Auto) 0.0, Sodium Level 149H, Potassium Level 3.7, Chloride Level 113H, Carbon Dioxide Level 28, Anion Gap 8, Blood Urea Nitrogen 19H, Creatinine 0.88, Estimat Glomerular Filtration Rate 82, BUN/Creatinine Ratio 22, Glucose Level 158H, Calcium Level 8.3L, Corrected Calcium 9.3, Magnesium Level 1.8, Total Bilirubin 0.4, Aspartate Amino Transf (AST/SGOT) 46H, Alanine Aminotransferase (ALT/SGPT) 55, Alkaline Phosphatase 69, Total Protein 5.0L, Albumin 2.7L Microbiology 07/01/22 MRSA Screen - Final, Complete MRSA not isolated 06/30/22 Blood Culture - Preliminary, Resulted No growth 06/30/22 Urine Culture - Final, Complete NO GROWTH Home Meds Active Amox Tr-K Clv 875-125 mg Tab (Amoxicillin/Potassium Clav) 875 Mg-125 Mg Tablet 1 Each PO BID Stool Softener-Laxative Tablet (Sennosides/Docusate Sodium) 8.6 Mg-50 Mg Tablet 1 Ea PO 1130 Diltiazem 24Hr ER (Diltiazem HCl) 120 Mg Cap.er.24h 120 Mg PO DAILY Reported Refresh Tears (Carboxymethylcellulose Sodium) 0.5 % Drops 2 Drops OU BID Diltiazem ER (Diltiazem HCl) 240 Mg Capsule.er 240 Mg PO DAILY Lisinopril 20 Mg Tablet 20 Mg PO DAILY Aspirin EC (Aspirin) 81 Mg Tablet.dr 81 Mg PO DAILY Flomax (Tamsulosin HCl) 0.4 Mg Cap 0.4 Mg PO DAILY Furosemide 40 Mg Tablet 40 Mg PO DAILY Novolog Flexpen (Insulin Aspart) 100 Unit/Ml (3 Ml) Solution 2 Units SC AC Lantus Solostar (Insulin Glargine,Hum.rec.anlog) 100 Unit/Ml (3 Ml) Insuln.pen 10 Unit SQ HS Metformin HCl 500 Mg Tablet 1,000 Mg PO BID WITH MEALS TAKES 2 (500MG) TABS Trazodone HCl 50 Mg Tablet 50 Mg PO HS Assessment/Pt Instructions PCP on [facility] rounds Discharge Planning: <30 minutes discharge planning Discharge Instructions Discharge Diet: No Restrictions Activity as Tolerated: Yes Discharge Physical Examination Vital Signs Vital Signs Date Time Temp Pulse Resp B/P (MAP) Pulse Ox O2 Delivery O2 Flow Rate FiO2 07/04/22 11:34 36.2 86 16 112/58 (76) 98 Nasal Cannula 3.00 07/03/22 05:47 98 General Appearance: No Apparent Distress, WD/WN, Chronically ill Allergies: Coded Allergies: No Known Drug Allergies (Unverified , 06/08/20) Discharge Summary Date of Admission Jun 30, 2022 at 23:43 Date of Discharge Discharge Date: Jul 04, 2022 Admission Diagnosis Assessment: PNA CHF COVID Profound dementia Aphasia baseline CHA Volume overload Poor venous access Plan: Monitor closely DNR Updated Discharge Diagnosis Assessment: PNA CHF COVID Profound dementia Aphasia baseline CHA Volume overload Poor venous access Plan: Monitor closely DNR Comatose (1) Elevated brain natriuretic peptide (BNP) level Assessment & Plan: He had a mildly elevated BNP level at the time of admission but no other signs of heart failure. I do not believe he has heart failure. (2) Persistent atrial fibrillation Assessment & Plan: He continues to go in and out of atrial fibrillation. He had been on diltiazem at the [facility] facility but this is presently on hold due to COVID infection with intermittent hypotension. I had previously prescribed apixaban which did not profile on his medication list from the half-way facility. I have again asked the nurse to check with the half-way facility to see whether or not he has been taking this. His blood pressure is intermittently elevated. I will restart low-dose diltiazem. (3) Primary hypertension Status: Chronic Assessment & Plan: As above, his blood pressures have now been intermittently elevated. I will restart diltiazem but at a lower dose than what he was taking at home. We will monitor his blood pressures and adjust medication accordingly. (4) Pulmonary hypertension Assessment & Plan: His previous echocardiogram showed moderate pulmonary hypertension. We will just follow this longitudinally. Given his comorbid conditions and advanced age, I do not recommend an extensive evaluation for secondary causes of pulmonary hypertension as this would be unlikely to change his overall long-term prognosis. (5) Acute kidney injury Onset Date: ~ 06/26/2021 Status: Acute Assessment & Plan: His creatinine had been going up and down. I stopped his intravenous furosemide on 07/02. (6) Memory loss Assessment & Plan: His was previously adamant that he does not have de mentia as noted by an evaluation at the [facility] in the past. However, he does clearly have significant memory loss and we need to keep this in mind in regards to future treatment goals. SERENITY BAUTISTA DO Jul 04, 2022 12:10
--- NOTE | 2022-07-04 13:31 | Progress Note ---
Standard Progress Note Progress Notes/Assess & Plan Date Seen by a Provider: Jul 04, 2022 Time Seen by a Provider: 13:31 Progress/Assessment & Plan The [facility]. He has not been following with us as an outpatient. Since the patient has a discharge order, I did not see him today. DEBORAH CALDWELL JR, MD Jul 04, 2022 13:31
[2022-07-04 16:25] VITALS: BP 135/77
[2022-07-04 16:50] VITALS: BP 135/77
--- NOTE | 2022-07-04 18:18 | Progress Note ---
JASON ROSE 07/04/221817: Progress Note Christopher is an 89yo male w/PMH of dementia and CHF who presented to the ER on 06/30 with shortness of breath. He was found to be hypotensive and had a UTI, as well as an exacerbation of his CHF. Pt was treated with IV fluids (as little as possible due to CHF) and abx. Patient tested positive for COVID as well. His poor prognosis was explained to his but she opted to proceed with aggressive treatment. A central line was placed on 07/01 and patient continued to receive IV abx. His diuretics were held due to hypotension. Christopher also has a known history of Afib and diltiazem was started as soon as his hypotension resolved. He had a cxr that was negative for pulmonary edema. He has improved on the abx and his blood pressure is normalized now. He is tolerating his diet without issues. Patient is currently on 2L of oxygen with sats in the high 90's. He is stable to [facility]. ELLEN BAUTISTA DO 07/04/22 2014: Supervisory-Addendum Brief Verification & Attestation Participated in pt care: history, MDM, physical Personally performed: exam, history, MDM, supervision of care Care discussed with: Medical Student Procedures: n/a Results interpretation: Verified all documentation Verification and Attestation of Medical Student E/M Service A medical student performed and documented this service in my presence. I reviewed and verified all information documented by the medical student and made modifications to such information, when appropriate. I personally performed the physical exam and medical decision making. Ellen Bautista Jul 04, 2022,20:14 AJSON ROSE Jul 04, 2022 18:18 ELLEN BAUTISTA DO Jul 04, 2022 20:14
--- NOTE | 2022-07-04 20:45 | Progress Note - Hospitalist ---
Subjective HPI/CC On Admission Date Seen by Provider: Jul 03, 2022 Time Seen by Provider: 10:00 CC: Acute respiratory failure HPI: This is an 89yoWM who presented to the ICU following an ER visit in [facility] last last night who was dx with PNA and AECHF requiring ICU admit. IV abx maintained and Dr Pena consulted for CHF. Patient is normally mostly aphasic and has severe dementia baseline. COVID swab was positive and he had COVD 3 weeks ago when I admitted him to [facility]. Patient is DNR. Updated at her request and explained that he had poor reserve and it will be a challenge to overcome this illness and survive but she wanted aggressive care to continue. Patient needed a central line placed due to poor venous access. Subjective/Events-last exam Inadvertently missed noted on 07/03/22 Patient was seen and examined DC planned for Hospice candidate Review of Systems General: Fatigue, Malaise Objective Exam Vital Signs Vital Signs Date Time Temp Pulse Resp B/P (MAP) Pulse Ox O2 Delivery O2 Flow Rate FiO2 07/04/22 16:50 36.0 74 16 135/77 99 Nasal Cannula 2.00 07/03/22 05:47 98 Capillary Refill : Less Than 3 Seconds General Appearance: No Apparent Distress, WD/WN, Chronically ill Respiratory: Lungs Clear Cardiovascular: Regular Rate, Rhythm Results/Procedures Lab Laboratory Tests 07/04/22 06:13 Patient resulted labs reviewed. Assessment/Plan Assessment and Plan Assess & Plan/Chief Complaint Assessment: PNA CHF COVID Profound dementia Aphasia baseline CHA Volume overload Poor venous access Plan: Monitor closely DNR Comatose Diagnosis/Problems Diagnosis/Problems (1) COVID-19 Status: Acute (2) Elevated brain natriuretic peptide (BNP) level (3) Persistent atrial fibrillation (4) Primary hypertension Status: Chronic (5) Pulmonary hypertension (6) Acute kidney injury Onset Date: ~ 06/26/2021 Status: Acute (7) Memory loss SERENITY BAUTISTA DO Jul 04, 2022 20:45
== END 2022-07-04 16:50 | DRG 871 ==
LOC: EDUNIT# 21:13 → ER FS 21:15 → ICU 23:43 → 4TH 07-02 15:50
PROVIDERS: ADMIT Internal Medicine; ATTEND Internal Medicine
PROC: 05HN33Z Insertion of Infusion Device into Left Internal Jugular Vein, Percutaneous Approach (ICD-10-PCS; principal; 2022-07-01)
DX: A41.9 Sepsis, unspecified organism (principal); U07.1 COVID-19; J96.01 Acute respiratory failure with hypoxia; N39.0 Urinary tract infection, site not specified; G93.40 Encephalopathy, unspecified; I48.19 Other persistent atrial fibrillation; R47.01 Aphasia; N17.9 Acute kidney failure, unspecified; I82.612 Acute embolism and thrombosis of superficial veins of left upper extremity; G30.9 Alzheimer's disease, unspecified; F02.80 Dementia in other diseases classified elsewhere, unspecified severity, without behavioral disturbance, psychotic disturbance, mood disturbance, and anxiety; I11.0 Hypertensive heart disease with heart failure; I50.9 Heart failure, unspecified; I27.20 Pulmonary hypertension, unspecified; D64.9 Anemia, unspecified; R13.10 Dysphagia, unspecified; Z66 Do not resuscitate; E11.9 Type 2 diabetes mellitus without complications; Z85.51 Personal history of malignant neoplasm of bladder; L89.629 Pressure ulcer of left heel, unspecified stage; L89.619 Pressure ulcer of right heel, unspecified stage; Z79.84 Long term (current) use of oral hypoglycemic drugs; Z79.82 Long term (current) use of aspirin
CPT/HCPCS: 36415; 71045; 80048; 80053; 80202; 81000; 82805; 82947; 83605; 83735; 83880; 84100; 84484; 85007; 85025; 85027; 87040; 87081; 87088; 87636; 93005; 94760